=== PATIENT | male | born 1940 | race Caucasian/White ===

== ENCOUNTER 2016-07-18 11:06 | Inpatient (IN) ==
--- NOTE | 2016-07-18 11:15 | Emergency Department Note ---
Disposition Clinical Impression: Acute and chronic respiratory failure Qualifiers: Respiratory failure complication: unspecified whether with hypoxia or hypercapnia Qualified Code(s): J96.20 - Acute and chronic respiratory failure, unspecified whether with hypoxia or hypercapnia Atrial fibrillation Qualifiers: Atrial fibrillation type: unspecified Qualified Code(s): I48.91 - Unspecified atrial fibrillation Disposition: Admitted As Inpatient Condition: Critical Referrals: Jose Lorenz DO [Primary Care Provider] - Forms: ED Satisfaction Letter Time of Disposition: 15:03 SOB HPI - General Chief Complaint: ED Shortness of Breath/Dyspnea Stated Complaint: RONALD Time Seen by Provider: 07/18/16 11:14 Nursing Notes Reviewed: Yes Vital Signs Reviewed: Yes - History of Present Illness Mr. Reyes, a 76yo male, presents from oncology office with chief complaint of dyspnea. Onset one week ago continuous; not progressive and not improved. Patient uses no supplemental oxygen at baseline. He has been using his 's home on oxygen and nebulizer therapies without improvement. Hx previous remote DVT. 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 Last chemotherapy was approximately 8 weeks ago. Oncologist: ROS: Patient denies fever, chills, nausea, vomiting, unusual cough, unusual weakness. - Related Data Home Medications Medication Instructions Recorded Confirmed Albuterol Sulfate [Albuterol 2 puff IH Q4HR PRN 08/07/15 07/18/16 Inhaler] Budesonide/Formoterol 160/4.5 2 puff IH BIDR 08/07/15 07/18/16 [Symbicort 160/4.5] Nitroglycerin [Nitrostat] 0.4 mg SL Q5M PRN 08/07/15 07/18/16 Rivaroxaban [Xarelto] 15 mg PO Q48H 08/07/15 07/18/16 Fluticasone Propionate Nasal 2 spray NS PRN PRN 10/25/15 07/18/16 [Flonase] Naproxen Sodium [Aleve] 220 mg PO PRN PRN 10/25/15 07/18/16 Magic Mouthwash 10 ml PO TID PRN 07/18/16 07/18/16 Oxycodone HCl/Acetaminophen 1 tab PO Q6H PRN 07/18/16 07/18/16 [Percocet 5-325 mg Tablet] Previous Rx's Medication Instructions Recorded Lidocaine/Prilocaine CREAM [Emla] 5 gm TP AD #1 tube 09/10/15 Omeprazole [PriLOSEC] 20 mg PO DAILY #90 capsule 09/10/15 Ondansetron [Zofran] 8 mg PO Q8HR PRN #90 tablet 09/10/15 Prochlorperazine Maleate 10 mg PO Q6HR PRN #90 tablet 09/10/15 [Compazine] amLODIPine [Norvasc] 10 mg PO DAILY #60 tablet 01/09/16 Loperamide [Imodium] 2 mg PO AD PRN #60 capsule 05/01/16 Magnesium Oxide [Magnesium] 400 mg PO BID #60 tablet 06/02/16 Ferrous Sulfate [Iron] 325 mg PO BID #60 tablet 06/09/16 Megestrol Acetate [Megace] 10 ml PO BID #400 mls 06/12/16 Cyanocobalamin (B-12) [Vitamin B12] 1,000 mcg PO DAILY #90 tablet 07/04/16 L. Acidophilus/Pectin, [place] 1 cap PO DAILY #30 capsule 07/04/16 [Acidophilus Probiotic Capsule] LORazepam [Ativan] 0.5 mg PO Q6H PRN #90 tablet 07/04/16 Lipase/Protease/Amylase [[place] 1 each PO TIDWM #90 capsule. 07/04/16 10,500 Unit Cap] Allergies Allergy/AdvReac Type Severity Reaction Status Date / Time Penicillins Allergy Severe Swelling Verified 05/29/16 09:59 of Lip/Tongue/Throat All systems ED: reviewed and negative except as stated. Past Medical History - Past Medical History Medical history: Reports: atrial fibrillation, COPD, coronary artery disease, DVT, diabetes, hyperlipidemia, hypertension Surgical history: Reports: carotid endarterectomy, cholecystectomy, coronary bypass (CABG) Psychiatric history: Reports: anxiety, depression - Social History Smoking Status: Current every day smoker Smokeless Tobacco Status: No Alcohol use: Reports: occasionally, recent Drug use: Reports: none Physical Exam Vital signs reviewed. Patient afebrile, tachypneic, tachycardic, and not hypoxic on some oxygen. General: Patient is alert, oriented, and in mild respiratory distress. Cachectic in appearance. HEENT: No facial asymmetry. Head is normocephalic and atraumatic. Nasal turbinates moist and pink. Posterior pharynx without exudates or cobblestoning. Trachea midline. Cardiovascular: Heart regular rate and tachycardic rhythm without clicks, rubs, gallops, or murmurs. No JVD. PMI nondisplaced. Respiratory: Symmetric chest rise with poor respiratory effort with prolonged expiration phase. Bilateral breath sounds are coarse with diffuse crackles. Abdomen: Scaphoid. Bowel sounds present normoactive x-4 quadrants. Abdomen is soft, nondistended, and nontender. Large subxiphoid hernia which is reviewed reducible and nonpainful. Psych: Patient's affect is appropriate for situation. Course Course Narrative: Patient has known history of lung cancer with clinically acute worsening of his dyspnea. Concern includes PE. WELLS 2.5 PERC 2 Will draw d-dimer. Chest x-ray unremarkable for acute changes. Chest X-Ray 07/18/16 11:25 IMPRESSION: 1. No significant change in the appearance of the chest with a right lower lobe mass. No acute abnormality. D/ / Buddy Alvarez MD / Buddy Alvarez MD Interpreting Provider: Buddy Alvarez MD Lab work does show mild leukocytosis however this could be stress response given the patient's dyspnea. Also mild hyponatremia. Of concern, is elevated d-dimer greater than 1700. Concern for pulmonary embolism. CTA ordered. BUN/creatinine are normal. CTA negative for PE. Suspected bronchopulmonary occlusion. Chest X-Ray 07/18/16 11:25 IMPRESSION: 1. No significant change in the appearance of the chest with a right lower lobe mass. No acute abnormality. D/ / Buddy Alvarez MD / Buddy Alvarez MD Interpreting Provider: Buddy Alvarez MD Chest CTA 07/18/16 12:38 IMPRESSION: 1. No acute pulmonary emboli. 2. Progressive right lower lobe atelectasis with essentially stable though partially obscured right lower lobe mass with bronchial occlusion. 3. Mild interval progression of subcarinal lymphadenopathy. 4. New right middle lobe densities which may represent possible bronchiolitis or post treatment vasculitis. 5. Stable bilateral pleural effusions. D/ / 07/18/2016 13:59:50 William Sanchez MD / ayesha Interpreting Provider: William Sanchez MD [address] Restrepo who agrees to accept the patient - acute on chronic respiratory failure, atrial fibrillation. Vital Signs Temperature 97.6 F 07/18/16 11:07 Pulse Rate 104 07/18/16 11:07 Respiratory Rate 24 07/18/16 11:07 Blood Pressure 149/78 07/18/16 11:07 O2 Sat by Pulse Oximetry 100 07/18/16 11:07 Temperature 97.6 F 07/18/16 11:07 Pulse Rate 118 07/18/16 14:46 Respiratory Rate 18 07/18/16 14:46 Blood Pressure 101/77 07/18/16 14:46 O2 Sat by Pulse Oximetry 96 07/18/16 14:46 Oxygen Delivery Oxygen Delivery Nasal Cannula Shortness of Breath/Dyspnea - Medical Records Medical records reviewed: Yes I reviewed the patient's medical records. - Lab Data Lab results reviewed: Yes I reviewed the patient's lab results. Result diagrams: 07/18/16 11:26 07/18/16 11:26 Lab Results 07/18/16 07/18/16 07/18/16 Range/Units 11:26 11:26 11:26 WBC 13.3 H (4.3-11.1) K/mcL RBC 3.98 L (4.19-5.50) M/mcL Hgb 11.7 L (12.9-16.9) g/dL Hct 35.1 L (37.5-50.1) % MCV 88.2 (83.0-100.0) fL MCH 29.4 (28.0-33.3) pg MCHC 33.3 (31.6-35.5) g/dL RDW 14.5 (11.5-14.5) % Plt Count 351 (140-400) K/mcL MPV 10.0 (9.4-12.4) fL Immature Gran % 0.5 (0-4) % Seg Neutrophils % 71.8 % Lymphocytes % 12.5 % Monocytes % 9.7 % Eosinophils % 5.0 % Basophils % 0.5 % Neutrophils # 9.5 H (1.6-8.9) K/mcL Lymphocytes # 1.7 (0.6-4.6) K/mcL Monocytes # 1.3 (0.0-1.3) K/mcL Eosinophils # 0.7 H (0.0-0.6) K/mcL Basophils # 0.1 (0.0-0.2) K/mcL D-Dimer (0-500) ng/mLFEU VBG pH (7.32-7.42) pH Units VBG pCO2 (41-51) mmHg VBG pO2 (25-40) mmHg VBG HCO3 (21-27) mEq/L Sodium 133 L (136-145) mEq/L Potassium 3.7 (3.5-4.5) mEq/L Chloride 104 (98-109) mEq/L Carbon Dioxide 14 L (19-29) mEq/L BUN 24 (8-26) mg/dL Creatinine 0.99 (0.72-1.25) mg/dL Est GFR ( Amer) > 60 (> 60) Est GFR (Non-Af Amer) > 60 (> 60) BUN/Creatinine Ratio 24 (6-26) Glucose 98 (70-99) mg/dL Calculated Osmolality 280 (280-300) Calcium 9.0 (8.6-10.8) mg/dL Troponin I 0.01 (0-0.03) ng/mL B-Natriuretic Peptide (0-100) pg/mL 07/18/16 07/18/16 07/18/16 Range/Units 11:26 11:26 12:15 WBC (4.3-11.1) K/mcL RBC (4.19-5.50) M/mcL Hgb (12.9-16.9) g/dL Hct (37.5-50.1) % MCV (83.0-100.0) fL MCH (28.0-33.3) pg MCHC (31.6-35.5) g/dL RDW (11.5-14.5) % Plt Count (140-400) K/mcL MPV (9.4-12.4) fL Immature Gran % (0-4) % Seg Neutrophils % % Lymphocytes % % Monocytes % % Eosinophils % % Basophils % % Neutrophils # (1.6-8.9) K/mcL Lymphocytes # (0.6-4.6) K/mcL Monocytes # (0.0-1.3) K/mcL Eosinophils # (0.0-0.6) K/mcL Basophils # (0.0-0.2) K/mcL D-Dimer 1781 H (0-500) ng/mLFEU VBG pH 7.27 L (7.32-7.42) pH Units VBG pCO2 38 L (41-51) mmHg VBG pO2 50 H (25-40) mmHg VBG HCO3 17.4 L (21-27) mEq/L Sodium (136-145) mEq/L Potassium (3.5-4.5) mEq/L Chloride (98-109) mEq/L Carbon Dioxide (19-29) mEq/L BUN (8-26) mg/dL Creatinine (0.72-1.25) mg/dL Est GFR ( Amer) (> 60) Est GFR (Non-Af Amer) (> 60) BUN/Creatinine Ratio (6-26) Glucose (70-99) mg/dL Calculated Osmolality (280-300) Calcium (8.6-10.8) mg/dL Troponin I (0-0.03) ng/mL B-Natriuretic Peptide 178 H (0-100) pg/mL - Radiology Data Radiology results reviewed: Yes I reviewed the patient's radiology results. - EKG Data EKG attestation: Yes I reviewed and interpreted this EKG. EKG results narrative: EKG dated 07/18/16 at 11:08 interpreted as A. fib with RVR with rate of 108. Right bundle branch block. Compared to previous dated 07/31/2015 which is normal sinus rhythm shows new onset A. fib.
[2016-07-18] MEDS ORDERED: Ipratropium/Albuterol Neb 3 ML IH ONE (11:27)
[2016-07-18 11:41] LABS: Basophils # 0.1 K/mcL (0.0-0.2); Basophils % 0.5 %; Eosinophils # 0.7 K/mcL (0.0-0.6); Hematocrit 35.1 % (37.5-50.1); Hemoglobin 11.7 g/dL (12.9-16.9); Immature Granulocytes % 0.5 % (0-4); Lymphocytes # 1.7 K/mcL (0.6-4.6); Lymphocytes % 12.5 %; Mean Corpuscular HGB Conc 33.3 g/dL (31.6-35.5); Mean Corpuscular Hemoglobin 29.4 pg (28.0-33.3); Mean Corpuscular Volume 88.2 fL (83.0-100.0); Monocytes # 1.3 K/mcL (0.0-1.3); Monocytes % 9.7 %; Neutrophils # 9.5 K/mcL (1.6-8.9); Platelet Count 351 K/mcL (140-400); Red Blood Count 3.98 M/mcL (4.19-5.50); Red Cell Distribution Width 14.5 % (11.5-14.5); Segmented Neutrophils % 71.8 %
[2016-07-18 11:53] LABS: BUN/Creatinine Ratio 24 (6-26); Blood Urea Nitrogen 24 mg/dL (8-26); Carbon Dioxide 14 mEq/L (19-29); Chloride 104 mEq/L (98-109); Glucose 98 mg/dL (70-99); Osmolality,Calculated 280 (280-300); Potassium 3.7 mEq/L (3.5-4.5); Sodium 133 mEq/L (136-145); eGFR For African Americans > 60 (> 60); eGFR For Non-African Americans > 60 (> 60)
[2016-07-18 12:23] LABS: VBG HCO3 17.4 mEq/L (21-27); VBG PH 7.27 pH Units (7.32-7.42)
--- NOTE | 2016-07-18 12:46 | Emergency Department Note ---
START Narrative - START START: I examined this patient and my medical decision-making was reviewed with the BALER OPERATOR/PA/Advanced Practice Nurse/Resident Physician. I agree with the documented findings, disposition and treatment plan as described except to the extent set forth below. ED attending: Patient's emergency medicine resident Dr. Salazar. Please see copy of this note for H&P evaluation and management and ED disposition. We both had independent [id number] time in contact with this patient. Briefly: A 76-year-old male by EMS from [place] for increased dyspnea one week worse today. Being treated for lung cancer. Dr. COLUNGA is the patient's oncologist. History of DVT in the distant past. WELL'S score is 4.2 which is moderate risk. Patient's D-dimer is over 1700;markedly elevated concerning for possible pulmonary embolism. Patient is TACHYPNEIC, tachycardic but normotensive. Patient to get a chest CT and then likely admitted even if the chest CT is negative. EKG shows sinus tachycardia troponin negative provided 45 minutes of critical care service this patient. Disposition pending.
[2016-07-18] MEDS: *HR* Metoprolol 5 MG/5 ML VIAL IVP SCH (15:18)
[2016-07-18] MEDS ORDERED: Ondansetron 4 MG/2 ML VIAL IVP PRN (16:55)
[2016-07-18] MEDS ORDERED: Naloxone 0.4 MG/ML INJ IVP PRN (16:55)
[2016-07-18] MEDS ORDERED: Acetaminophen 325 MG TABLET PO PRN (16:55)
[2016-07-18] MEDS ORDERED: Nitroglycerin 0.4 MG TAB.SUBL SL PRN (17:03)
[2016-07-18] MEDS ORDERED: Magic Mouthwash 10 ML UD Cup PO PRN (17:03)
[2016-07-18] MEDS ORDERED: *HR* LORazepam 0.5 MG TABLET PO PRN (17:03)
[2016-07-18] MEDS ORDERED: *HR* HYDROcodone/Acet 5/325 mg TABLET PO PRN (17:26)
--- NOTE | 2016-07-18 17:41 | Internal Med History&Physical ---
Date of Encounter: 07/18/16 Time of Encounter: 16:00 Assessment and Plan (1) Acute and chronic respiratory failure Current visit: Yes Status: Acute 1 patient has history of COPD as well as squamous cell carcinoma of the lung. He is not on any home oxygen he has grown increasingly short of breath over the past week. We will continue with oxygen titrating maintain SPO2 greater than 92 % 2 continue with DuoNeb's as needed 3 we will consult pulmonology-order has been placed dayshift will follow-up with call-unsure how aggressive patient would still be concerning treatment [address] reveals some r middle lobe densities he does not have any fever or leukocytosis we will monitor for now, hold off on ATB Qualifiers: Respiratory failure complication: hypoxia Qualified Code(s): J96.21 - Acute and chronic respiratory failure with hypoxia (2) Atrial fibrillation Current visit: Yes Status: Acute 1 patient has history of atrial fibrillation who presented today in A. fib RVR- suspect related to hypoxia-he was given IV Lopressor which did bring down his rate. 2 we will continue with his xarelto Qualifiers: Atrial fibrillation type: unspecified Qualified Code(s): I48.91 - Unspecified atrial fibrillation (3) COPD (chronic obstructive pulmonary disease) Current visit: No Status: Chronic 1 continue with oxygen as well as bronchodilators Qualifiers: COPD type: unspecified COPD Qualified Code(s): J44.9 - Chronic obstructive pulmonary disease, unspecified (4) Primary squamous cell carcinoma of right lung Current visit: No Status: Chronic 1 patient's receiving chemotherapy last treatment was 8 weeks ago. We will consult oncology 2 we did discuss CODE STATUS the patient wants to be DNR CCA no intubation 3 consult pallative (5) DVT prophylaxis Current visit: Yes Status: Acute on xarelto Internal Medicine - H&P: HPI Chief complaint: Shortness of breath Admitted From: Emergency Dept Plans for Post Hospital Care: Home History of present illness: Mr. Reyes is a 76 year old male past medical history of coronary disease with CABG 2 hypertension history of DVT COPD peripheral vascular disease atrial fibrillation squamous cell carcinoma of the lung. According to the patient he has been receiving chemotherapy for right-sided lung cancer. His last chemotherapy treatment was approximately 8 weeks ago. His oncologist is . He does not use any oxygen at home. For the past week he is growing increasingly short of breath. He denies any fevers or chills he does have a cough which is nonproductive. He continues to smoke however he states he has not been able to smoke due to shortness of breath. He has lost approximately 10 pounds in last few weeks He presented to his oncologist today for routine follow-up and was advised to go to the emergency department. According to ER records he was treated As well as tachycardic on presentation EKG. To be atrial fibrillation he was given IV Lopressor which did saw him down. He was placed on 4 L nasal cannula oxygen saturation improved to 99%. Patient does have past history DVT in history of cancer or CTA was performed which did show no acute pulmonary emboli progressive right lower lobe atelectasis with essentially stable though partially obscured right lower lobe mass with bronchial occlusion Right middle lobe densities which may represent possible bronchiolitis or possible treatment vasculitis stable bilateral pleural effusions. Patient was given breathing treatments respiratory status improved. He has been admitted for further workup and evaluation. Presently patient does not appear to be any respiratory distress he denies any chest pain at this time. During assessment patient does develop conversational dyspnea does admit to orthopnea. He states he feels like he coughs and cannot get anything up. His lung sounds scattered rhonchi and wheezes throughout arcos he has a moist nonproductive cough. Heart sounds S1-S2 irregular rate no rubs gallops or murmur clicks noted. Patient and I did have a discussion concerning CODE STATUS as well as end-of-life. Patient states he would like to be a DNR comfort care arrest DO NOT INTUBATE. We discussed palliative care patient was agreeable. Reviewed his case with who agrees with plan Past Med Surg Social Fam HX - Past Medical History Medical history: atrial fibrillation, COPD, coronary artery disease, DVT, diabetes, hyperlipidemia, hypertension Psychiatric history: anxiety, depression - Past Surgical History Surgical History: carotid endarterectomy, cholecystectomy, coronary bypass (CABG ) - Social History Smoking Status: Current every day smoker Smokeless Tobacco Status: No Alcohol use: occasionally, recent Drug use: none - Family History Father Living Status: Age at : 90 Cause of : Prostate cancer Mother Living Status: Age at : 90 Cause of : Heart disease Internal Medicine - H&P: Meds Albuterol Sulfate [Albuterol Inhaler] 2 puff IH Q4HR PRN 08/07/15 [History] Budesonide/Formoterol 160/4.5 [Symbicort 160/4.5] 2 puff IH BIDR 08/07/15 [ History] Nitroglycerin [Nitrostat] 0.4 mg SL Q5M PRN 08/07/15 [History] Rivaroxaban [Xarelto] 15 mg PO Q48H 08/07/15 [History] Lidocaine/Prilocaine CREAM [Emla] 5 gm TP AD #1 tube 09/10/15 [Rx] Omeprazole [PriLOSEC] 20 mg PO DAILY #90 capsule 09/10/15 [Rx] Ondansetron [Zofran] 8 mg PO Q8HR PRN #90 tablet 09/10/15 [Rx] Prochlorperazine Maleate [Compazine] 10 mg PO Q6HR PRN #90 tablet 09/10/15 [Rx] Fluticasone Propionate Nasal [Flonase] 2 spray NS PRN PRN 10/25/15 [History] Naproxen Sodium [Aleve] 220 mg PO PRN PRN 10/25/15 [History] amLODIPine [Norvasc] 10 mg PO DAILY #60 tablet 01/09/16 [Rx] Loperamide [Imodium] 2 mg PO AD PRN #60 capsule 05/01/16 [Rx] Magnesium Oxide [Magnesium] 400 mg PO BID #60 tablet 06/02/16 [Rx] Ferrous Sulfate [Iron] 325 mg PO BID #60 tablet 06/09/16 [Rx] Megestrol Acetate [Megace] 10 ml PO BID #400 mls 06/12/16 [Rx] Cyanocobalamin (B-12) [Vitamin B12] 1,000 mcg PO DAILY #90 tablet 07/04/16 [Rx] L. Acidophilus/Pectin, [place] [Acidophilus Probiotic Capsule] 1 cap PO DAILY # 30 capsule 07/04/16 [Rx] LORazepam [Ativan] 0.5 mg PO Q6H PRN #90 tablet 07/04/16 [Rx] Lipase/Protease/Amylase [[place] 10,500 Unit Cap] 1 each PO TIDWM #90 gagandeep. 07/04/16 [Rx] Magic Mouthwash 10 ml PO TID PRN 07/18/16 [History] Oxycodone HCl/Acetaminophen [Percocet 5-325 mg Tablet] 1 tab PO Q6H PRN [History] Allergies Penicillins Allergy (Severe, Verified 05/29/16 09:59) Swelling of Lip/Tongue/Throat All Systems PM: A 10-system review of systems was performed and is negative for pertinent findings except as documented above in the HPI. - Constitutional Constitutional: anorexia, fatigue, weakness, weight loss - EENT Eyes: no change in vision, no discharge, no pain, no photophobia Nose, mouth and throat: no dysphagia, no nasal discharge, no neck pain, no sore throat - Cardiovascular Cardiovascular ROS IM: dyspnea, orthopnea - Respiratory Respiratory: cough, dyspnea - Gastrointestinal Gastrointestinal: diarrhea, no abdominal pain, no hematemesis, no hematochezia, no melena, no nausea, no vomiting - Musculoskeletal Musculoskeletal ROS IM: no numbness, no tingling - Neurological Neurological ROS: no confusion, no convulsions, no focal weakness, no numbness, no tingling, no tremor(s) - Constitutional Vitals: Temp Pulse Resp BP Pulse Ox 97.6 F 92 16 145/73 98 07/18/16 16:06 07/18/16 15:19 07/18/16 16:43 07/18/16 16:43 07/18/16 16:43 General appearance: Present: cachectic, A&O X 3 - Head Head exam: Present: atraumatic, normocephalic - Eye Eye exam: Present: PERRL, conjuntiva pink, sclera anicteric Pupils: Present: PERRL - Neck Neck exam general surgery: Present: supple, trachea midline. Absent: lymphadenopathy - Respiratory Respiratory exam: Present: rhonchi, wheezes - Cardiovascular Cardiovascular exam: Present: RRR, +S1, +S2. Absent: diastolic murmur, gallop, rubs, systolic murmur - GI/Abdominal GI/Abdominal exam: Present: normal bowel sounds, soft, no peritoneal signs. Absent: distended, tenderness - Extremities Exam Extremities exam: Present: warm, radial pulses palpable and symetrical. Absent : calf tenderness, cyanotic, pedal edema - Neurological Exam Neurological exam: Present: CN II-XII intact, oriented X3, no focal deficits. Absent: pronater drift, facial droop, speech deficit - Skin Skin exam: Present: dry, intact Internal Med - H&P Results - Labs CBC & Chem 7: 07/18/16 11:26 07/18/16 11:26 - Diagnostic Studies Other Images Additional comments: Chest X-Ray 07/18/16 11:25 IMPRESSION: 1. No significant change in the appearance of the chest with a right lower lobe mass. No acute abnormality. D/ / Buddy Alvarez MD / Buddy Alvarez MD Interpreting Provider: Buddy Alvarez MD Chest CTA 07/18/16 12:38 IMPRESSION: 1. No acute pulmonary emboli. 2. Progressive right lower lobe atelectasis with essentially stable though partially obscured right lower lobe mass with bronchial occlusion. 3. Mild interval progression of subcarinal lymphadenopathy. 4. New right middle lobe densities which may represent possible bronchiolitis or post treatment vasculitis. 5. Stable bilateral pleural effusions. D/ / 07/18/2016 13:59:50 William Sanchez MD / ayesha Interpreting Provider: William Sanchez MD
--- NOTE | 2016-07-18 17:56 | Electrocardiograph Report ---
[address] [address] Test Date: 2016-07-18 Pat Name: Harish Reyes Department: 102 Room: 2NE17 Gender: M Managing Attorney: [facility] : 1940 Requested By: Niranjan Salazar Order Number: [id number] Reading MD: Nacho Henriquez Measurements Intervals [place] Rate: 108 P: TN: 0 QRS: 89 QRSD: 149 T: 7 QT: 392 QTc: 456 Interpretive Statements ATRIAL FIBRILLATION WITH RAPID VENTRICULAR RESPONSE RIGHT BUNDLE BRANCH BLOCK Electronically Signed On 07-18-2016 17:54:38 EDT by Nacho Henriquez
[2016-07-18] MEDS: *HR* Rivaroxaban 15 MG TABLET PO SCH (20:03)
[2016-07-18] MEDS: Magnesium Oxide 400 MG TABLET PO SCH (20:04)
[2016-07-18] MEDS: Megestrol Acetate 400 MG/10 ML UDC PO SCH (20:05)
[2016-07-18] MEDS: Budesonide/Formoterol 160/4.5 MDI IH SCH (21:41)
[2016-07-19 03:51] LABS: Basophils # 0.1 K/mcL (0.0-0.2); Basophils % 0.4 %; Eosinophils # 0.6 K/mcL (0.0-0.6); Eosinophils % 3.9 %; Hemoglobin 9.7 g/dL (12.9-16.9); Immature Granulocytes % 0.5 % (0-4); Lymphocytes # 1.1 K/mcL (0.6-4.6); Lymphocytes % 7.9 %; Mean Corpuscular HGB Conc 33.4 g/dL (31.6-35.5); Mean Corpuscular Hemoglobin 29.1 pg (28.0-33.3); Mean Corpuscular Volume 87.1 fL (83.0-100.0); Mean Platelet Volume 9.8 fL (9.4-12.4); Monocytes # 1.2 K/mcL (0.0-1.3); Monocytes % 8.1 %; Neutrophils # 11.3 K/mcL (1.6-8.9); Platelet Count 312 K/mcL (140-400); Red Blood Count 3.33 M/mcL (4.19-5.50); Red Cell Distribution Width 14.6 % (11.5-14.5); Segmented Neutrophils % 79.2 %
[2016-07-19 04:03] LABS: BUN/Creatinine Ratio 29 (6-26); Blood Urea Nitrogen 22 mg/dL (8-26); Calcium 7.3 mg/dL (8.6-10.8); Carbon Dioxide 16 mEq/L (19-29); Chloride 109 mEq/L (98-109); Glucose 99 mg/dL (70-99); Osmolality,Calculated 281 (280-300); Potassium 3.5 mEq/L (3.5-4.5); Sodium 134 mEq/L (136-145); eGFR For African Americans > 60 (> 60); eGFR For Non-African Americans > 60 (> 60)
[2016-07-19] MEDS: Budesonide/Formoterol 160/4.5 MDI IH SCH ×2 (11:34→20:38)
--- NOTE | 2016-07-19 11:44 | Palliative - Consult Note ---
Date of Encounter: 07/19/16 Time of Encounter: 11:40 - Assessment and Plan (1) Dyspnea Current Visit: Yes Status: Acute Assessment and plan: Continues with oxygen/symbicort. Awaiting pulmonology recommendation. Monitor Qualifiers: Dyspnea type: unspecified Qualified Code(s): R06.00 - Dyspnea, unspecified (2) Frequent loose stools Current Visit: Yes Status: Acute Assessment and plan: Will order Loperamide PRN as he takes at home. MOnitor Qualifiers: Diarrhea type: unspecified type Qualified Code(s): R19.7 - Diarrhea, unspecified (3) Counseling regarding advanced care planning and goals of care Current Visit: Yes Status: Acute Assessment and plan: Patient resides with , Michelle and has no supportive services at home. 2 children live locally, (daughter Isaura is EMT) and son Rebel resides in [place]. Patient verbalizes he has already discussed and changed code status to DNR/DNI. Awaiting oncology and pulmonology recommendations and treatment plan. We did discuss different options depending on decisions and recommendations made including: short term rehab, home palliative care, and home hospice if it is determined further treatment will not benefit him, or if he decides he no longer desires cancer treatment. He does not have advanced directives in place - which we also discussed and he will consider. Home oxygen was in process of being set up. Will D/W social work and follow up to ensure this is in place prior to discharge. Will re-visit tomorrow am. (4) Primary squamous cell carcinoma of right lung Current Visit: No Status: Chronic Palliative-CN HPI - Data of Consult Consult date: 07/19/16 Requesting Physician: Curtis Pryor DO Primary Care Provider: Jose Lorenz, - Consult Narrative History of present illness: Mr. Reyes is a 76 year old male with a history of squamous cell lung cancer who was admitted with increasing shortness of breath. Patient was in process of having home oxygen arranged for himself, but appears by chart review, the documentation was not sufficient and this prolonged the process. Patient states his has "stage IV COPD" and just was discharged from hospital herself. He briefly used her oxygen. He was diagnosed in June-August of 2015 and has been treated by Dr. Wood at [facility]. Most recent treatment was in April - patient developed c-diff infection with immunotherapy and has struggled with loose stools since that time. 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 Prior to cancer diagnosis , he had extensive surgery at [facility] for severe cholecystitis which left him in hospital for a month, and as a result has large anterior abdominal well incisional hernia. Cancer was found upon workup for possible hernia repair. Upon my visit, he is resting quietly, appears in no distress. Son Rebel is at bedside. He states his breathing is "about the same", but oxygen helps. States he cannot ambulate at home with becoming severly short of breath and this has worsened. He denies any pain. States appetite "not great". Has continued with loose stools since immunotherapy. Oncology and Pulmonology has been consulted and awaiting recommendations. CC: Curtis Pryor, DO Past Med Surg Social Fam HX - Past Medical History Medical history: atrial fibrillation, COPD, coronary artery disease, DVT, diabetes, hyperlipidemia, hypertension Psychiatric history: anxiety, depression - Past Surgical History Surgical History: carotid endarterectomy, cholecystectomy, coronary bypass (CABG ) - Social History Smoking Status: Current every day smoker Smokeless Tobacco Status: No Alcohol use: occasionally, recent Drug use: none - Family History Father Living Status: Age at : 90 Cause of : Prostate cancer Mother Living Status: Age at : 90 Cause of : Heart disease Medications and Allergies Albuterol Sulfate [Albuterol Inhaler] 2 puff IH Q4HR PRN 08/07/15 [History] Budesonide/Formoterol 160/4.5 [Symbicort 160/4.5] 2 puff IH BIDR 08/07/15 [ History] Nitroglycerin [Nitrostat] 0.4 mg SL Q5M PRN 08/07/15 [History] Rivaroxaban [Xarelto] 15 mg PO Q48H 08/07/15 [History] Lidocaine/Prilocaine CREAM [Emla] 5 gm TP AD #1 tube 09/10/15 [Rx] Omeprazole [PriLOSEC] 20 mg PO DAILY #90 capsule 09/10/15 [Rx] Ondansetron [Zofran] 8 mg PO Q8HR PRN #90 tablet 09/10/15 [Rx] Prochlorperazine Maleate [Compazine] 10 mg PO Q6HR PRN #90 tablet 09/10/15 [Rx] Fluticasone Propionate Nasal [Flonase] 2 spray NS PRN PRN 10/25/15 [History] Naproxen Sodium [Aleve] 220 mg PO PRN PRN 10/25/15 [History] amLODIPine [Norvasc] 10 mg PO DAILY #60 tablet 01/09/16 [Rx] Loperamide [Imodium] 2 mg PO AD PRN #60 capsule 05/01/16 [Rx] Magnesium Oxide [Magnesium] 400 mg PO BID #60 tablet 06/02/16 [Rx] Ferrous Sulfate [Iron] 325 mg PO BID #60 tablet 06/09/16 [Rx] Megestrol Acetate [Megace] 10 ml PO BID #400 mls 06/12/16 [Rx] Cyanocobalamin (B-12) [Vitamin B12] 1,000 mcg PO DAILY #90 tablet 07/04/16 [Rx] L. Acidophilus/Pectin, [place] [Acidophilus Probiotic Capsule] 1 cap PO DAILY # 30 capsule 07/04/16 [Rx] LORazepam [Ativan] 0.5 mg PO Q6H PRN #90 tablet 07/04/16 [Rx] Lipase/Protease/Amylase [Pancreaze Dr 10,500 Unit Cap] 1 each PO TIDWM #90 capsule. 07/04/16 [Rx] Magic Mouthwash 10 ml PO TID PRN 07/18/16 [History] Oxycodone HCl/Acetaminophen [Percocet 5-325 mg Tablet] 1 tab PO Q6H PRN [History] Allergies Penicillins Allergy (Severe, Verified 05/29/16 09:59) Swelling of Lip/Tongue/Throat All systems: reviewed and no additional remarkable complaints except as stated - Constitutional Constitutional ROS PAL: decreased appetite, anorexia, weight loss - Respiratory Respiratory: cough, dyspnea on exertion - Gastrointestinal Gastrointestinal: loose stools - Musculoskeletal Musculoskeletal ROS IM: muscle weakness Palliative Care-Exam - Constitutional Vitals: Temp Pulse Resp BP Pulse Ox 97.5 F L 86 16 118/99 100 07/19/16 07:20 07/19/16 07:20 07/19/16 07:20 07/19/16 07:20 07/19/16 07:20 General appearance: Present: no acute distress - Head Head Exam: Present: normal inspection, normocephalic - Eye Eye exam: Present: normal appearance, PERRL - Expanded Respiratory Exam Location: decreased breath sounds: Right, Left, Lower - Cardiovascular Cardiovascular exam: Present: +S1, +S2 - GI/Abdominal Exam GI/Abdominal exam: Present: normal bowel sounds, soft additional comments: Hernia noted - Extremities Exam Extremities exam: Present: normal capillary refill, normal inspection - Neurological Exam Neurological exam: Present: alert, oriented X3, strengths equal and symetr throughout - Psychiatric Psychiatric exam: Present: normal affect, normal mood - Skin Skin exam: Present: dry, warm Internal Medicine - CN: Reslt - Labs CBC & Chem 7: 07/19/16 03:42 07/19/16 03:42 Labs: Short CBC 07/19/16 Range/Units 03:42 WBC 14.2 H (4.3-11.1) K/mcL Hgb 9.7 L D (12.9-16.9) g/dL Hct 29.0 L (37.5-50.1) % Plt Count 312 (140-400) K/mcL Neutrophils # 11.3 H (1.6-8.9) K/mcL BMP 07/19/16 03:42 Sodium 134 L Potassium 3.5 Chloride 109 Carbon Dioxide 16 L BUN 22 Creatinine 0.76 Glucose 99 Calcium 7.3 L D Cardiac Enzymes 07/18/16 07/18/16 07/19/16 Range/Units 18:28 23:23 03:42 Troponin I 0.01 0.01 0.01 (0-0.03) ng/mL - ABG Interpretation ABG results: PT/INR, D-dimer D-Dimer 1781 ng/mLFEU (0-500) H 07/18/16 11:26 Consult Discharge Plan - Plan Referrals: Jose Lorenz DO [Primary Care Provider] - Palliative Quality Palliative Quality: Screen for Code Status: Yes, Screen for Goals of Care: Yes, Screen for Pain: Yes, If Pain Regimen Started, Initiate Bowel Regimen: NA, Screen for Nausea/Vomitting: Yes
--- NOTE | 2016-07-19 11:47 | Internal Med Progress Note ---
<Alejandro Willis - Last Filed: 07/19/16 12:06> Date of Encounter: 07/19/16 Time of Encounter: 11:37 - Assessment and plan (1) Acute and chronic respiratory failure Current Visit: Yes Status: Acute Assessment and plan: 78-year-old male with history of squamous cell carcinoma presents with chief complaint of shortness of breath of 2 weeks. Shortness of breath is progressively worse. Patient's nonproductive cough. Patient has undergone 6 cycles of chemotherapy and now is on palliative chemotherapy. Palliative chemotherapy was discontinued as he was having frequent diarrhea and positive for C. difficile in the past. Patient was started on 4 L of oxygen on admission which has been titrated down to 2 L. Patient is on oxygen at home Patient's white blood cell count is increased from 13-14. His VBG indicated a PO2 of 50 patient also had a BNP of 178. CT was negative for PE but does show worsening bilateral effusions when compared to previous CT and also suffers worsening atelectasis of right lower lobe secondary to lung cancer. Possible left lower lobe infiltrates vs atelectasis noted. Lung exam patient has diffuse wheezing with bilateral basilar rales. Continue oxygen supplementation, Symbicort, start DuoNeb's. Suspecting clinic for pneumonia, bacterial due to worsening shortness of breath , cough with elevated wbc and insetting of worsening b/l plerual effusions. Obtain blood, sputum cultures. Urine angitens Levaquin 750 mg IV 5 days. CBC and BMP tomorrow One dose lasix 20mg IV. Pulmonology consult canceled as patient unsure if he wants to undergo any procedure at this point, and pulmonology states he does not need bronchoscopy at this time. Qualifiers: Respiratory failure complication: hypoxia Qualified Code(s): J96.21 - Acute and chronic respiratory failure with hypoxia (2) Community acquired bacterial pneumonia Current Visit: Yes Status: Suspected Assessment and plan: Start patient on Levaquin. Blood cultures and sputum cultures pending. Urine antigens pending. Continue oxygen supplementation. (3) Atrial fibrillation Current Visit: Yes Status: Acute Assessment and plan: Patient presented with A. fib RVR was likely secondary to hypoxia. He was given IV Lopressor which brought his rate down to less than 100. Currently rate is controlled. Continue metoprolol Continue Xarelto. Qualifiers: Atrial fibrillation type: unspecified Qualified Code(s): I48.91 - Unspecified atrial fibrillation (4) DVT prophylaxis Current Visit: Yes Status: Acute Assessment and plan: Continue Xarelto. - Subjective Interval history: Patient is on 2L O2 satting at 100%. He states he still feels SOB. He continues to smoke but just stopped because it make his sob worse. Denies chest pain, palpitations, abdominal pain, nausea, urinary frequency, dysuria. States his diarrhea. C. difficile pending. - Constitutional Vitals: Temp Pulse Resp BP Pulse Ox 97.5 F L 86 16 118/99 100 07/19/16 07:20 07/19/16 07:20 07/19/16 07:20 07/19/16 07:20 07/19/16 07:20 General appearance: Present: cachectic, A&O X 3 - Neck Neck exam general surgery: Present: supple, trachea midline. Absent: lymphadenopathy - Respiratory Respiratory exam: Present: rales (Bilateral basilar), wheezes. Absent: accessory muscle use, chest wall tenderness, prolonged expiratory phase - Cardiovascular Cardiovascular exam: Present: irregular rhythm (Irregularly irregular) - GI/Abdominal GI/Abdominal exam: Present: normal bowel sounds, soft, no peritoneal signs. Absent: distended, tenderness - Extremities Exam Extremities exam: Present: warm, radial pulses palpable and symetrical. Absent : calf tenderness, cyanotic, pedal edema - Psychiatric Psychiatric exam: Present: normal affect, normal mood Internal Medicine: Result - Labs CBC & Chem 7: 07/19/16 03:42 07/19/16 03:42 Labs: Short CBC 07/19/16 Range/Units 03:42 WBC 14.2 H (4.3-11.1) K/mcL Hgb 9.7 L D (12.9-16.9) g/dL Hct 29.0 L (37.5-50.1) % Plt Count 312 (140-400) K/mcL Neutrophils # 11.3 H (1.6-8.9) K/mcL BMP 07/19/16 03:42 Sodium 134 L Potassium 3.5 Chloride 109 Carbon Dioxide 16 L BUN 22 Creatinine 0.76 Glucose 99 Calcium 7.3 L D Cardiac Enzymes 07/18/16 07/18/16 07/19/16 Range/Units 18:28 23:23 03:42 Troponin I 0.01 0.01 0.01 (0-0.03) ng/mL - ABG Interpretation ABG results: PT/INR, D-dimer D-Dimer 1781 ng/mLFEU (0-500) H 07/18/16 11:26 Consult Discharge Plan - Plan Referrals: Jose Lorenz DO [Primary Care Provider] - <KonstantinCurtis Kimble - Last Filed: 07/19/16 18:50> Date of Encounter: 07/19/16 - Assessment and plan (1) C. difficile diarrhea Current Visit: Yes Status: Acute Assessment and plan: Flagyl started. (2) Acute and chronic respiratory failure Current Visit: Yes Status: Acute Qualifiers: Respiratory failure complication: hypoxia Qualified Code(s): J96.21 - Acute and chronic respiratory failure with hypoxia (3) Community acquired bacterial pneumonia Current Visit: Yes Status: Suspected (4) Atrial fibrillation Current Visit: Yes Status: Acute Qualifiers: Atrial fibrillation type: chronic Qualified Code(s): I48.2 - Chronic atrial fibrillation (5) COPD (chronic obstructive pulmonary disease) Current Visit: Yes Status: Chronic Qualifiers: COPD type: unspecified COPD Qualified Code(s): J44.9 - Chronic obstructive pulmonary disease, unspecified (6) Primary squamous cell carcinoma of right lung Current Visit: Yes Status: Chronic - Constitutional Vitals: Temp Pulse Resp BP Pulse Ox 97.5 F L 105 18 117/62 98 07/19/16 15:00 07/19/16 15:00 07/19/16 15:42 07/19/16 15:00 07/19/16 15:42 Internal Medicine: Result - Labs CBC & Chem 7: 07/19/16 03:42 07/19/16 03:42 Labs: Short CBC 07/19/16 Range/Units 03:42 WBC 14.2 H (4.3-11.1) K/mcL Hgb 9.7 L D (12.9-16.9) g/dL Hct 29.0 L (37.5-50.1) % Plt Count 312 (140-400) K/mcL Neutrophils # 11.3 H (1.6-8.9) K/mcL BMP 07/19/16 03:42 Sodium 134 L Potassium 3.5 Chloride 109 Carbon Dioxide 16 L BUN 22 Creatinine 0.76 Glucose 99 Calcium 7.3 L D Cardiac Enzymes 07/18/16 07/18/16 07/19/16 Range/Units 18:28 23:23 03:42 Troponin I 0.01 0.01 0.01 (0-0.03) ng/mL - ABG Interpretation ABG results: PT/INR, D-dimer D-Dimer 1781 ng/mLFEU (0-500) H 07/18/16 11:26 - Attending Attestation I examined this patient and my medical decision-making was reviewed with the Resident Physician on 07/19/16. I agree with the documented findings, disposition and treatment plan as described except to the extent set forth below. Mr. Reyes is currently admitted for acute resp failure due to pneumonia and cancer. He is also C diff positive. He is moderate to high risk due to potential for worsening respiratory status. Mr. Reyes feels OK. He is unable to eat and wants salt. Cough is OK. C diff positive and Flagyl started. No fever. Exam Alert. Comfortable Heart reg Lungs diminished Abd soft I/P 1. C diff colitis 2. Resp failure Further diagnoses and plan as above.
[2016-07-19] MEDS ORDERED: Levofloxacin 750 MG/150 ML 750 MG/150 ML BAG IVPB SCH (12:00)
[2016-07-19] MEDS ORDERED: Furosemide 20 MG/2 ML VIAL IVP ONE (12:11)
[2016-07-19] MEDS: Megestrol Acetate 400 MG/10 ML UDC PO SCH ×2 (13:09→20:26)
[2016-07-19] MEDS: amLODIPine 5 MG TABLET PO SCH (13:09)
[2016-07-19] MEDS: Cyanocobalamin (B-12) 1,000 MCG TABLET PO SCH (13:09)
[2016-07-19] MEDS: Magnesium Oxide 400 MG TABLET PO SCH ×2 (13:09→20:26)
[2016-07-19] MEDS: AMYLASE PO SCH ×3 (13:10→17:39)
[2016-07-19] MEDS: LIPASE PO SCH ×3 (13:10→17:39)
[2016-07-19] MEDS: PROTEASE PO SCH ×3 (13:10→17:39)
[2016-07-19] MEDS: Lactobacillus 1 EACH CAP.SPRINK PO SCH (13:15)
[2016-07-19] MEDS: Ondansetron ODT 4 MG TAB.RAPDIS PO PRN ×2 (14:27→23:58)
[2016-07-19] MEDS: Ipratropium/Albuterol Neb 3 ML IH SCH ×3 (15:41→20:38)
[2016-07-19] MEDS: *HR* Metoprolol 5 MG/5 ML VIAL IVP SCH (18:50)
[2016-07-19] MEDS: MetroNIDAZOLE 500 MG/100 ML 500 MG/100 ML BAG IVPB SCH ×2 (18:50→23:59)
[2016-07-20] MEDS: Ipratropium/Albuterol Neb 3 ML IH SCH ×7 (00:09→23:02)
[2016-07-20 04:17] LABS: Hematocrit 29.3 % (37.5-50.1); Hemoglobin 9.9 g/dL (12.9-16.9); Mean Corpuscular HGB Conc 33.8 g/dL (31.6-35.5); Mean Corpuscular Hemoglobin 29.4 pg (28.0-33.3); Mean Corpuscular Volume 86.9 fL (83.0-100.0); Mean Platelet Volume 9.8 fL (9.4-12.4); Platelet Count 321 K/mcL (140-400); Red Blood Count 3.37 M/mcL (4.19-5.50); Red Cell Distribution Width 14.3 % (11.5-14.5)
[2016-07-20 04:27] LABS: BUN/Creatinine Ratio 22 (6-26); Blood Urea Nitrogen 22 mg/dL (8-26); Carbon Dioxide 21 mEq/L (19-29); Chloride 104 mEq/L (98-109); Glucose 115 mg/dL (70-99); Osmolality,Calculated 282 (280-300); Potassium 3.3 mEq/L (3.5-4.5); Sodium 134 mEq/L (136-145); eGFR For African Americans > 60 (> 60); eGFR For Non-African Americans > 60 (> 60)
[2016-07-20 04:43] LABS: Calcium 8.4 mg/dL (8.6-10.8)
[2016-07-20] MEDS: Budesonide/Formoterol 160/4.5 MDI IH SCH ×2 (08:10→19:44)
[2016-07-20] MEDS: MetroNIDAZOLE 500 MG/100 ML 500 MG/100 ML BAG IVPB SCH ×2 (09:49→16:33)
[2016-07-20] MEDS: Azithromycin 250 MG TABLET PO SCH (09:49)
[2016-07-20] MEDS: Megestrol Acetate 400 MG/10 ML UDC PO SCH ×2 (09:50→21:53)
[2016-07-20] MEDS: Magnesium Oxide 400 MG TABLET PO SCH ×2 (09:50→21:54)
[2016-07-20] MEDS: LIPASE PO SCH ×3 (09:50→16:27)
[2016-07-20] MEDS: PROTEASE PO SCH ×3 (09:50→16:27)
[2016-07-20] MEDS: Lactobacillus 1 EACH CAP.SPRINK PO SCH (09:50)
[2016-07-20] MEDS: amLODIPine 5 MG TABLET PO SCH (09:50)
[2016-07-20] MEDS: AMYLASE PO SCH ×3 (09:50→16:27)
[2016-07-20] MEDS: Cyanocobalamin (B-12) 1,000 MCG TABLET PO SCH (09:51)
--- NOTE | 2016-07-20 09:51 | Internal Med Progress Note ---
Addendum entered and electronically signed by Alejandro Willis DO 10:42: Patient Cdif + -started on flagyl. -isolation Original Note: <Alejandro Willis - Last Filed: 07/20/16 09:49> Date of Encounter: 07/20/16 Time of Encounter: 09:49 - Assessment and plan (1) Acute and chronic respiratory failure Current Visit: Yes Status: Acute Assessment and plan: 78-year-old male with history of squamous cell carcinoma presents with chief complaint of shortness of breath of 2 weeks. Shortness of breath is progressively worse. Patient's nonproductive cough. Patient has undergone 6 cycles of chemotherapy and now is on palliative chemotherapy. Palliative chemotherapy was discontinued as he was having frequent diarrhea and positive for C. difficile in the past. His VBG indicated a PO2 of 50 patient also had a BNP of 178. CT was negative for PE but does show worsening bilateral effusions when compared to previous CT and also suffers worsening atelectasis of right lower lobe secondary to lung cancer. Possible left lower lobe infiltrates vs atelectasis noted. Continues to complain of chest congestion, and difficulty coughing up sputum. O2 increased to 4L. leukocytosis resolved Suspecting clinic for pneumonia, bacterial due to worsening shortness of breath , cough with elevated wbc and insetting of worsening b/l plerual effusions. Continue oxygen supplementation, Symbicort, start DuoNeb's. Start mucinex for congestion. Blood cultures and urine antigens pending. Preliminary sputum culture negative. Patient is positive for C. difficile -Discontinue the Levaquin and start azithromycin. -Patient has severe allergy to penicillin. Qualifiers: Respiratory failure complication: hypoxia Qualified Code(s): J96.21 - Acute and chronic respiratory failure with hypoxia (2) Community acquired bacterial pneumonia Current Visit: Yes Status: Suspected Assessment and plan: d/c Levaquin and started Zithromax. Sputum culture preliminary negative. Awaiting blood cultures and urine urinary antigen Patient currently on 4 L oxygen will titrate down with SPO2 of 90%. (3) Atrial fibrillation Current Visit: Yes Status: Acute Assessment and plan: Patient presented with A. fib RVR was likely secondary to hypoxia. He was given IV Lopressor which brought his rate down to less than 100. Currently rate is controlled. Continue metoprolol Continue Xarelto. Qualifiers: Atrial fibrillation type: chronic Qualified Code(s): I48.2 - Chronic atrial fibrillation (4) DVT prophylaxis Current Visit: Yes Status: Acute Assessment and plan: Continue Xarelto. - Subjective Interval history: Patient continues to be short of breath, complains that his chest is very congested and his symptoms did improve greatly if he could break the congestion. No complaints overnight. - Constitutional Vitals: Temp Pulse Resp BP Pulse Ox 97.6 F 97 16 130/72 98 07/20/16 07:12 07/20/16 07:12 07/20/16 07:12 07/20/16 07:12 07/20/16 07:12 General appearance: Present: cachectic, A&O X 3 - Respiratory Respiratory exam: Present: accessory muscle use, decreased breath sounds (right lower lobe ), rales (left lower lobe ), wheezes (diffuse ). Absent: chest wall tenderness, tachypnea - Cardiovascular Cardiovascular exam: Present: irregular rhythm (irregular ), +S1, +S2 - GI/Abdominal GI/Abdominal exam: Present: normal bowel sounds, soft, no peritoneal signs. Absent: distended, tenderness - Extremities Exam Extremities exam: Present: warm, radial pulses palpable and symetrical. Absent : calf tenderness, cyanotic, pedal edema Internal Medicine: Result - Labs CBC & Chem 7: 07/20/16 04:00 07/20/16 04:00 Labs: Short CBC 07/20/16 Range/Units 04:00 WBC 8.9 (4.3-11.1) K/mcL Hgb 9.9 L (12.9-16.9) g/dL Hct 29.3 L (37.5-50.1) % Plt Count 321 (140-400) K/mcL [facility] 07/20/16 04:00 Sodium 134 L Potassium 3.3 L Chloride 104 Carbon Dioxide 21 BUN 22 Creatinine 1.02 Glucose 115 H Calcium 8.4 L D - ABG Interpretation ABG results: PT/INR, D-dimer D-Dimer 1781 ng/mLFEU (0-500) H 07/18/16 11:26 Consult Discharge Plan - Plan Referrals: Jose Lorenz DO [Primary Care Provider] - <Curtis Pryor - Last Filed: 07/20/16 14:29> Date of Encounter: 07/20/16 - Assessment and plan (1) C. difficile diarrhea Current Visit: Yes Status: Acute Assessment and plan: On IV Flagyl. This was present on admission. (2) Acute and chronic respiratory failure Current Visit: Yes Status: Acute Qualifiers: Respiratory failure complication: hypoxia Qualified Code(s): J96.21 - Acute and chronic respiratory failure with hypoxia (3) Community acquired bacterial pneumonia Current Visit: Yes Status: Suspected (4) Atrial fibrillation Current Visit: Yes Status: Acute Qualifiers: Atrial fibrillation type: chronic Qualified Code(s): I48.2 - Chronic atrial fibrillation (5) COPD (chronic obstructive pulmonary disease) Current Visit: Yes Status: Chronic Qualifiers: COPD type: unspecified COPD Qualified Code(s): J44.9 - Chronic obstructive pulmonary disease, unspecified (6) Primary squamous cell carcinoma of right lung Current Visit: Yes Status: Chronic (7) Hypokalemia Current Visit: Yes Status: Acute Assessment and plan: Replace - Constitutional Vitals: Temp Pulse Resp BP Pulse Ox 97.9 F 97 18 117/64 96 07/20/16 12:15 07/20/16 12:15 07/20/16 12:15 07/20/16 12:15 07/20/16 12:15 Internal Medicine: Result - Labs CBC & Chem 7: 07/20/16 04:00 07/20/16 04:00 Labs: Short CBC 07/20/16 Range/Units 04:00 WBC 8.9 (4.3-11.1) K/mcL Hgb 9.9 L (12.9-16.9) g/dL Hct 29.3 L (37.5-50.1) % Plt Count 321 (140-400) K/mcL BMP 07/20/16 04:00 Sodium 134 L Potassium 3.3 L Chloride 104 Carbon Dioxide 21 BUN 22 Creatinine 1.02 Glucose 115 H Calcium 8.4 L D - ABG Interpretation ABG results: PT/INR, D-dimer D-Dimer 1781 ng/mLFEU (0-500) H 07/18/16 11:26 - Attending Attestation I examined this patient and my medical decision-making was reviewed with the Resident Physician on 07/20/16. I agree with the documented findings, disposition and treatment plan as described except to the extent set forth below. Mr. Reyes is currently admitted for acute hypoxic resp failure with presumptive pneumonia. He has a hx of lung cancer. He is moderate to high risk due to potential for worsening respiratory status. Mr. Reyes feels "OK" today. His abdomen feels OK but he is still quite dyspneic. No fever or chills. No CP. Stool better - not as loose. Exam Alert. Comfortable Heart reg Decreased breath sounds with wheeze and rhonchi heard R greater than L Abd soft and nontender I/P 1. Hypoxic resp failure 2. PNA 3. C diff - present on admit 4. Lung cancer Further diagnoses and plan as above.
--- NOTE | 2016-07-20 10:09 | Oncology Inp Progress Note ---
Date of Encounter: 07/20/16 Time of Encounter: 09:00 (1) Community acquired bacterial pneumonia Current Visit: Yes Status: Suspected Assessment and plan: Patient with history of squamous cell carcinoma of the lung, recent treatment held due to performance status and repeated episodes off for diarrhea and stool test positive for C. difficile, patient currently denies any diarrhea. Hospitalized due to shortness of breath and on Z-Kiko for pneumonia. Right middle lobe changes consistent with the possible bronchiolitis. No significant effusion that needs to be drained. COPD treated with steroids/ meds. Labs mild anemia. Continue supportive treatment. Rehab/palliative care as patient decides Recently seen his oncologist in clinic and treatment was deferred due to performance status nad symptoms. Oncology: Subj Interval history: Looks comfortable, on O2 NC. SOB, congested not bringing out phlegm. No diarrhea - Constitutional Vitals: Vital Signs Temp Pulse Resp BP Pulse Ox 07/20/16 07:12 97.6 F 97 16 130/72 98 07/20/16 04:34 17 98 07/20/16 00:09 17 97 07/20/16 00:00 97.8 F 100 18 118/74 98 07/19/16 20:38 16 95 07/19/16 19:00 97.8 F 88 20 113/76 99 07/19/16 15:42 18 98 07/19/16 15:00 97.5 F L 105 17 117/62 95 07/19/16 12:49 100 07/19/16 11:34 18 99 Intake and Output 07/19/16 07/20/16 07/20/16 23:59 07:59 15:59 Intake Total 100 / 100 100 / 100 360 / 360 Balance 100 / 100 100 / 100 360 / 360 Intake: IV Fluids 100 / 100 100 / 100 Flagyl Premix 500 MG/100 100 / 100 100 / 100 ML 500 mg In 100 ml @ 100 mls/hr IVPB Q8HR [facility] Rx# :[id number] Oral 360 / 360 Other: Meal Breakfast Percent of Meal Consumed 95% Stool Size Large Stool Consistency loose Stool Color Brown Weight 60.9 kg Patient Weight 07/20/16 23:59 Weight 60.9 kg General appearance: average body habitus - Head Head exam: Present: atraumatic, normal inspection - Eye Eye exam: Present: sclera anicteric - ENT Additional comments: O2 NC - Respiratory Additional comments: [place] ae occ rhonchi - Cardiovascular Cardiovascular exam: Present: +S1, +S2, systolic murmur - GI/Abdominal GI/Abdominal exam: Present: normal bowel sounds, soft - Extremities Exam Extremities exam: Present: normal inspection - Neurological Exam Neurological exam: Present: alert, oriented X3 - Psychiatric Psychiatric exam: Present: normal mood Oncology: Obj Data - Labs CBC & Chem 7: 07/20/16 04:00 07/20/16 04:00 Labs: Laboratory Results - last 24 hr 07/19/16 07/20/16 07/20/16 03:50 04:00 04:00 WBC 8.9 RBC 3.37 L Hgb 9.9 L Hct 29.3 L MCV 86.9 MCH 29.4 MCHC 33.8 RDW 14.3 Plt Count 321 MPV 9.8 Sodium 134 L Potassium 3.3 L Chloride 104 Carbon Dioxide 21 BUN 22 Creatinine 1.02 Est GFR ( Amer) > 60 Est GFR (Non-Af Amer) > 60 BUN/Creatinine Ratio 22 Glucose 115 H Calculated Osmolality 282 Calcium 8.4 L D Stl C. diff Tox B Gene Positive - ABG Interpretation ABG results: PT/INR, D-dimer D-Dimer 1781 ng/mLFEU (0-500) H 07/18/16 11:26 Consult Discharge Plan - Plan Referrals: Jose Lorenz DO [Primary Care Provider] -
--- NOTE | 2016-07-20 12:04 | Palliative Progress Note ---
Date of Encounter: 07/20/16 Time of Encounter: 11:35 - Assessment and plan (1) Dyspnea Current Visit: Yes Status: Acute Assessment and plan: Continues with supportive oxygen/symbicort/duonebs/guaifenesen. Monitor. Qualifiers: Dyspnea type: unspecified Qualified Code(s): R06.00 - Dyspnea, unspecified (2) Frequent loose stools Current Visit: Yes Status: Acute Assessment and plan: C-Diff +. Has been started on Flagyl. Monitor Qualifiers: Diarrhea type: unspecified type Qualified Code(s): R19.7 - Diarrhea, unspecified (3) Counseling regarding advanced care planning and goals of care Current Visit: Yes Status: Acute Assessment and plan: Long discussion with daughter at bedside re: goals of care. Patient is rather stoic and does not say much re: what he does and does not want done. Daughter expressed some frustration with this. She inquired about hospice and we discussed at length, also discussed home health and rehab, but pt desires to go home. Daughter has mandatory education for her work tomorrow and not likely back until . However, she stated that they would discuss d/c plan and further discuss hospice care. States she is also pursuing hospice care for pt , who has end stage COPD. Continue to follow. DNR/DNI - state form signed by pt and copies provided to daughter. (4) Primary squamous cell carcinoma of right lung Current Visit: Yes Status: Chronic - Time Spent With Patient Total time spent is greater than 50% in coordination of care (as documented) at patient's floor/unit and/or counseling patient: - Subjective Interval history: Patient awake and alert. Daughter Awilda at bedside. Patient states "feeling ok". + C-diff yesterday. STates had 3 loose stools yesterday but none today as of yet. States breathing "about the same". Ate almost all of breakfast this am. - Constitutional Vitals: Abnormal lab results RBC 3.37 M/mcL (4.19-5.50) L 07/20/16 04:00 Hgb 9.9 g/dL (12.9-16.9) L 07/20/16 04:00 Hct 29.3 % (37.5-50.1) L 07/20/16 04:00 Neutrophils # 11.3 K/mcL (1.6-8.9) H 07/19/16 03:42 D-Dimer 1781 ng/mLFEU (0-500) H 07/18/16 11:26 VBG pH 7.27 pH Units (7.32-7.42) L 07/18/16 12:15 VBG pCO2 38 mmHg (41-51) L 07/18/16 12:15 VBG pO2 50 mmHg (25-40) H 07/18/16 12:15 VBG HCO3 17.4 mEq/L (21-27) L 07/18/16 12:15 Sodium 134 mEq/L (136-145) L 07/20/16 04:00 Potassium 3.3 mEq/L (3.5-4.5) L 07/20/16 04:00 Glucose 115 mg/dL (70-99) H 07/20/16 04:00 Calcium 8.4 mg/dL (8.6-10.8) L D 07/20/16 04:00 B-Natriuretic Peptide 178 pg/mL (0-100) H 07/18/16 11:26 General appearance: Present: no acute distress - Respiratory Respiratory exam: Present: decreased breath sounds, CTAB - Cardiovascular Cardiovascular exam: Present: irregular rhythm - GI/Abdominal GI/Abdominal exam: Present: normal bowel sounds, soft - Extremities Exam Extremities exam: Present: normal capillary refill, normal inspection - Neurological Exam Neurological exam: Present: alert, oriented X3, strengths equal and symetr throughout - Skin Skin exam: Present: dry, pallor, warm Palliative Quality Palliative Quality: Screen for Code Status: Yes, Screen for Goals of Care: Yes, Screen for Pain: Yes, If Pain Regimen Started, Initiate Bowel Regimen: NA, Screen for Nausea/Vomitting: Yes - Labs CBC & Chem 7: 07/20/16 04:00 07/20/16 04:00 Labs: Laboratory Results - last 24 hr 07/19/16 07/20/16 07/20/16 03:50 04:00 04:00 WBC 8.9 RBC 3.37 L Hgb 9.9 L Hct 29.3 L MCV 86.9 MCH 29.4 MCHC 33.8 RDW 14.3 Plt Count 321 MPV 9.8 Sodium 134 L Potassium 3.3 L Chloride 104 Carbon Dioxide 21 BUN 22 Creatinine 1.02 Est GFR ( Amer) > 60 Est GFR (Non-Af Amer) > 60 BUN/Creatinine Ratio 22 Glucose 115 H Calculated Osmolality 282 Calcium 8.4 L D Stl C. diff Tox B Gene Positive - ABG Interpretation ABG results: PT/INR, D-dimer D-Dimer 1781 ng/mLFEU (0-500) H 07/18/16 11:26 Consult Discharge Plan - Plan Referrals: Jose Lorenz DO [Primary Care Provider] -
[2016-07-20] MEDS: *HR* Metoprolol 5 MG/5 ML VIAL IVP SCH (16:34)
[2016-07-20] MEDS: *HR* Rivaroxaban 15 MG TABLET PO SCH (16:34)
[2016-07-21] MEDS: MetroNIDAZOLE 500 MG/100 ML 500 MG/100 ML BAG IVPB SCH ×2 (00:36→08:37)
[2016-07-21] MEDS: Ipratropium/Albuterol Neb 3 ML IH SCH ×5 (03:09→20:41)
[2016-07-21 04:53] LABS: Basophils % 0.6 %; Eosinophils # 0.3 K/mcL (0.0-0.6); Eosinophils % 4.7 %; Hemoglobin 9.4 g/dL (12.9-16.9); Immature Granulocytes % 0.6 % (0-4); Lymphocytes # 1.1 K/mcL (0.6-4.6); Lymphocytes % 15.6 %; Mean Corpuscular HGB Conc 33.6 g/dL (31.6-35.5); Mean Corpuscular Volume 86.4 fL (83.0-100.0); Mean Platelet Volume 9.9 fL (9.4-12.4); Monocytes # 0.9 K/mcL (0.0-1.3); Monocytes % 13.4 %; Neutrophils # 4.5 K/mcL (1.6-8.9); Platelet Count 298 K/mcL (140-400); Red Blood Count 3.24 M/mcL (4.19-5.50); Red Cell Distribution Width 14.6 % (11.5-14.5); Segmented Neutrophils % 65.1 %
[2016-07-21 04:56] LABS: BUN/Creatinine Ratio 18 (6-26); Blood Urea Nitrogen 16 mg/dL (8-26); Calcium 8.5 mg/dL (8.6-10.8); Carbon Dioxide 20 mEq/L (19-29); Chloride 106 mEq/L (98-109); Glucose 95 mg/dL (70-99); Osmolality,Calculated 281 (280-300); Potassium 3.5 mEq/L (3.5-4.5); Sodium 135 mEq/L (136-145); eGFR For African Americans > 60 (> 60); eGFR For Non-African Americans > 60 (> 60)
[2016-07-21] MEDS: Budesonide/Formoterol 160/4.5 MDI IH SCH ×2 (07:42→20:41)
[2016-07-21] MEDS: Megestrol Acetate 400 MG/10 ML UDC PO SCH ×2 (08:36→21:15)
[2016-07-21] MEDS: amLODIPine 5 MG TABLET PO SCH (08:36)
[2016-07-21] MEDS: Lactobacillus 1 EACH CAP.SPRINK PO SCH (08:36)
[2016-07-21] MEDS: Azithromycin 250 MG TABLET PO SCH (08:36)
[2016-07-21] MEDS: Cyanocobalamin (B-12) 1,000 MCG TABLET PO SCH (08:36)
[2016-07-21] MEDS: Magnesium Oxide 400 MG TABLET PO SCH ×2 (08:36→21:15)
[2016-07-21] MEDS: LIPASE PO SCH ×2 (08:42→12:17)
[2016-07-21] MEDS: PROTEASE PO SCH ×2 (08:42→12:17)
[2016-07-21] MEDS: AMYLASE PO SCH ×2 (08:42→12:17)
[2016-07-21] MEDS ORDERED: Magnesium Sulfate 2 GM in D5% in Water 100 ML IVPB ONE (08:49)
--- NOTE | 2016-07-21 10:30 | Oncology Inp Progress Note ---
<Luis Daniel Lowery - Last Filed: 07/21/16 14:18> Date of Encounter: 07/21/16 Time of Encounter: 10:28 (1) Community acquired bacterial pneumonia Current Visit: Yes Status: Suspected Assessment and plan: Pt continued on Zithromax and Flagyl added given stool positive for C. diff Palliative on board and patient and family will discuss hospice; he desires to go home He has h/o AFib on Xarelto and has no complaints of bleeding at this time White count continues to trend downwards and hemoglobin has remained stable Will have follow up with Dr. Wood to discuss if palliative chemotherapy is appropriate Oncology: Subj Interval history: Pt seen and examined. He states that his diarrhea has improved and only had 1 loose movement earlier today and about 2-3 episodes yesterday. He does complain of sustained difficulty breathing but has been coughing up phlegm over the past day since he started on newer medication. He is unsure of the color but states there is no blood. He denies any fever, pain, nausea, vomiting, constipation. - Constitutional Vitals: Vital Signs Temp Pulse Resp BP Pulse Ox 07/21/16 07:46 16 94 07/21/16 06:45 97.6 F 80 17 114/60 93 07/21/16 03:15 97.8 F 89 16 118/62 94 07/20/16 23:02 16 94 07/20/16 19:44 14 95 07/20/16 19:00 97.7 F 94 16 124/78 94 07/20/16 16:00 97.8 F 86 16 109/64 94 07/20/16 15:42 18 94 07/20/16 12:15 97.9 F 97 18 117/64 96 Intake and Output 07/20/16 07/21/16 07/21/16 23:59 07:59 15:59 Intake Total 340 / 340 100 / 100 Output Total 200 / 200 0 / 0 Balance 140 / 140 100 / 100 Intake: IV Fluids 100 / 100 100 / 100 Flagyl Premix 500 MG/100 100 / 100 100 / 100 ML 500 mg In 100 ml @ 100 mls/hr IVPB Q8HR [facility] Rx# :[id number] Oral 240 / 240 0 / 0 Output: Urine 200 / 200 0 / 0 Other: Meal Dinner Percent of Meal Consumed 25% Weight 60.8 kg Patient Weight 07/21/16 23:59 Weight 60.8 kg General appearance: cooperative, no acute distress - Head Head exam: Present: atraumatic, normocephalic - Eye Eye exam: Present: EOMI, sclera anicteric - Respiratory Respiratory exam: Present: decreased breath sounds. Absent: accessory muscle use, respiratory distress, wheezes - Cardiovascular Cardiovascular exam: Present: irregular rhythm, +S1, +S2, tachycardia - GI/Abdominal GI/Abdominal exam: Present: normal bowel sounds, soft. Absent: firm, guarding, mass, rebound, tenderness - Extremities Exam Extremities exam: Absent: joint swelling, pedal edema, tenderness - Neurological Exam Neurological exam: Present: alert, no focal deficits. Absent: motor sensory deficit, facial droop, speech deficit - Psychiatric Psychiatric exam: Present: normal affect, normal mood Oncology: Obj Data - Labs CBC & Chem 7: 07/21/16 03:49 07/21/16 03:49 Labs: Laboratory Results - last 24 hr 07/21/16 07/21/16 03:49 03:49 WBC 6.9 RBC 3.24 L Hgb 9.4 L Hct 28.0 L MCV 86.4 MCH 29.0 MCHC 33.6 RDW 14.6 H Plt Count 298 MPV 9.9 Immature Gran % 0.6 Seg Neutrophils % 65.1 Lymphocytes % 15.6 Monocytes % 13.4 Eosinophils % 4.7 Basophils % 0.6 Neutrophils # 4.5 Lymphocytes # 1.1 Monocytes # 0.9 Eosinophils # 0.3 Basophils # 0.0 Sodium 135 L Potassium 3.5 Chloride 106 Carbon Dioxide 20 BUN 16 Creatinine 0.88 Est GFR ( Amer) > 60 Est GFR (Non-Af Amer) > 60 BUN/Creatinine Ratio 18 Glucose 95 Calculated Osmolality 281 Calcium 8.5 L Magnesium 1.0 L - ABG Interpretation ABG results: PT/INR, D-dimer D-Dimer 1781 ng/mLFEU (0-500) H 07/18/16 11:26 Consult Discharge Plan - Plan Referrals: Jose Lorenz DO [Primary Care Provider] - <Master Ram - Last Filed: 07/21/16 17:40> Date of Encounter: 07/21/16 (1) Community acquired bacterial pneumonia Current Visit: Yes Status: Suspected Assessment and plan: I have seen examined patient myself and reviewed the history physical findings, impression and plan as noted above by Luis Daniel Garay which reflects my assessment and plan that was discussed during rounds. - Constitutional Vitals: Vital Signs Temp Pulse Resp BP Pulse Ox 07/21/16 15:54 14 98 07/21/16 15:31 97.8 F 95 18 122/68 93 07/21/16 11:14 16 98 07/21/16 10:47 97.6 F 93 17 119/74 94 07/21/16 07:46 16 94 07/21/16 06:45 97.6 F 80 17 114/60 93 07/21/16 03:15 97.8 F 89 16 118/62 94 07/20/16 23:02 16 94 07/20/16 19:44 14 95 07/20/16 19:00 97.7 F 94 16 124/78 94 Intake and Output 07/21/16 07/21/16 07/21/16 07:59 15:59 23:59 Intake Total 100 / 100 240 / 240 Output Total 0 / 0 Balance 100 / 100 240 / 240 Intake: IV Fluids 100 / 100 Flagyl Premix 500 MG/100 100 / 100 ML 500 mg In 100 ml @ 100 mls/hr IVPB Q8HR [facility] Rx# :[id number] Oral 0 / 0 240 / 240 Output: Urine 0 / 0 Other: Meal Lunch Percent of Meal Consumed 25% Weight 60.8 kg Patient Weight 07/21/16 23:59 Weight 60.8 kg Oncology: Obj Data - Labs CBC & Chem 7: 07/21/16 03:49 07/21/16 03:49 Labs: Laboratory Results - last 24 hr 07/21/16 07/21/16 03:49 03:49 WBC 6.9 RBC 3.24 L Hgb 9.4 L Hct 28.0 L MCV 86.4 MCH 29.0 MCHC 33.6 RDW 14.6 H Plt Count 298 MPV 9.9 Immature Gran % 0.6 Seg Neutrophils % 65.1 Lymphocytes % 15.6 Monocytes % 13.4 Eosinophils % 4.7 Basophils % 0.6 Neutrophils # 4.5 Lymphocytes # 1.1 Monocytes # 0.9 Eosinophils # 0.3 Basophils # 0.0 Sodium 135 L Potassium 3.5 Chloride 106 Carbon Dioxide 20 BUN 16 Creatinine 0.88 Est GFR ( Amer) > 60 Est GFR (Non-Af Amer) > 60 BUN/Creatinine Ratio 18 Glucose 95 Calculated Osmolality 281 Calcium 8.5 L Magnesium 1.0 L - ABG Interpretation ABG results: PT/INR, D-dimer D-Dimer 1781 ng/mLFEU (0-500) H 07/18/16 11:26
--- NOTE | 2016-07-21 12:47 | Palliative Progress Note ---
Date of Encounter: 07/21/16 Time of Encounter: 11:00 - Assessment and plan (1) Dyspnea Current Visit: No Status: Acute Assessment and plan: Patient sats 96%, nonproductive cough. Patient reports chest congestion is loosening with Mucinex. Supplemental oxygen, and duonebs. Patient with decreased lung sounds to bilateral lung lower lung arcos. Encouraged to CDB and IS placed at bedside. Position with HOB up for optimal oxygenation. Qualifiers: Dyspnea type: unspecified Qualified Code(s): R06.00 - Dyspnea, unspecified (2) C. difficile diarrhea Current Visit: Yes Status: Acute Assessment and plan: Patient having semi formed stool this AM. Reports that his BMs have slowed. Patient receiving Flagyl IV. Monitor I&O. (3) Counseling regarding advanced care planning and goals of care Current Visit: Yes Status: Acute Assessment and plan: Follow-up discussion related to hospice options. Patient is alert and willing to discuss. No family at bedside as his daughter is attending work training today. I educated patient on Hospice criteria and goals for taking no more treatment for cancer once Hospice care is selected. Patient reports completing chemo 8 weeks ago and he reports that he would still desire treatment if options were available. Patient is followed by Dr. Wood. Patient desires to discuss his treatment options with him before final decision for Hospice. Patient is poor performance status and now with C-diff on Flagyl. He ambulates with a cane and has a poor appetite. Patient is on Megace. I explained that his overall performance status is poor and may hinder his ability to have chemo. He is open to enrolling in Hospice services if he is unable to take any additional treatment. Daughter will be here tomorrow to have discussion as well. Discussed with Dr. Lowery as well. (4) Community acquired bacterial pneumonia Current Visit: Yes Status: Suspected - Time Spent With Patient Total time spent is greater than 50% in coordination of care (as documented) at patient's floor/unit and/or counseling patient: 25 - 35 minutes - Subjective Interval history: Patient sitting up in bed. Alert, calm. Denies pain or discomfort. Reports having a few BMs yesterday and this AM. - Constitutional Vitals: Abnormal lab results RBC 3.24 M/mcL (4.19-5.50) L 07/21/16 03:49 Hgb 9.4 g/dL (12.9-16.9) L 07/21/16 03:49 Hct 28.0 % (37.5-50.1) L 07/21/16 03:49 RDW 14.6 % (11.5-14.5) H 07/21/16 03:49 D-Dimer 1781 ng/mLFEU (0-500) H 07/18/16 11:26 VBG pH 7.27 pH Units (7.32-7.42) L 07/18/16 12:15 VBG pCO2 38 mmHg (41-51) L 07/18/16 12:15 VBG pO2 50 mmHg (25-40) H 07/18/16 12:15 VBG HCO3 17.4 mEq/L (21-27) L 07/18/16 12:15 Sodium 135 mEq/L (136-145) L 07/21/16 03:49 Calcium 8.5 mg/dL (8.6-10.8) L 07/21/16 03:49 Magnesium 1.0 mg/dL (1.6-2.6) L 07/21/16 03:49 B-Natriuretic Peptide 178 pg/mL (0-100) H 07/18/16 11:26 - Head Head exam: Present: atraumatic, normal inspection, normocephalic - Eye Eye exam: Present: PERRL (corrective lenses) Pupils: Present: PERRL - ENT ENT exam: Present: mucous membranes moist - Neck Neck exam: Present: normal inspection - Respiratory Respiratory exam: Present: decreased breath sounds - Expanded Respiratory Exam Location: decreased breath sounds: Left, Right, Lower - Cardiovascular Cardiovascular exam: Present: RRR, +S1, +S2, tachycardia - GI/Abdominal GI/Abdominal exam: Present: normal bowel sounds, soft - Rectal Rectal exam: Present: deferred - Extremities Exam Extremities exam: Present: full ROM, normal capillary refill - Expanded Upper Extremity Exam Elbow exam: Present: full ROM Forearm wrist exam: Present: full ROM - Back Exam Back exam: Present: full ROM, vertebral tenderness - Neurological Exam Neurological exam: Present: alert, CN II-XII intact, oriented X3 - Psychiatric Psychiatric exam: Present: normal affect - Skin Skin exam: Present: pallor, warm Palliative Quality Palliative Quality: Screen for Code Status: Yes, Screen for Goals of Care: Yes, Screen for Pain: Yes, If Pain Regimen Started, Initiate Bowel Regimen: NA, Screen for Nausea/Vomitting: Yes - Labs CBC & Chem 7: 07/21/16 03:49 07/21/16 03:49 Labs: Laboratory Results - last 24 hr 07/21/16 07/21/16 03:49 03:49 WBC 6.9 RBC 3.24 L Hgb 9.4 L Hct 28.0 L MCV 86.4 MCH 29.0 MCHC 33.6 RDW 14.6 H Plt Count 298 MPV 9.9 Immature Gran % 0.6 Seg Neutrophils % 65.1 Lymphocytes % 15.6 Monocytes % 13.4 Eosinophils % 4.7 Basophils % 0.6 Neutrophils # 4.5 Lymphocytes # 1.1 Monocytes # 0.9 Eosinophils # 0.3 Basophils # 0.0 Sodium 135 L Potassium 3.5 Chloride 106 Carbon Dioxide 20 BUN 16 Creatinine 0.88 Est GFR ( Amer) > 60 Est GFR (Non-Af Amer) > 60 BUN/Creatinine Ratio 18 Glucose 95 Calculated Osmolality 281 Calcium 8.5 L Magnesium 1.0 L - ABG Interpretation ABG results: PT/INR, D-dimer D-Dimer 1781 ng/mLFEU (0-500) H 07/18/16 11:26 Consult Discharge Plan - Plan Referrals: Jose Lorenz DO [Primary Care Provider] -
--- NOTE | 2016-07-21 14:12 | Internal Med Progress Note ---
<Coty Potts - Last Filed: 07/21/16 14:50> Date of Encounter: 07/21/16 Time of Encounter: 13:45 - Assessment and plan (1) Acute and chronic respiratory failure Current Visit: Yes Status: Acute Assessment and plan: 78-year-old male with history of squamous cell carcinoma presents with chief complaint of shortness of breath of 2 weeks. Shortness of breath is progressively worse. Patient has nonproductive cough. Patient has undergone 6 cycles of chemotherapy and now is on palliative chemotherapy. Palliative chemotherapy was discontinued as he was having frequent diarrhea and positive for C. difficile in the past. His VBG indicated a PO2 of 50 patient also had a BNP of 178. CT was negative for PE but does show worsening bilateral effusions when compared to previous CT and also suffers worsening atelectasis of right lower lobe secondary to lung cancer. Possible left lower lobe infiltrates vs atelectasis noted. - Likely secondary to pneumonia. - Clinically improves as patient is able to maintain O2 sat > 92% on room air. - Continue supplemental oxygen, Symbicort and DuoNeb. - Start Mucomyst for chest congestion. - Continue to monitor. Qualifiers: Respiratory failure complication: hypoxia Qualified Code(s): J96.21 - Acute and chronic respiratory failure with hypoxia (2) Community acquired bacterial pneumonia Current Visit: Yes Status: Suspected Assessment and plan: - With worsening shortness of breath, cough and fever on initial presentation with new right middle lobe densities that may represent possible bronchiolitis - Sputum culture preliminarily grew GNR with final identification and sensitivity pending. - Currently on azithromycin (since 07/20) only as patient has severe allergy to penicillin. Clinically improves as patient reports breathing better and WBC decreases. - Will start Mucomyst for chest congestion. - Continue to monitor. (3) C. difficile diarrhea Current Visit: Yes Status: Acute Assessment and plan: - With reported diarrhea started prior to admission. - Positive stool C. difficile toxin gene. - Patient is known to be treated with Flagyl in the past. - Currently on Flagyl since 07/19 and patient seems to have good response with resolution of diarrhea and WBC normalization. - Will switch Flagyl from IV to PO TID as patient can tolerate oral intake. Patient will need total 10-14 days of treatment. - Continue probiotic. (4) Primary squamous cell carcinoma of right lung Current Visit: Yes Status: Chronic Assessment and plan: - Was on chemotherapy, which was deferred at this time due to patient's performance status and C. diff diarrhea. - Oncology and palliative care on board. It appears that patient likes to discuss his treatment options with Dr. Wood before making final decision for hospice. Plan to have meeting with patient's daughter tomorrow for further discussion. (5) Atrial fibrillation Current Visit: Yes Status: Acute Assessment and plan: - A-fib RVR on initial presentation, likely secondary to hypoxia. Patient received IV Lopressor which brought his rate down to less than 100. - Currently rate-controlled. Continue metoprolol - Continue Xarelto for anticoagulation. Qualifiers: Atrial fibrillation type: chronic Qualified Code(s): I48.2 - Chronic atrial fibrillation (6) Hypomagnesemia Current Visit: No Status: Chronic Assessment and plan: - Mg 1.0 today. - Will give MgSO4 supplement. - Continue to monitor. (7) DVT prophylaxis Current Visit: Yes Status: Acute Assessment and plan: - Continue Xarelto. - Subjective Interval history: No significant event noted overnight. Patient was seen and examined this afternoon. Patient reports breathing slightly better compared to yesterday but still has some cough and chest congestion. Patient also reports having one bowel movement earlier today and the stool is formed. Patient denies fever, chills, chest pain, nausea, vomiting. - Constitutional Vitals: Temp Pulse Resp BP Pulse Ox 97.6 F 93 16 119/74 98 07/21/16 10:47 07/21/16 10:47 07/21/16 11:14 07/21/16 10:47 07/21/16 11:14 General appearance: Present: cachectic, cooperative, A&O X 3, answers questions appropriately - Head Head exam: Present: atraumatic, normocephalic - Eye Eye exam: Present: EOMI, PERRL, conjuntiva pink, sclera anicteric - Neck Neck exam general surgery: Present: supple, trachea midline. Absent: lymphadenopathy - Respiratory Respiratory exam: Present: decreased breath sounds. Absent: accessory muscle use, rales, rhonchi, wheezes - Cardiovascular Cardiovascular exam: Present: RRR, +S1, +S2. Absent: diastolic murmur, gallop, rubs, systolic murmur - GI/Abdominal GI/Abdominal exam: Present: hernia (ventral hernia noted), normal bowel sounds, soft, no peritoneal signs. Absent: distended, tenderness - Extremities Exam Extremities exam: Present: warm, radial pulses palpable and symetrical. Absent : calf tenderness, cyanotic, pedal edema - Neurological Exam Neurological exam: Present: CN II-XII intact, oriented X3, no focal deficits. Absent: pronater drift, facial droop, speech deficit - Skin Skin exam: Present: dry, intact, warm Internal Medicine: Result - Labs CBC & Chem 7: 07/21/16 03:49 07/21/16 03:49 Labs: Short CBC 07/21/16 Range/Units 03:49 WBC 6.9 (4.3-11.1) K/mcL Hgb 9.4 L (12.9-16.9) g/dL Hct 28.0 L (37.5-50.1) % Plt Count 298 (140-400) K/mcL Neutrophils # 4.5 (1.6-8.9) K/mcL BMP 07/21/16 03:49 Sodium 135 L Potassium 3.5 Chloride 106 Carbon Dioxide 20 BUN 16 Creatinine 0.88 Glucose 95 Calcium 8.5 L - ABG Interpretation ABG results: PT/INR, D-dimer D-Dimer 1781 ng/mLFEU (0-500) H 07/18/16 11:26 Consult Discharge Plan - Plan Referrals: Jose Lorenz DO [Primary Care Provider] - <Curtis Pryor - Last Filed: 07/21/16 15:56> Date of Encounter: 07/21/16 - Assessment and plan (1) C. difficile diarrhea Current Visit: Yes Status: Acute (2) Acute and chronic respiratory failure Current Visit: Yes Status: Acute Qualifiers: Respiratory failure complication: hypoxia Qualified Code(s): J96.21 - Acute and chronic respiratory failure with hypoxia (3) Community acquired bacterial pneumonia Current Visit: Yes Status: Suspected (4) Atrial fibrillation Current Visit: Yes Status: Acute Qualifiers: Atrial fibrillation type: chronic Qualified Code(s): I48.2 - Chronic atrial fibrillation (5) COPD (chronic obstructive pulmonary disease) Current Visit: Yes Status: Chronic Qualifiers: COPD type: unspecified COPD Qualified Code(s): J44.9 - Chronic obstructive pulmonary disease, unspecified (6) Primary squamous cell carcinoma of right lung Current Visit: Yes Status: Chronic (7) Hypokalemia Current Visit: Yes Status: Resolved (8) Hypomagnesemia Current Visit: Yes Status: Acute (9) Hypomagnesemia Current Visit: Yes Status: Acute Assessment and plan: Replace - Constitutional Vitals: Temp Pulse Resp BP Pulse Ox 97.8 F 95 18 122/68 93 07/21/16 15:31 07/21/16 15:31 07/21/16 15:31 07/21/16 15:31 07/21/16 15:31 Internal Medicine: Result - Labs CBC & Chem 7: 07/21/16 03:49 07/21/16 03:49 Labs: Short CBC 07/21/16 Range/Units 03:49 WBC 6.9 (4.3-11.1) K/mcL Hgb 9.4 L (12.9-16.9) g/dL Hct 28.0 L (37.5-50.1) % Plt Count 298 (140-400) K/mcL Neutrophils # 4.5 (1.6-8.9) K/mcL BMP 07/21/16 03:49 Sodium 135 L Potassium 3.5 Chloride 106 Carbon Dioxide 20 BUN 16 Creatinine 0.88 Glucose 95 Calcium 8.5 L - ABG Interpretation ABG results: PT/INR, D-dimer D-Dimer 1781 ng/mLFEU (0-500) H 07/18/16 11:26 - Attending Attestation I examined this patient and my medical decision-making was reviewed with the Resident Physician on 07/21/16. I agree with the documented findings, disposition and treatment plan as described except to the extent set forth below. Mr. Reyes is currently admitted for resp failure with pneumonia, C diff and lung cancer. He is moderate to high risk due to potential for worsening resp status. Mr. Reyes says he is still dyspneic and can't get up secretions. No CP. No fever or chills. Stool becoming more formed. No abd pain. Exam Alert. Comfortable Heart reg No wheeze but some rhonchi heard. Abd soft. I/P 1. Pneumonia 2. C diff 3. Lung cancer Further diagnoses and plan as above.
[2016-07-21] MEDS ORDERED: *HR* Acetylcysteine 20% 600 MG/3 ML ORAL SYRINGE PO SCH (15:00)
[2016-07-21] MEDS: Acetylcysteine 10% 2 ML INHSOL IH SCH (16:11)
[2016-07-21] MEDS: metroNIDAZOLE 500 MG TABLET PO SCH ×2 (16:16→21:15)
[2016-07-22] MEDS: Acetylcysteine 10% 2 ML INHSOL IH SCH ×5 (00:30→20:12)
[2016-07-22] MEDS: Ipratropium/Albuterol Neb 3 ML IH SCH ×7 (00:30→23:52)
[2016-07-22 04:06] LABS: Basophils # 0.1 K/mcL (0.0-0.2); Basophils % 0.8 %; Eosinophils # 0.2 K/mcL (0.0-0.6); Eosinophils % 2.6 %; Hematocrit 28.5 % (37.5-50.1); Hemoglobin 9.5 g/dL (12.9-16.9); Immature Granulocytes % 0.5 % (0-4); Lymphocytes # 1.1 K/mcL (0.6-4.6); Mean Corpuscular HGB Conc 33.3 g/dL (31.6-35.5); Mean Corpuscular Hemoglobin 28.8 pg (28.0-33.3); Mean Corpuscular Volume 86.4 fL (83.0-100.0); Mean Platelet Volume 9.6 fL (9.4-12.4); Monocytes # 0.9 K/mcL (0.0-1.3); Monocytes % 14.2 %; Neutrophils # 4.2 K/mcL (1.6-8.9); Platelet Count 293 K/mcL (140-400); Red Cell Distribution Width 14.6 % (11.5-14.5); Segmented Neutrophils % 64.9 %
[2016-07-22 04:48] LABS: BUN/Creatinine Ratio 17 (6-26); Blood Urea Nitrogen 13 mg/dL (8-26); Calcium 8.5 mg/dL (8.6-10.8); Carbon Dioxide 21 mEq/L (19-29); Chloride 105 mEq/L (98-109); Glucose 100 mg/dL (70-99); Magnesium 1.6 mg/dL (1.6-2.6); Osmolality,Calculated 278 (280-300); Potassium 3.5 mEq/L (3.5-4.5); Sodium 134 mEq/L (136-145); eGFR For African Americans > 60 (> 60); eGFR For Non-African Americans > 60 (> 60)
[2016-07-22] MEDS: Budesonide/Formoterol 160/4.5 MDI IH SCH ×2 (08:14→20:12)
[2016-07-22] MEDS: Lactobacillus 1 EACH CAP.SPRINK PO SCH (08:16)
[2016-07-22] MEDS: metroNIDAZOLE 500 MG TABLET PO SCH ×3 (08:17→19:44)
[2016-07-22] MEDS: amLODIPine 5 MG TABLET PO SCH (08:17)
[2016-07-22] MEDS: Magnesium Oxide 400 MG TABLET PO SCH ×2 (08:17→19:43)
[2016-07-22] MEDS: Azithromycin 250 MG TABLET PO SCH (08:17)
[2016-07-22] MEDS: Megestrol Acetate 400 MG/10 ML UDC PO SCH ×2 (08:17→19:43)
[2016-07-22] MEDS: Cyanocobalamin (B-12) 1,000 MCG TABLET PO SCH (08:17)
--- NOTE | 2016-07-22 10:24 | Internal Med Progress Note ---
<Coty Potts - Last Filed: 07/22/16 15:40> Date of Encounter: 07/22/16 Time of Encounter: 10:15 - Assessment and plan (1) Acute and chronic respiratory failure Current Visit: Yes Status: Acute Assessment and plan: - Likely secondary to pneumonia in the setting of known right lung cancer. - Clinically improves as patient is able to maintain O2 sat > 92% on room air. - Switch to IV Zosyn for Proteus pneumonia - Continue Symbicort, DuoNeb and supplemental oxygen if needed. - Continue to monitor. Qualifiers: Respiratory failure complication: hypoxia Qualified Code(s): J96.21 - Acute and chronic respiratory failure with hypoxia (2) Community acquired bacterial pneumonia Current Visit: Yes Status: Suspected Assessment and plan: - With worsening shortness of breath, cough and fever on initial presentation with new right middle lobe densities that may represent possible bronchiolitis. - Can be post-obstructive pneumonia given patient's right lung cancer. - Negative urine antigens for Legionella and Strep. pneumoniae - Sputum culture grew Proteus mirabilis sensitive to amikacin, amp/sulbactam, cefepime, cefoxitin, ceftazidime, ceftriaxone, gentamicin, meropenem, Zosyn, tobramycin. - Known allergy to penicillin with swelling of lip/tongue/throat. Case was discussed with pharmacist and Dr. Perdomo, will switch to Zosyn. - Clinically improves as patient reports breathing better and WBC decreases. - Continue to monitor. (3) C. difficile diarrhea Current Visit: Yes Status: Acute Assessment and plan: - With reported diarrhea started prior to admission. - Positive stool C. difficile toxin gene. - Patient is known to be treated with Flagyl in the past. - Currently on Flagyl since 07/19 and patient seems to have good response with resolution of diarrhea and WBC normalization. - Continue Flagyl PO BID. Patient will need total 10-14 days of treatment. - Continue probiotic. (4) Primary squamous cell carcinoma of right lung Current Visit: Yes Status: Chronic Assessment and plan: - Was on chemotherapy, which was deferred at this time due to patient's performance status and C. diff diarrhea. - Oncology and palliative care on board. It appears that patient likes to discuss his treatment options with Dr. Wood before making final decision regarding his goal of care. Dr. Torres had discussed with Dr. Wood who will plan to see patient before clinic tomorrow. (5) Atrial fibrillation Current Visit: Yes Status: Acute Assessment and plan: - A-fib RVR on initial presentation, likely secondary to hypoxia. Patient received IV Lopressor which brought his rate down to less than 100. - Currently rate-controlled. Continue metoprolol - Continue Xarelto for anticoagulation. Qualifiers: Atrial fibrillation type: chronic Qualified Code(s): I48.2 - Chronic atrial fibrillation (6) Hypomagnesemia Current Visit: No Status: Chronic Assessment and plan: - Mg 1.0 on 07/21/16. - Improves as Mg 1.6 today. - Continue to monitor. (7) DVT prophylaxis Current Visit: Yes Status: Acute Assessment and plan: - Continue Xarelto. - Subjective Interval history: No significant event noted overnight. Patient was seen and examined this morning. Patient reports breathing continues to get better compared to yesterday but still has some productive cough and chest congestion. Patient's last bowel movement was last morning and stool was formed. Patient denies fever , chills, chest pain, nausea, vomiting. Patient likes to discuss with Dr. Wood about other treatment options before making final decision regarding his goal of care. - Constitutional Vitals: Temp Pulse Resp BP Pulse Ox 98.1 F 93 16 128/76 95 07/22/16 08:44 07/22/16 08:44 07/22/16 08:44 07/22/16 08:44 07/22/16 08:44 General appearance: Present: cachectic, cooperative, A&O X 3, answers questions appropriately - Head Head exam: Present: atraumatic, normocephalic - Eye Eye exam: Present: EOMI, PERRL, conjuntiva pink, sclera anicteric - Neck Neck exam general surgery: Present: supple, trachea midline. Absent: lymphadenopathy - Respiratory Respiratory exam: Present: decreased breath sounds. Absent: accessory muscle use, rales, rhonchi, wheezes - Cardiovascular Cardiovascular exam: Present: RRR, +S1, +S2. Absent: diastolic murmur, gallop, rubs, systolic murmur - GI/Abdominal GI/Abdominal exam: Present: normal bowel sounds, soft, no peritoneal signs. Absent: distended, tenderness - Extremities Exam Extremities exam: Present: warm, radial pulses palpable and symetrical. Absent : calf tenderness, cyanotic, pedal edema - Neurological Exam Neurological exam: Present: CN II-XII intact, oriented X3, no focal deficits. Absent: pronater drift, facial droop, speech deficit - Skin Skin exam: Present: dry, intact, warm Internal Medicine: Result - Labs CBC & Chem 7: 07/22/16 03:38 07/22/16 03:38 Labs: Short CBC 07/22/16 Range/Units 03:38 WBC 6.5 (4.3-11.1) K/mcL Hgb 9.5 L (12.9-16.9) g/dL Hct 28.5 L (37.5-50.1) % Plt Count 293 (140-400) K/mcL Neutrophils # 4.2 (1.6-8.9) K/mcL BMP 07/22/16 03:38 Sodium 134 L Potassium 3.5 Chloride 105 Carbon Dioxide 21 BUN 13 Creatinine 0.78 Glucose 100 H Calcium 8.5 L - ABG Interpretation ABG results: PT/INR, D-dimer D-Dimer 1781 ng/mLFEU (0-500) H 07/18/16 11:26 Consult Discharge Plan - Plan Referrals: Jose Lorenz DO [Primary Care Provider] - <Cachorro ePrdomo P - Last Filed: 07/22/16 18:13> Date of Encounter: 07/22/16 - Constitutional Vitals: Temp Pulse Resp BP Pulse Ox 97.8 F 102 18 119/65 97 07/22/16 16:00 07/22/16 16:00 07/22/16 16:36 07/22/16 16:00 07/22/16 16:36 Internal Medicine: Result - Labs CBC & Chem 7: 07/22/16 03:38 07/22/16 03:38 Labs: Short CBC 07/22/16 Range/Units 03:38 WBC 6.5 (4.3-11.1) K/mcL Hgb 9.5 L (12.9-16.9) g/dL Hct 28.5 L (37.5-50.1) % Plt Count 293 (140-400) K/mcL Neutrophils # 4.2 (1.6-8.9) K/mcL BMP 07/22/16 03:38 Sodium 134 L Potassium 3.5 Chloride 105 Carbon Dioxide 21 BUN 13 Creatinine 0.78 Glucose 100 H Calcium 8.5 L - ABG Interpretation ABG results: PT/INR, D-dimer D-Dimer 1781 ng/mLFEU (0-500) H 07/18/16 11:26 - Attending Attestation I examined this patient and my medical decision-making was reviewed with the [employer] MANAGER/PA/Advanced Practice Nurse/Resident Physician. I agree with the documented findings, disposition and treatment plan as described except to the extent set forth below.
--- NOTE | 2016-07-22 12:00 | Palliative Progress Note ---
Date of Encounter: 07/22/16 Time of Encounter: 09:45 - Assessment and plan (1) Dyspnea Current Visit: No Status: Acute Assessment and plan: Overall about the same may be slightly better. Plan per hospitalist team. Qualifiers: Dyspnea type: unspecified Qualified Code(s): R06.00 - Dyspnea, unspecified (2) C. difficile diarrhea Current Visit: Yes Status: Acute Assessment and plan: The patient is on antibiotics. Plan per hospitalist team. (3) Community acquired bacterial pneumonia Current Visit: Yes Status: Suspected Assessment and plan: Perhaps slightly better per patient. Have discussed with the hospitalist team they will place him on liquid guaifenesin cough syrup see if this assists him. Plan for continued antibiotics per hospitalist team. (4) Counseling regarding advanced care planning and goals of care Current Visit: Yes Status: Acute Assessment and plan: CODE STATUS DNR CCA, DNI. he wishes to discuss with Dr. Ramirez his oncologist about continued cancer treatment. I had a long conversation with Dr. Samano, he who feels that the patient's chemotherapy is palliative in nature not curative due to the patient's other medical comorbidities. If the patient is able to take chemotherapy in the future might be useful to him, however per Dr. Samano he feels that the patient needs a break currently and will recommend probably only some limited radiation therapy. Dr. mojica has agreed to meet with the patient before was to clinic tomorrow morning. Follow up after that. - Time Spent With Patient Total time spent is greater than 50% in coordination of care (as documented) at patient's floor/unit and/or counseling patient: - Subjective Interval history: The patient states he feels a little bit better today. He continues to have a poorly productive cough. He is somewhat frustrated with this. He feels that with cough syrup with expectorant and worked better for him at home. He feels that his therapy overall has helped him, and can wishes to continue it if this is at all possible. He denies any nausea or vomiting. . - Constitutional Vitals: Abnormal lab results RBC 3.30 M/mcL (4.19-5.50) L 07/22/16 03:38 Hgb 9.5 g/dL (12.9-16.9) L 07/22/16 03:38 Hct 28.5 % (37.5-50.1) L 07/22/16 03:38 RDW 14.6 % (11.5-14.5) H 07/22/16 03:38 D-Dimer 1781 ng/mLFEU (0-500) H 07/18/16 11:26 VBG pH 7.27 pH Units (7.32-7.42) L 07/18/16 12:15 VBG pCO2 38 mmHg (41-51) L 07/18/16 12:15 VBG pO2 50 mmHg (25-40) H 07/18/16 12:15 VBG HCO3 17.4 mEq/L (21-27) L 07/18/16 12:15 Sodium 134 mEq/L (136-145) L 07/22/16 03:38 Glucose 100 mg/dL (70-99) H 07/22/16 03:38 Calculated Osmolality 278 (280-300) L 07/22/16 03:38 Calcium 8.5 mg/dL (8.6-10.8) L 07/22/16 03:38 B-Natriuretic Peptide 178 pg/mL (0-100) H 07/18/16 11:26 General appearance: Present: no acute distress - Head Head exam: Present: atraumatic, normal inspection - Eye Eye exam: Present: normal appearance - ENT ENT exam: Present: mucous membranes moist - Respiratory Respiratory exam: Present: decreased breath sounds - Cardiovascular Cardiovascular exam: Present: irregular rhythm - GI/Abdominal GI/Abdominal exam: Present: normal bowel sounds, soft. Absent: tenderness - Extremities Exam Extremities exam: Present: normal inspection. Absent: pedal edema, tenderness - Neurological Exam Neurological exam: Present: alert, oriented X3 - Psychiatric Psychiatric exam: Present: normal affect, normal mood. Absent: agitated, anxious - Skin Skin exam: Present: dry, warm Palliative Quality Palliative Quality: Screen for Code Status: Yes, Screen for Goals of Care: Yes, Screen for Pain: Yes, If Pain Regimen Started, Initiate Bowel Regimen: NA (C. difficile), Screen for Nausea/Vomitting: Yes - Labs CBC & Chem 7: 07/22/16 03:38 07/22/16 03:38 Labs: Laboratory Results - last 24 hr 07/22/16 07/22/16 03:38 03:38 WBC 6.5 RBC 3.30 L Hgb 9.5 L Hct 28.5 L MCV 86.4 MCH 28.8 MCHC 33.3 RDW 14.6 H Plt Count 293 MPV 9.6 Immature Gran % 0.5 Seg Neutrophils % 64.9 Lymphocytes % 17.0 Monocytes % 14.2 Eosinophils % 2.6 Basophils % 0.8 Neutrophils # 4.2 Lymphocytes # 1.1 Monocytes # 0.9 Eosinophils # 0.2 Basophils # 0.1 Sodium 134 L Potassium 3.5 Chloride 105 Carbon Dioxide 21 BUN 13 Creatinine 0.78 Est GFR ( Amer) > 60 Est GFR (Non-Af Amer) > 60 BUN/Creatinine Ratio 17 Glucose 100 H Calculated Osmolality 278 L Calcium 8.5 L Magnesium 1.6 - ABG Interpretation ABG results: PT/INR, D-dimer D-Dimer 1781 ng/mLFEU (0-500) H 07/18/16 11:26 Consult Discharge Plan - Plan Referrals: Jose Lorenz DO [Primary Care Provider] -
[2016-07-22] MEDS: *HR* Rivaroxaban 15 MG TABLET PO SCH (16:17)
[2016-07-23] MEDS: Ipratropium/Albuterol Neb 3 ML IH SCH ×3 (03:39→11:59)
[2016-07-23] MEDS: Acetylcysteine 10% 2 ML INHSOL IH SCH ×2 (03:40→11:59)
[2016-07-23 04:10] LABS: Basophils % 0.6 %; Eosinophils # 0.1 K/mcL (0.0-0.6); Hemoglobin 9.5 g/dL (12.9-16.9); Immature Granulocytes % 1.2 % (0-4); Immature Platelets 1.5 % (1.1-6.1); Lymphocytes # 1.4 K/mcL (0.6-4.6); Lymphocytes % 21.5 %; Mean Corpuscular HGB Conc 32.8 g/dL (31.6-35.5); Mean Corpuscular Hemoglobin 28.6 pg (28.0-33.3); Mean Corpuscular Volume 87.3 fL (83.0-100.0); Mean Platelet Volume 8.8 fL (9.4-12.4); Monocytes # 0.8 K/mcL (0.0-1.3); Monocytes % 12.1 %; Neutrophils # 4.1 K/mcL (1.6-8.9); Platelet Count 318 K/mcL (140-400); Red Blood Count 3.32 M/mcL (4.19-5.50); Segmented Neutrophils % 62.6 %
[2016-07-23 04:22] LABS: BUN/Creatinine Ratio 16 (6-26); Blood Urea Nitrogen 13 mg/dL (8-26); Calcium 8.6 mg/dL (8.6-10.8); Carbon Dioxide 20 mEq/L (19-29); Chloride 106 mEq/L (98-109); Glucose 105 mg/dL (70-99); Osmolality,Calculated 280 (280-300); Sodium 135 mEq/L (136-145); eGFR For African Americans > 60 (> 60); eGFR For Non-African Americans > 60 (> 60)
[2016-07-23] MEDS: amLODIPine 5 MG TABLET PO SCH (08:12)
[2016-07-23] MEDS: Magnesium Oxide 400 MG TABLET PO SCH (08:12)
[2016-07-23] MEDS: Megestrol Acetate 400 MG/10 ML UDC PO SCH (08:12)
[2016-07-23] MEDS: metroNIDAZOLE 500 MG TABLET PO SCH (08:12)
[2016-07-23] MEDS: Cyanocobalamin (B-12) 1,000 MCG TABLET PO SCH (08:12)
[2016-07-23] MEDS: Lactobacillus 1 EACH CAP.SPRINK PO SCH (08:12)
[2016-07-23] MEDS ORDERED: Magnesium Sulfate 2 GM in D5% in Water 100 ML IVPB ONE (08:28)
--- NOTE | 2016-07-23 08:28 | Oncology Inp Progress Note ---
Date of Encounter: 07/23/16 Time of Encounter: 07:48 Oncology: Subj Interval history: History of present illness: Patient seen and examined at bedside. Chart reviewed for interval details and I appreciate ongoing care by hospitalist and palliative care teams. He reports that he is feeling considerably better since I last saw him in the office. He is breathing better since institution of supportive measures including antibiotics and antitussives for his community-acquired pneumonia. At time of evaluation, he was breathing comfortably and maintain good room air oxygenation. C. difficile associated diarrhea is also improved and he had one relatively well formed bowel movement yesterday. None today. Patient and family have been in discussion with palliative care team regarding treatment direction and goals of care and here as a DNR CC status and placed which I think is very reasonable. Dr. Azevedo was kind enough to discuss patient's case with me yesterday regarding the status of his underlying lung cancer and ongoing discussion regarding supportive/symptom management. Patient informs me this morning. He has been considering hospice care mostly because of the desired to have supportive services at home as his who is his primary caregiver is no longer able to care to his care needs due to her declining health. He is willing to consider home care services that of a hospice setting if he is eligible. Also, he voices a clear desire to continue antineoplastic therapy felt to be beneficial. No other new issues. Review of systems: 12 point review of systems as noted above.All other systems are negative: Physical exam: Vital Signs Temp 97.5 F L 07/23/16 07:00 Pulse 102 07/23/16 07:00 Resp 18 07/23/16 07:00 BP 132/79 07/23/16 07:00 Pulse Ox 93 07/23/16 07:00 GENERAL: Alert and oriented, comfortable appearing. Mental Status: Affect appropriate for circumstances Skin: No rashes or petechiae. No evidence of skin malignancy Extremities: No edema. No calf swelling or tenderness. No joint deformity. Neurologic: Global weakness but no focal sensorimotor abnormalities. Results: Laboratory Last Values WBC 6.6 K/mcL (4.3-11.1) 07/23/16 04:00 RBC 3.32 M/mcL (4.19-5.50) L 07/23/16 04:00 Hgb 9.5 g/dL (12.9-16.9) L 07/23/16 04:00 Hct 29.0 % (37.5-50.1) L 07/23/16 04:00 MCV 87.3 fL (83.0-100.0) 07/23/16 04:00 MCH 28.6 pg (28.0-33.3) 07/23/16 04:00 MCHC 32.8 g/dL (31.6-35.5) 07/23/16 04:00 RDW 15.0 % (11.5-14.5) H 07/23/16 04:00 Plt Count 318 K/mcL (140-400) 07/23/16 04:00 MPV 8.8 fL (9.4-12.4) L 07/23/16 04:00 Immature Gran % 1.2 % (0-4) 07/23/16 04:00 Seg Neutrophils % 62.6 % 07/23/16 04:00 Lymphocytes % 21.5 % 07/23/16 04:00 Monocytes % 12.1 % 07/23/16 04:00 Eosinophils % 2.0 % 07/23/16 04:00 Basophils % 0.6 % 07/23/16 04:00 Neutrophils # 4.1 K/mcL (1.6-8.9) 07/23/16 04:00 Lymphocytes # 1.4 K/mcL (0.6-4.6) 07/23/16 04:00 Monocytes # 0.8 K/mcL (0.0-1.3) 07/23/16 04:00 Eosinophils # 0.1 K/mcL (0.0-0.6) 07/23/16 04:00 Basophils # 0.0 K/mcL (0.0-0.2) 07/23/16 04:00 Immature Plt Fraction 1.5 % (1.1-6.1) 07/23/16 04:00 D-Dimer 1781 ng/mLFEU (0-500) H 07/18/16 11:26 VBG pH 7.27 pH Units (7.32-7.42) L 07/18/16 12:15 VBG pCO2 38 mmHg (41-51) L 07/18/16 12:15 VBG pO2 50 mmHg (25-40) H 07/18/16 12:15 VBG HCO3 17.4 mEq/L (21-27) L 07/18/16 12:15 Sodium 135 mEq/L (136-145) L 07/23/16 04:00 Potassium 4.0 mEq/L (3.5-4.5) 07/23/16 04:00 Chloride 106 mEq/L (98-109) 07/23/16 04:00 Carbon Dioxide 20 mEq/L (19-29) 07/23/16 04:00 BUN 13 mg/dL (8-26) 07/23/16 04:00 Creatinine 0.82 mg/dL (0.72-1.25) 07/23/16 04:00 Est GFR ( Amer) > 60 (> 60) 07/23/16 04:00 Est GFR (Non-Af Amer) > 60 (> 60) 07/23/16 04:00 BUN/Creatinine Ratio 16 (6-26) 07/23/16 04:00 Glucose 105 mg/dL (70-99) H 07/23/16 04:00 Calculated Osmolality 280 (280-300) 07/23/16 04:00 Calcium 8.6 mg/dL (8.6-10.8) 07/23/16 04:00 Magnesium 1.0 mg/dL (1.6-2.6) L 07/23/16 04:00 Troponin I 0.01 ng/mL (0-0.03) 07/19/16 03:42 B-Natriuretic Peptide 178 pg/mL (0-100) H 07/18/16 11:26 Stl C. diff Tox B Gene Positive (Negative) 07/19/16 03:50 Radiographic studies: Chest X-Ray 07/18/16 11:25 IMPRESSION: 1. No significant change in the appearance of the chest with a right lower lobe mass. No acute abnormality. D/ / Buddy Alvarez MD / Buddy Alvarez MD Interpreting Provider: Buddy Alvarez MD Chest CTA 07/18/16 12:38 IMPRESSION: 1. No acute pulmonary emboli. 2. Progressive right lower lobe atelectasis with essentially stable though partially obscured right lower lobe mass with bronchial occlusion. 3. Mild interval progression of subcarinal lymphadenopathy. 4. New right middle lobe densities which may represent possible bronchiolitis or post treatment vasculitis. 5. Stable bilateral pleural effusions. D/ / 07/18/2016 13:59:50 William Sanchez MD / ayesha Interpreting Provider: William Sanchez MD Impression/recommendations: Lung cancer: Likely stage IIIa right-sided lung cancer. Patient is medically inoperable and not a candidate for aggressive multimodality therapy due to underlying comorbidities. In spite of that, he is tolerated multiple courses of combination systemic therapy including chemotherapy previously and more recently immunotherapy since he was diagnosed about a year ago. Treatment has been on hold since 05/29/16 due to C. difficile associated diarrhea. Most recent scans do not show any evidence of disease progression and it appears that all of his lung cancer is confined to the lower lobe of the right lung. After I saw him in the office last week, I discussed his case with Dr. Horowitz who has graciously agreed to review the scans regarding palliative radiotherapy to decrease right lower lobe disease for disease control until he is able to resume systemic therapy. Once he gets to feeling better, I anticipate that he'll be resuming immunotherapy which is tolerated well since his initial diagnosis about a year ago. COPD exacerbation/community-acquired pneumonia: He appears to be doing much better with ongoing supportive measures per hospitalist team. Input appreciated. Hypoxemic respiratory failure: He was qualified for home oxygen at his last office visit based and oxygen saturation down to 88% with activity. and we were in the process of setting up home oxygen for him. He will need supplemental home oxygen upon discharge. C. difficile associated diarrhea. Improving with current measures. Appreciate current measures per hospital team. Poor social support Patients at home with his was primary caregiver but she also has declining health. He will likely need home care services upon discharge. He is reluctant to proceed with hospice at this time based on our conversation this morning but understands that home palliative care service is an option available to him that may service bridge to hospice. Other consideration will be home care services We'll follow the patient along side you during this hospitalization but please do not hesitate to call regarding interval hematologic questions as they arise. Thank you for your excellent ongoing care for allowing us to see him while in- house. This report was created using voice recognition software and may contain errors. It was signed but not edited to expedite communication. - Constitutional Vitals: Vital Signs Temp Pulse Resp BP Pulse Ox 07/23/16 07:00 97.5 F L 102 18 132/79 93 07/23/16 05:59 98.7 F 91 16 112/64 93 07/23/16 03:41 16 93 07/23/16 00:00 97.9 F 94 20 122/65 07/22/16 23:52 18 93 07/22/16 20:15 18 95 07/22/16 20:00 97.5 F L 93 20 114/67 98 07/22/16 16:36 18 97 07/22/16 16:00 97.8 F 102 18 119/65 93 07/22/16 12:29 97.7 F 101 16 124/80 92 07/22/16 11:06 18 97 07/22/16 08:44 98.1 F 93 16 128/76 95 07/22/16 08:13 16 95 Intake and Output 07/22/16 07/23/16 07/23/16 16:59 00:59 08:59 Intake Total 720 / 720 0 / 0 0 / 0 Output Total 200 / 200 0 / 0 225 / 225 Balance 520 / 520 0 / 0 -225 / -225 Intake: Oral 720 / 720 0 / 0 0 / 0 Output: Urine 200 / 200 0 / 0 225 / 225 Other: Meal Lunch Percent of Meal Consumed 25% Weight 62.3 kg Patient Weight 07/24/16 00:59 Weight 62.3 kg Oncology: Obj Data - Labs CBC & Chem 7: 07/23/16 04:00 07/23/16 04:00 Labs: Laboratory Results - last 24 hr 07/23/16 07/23/16 04:00 04:00 WBC 6.6 RBC 3.32 L Hgb 9.5 L Hct 29.0 L MCV 87.3 MCH 28.6 MCHC 32.8 RDW 15.0 H Plt Count 318 MPV 8.8 L Immature Gran % 1.2 Seg Neutrophils % 62.6 Lymphocytes % 21.5 Monocytes % 12.1 Eosinophils % 2.0 Basophils % 0.6 Neutrophils # 4.1 Lymphocytes # 1.4 Monocytes # 0.8 Eosinophils # 0.1 Basophils # 0.0 Immature Plt Fraction 1.5 Sodium 135 L Potassium 4.0 Chloride 106 Carbon Dioxide 20 BUN 13 Creatinine 0.82 Est GFR ( Amer) > 60 Est GFR (Non-Af Amer) > 60 BUN/Creatinine Ratio 16 Glucose 105 H Calculated Osmolality 280 Calcium 8.6 Magnesium 1.0 L - ABG Interpretation ABG results: PT/INR, D-dimer D-Dimer 1781 ng/mLFEU (0-500) H 07/18/16 11:26 Consult Discharge Plan - Plan Referrals: Jose Lorenz DO [Primary Care Provider] -
[2016-07-23] MEDS: Budesonide/Formoterol 160/4.5 MDI IH SCH (11:59)
[2016-07-23 12:18] VITALS: BP 111/63
--- NOTE | 2016-07-23 13:43 | Discharge Summary ---
<Coty Potts - Last Filed: 07/23/16 13:45> Date of Encounter: 07/23/16 Time of Encounter: 10:30 - Discharge Diagnosis (1) Community acquired bacterial pneumonia Priority: Primary Status: Suspected (2) C. 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 (5) Atrial fibrillation Priority: Secondary Status: Acute Qualifiers: Atrial fibrillation type: chronic Qualified Code(s): I48.2 - Chronic atrial fibrillation (6) Hypomagnesemia Priority: Secondary Status: Chronic - Discharge Medications Prescriptions: Cefpodoxime Proxetil 200 mg PO Q12H #10 tablet metroNIDAZOLE [Flagyl] 500 mg PO TID #27 tablet Rivaroxaban [Xarelto] 15 mg PO QPM #30 tablet Home Medications: Albuterol Sulfate [Albuterol Inhaler] 2 puff IH Q4HR PRN 08/07/15 [History] Budesonide/Formoterol 160/4.5 [Symbicort 160/4.5] 2 puff IH BIDR 08/07/15 [ History] Nitroglycerin [Nitrostat] 0.4 mg SL Q5M PRN 08/07/15 [History] Lidocaine/Prilocaine CREAM [Emla] 5 gm TP AD #1 tube 09/10/15 [Rx] Omeprazole [PriLOSEC] 20 mg PO DAILY #90 capsule 09/10/15 [Rx] Ondansetron [Zofran] 8 mg PO Q8HR PRN #90 tablet 09/10/15 [Rx] Prochlorperazine Maleate [Compazine] 10 mg PO Q6HR PRN #90 tablet 09/10/15 [Rx] Fluticasone Propionate Nasal [Flonase] 2 spray NS PRN PRN 10/25/15 [History] Naproxen Sodium [Aleve] 220 mg PO PRN PRN 10/25/15 [History] amLODIPine [Norvasc] 10 mg PO DAILY #60 tablet 01/09/16 [Rx] Loperamide [Imodium] 2 mg PO AD PRN #60 capsule 05/01/16 [Rx] Magnesium Oxide [Magnesium] 400 mg PO BID #60 tablet 06/02/16 [Rx] Ferrous Sulfate [Iron] 325 mg PO BID #60 tablet 06/09/16 [Rx] Megestrol Acetate [Megace] 10 ml PO BID #400 mls 06/12/16 [Rx] Cyanocobalamin (B-12) [Vitamin B12] 1,000 mcg PO DAILY #90 tablet 07/04/16 [Rx] L. Acidophilus/Pectin, [place] [Acidophilus Probiotic Capsule] 1 cap PO DAILY # 30 capsule 07/04/16 [Rx] LORazepam [Ativan] 0.5 mg PO Q6H PRN #90 tablet 07/04/16 [Rx] Lipase/Protease/Amylase [Pancreaze 10,500 Unit Cap] 1 each PO TIDWM #90 capsule. 07/04/16 [Rx] Magic Mouthwash 10 ml PO TID PRN 07/18/16 [History] Oxycodone HCl/Acetaminophen [Percocet 5-325 mg Tablet] 1 tab PO Q6H PRN [History] Cefpodoxime Proxetil 200 mg PO Q12H #10 tablet 07/23/16 [Rx] Rivaroxaban [Xarelto] 15 mg PO QPM #30 tablet 07/23/16 [Rx] metroNIDAZOLE [Flagyl] 500 mg PO TID #27 tablet 07/23/16 [Rx] Allergies/Adverse Reactions: Allergies Penicillins Allergy (Severe, Verified 05/29/16 09:59) Swelling of Lip/Tongue/Throat Date of admission: 07/18/16 16:55 Primary care physician: Jose Lorenz, Consults: 07/18/16 17:09 Consult to Oncology [CONS] Routine Consulting Provider: [facility] Reason for Consult: Lung CA established patient of Dr Wood Time Notified: 17:12 Call Completed: No 07/18/16 17:13 Consult to Palliative Care [CONS] Routine Comment: Consulting Provider: [facility] Reason for Consult: lung cancer- end of life discusion/ treatment Time Notified: 17:17 Call Completed: Yes 07/23/16 10:27 Consult to Physical Therapy [CONS] Routine Comment: Evaluate, develop and implement POC Reason for Consult: Discharge planning OT [Consult to Occupational Therapy] [CONS] Routine Comment: Evaluate, develop and implement POC Reason for Consult: Discharge planning Discharging clinician: Coty Potts Anticipated date of discharge: 07/23/16 - Patient Status Disposition: Home Health Service Condition: Fair Functional capacity at discharge: uses cane/walker Overall status at discharge: patient is progressing back to baseline - Discharge Instructions Instructions: Metronidazole (By mouth), Cefpodoxime Proxetil (By mouth), Rivaroxaban (By mouth), Clostridium Difficile Infection (DC), Community- acquired Pneumonia (DC), Community-acquired Pneumonia (GEN) Follow Up With: Vipul Dong Jr, MANAGER VOICE [Advanced Practice Nurse] - 08/07/16 11:00 am Jose Lorenz DO [Primary Care Provider] - Lyle Wood MD [Partnered Physician] - 08/14/16 2:50 pm Additional Instructions: Please continue metronidazole 500 mg by mouth three times a day for 9 more days to finish treatment for your C. difficile diarrhea. Please take 5 more days of Cefpodoxime Proxetil 200 mg by mouth every 12 hours to finish treatement for your pneumonia. Please increase your Xarelto 15 mg by mouth to daily. Please follow up with your primary care provider within a week regarding your hospitalization. Please follow up with Dr. Wood at [facility] for further lung cancer treatment discussion. - Diet and Activity Activity: as per physical therapy Diet: diabetic diet, other (Dietary supplement: Ensure plus with breakfast.) Hospital course: Mr. Reyes is a 76 year old male - Time Spent with Patient Total time spent providing and/or coordinating discharge services: - Constitutional Vitals: Temp Pulse Resp BP Pulse Ox 98.2 F 120 18 111/63 93 07/23/16 11:00 07/23/16 11:00 07/23/16 12:01 07/23/16 11:00 07/23/16 12:01 General appearance: Present: cachectic, cooperative, A&O X 3, answers questions appropriately <Cachorro Perdomo P - Last Filed: 07/23/16 16:28> Date of Encounter: 07/23/16 Date of admission: 07/18/16 16:55 Primary care physician: Jose Lorenz, Consults: 07/18/16 17:09 Consult to Oncology [CONS] Routine Consulting Provider: [facility] Reason for Consult: Lung CA established patient of Dr Wood Time Notified: 17:12 Call Completed: No 07/18/16 17:13 Consult to Palliative Care [CONS] Routine Comment: Consulting Provider: [facility] Reason for Consult: lung cancer- end of life discusion/ treatment Time Notified: 17:17 Call Completed: Yes 07/23/16 10:27 Consult to Physical Therapy [CONS] Routine Comment: Evaluate, develop and implement POC Reason for Consult: Discharge planning OT [Consult to Occupational Therapy] [CONS] Routine Comment: Evaluate, develop and implement POC Reason for Consult: Discharge planning Hospital course: Mr. Reyes is a 76 year old male - Time Spent with Patient Total time spent providing and/or coordinating discharge services: - Constitutional Vitals: Temp Pulse Resp BP Pulse Ox 98.2 F 120 18 111/63 93 07/23/16 11:00 07/23/16 11:00 07/23/16 12:01 07/23/16 11:00 07/23/16 12:01 - Attending Attestation I examined this patient and my medical decision-making was reviewed with the MANAGEMENT REP/PA/Advanced Practice Nurse/Resident Physician. I agree with the documented findings, disposition and treatment plan as described except to the extent set forth below.
--- NOTE | 2016-07-23 14:13 | Physician Discharge Referral ---
<Coty Potts - Last Filed: 07/23/16 14:10> Home Health/Hosp Referral Info Transfer to: Home Health ([facility] with outpatient palliative care.) Provider in Charge Post Discharge: PCP - Diagnosis (1) Community acquired bacterial pneumonia Priority: Primary Status: Suspected (2) C. 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 For more information, call the [employer] Quit Line at 4-101-ZJML-NOW. - Diet/Nutrition Diet/Nutrition Orders: No Concentrated Sweets (Diabetic diet with additional Ensure plus on breakfast for dietary supplement.) - Activity Activity Orders: Ambulate (With cane) - Services Needed Following services are medically necessary services: Nursing, Home Health Aide, Physical Therapy, Occupational Therapy Home Care Orders: [facility] with outpatient palliative care. - Transfer Medications Prescriptions: Cefpodoxime Proxetil 200 mg PO Q12H #10 tablet metroNIDAZOLE [Flagyl] 500 mg PO TID #27 tablet Rivaroxaban [Xarelto] 15 mg PO QPM #30 tablet Home Medications: Albuterol Sulfate [Albuterol Inhaler] 2 puff IH Q4HR PRN 08/07/15 [History] Budesonide/Formoterol 160/4.5 [Symbicort 160/4.5] 2 puff IH BIDR 08/07/15 [ History] Nitroglycerin [Nitrostat] 0.4 mg SL Q5M PRN 08/07/15 [History] Lidocaine/Prilocaine CREAM [Emla] 5 gm TP AD #1 tube 09/10/15 [Rx] Omeprazole [PriLOSEC] 20 mg PO DAILY #90 capsule 09/10/15 [Rx] Ondansetron [Zofran] 8 mg PO Q8HR PRN #90 tablet 09/10/15 [Rx] Prochlorperazine Maleate [Compazine] 10 mg PO Q6HR PRN #90 tablet 09/10/15 [Rx] Fluticasone Propionate Nasal [Flonase] 2 spray NS PRN PRN 10/25/15 [History] Naproxen Sodium [Aleve] 220 mg PO PRN PRN 10/25/15 [History] amLODIPine [Norvasc] 10 mg PO DAILY #60 tablet 01/09/16 [Rx] Loperamide [Imodium] 2 mg PO AD PRN #60 capsule 05/01/16 [Rx] Magnesium Oxide [Magnesium] 400 mg PO BID #60 tablet 06/02/16 [Rx] Ferrous Sulfate [Iron] 325 mg PO BID #60 tablet 06/09/16 [Rx] Megestrol Acetate [Megace] 10 ml PO BID #400 mls 06/12/16 [Rx] Cyanocobalamin (B-12) [Vitamin B12] 1,000 mcg PO DAILY #90 tablet 07/04/16 [Rx] L. Acidophilus/Pectin, [place] [Acidophilus Probiotic Capsule] 1 cap PO DAILY # 30 capsule 07/04/16 [Rx] LORazepam [Ativan] 0.5 mg PO Q6H PRN #90 tablet 07/04/16 [Rx] Lipase/Protease/Amylase [Pancreaze Dr 10,500 Unit Cap] 1 each PO TIDWM #90 capsule. 07/04/16 [Rx] Magic Mouthwash 10 ml PO TID PRN 07/18/16 [History] Oxycodone HCl/Acetaminophen [Percocet 5-325 mg Tablet] 1 tab PO Q6H PRN [History] Cefpodoxime Proxetil 200 mg PO Q12H #10 tablet 07/23/16 [Rx] Rivaroxaban [Xarelto] 15 mg PO QPM #30 tablet 07/23/16 [Rx] metroNIDAZOLE [Flagyl] 500 mg PO TID #27 tablet 07/23/16 [Rx] Allergies/Adverse Reactions: Allergies Penicillins Allergy (Severe, Verified 05/29/16 09:59) Swelling of Lip/Tongue/Throat Certification: Further, I certify that my clinical findings support that this patient is homebound (i.e. absences from home require considerable and taxing effort and are for medical reasons or jehovah's witness services or infrequently or short duration when for other reasons) because: Homebound Reason: Patient requires assistance of a person or device to safely leave home Attestation: My signature below is to certify that this patient is under my care and that I, or nurse practitioner, or a physician's wet process miller head assistant working with me, has a face-to -face encounter with this patient. <Cachorro Perdomo P - Last Filed: 07/23/16 16:28> - Respiratory Orders Smoking Cessation: Smoking cessation has been advised. For more information, call the [place] [employer] Quit Line at 2-300-PBTB-NOW. Certification: Further, I certify that my clinical findings support that this patient is homebound (i.e. absences from home require considerable and taxing effort and are for medical reasons or jehovah's witness services or infrequently or short duration when for other reasons) because: Attestation: My signature below is to certify that this patient is under my care and that I, or nurse practitioner, or a physician's wet process miller head assistant working with me, has a face-to -face encounter with this patient.
[2016-07-23] MEDS ORDERED: *HR* Rivaroxaban 10 MG TABLET PO SCH (18:00)
== END 2016-07-23 17:00 | disposition home health service (06) | DRG 190 ==
LOC: 2NENU 11:06 → EMEROO 11:06 → SUATTDRO 16:55 → 2NENU 17:45
PROVIDERS: ADMIT Nurse Practitioner Acute Care; ATTEND Internal Medicine

== ENCOUNTER 2016-10-07 18:19 | Inpatient (IN) ==
[2016-10-07] MEDS ORDERED: 0.9 % Sodium Chloride 1,000 ML IVC ONE (18:48)
[2016-10-07] MEDS ORDERED: methylPREDNISolone 125 MG/2 ML VIAL IVP ONE (18:51)
[2016-10-07] MEDS ORDERED: Ipratropium/Albuterol Neb 3 ML IH ONE (18:51)
--- NOTE | 2016-10-07 18:51 | Emergency Department Note ---
START Narrative - START START: interviewed and examined patient and will signout to the night team. This s a 76 year old male with stage 4 lung cancer and has been expericning more short of breath with dyspnea and hypoxia of 88% with increased work of breathing when he speaks. PAtient states that this has been going on for the past few days and worsneing and is currently on chemo. Alina has baseline atrial fibrillation and states that it is usually rate controlled and today is is tachycardic and tenuous. Alina states that he has not had a fever or productive cough but he does sound as though he has bilateral moderate wheezes and rales. We will start duonebs x1 as he has had one x2 in the EMS with solumedrol and CTA chest r/o PE vs pnemoina as well as chest pain workup with IVF therapy
[2016-10-07 18:56] LABS: Basophils # 0.1 K/mcL (0.0-0.2); Basophils % 0.9 %; Eosinophils # 1.1 K/mcL (0.0-0.6); Eosinophils % 7.3 %; Hematocrit 38.4 % (37.5-50.1); Hemoglobin 12.8 g/dL (12.9-16.9); Immature Granulocytes % 0.7 % (0-4); Lymphocytes # 2.6 K/mcL (0.6-4.6); Lymphocytes % 17.5 %; Mean Corpuscular HGB Conc 33.3 g/dL (31.6-35.5); Mean Corpuscular Hemoglobin 30.1 pg (28.0-33.3); Mean Corpuscular Volume 90.4 fL (83.0-100.0); Mean Platelet Volume 9.3 fL (9.4-12.4); Monocytes # 1.6 K/mcL (0.0-1.3); Monocytes % 11.2 %; Neutrophils # 9.1 K/mcL (1.6-8.9); Platelet Count 447 K/mcL (140-400); Red Blood Count 4.25 M/mcL (4.19-5.50); Red Cell Distribution Width 13.9 % (11.5-14.5); Segmented Neutrophils % 62.4 %
[2016-10-07 19:04] LABS: INR 1.8; Prothrombin Time 19.3 Seconds (9.4-12.1)
[2016-10-07 19:07] LABS: Activated Partial Thrombo Time 28.3 Seconds (26.0-36.0)
[2016-10-07 19:12] LABS: Alanine Aminotransferase 10 Units/L (0-55); Albumin 2.5 g/dL (3.5-5.0); Albumin/Globulin Ratio 0.6 (1.1-2.2); Alkaline Phosphatase 631 Units/L (38-126); Aspartate Amino Transferase 15 Units/L (5-34); BUN/Creatinine Ratio 22 (6-26); Bilirubin,Direct 0.3 mg/dL (0.0-0.5); Bilirubin,Indirect 0.2 mg/dL (0.0-1.2); Bilirubin,Total 0.5 mg/dL (0.2-1.2); Blood Urea Nitrogen 27 mg/dL (8-26); Calcium 8.6 mg/dL (8.6-10.8); Carbon Dioxide 13 mEq/L (19-29); Chloride 109 mEq/L (98-109); Globulin 4.3 g/dL (2.4-3.5); Glucose 103 mg/dL (70-99); Lipase 26 Units/L (8-78); Osmolality,Calculated 279 (280-300); Potassium 3.9 mEq/L (3.5-4.5); Sodium 132 mEq/L (136-145); Total Protein 6.8 g/dL (6.0-8.3); eGFR For African Americans > 60 (> 60); eGFR For Non-African Americans 58 (> 60)
--- NOTE | 2016-10-07 20:21 | Emergency Department Note ---
Addendum entered and electronically signed by Alban Tabor DO 10/07/16 20:54: A. fib with RVR, rate 120, QRS 131, QTC 4:15, normal axis, right bundle branch block that is unchanged from previous Original Note: Disposition Clinical Impression: Atrial fibrillation, Dyspnea, Primary squamous cell carcinoma of right lung, Ventral hernia without obstruction or gangrene Disposition: Admitted As Inpatient Condition: Fair Time of Disposition: 20:47 SOB HPI - General Chief Complaint: ED Shortness of Breath/Dyspnea Stated Complaint: SHORTNESS OF BREATH Time Seen by Provider: 10/07/16 18:23 Source: patient, family Mode of arrival: EMS Limitations: no limitations Nursing Notes Reviewed: Yes Vital Signs Reviewed: Yes - History of Present Illness Patient presents to the ED with the chief complaint of shortness of breath. Patient has a history of A. fib and is on Xarelto. He also has stage IV lung cancer and is receiving current chemotherapy. States that for the last week he has been having gradually increasing and worsening shortness of breath. Does have some intermittent chest discomfort as well. States she has felt very weak and tired. Does not have oxygen at home and states he has to use his 's that times. He was supposed to see his oncologist tomorrow to have a repeat CAT scan of his chest and abdomen due to previous metastatic disease. He states that he just felt like his shortness of breath was not getting any better , so he called the oncology office who told him to come to the ED. States his been compliant with all of his medications. He has not had any fevers, chills, headaches or changes in vision. No vomiting. Some intermittent nausea, but this is his baseline. No history of of PE - Related Data Home Medications Medication Instructions Recorded Confirmed Albuterol Sulfate [Albuterol 2 puff IH Q6H PRN 08/07/15 10/07/16 Inhaler] Budesonide/Formoterol 160/4.5 2 puff IH BIDR 08/07/15 10/07/16 [Symbicort 160/4.5] Magic Mouthwash 10 ml PO TID PRN 07/18/16 10/07/16 Oxycodone HCl/Acetaminophen 1 tab PO Q6H PRN 07/18/16 10/07/16 [Percocet 5-325 mg Tablet] Megestrol Acetate [Megace] 200 mg PO BID 08/05/16 10/07/16 Amitriptyline [Elavil] 25 mg PO HS 10/07/16 10/07/16 Dexamethasone [Decadron] 4 mg PO AD 10/07/16 10/07/16 Lipase/Protease/Amylase [Creon Dr 1 each PO TIDWM 10/07/16 10/07/16 12,000 Units Capsule] Loperamide [Imodium] 2 mg PO PER PKG DI PRN 10/07/16 10/07/16 Rivaroxaban [Xarelto] 15 mg PO Q48H 10/07/16 10/07/16 Previous Rx's Medication Instructions Recorded Lidocaine/Prilocaine CREAM [Emla] 5 gm TP AD #1 tube 09/10/15 Omeprazole [PriLOSEC] 20 mg PO DAILY #90 capsule 09/10/15 Ondansetron [Zofran] 8 mg PO Q8HR PRN #90 tablet 09/10/15 Prochlorperazine Maleate 10 mg PO Q6HR PRN #90 tablet 09/10/15 [Compazine] amLODIPine [Norvasc] 10 mg PO DAILY #60 tablet 01/09/16 Magnesium Oxide [Magnesium] 400 mg PO BID #60 tablet 06/02/16 Ferrous Sulfate [Iron] 325 mg PO BID #60 tablet 06/09/16 Cyanocobalamin (B-12) [Vitamin B12] 1,000 mcg PO DAILY #90 tablet 07/04/16 L. Acidophilus/Pectin, [place] 1 cap PO DAILY #30 capsule 07/04/16 [Acidophilus Probiotic Capsule] LORazepam [Ativan] 0.5 mg PO Q6H PRN #90 tablet 07/04/16 Cholestyramine/Aspartame 4 gm PO BID #60 powd.pack 09/30/16 [Cholestyramine Light Packet] Allergies Allergy/AdvReac Type Severity Reaction Status Date / Time Penicillins Allergy Severe Swelling Verified 09/16/16 15:29 of Lip/Tongue/Throat All systems ED: reviewed and negative except as stated. Constitutional: Reports: weakness Cardiovascular: Reports: chest pain, dyspnea on exertion Respiratory: Reports: dyspnea. Denies: hemoptysis, sputum production Gastrointestinal: Reports: nausea Integumentary: Denies: rash Neurological: Denies: headache Past Medical History - Past Medical History Attestation: Yes The following information was validated with the patient. Source: patient Medical history: Reports: atrial fibrillation, cancer, COPD, coronary artery disease, DVT, diabetes, hyperlipidemia, hypertension Surgical history: Reports: carotid endarterectomy, cholecystectomy, coronary bypass (CABG) Psychiatric history: Reports: anxiety, depression - Social History Smoking Status: Current every day smoker Smokeless Tobacco Status: No Alcohol use: Reports: none Drug use: Reports: none Physical Exam - General Limitations: no limitations General appearance: alert, in no apparent distress - Head Head exam: atraumatic, normocephalic, normal inspection - Eye Eye exam: Present: normal appearance, PERRL, EOMI - Neck Neck exam: Present: normal inspection, full ROM, trachea midline - Chest Chest inspection: Present: other (Right-sided chest port, no signs of infection) - Respiratory Respiratory exam: Present: normal lung sounds bilaterally - Cardiovascular Cardiovascular exam: Present: tachycardia, irregular rhythm, systolic murmur - Abdominal Exam Abdominal exam: Present: soft, Non-Tender. Absent: tenderness - Extremities Exam Extremities exam: Present: normal inspection, full ROM. Absent: tenderness, pedal edema - Neurological Exam Neurological exam: Present: alert, oriented X3 - Psychiatric Psychiatric exam: Present: normal affect, normal mood - Skin Skin exam: Present: warm, dry, intact, normal color Course Course Narrative: 76 -year-old male presenting with shortness of breath. History of A. fib and metastatic lung cancer. Concern over PE. Labs and imaging. Patient states his oncologist, was wanting to order a CT of his abdomen and pelvis, so we will add this on to CTA chest - Reevaluation(s) Reevaluation #1: Imaging his back, no PE, but does have worsening metastatic disease. Patient still mildly tachycardic in the low 100s, so we will start on Cardizem and admit Time: 20:48 Vital Signs Temperature 97.4 F L 10/07/16 18:21 Pulse Rate 120 10/07/16 18:21 Respiratory Rate 22 10/07/16 18:21 Blood Pressure 131/79 10/07/16 18:21 O2 Sat by Pulse Oximetry 94 10/07/16 18:21 Temperature 97.8 F 10/07/16 22:30 Pulse Rate 100 08/08/17 22:30 Respiratory Rate 16 10/07/16 22:30 Blood Pressure 120/44 10/07/16 22:30 O2 Sat by Pulse Oximetry 99 10/07/16 22:30 Oxygen Delivery Oxygen Delivery Nasal Cannula Shortness of Breath/Dyspnea - Medical Records Medical records reviewed: Yes I reviewed the patient's medical records. - Lab Data Lab results reviewed: Yes I reviewed the patient's lab results. Result diagrams: 10/07/16 18:47 10/07/16 18:47 Lab Results 10/07/16 10/07/16 10/07/16 Range/Units 18:47 18:47 18:47 WBC 14.6 H (4.3-11.1) K/mcL RBC 4.25 (4.19-5.50) M/mcL Hgb 12.8 L (12.9-16.9) g/dL Hct 38.4 (37.5-50.1) % MCV 90.4 (83.0-100.0) fL MCH 30.1 (28.0-33.3) pg MCHC 33.3 (31.6-35.5) g/dL RDW 13.9 (11.5-14.5) % Plt Count 447 H (140-400) K/mcL MPV 9.3 L (9.4-12.4) fL Immature Gran % 0.7 (0-4) % Seg Neutrophils % 62.4 % Lymphocytes % 17.5 % Monocytes % 11.2 % Eosinophils % 7.3 % Basophils % 0.9 % Neutrophils # 9.1 H (1.6-8.9) K/mcL Lymphocytes # 2.6 (0.6-4.6) K/mcL Monocytes # 1.6 H (0.0-1.3) K/mcL Eosinophils # 1.1 H (0.0-0.6) K/mcL Basophils # 0.1 (0.0-0.2) K/mcL PT 19.3 H (9.4-12.1) Seconds INR 1.8 APTT 28.3 (26.0-36.0) Seconds Sodium (136-145) mEq/L Potassium (3.5-4.5) mEq/L Chloride (98-109) mEq/L Carbon Dioxide (19-29) mEq/L BUN (8-26) mg/dL Creatinine (0.72-1.25) mg/dL Est GFR ( Amer) (> 60) Est GFR (Non-Af Amer) (> 60) BUN/Creatinine Ratio (6-26) Glucose (70-99) mg/dL Calculated Osmolality (280-300) Lactic Acid (0.5-2.2) mmol/L Calcium (8.6-10.8) mg/dL Total Bilirubin (0.2-1.2) mg/dL Direct Bilirubin (0.0-0.5) mg/dL Indirect Bilirubin (0.0-1.2) mg/dL AST (5-34) Units/L ALT (0-55) Units/L Alkaline Phosphatase (38-126) Units/L Troponin I (0-0.03) ng/mL B-Natriuretic Peptide 208 H (0-100) pg/mL Serum Total Protein (6.0-8.3) g/dL Albumin (3.5-5.0) g/dL Globulin (2.4-3.5) g/dL Albumin/Globulin Ratio (1.1-2.2) Lipase (8-78) Units/L 10/07/16 10/07/16 10/07/16 Range/Units 18:47 18:47 18:47 WBC (4.3-11.1) K/mcL RBC (4.19-5.50) M/mcL Hgb (12.9-16.9) g/dL Hct (37.5-50.1) % MCV (83.0-100.0) fL MCH (28.0-33.3) pg MCHC (31.6-35.5) g/dL RDW (11.5-14.5) % Plt Count (140-400) K/mcL MPV (9.4-12.4) fL Immature Gran % (0-4) % Seg Neutrophils % % Lymphocytes % % Monocytes % % Eosinophils % % Basophils % % Neutrophils # (1.6-8.9) K/mcL Lymphocytes # (0.6-4.6) K/mcL Monocytes # (0.0-1.3) K/mcL Eosinophils # (0.0-0.6) K/mcL Basophils # (0.0-0.2) K/mcL PT (9.4-12.1) Seconds INR APTT (26.0-36.0) Seconds Sodium 132 L (136-145) mEq/L Potassium 3.9 (3.5-4.5) mEq/L Chloride 109 (98-109) mEq/L Carbon Dioxide 13 L (19-29) mEq/L BUN 27 H (8-26) mg/dL Creatinine 1.22 (0.72-1.25) mg/dL Est GFR ( Amer) > 60 (> 60) Est GFR (Non-Af Amer) 58 L (> 60) BUN/Creatinine Ratio 22 (6-26) Glucose 103 H (70-99) mg/dL Calculated Osmolality 279 L (280-300) Lactic Acid 1.2 (0.5-2.2) mmol/L Calcium 8.6 (8.6-10.8) mg/dL Total Bilirubin 0.5 (0.2-1.2) mg/dL Direct Bilirubin 0.3 (0.0-0.5) mg/dL Indirect Bilirubin 0.2 (0.0-1.2) mg/dL AST 15 (5-34) Units/L ALT 10 (0-55) Units/L Alkaline Phosphatase 631 H (38-126) Units/L Troponin I 0.01 (0-0.03) ng/mL B-Natriuretic Peptide (0-100) pg/mL Serum Total Protein 6.8 (6.0-8.3) g/dL Albumin 2.5 L (3.5-5.0) g/dL Globulin 4.3 H (2.4-3.5) g/dL Albumin/Globulin Ratio 0.6 L (1.1-2.2) Lipase 26 (8-78) Units/L - Radiology Data Radiology results reviewed: Yes I reviewed the patient's radiology results. Chest CTA 10/07/16 18:29 IMPRESSION: 1. No findings of pulmonary embolism. However, there is increased size of a suspected metastatic right hilar lymph node that now directly extends into the right interlobar artery. The right middle lobe and lower lobe pulmonary artery branches distal to this remain patent. 2. Slightly increased size of masslike opacity in the partially collapsed right lower lobe, likely mostly the primary malignancy. Associated atelectasis is likely present. 3. Unchanged metastatic subcarinal lymph node with a new likely metastatic right hilar node. Additional nonenlarged mediastinal nodes appear unchanged but are also likely metastatic. 4. A few new solid and groundglass nodules in the left upper and left lower lobes, potentially infectious, inflammatory, or metastatic. 5. Stability of solid nodules measuring up to 0.7 cm x 0.3 cm in the left upper lobe, potentially infectious, inflammatory, or neoplastic. Recommend attention on follow-up imaging. 6. Minimal bronchial wall thickening and central airway secretions, suggesting bronchitis. 7. No findings of metastatic disease in the abdomen or pelvis. 8. Incidental findings as above. D/ / Christian Escudero MD / Christian Escudero MD Interpreting Provider: Christian Escudero MD Chest X-Ray 10/07/16 18:29 IMPRESSION: 1. New left basilar atelectasis. 2. Unchanged partial collapse of the right lower lobe due to an underlying right perihilar mass better seen on CT. D/ / Christian Escudero MD / Christian Escudero MD Interpreting Provider: Christian Escudero MD Abdomen/Pelvis CT 10/07/16 19:11 IMPRESSION: 1. No findings of pulmonary embolism. However, there is increased size of a suspected metastatic right hilar lymph node that now directly extends into the right interlobar artery. The right middle lobe and lower lobe pulmonary artery branches distal to this remain patent. 2. Slightly increased size of masslike opacity in the partially collapsed right lower lobe, likely mostly the primary malignancy. Associated atelectasis is likely present. 3. Unchanged metastatic subcarinal lymph node with a new likely metastatic right hilar node. Additional nonenlarged mediastinal nodes appear unchanged but are also likely metastatic. 4. A few new solid and groundglass nodules in the left upper and left lower lobes, potentially infectious, inflammatory, or metastatic. 5. Stability of solid nodules measuring up to 0.7 cm x 0.3 cm in the left upper lobe, potentially infectious, inflammatory, or neoplastic. Recommend attention on follow-up imaging. 6. Minimal bronchial wall thickening and central airway secretions, suggesting bronchitis. 7. No findings of metastatic disease in the abdomen or pelvis. 8. Incidental findings as above. D/ / Christian Escudero MD / Christian Escudero MD Interpreting Provider: Christian Escudero MD Critical Care Time Critical Care Time: Yes Total Critical Care Time: 30 Attestation: Critical care performed: Time is exclusive of separately billable procedures. Time includes: direct patient care, patient reassessment, coordination of patient care, interpretation of data (laboratory data, radiology data, and respiratory data), review of patient's medical records, medical consultation and documentation of patient care. Procedures included in critical care time: Procedures excluded from critical care time: S.B.A.R. - S.B.A.[place] Situation: Demographics, MOA Background: Presenting Complaint, Relevant PMH, Meds, & Allergies Assessment: Vital Signs, Course and respsone to treatment, Exam Concerns, Patient/Family Expectation, Pertinant Lab Results, Outstanding Labs Recommendation: Barrier(s) to disposition, Recommendation based on pending studies, treatments, or consults S.B.A.RAudelia Report Given to: Dr. Siddhartha PosadasBAudeliaAMatty Repor Time: 20:46 Attestation Statement - Attestation Attestation: I personally interviewed and examined this patient and my medical decision- making was reviewed with the Resident Physician, Dr. Tabor. I agree with the documented findings, disposition and treatment plan as described except to the extent set forth below. Patient is a pleasant 76-year-old white male with an unfortunate history of COPD and stage IV lung cancer who presents to the emergency department with a one-week history of gradually worsening shortness of breath. Patient arrived with increased work of breathing and hypoxia, appears pale and frail in appearance. Patient was also tachycardic but stable blood pressure. Patient was signed out to us by Dr. Rodriguez, who initially evaluated the patient and had ordered initial labs and imaging testing. Patient was on nasal cannula oxygen which she is not on at home which helped improve his O2 sats. Patient reports that his oncologist and changed his chemotherapy medications apparently 2 weeks ago and that since that time he has been feeling gradually worse. Also complaining of generalized weakness and fatigue. Patient denies any palpitations or heart racing like symptoms and no pain. I agree with patient's physical exam findings as documented. EKG shows A. fib with RVR without acute ST or T-wave changes appreciated. Patient has a history of atrial fibrillation and is on Coumadin currently. Patient's lab evaluation was fairly unremarkable overall. His CT scan does show worsening lung cancer which could be compromising his breathing. No PE. We also obtained CT abdomen and pelvis which was ordered for the patient for tomorrow by his oncologist to look for any metastasis. Patient's CT abdomen and pelvis was negative for any spread of cancer. Patient was started on Cardizem for rate control and has had stable blood pressure throughout his ED course. Patient continues to feel dyspneic but O2 sats are stable on nasal cannula oxygen. Patient will be admitted for further evaluation and treatment of his dyspnea. Case was discussed with hospitalist who accepts the patient for admission.
[2016-10-07] MEDS ORDERED: 0.9 % Sodium Chloride 250 ML ONE (22:07)
[2016-10-07] MEDS ORDERED: Ondansetron ODT 4 MG TAB.RAPDIS PO PRN (23:14)
[2016-10-07] MEDS ORDERED: *HR* OxyCODONE/APAP 5/325 TABLET PO PRN (23:14)
[2016-10-07] MEDS ORDERED: *HR* LORazepam 0.5 MG TABLET PO PRN (23:14)
[2016-10-07] MEDS ORDERED: *HR* Rivaroxaban 15 MG TABLET PO SCH (23:15)
[2016-10-07] MEDS ORDERED: Naloxone 0.4 MG/ML INJ IVP PRN (23:16)
[2016-10-07] MEDS ORDERED: Ipratropium/Albuterol Neb 3 ML IH PRN (23:19)
--- NOTE | 2016-10-07 23:26 | Internal Med History&Physical ---
Date of Encounter: 10/07/16 Time of Encounter: 23:23 Assessment and Plan (1) Acute bronchitis Current visit: Yes Status: Acute possible acute bronchitis with acute respiratory failure. nicol Mcfarlane solumedrol. Consult onc given patient on PD1 agent - to follow. CTA with suggestion of PD. No overt inflammatory infiltrates Qualifiers: Qualified Code(s): J20.9 - Acute bronchitis, unspecified (2) Atrial fibrillation Current visit: Yes Status: Acute EKG reviewed by self with rate 120, Afib rvr on xarelto qother day by Dr Lorenz. Start dilt gtt. Will attempt to convert to PO tomorrow. CHeck Mg, K Qualifiers: Atrial fibrillation type: paroxysmal Qualified Code(s): I48.0 - Paroxysmal atrial fibrillation (3) Primary squamous cell carcinoma of right lung Current visit: Yes Status: Chronic consult oncology (4) Failure to thrive syndrome, adult Current visit: Yes Status: Acute worsening functional status. declining. Consider PT/OT eval when AFib and respiration improves to assist with placement eval Internal Medicine - H&P: HPI Chief complaint: SOB History of present illness: Mr. Reyes is a 76 year old male with metastatic NSCLC who presents with 1 week hx of worsening SOB. Found to be in AFib rvr in the ED. CTPE/A/P imaging in the ED w/o features of infection but some concern for progression. He reports 1 week hx of worsening SOB, worse with ambulation, better at rest. He has been bed bound at home for the last week as a result. Anorexia associated. SOB associated with persistent cough productive of clear thick sputum. He is undergoing active immunotherapy for his cancer with local oncologist. Past Med Surg Social Fam HX - Past Medical History Medical history: atrial fibrillation, cancer, COPD, coronary artery disease, DVT , diabetes, hyperlipidemia, hypertension Psychiatric history: anxiety, depression - Past Surgical History Surgical History: carotid endarterectomy, cholecystectomy, coronary bypass (CABG ) - Social History Smoking Status: Current every day smoker Packs per day: 1 Smokeless Tobacco Status: No Alcohol use: none Drug use: none - Family History Father Living Status: Age at : 88 Cause of : Old Age Hx Family Genitourinary Disorders: Yes (Prostate) Mother Living Status: Age at : 90 Cause of : Old age Hx Family Cancer: Yes ("Maybe cancer of some kind") Hx Family Endocrine Disorder: Yes (DM) Internal Medicine - H&P: Meds Albuterol Sulfate [Albuterol Inhaler] 2 puff IH Q6H PRN 08/07/15 [History] Budesonide/Formoterol 160/4.5 [Symbicort 160/4.5] 2 puff IH BIDR 08/07/15 [ History] Lidocaine/Prilocaine CREAM [Emla] 5 gm TP AD #1 tube 09/10/15 [Rx] Omeprazole [PriLOSEC] 20 mg PO DAILY #90 capsule 09/10/15 [Rx] Ondansetron [Zofran] 8 mg PO Q8HR PRN #90 tablet 09/10/15 [Rx] Prochlorperazine Maleate [Compazine] 10 mg PO Q6HR PRN #90 tablet 09/10/15 [Rx] amLODIPine [Norvasc] 10 mg PO DAILY #60 tablet 01/09/16 [Rx] Magnesium Oxide [Magnesium] 400 mg PO BID #60 tablet 06/02/16 [Rx] Ferrous Sulfate [Iron] 325 mg PO BID #60 tablet 06/09/16 [Rx] Cyanocobalamin (B-12) [Vitamin B12] 1,000 mcg PO DAILY #90 tablet 07/04/16 [Rx] L. Acidophilus/Pectin, [place] [Acidophilus Probiotic Capsule] 1 cap PO DAILY # 30 capsule 07/04/16 [Rx] LORazepam [Ativan] 0.5 mg PO Q6H PRN #90 tablet 07/04/16 [Rx] Magic Mouthwash 10 ml PO TID PRN 07/18/16 [History] Oxycodone HCl/Acetaminophen [Percocet 5-325 mg Tablet] 1 tab PO Q6H PRN [History] Megestrol Acetate [Megace] 200 mg PO BID 08/05/16 [History] Cholestyramine/Aspartame [Cholestyramine Light Packet] 4 gm PO BID #60 powd.pack 09/30/16 [Rx] Amitriptyline [Elavil] 25 mg PO HS 10/07/16 [History] Dexamethasone [Decadron] 4 mg PO AD 10/07/16 [History] Lipase/Protease/Amylase [Creon Dr 12,000 Units Capsule] 1 each PO TIDWM [History] Loperamide [Imodium] 2 mg PO PER PKG DI PRN 10/07/16 [History] Rivaroxaban [Xarelto] 15 mg PO Q48H 10/07/16 [History] Allergies Penicillins Allergy (Severe, Verified 09/16/16 15:29) Swelling of Lip/Tongue/Throat All Systems PM: A 10-system review of systems was performed and is negative for pertinent findings except as documented above in the HPI. Review of systems: ROS 14 point review of systems reviewed as best as possible given presentation. Pertinent positive or negative as per HPI or otherwise reviewed as negative - Constitutional Vitals: Temp Pulse Resp BP Pulse Ox 97.8 F 100 16 120/44 99 10/07/16 22:30 10/07/16 22:30 10/07/16 22:30 10/07/16 22:30 10/07/16 22:30 Exam: General - AAO x 3 Psych - Appropriate affect/speech. No agitation Eyes - CRUZ. Eye lids intact. No scleral icterus ENT - Oral mucosa pink, dentition intact. External ear clear/dry/intact. No thyromegaly Lymphatics - No cervical/inguinal lympadenopathy Neuro - No gross peripheral or central neuro deficits with intact CN 2-12 exam Heart - Sinus. RRR. S1 and S2 present. No added HS/murmurs appreciated. No elevated JVD appreciated. No calf swellings/erythema Lung - Decrease air entry b/l. Air entry b/l, No crackes,wheezes appreciated GI - Soft, non-tender. No hepatosplenomegaly/ascities. BS+ - No CVA/suprapubic tenderness or palpable bladder distension Skin - Intact. No rash/petechiae/ecchymosis. Warm extremities MSK - Joints with normal ROM. No joint swellings Internal Med - H&P Results - Labs CBC & Chem 7: 10/07/16 18:47 10/07/16 18:47
[2016-10-07] MEDS: Azithromycin 500 MG in D5% in Water 250 ML IVPB SCH (23:58)
[2016-10-07] MEDS: MethylPREDNISolone 40 MG/ML VIAL IVP SCH (23:58)
[2016-10-07] MEDS: 0.9 % Sodium Chloride 1,000 ML IVC SCH (23:59)
[2016-10-08] MEDS: Ipratropium/Albuterol Neb 3 ML IH SCH ×4 (03:53→21:44)
[2016-10-08 04:50] LABS: Bilirubin,Urine Negative (Negative); Blood,Urine Negative (Negative); Clarity,Urine Clear (Clear); Color,Urine Yellow (Yellow); Glucose,Urine (UA) Normal (Normal); Ketones,Urine Negative (Negative); Leukocyte Esterase,Urine Negative (Negative); Nitrite,Urine Negative (Negative); Protein,Urine Trace mg/dL (Neg-Trace); Specific Gravity,Urine > 1.030 (1.010-1.025); Urobilinogen,Urine Normal (Normal)
[2016-10-08 04:52] LABS: Bacteria,Urine None Seen per hpf (None-Few); Hyaline Casts,Urine None Seen per lpf (None-Few); Squamous Epithelial Cell,Urine Moderate per lpf (None-Few); WBC,Urine 0-3 per hpf (0-3)
[2016-10-08] MEDS: MethylPREDNISolone 40 MG/ML VIAL IVP SCH ×4 (06:16→23:44)
[2016-10-08 07:52] LABS: Alanine Aminotransferase 8 Units/L (0-55); Albumin 2.2 g/dL (3.5-5.0); Albumin/Globulin Ratio 0.6 (1.1-2.2); Alkaline Phosphatase 498 Units/L (38-126); Aspartate Amino Transferase 11 Units/L (5-34); BUN/Creatinine Ratio 24 (6-26); Bilirubin,Total 0.3 mg/dL (0.2-1.2); Blood Urea Nitrogen 25 mg/dL (8-26); Calcium 7.8 mg/dL (8.6-10.8); Carbon Dioxide 14 mEq/L (19-29); Chloride 112 mEq/L (98-109); Globulin 3.7 g/dL (2.4-3.5); Glucose 202 mg/dL (70-99); Magnesium 0.8 mg/dL (1.6-2.6); Osmolality,Calculated 286 (280-300); Potassium 3.8 mEq/L (3.5-4.5); Sodium 133 mEq/L (136-145); Total Protein 5.9 g/dL (6.0-8.3); eGFR For African Americans > 60 (> 60); eGFR For Non-African Americans > 60 (> 60)
[2016-10-08] MEDS ORDERED: CHOLESTYRAMINE LIGHT PO SCH (09:00)
[2016-10-08] MEDS: Cyanocobalamin (B-12) 1,000 MCG TABLET PO SCH (09:47)
[2016-10-08] MEDS: Megestrol Acetate 400 MG/10 ML UDC PO SCH ×2 (09:47→20:05)
[2016-10-08] MEDS: Magnesium Oxide 400 MG TABLET PO SCH ×2 (09:47→20:05)
--- NOTE | 2016-10-08 09:51 | Internal Med Progress Note ---
<Agustin Serrano - Last Filed: 10/08/16 13:12> Date of Encounter: 10/08/16 Time of Encounter: 09:10 - Assessment and plan (1) Acute bronchitis Current Visit: Yes Status: Acute Assessment and plan: -Patient has NSCLC. -CTA showed possible bronchitis -continue Azithromycin -continue Duonebs -Continue solumedrol Qualifiers: Bronchitis organism: unspecified organism Qualified Code(s): J20.9 - Acute bronchitis, unspecified (2) Primary squamous cell carcinoma of right lung Current Visit: Yes Status: Chronic Assessment and plan: Patient has had progression of his Stage IV NSCLC based on CT despite txt. oncology has been consulted. follow recommendations. Considering progression of disease and declining status consider PT/OT consult. (3) Atrial fibrillation Current Visit: Yes Status: Acute Assessment and plan: Hx of paroxsymal afib rate controlled Patient presented in Afib with RVR Cardiazem drip d/c'd continue xarelto Qualifiers: Atrial fibrillation type: paroxysmal Qualified Code(s): I48.0 - Paroxysmal atrial fibrillation (4) Hypomagnesemia Current Visit: Yes Status: Acute Assessment and plan: Chronic. continue mag ox - Subjective Interval history: Patient reports slight improvement of shortness of breath. Patient denies Chest Pain. Patient reports a cough with production of white sputum. Patient reports he has been in treatment for his NSCLC for over a year now. He reports managing ok at home. Patient had his O2 off during visit and was able to talk with out getting short of breath. - Constitutional Vitals: Temp Pulse Resp BP Pulse Ox 97.6 F 72 16 130/64 98 10/08/16 07:22 10/08/16 07:22 10/08/16 07:22 10/08/16 07:22 10/08/16 07:22 General appearance: Present: pleasant, no acute distress, answers questions appropriately - Eye Eye exam: Present: PERRL - ENT ENT exam: Present: mucous membranes moist - Respiratory Respiratory exam: Present: decreased breath sounds - Cardiovascular Cardiovascular exam: Present: irregular rhythm, +S1, +S2. Absent: gallop, rubs , systolic murmur - GI/Abdominal GI/Abdominal exam: Present: normal bowel sounds, soft. Absent: tenderness - Extremities Exam Extremities exam: Absent: pedal edema - Neurological Exam Neurological exam: Present: alert. Absent: speech deficit - Psychiatric Psychiatric exam: Present: normal affect, normal mood - Skin Skin exam: Present: dry, warm Internal Medicine: Result - Labs CBC & Chem 7: 10/08/16 09:45 10/08/16 07:25 Labs: BMP 10/08/16 07:25 Sodium 133 L Potassium 3.8 Chloride 112 H Carbon Dioxide 14 L BUN 25 Creatinine 1.04 Glucose 202 H Calcium 7.8 L Liver Function 10/08/16 Range/Units 07:25 Total Bilirubin 0.3 (0.2-1.2) mg/dL AST 11 (5-34) Units/L ALT 8 (0-55) Units/L Alkaline Phosphatase 498 H (38-126) Units/L Albumin 2.2 L (3.5-5.0) g/dL Urine 10/08/16 Range/Units 04:40 Urine Color Yellow (Yellow) Urine Clarity Clear (Clear) Urine pH 6.0 (5.0-8.0) pH Units Ur Specific [place] > 1.030 H (1.010-1.025) Urine Protein Trace (Neg-Trace) mg/dL Urine Glucose (UA) Normal (Normal) mg/dL - ABG Interpretation ABG results: PT/INR, D-dimer PT 19.3 Seconds (9.4-12.1) H 10/07/16 18:47 Consult Discharge Plan - Plan Referrals: Jose Lorenz DO [Non-Partnered Physician] - 10/27/16 9:00 am (Please follow up as schedule...your Primary doctor office will call an a sooner appt. if theres cancellation) <Curtis Pryor - Last Filed: 10/08/16 18:10> Date of Encounter: 10/08/16 - Assessment and plan (1) Acute and chronic respiratory failure Current Visit: No Status: Acute Qualifiers: Respiratory failure complication: hypoxia Qualified Code(s): J96.21 - Acute and chronic respiratory failure with hypoxia (2) Acute bronchitis Current Visit: Yes Status: Acute Qualifiers: Bronchitis organism: unspecified organism Qualified Code(s): J20.9 - Acute bronchitis, unspecified (3) Primary squamous cell carcinoma of right lung Current Visit: Yes Status: Chronic (4) COPD (chronic obstructive pulmonary disease) Current Visit: No Status: Chronic Qualifiers: COPD type: unspecified COPD Qualified Code(s): J44.9 - Chronic obstructive pulmonary disease, unspecified (5) Atrial fibrillation Current Visit: Yes Status: Acute Qualifiers: Atrial fibrillation type: paroxysmal Qualified Code(s): I48.0 - Paroxysmal atrial fibrillation - Constitutional Vitals: Temp Pulse Resp BP Pulse Ox 97.6 F 85 18 122/68 99 10/08/16 16:10 10/08/16 16:10 10/08/16 16:10 10/08/16 16:10 10/08/16 16:10 Internal Medicine: Result - Labs CBC & Chem 7: 10/08/16 09:45 10/08/16 07:25 Labs: Short CBC 10/08/16 Range/Units 09:45 WBC 10.7 (4.3-11.1) K/mcL Hgb 10.7 L D (12.9-16.9) g/dL Hct 31.7 L (37.5-50.1) % Plt Count 392 (140-400) K/mcL BMP 10/08/16 07:25 Sodium 133 L Potassium 3.8 Chloride 112 H Carbon Dioxide 14 L BUN 25 Creatinine 1.04 Glucose 202 H Calcium 7.8 L Liver Function 10/08/16 Range/Units 07:25 Total Bilirubin 0.3 (0.2-1.2) mg/dL AST 11 (5-34) Units/L ALT 8 (0-55) Units/L Alkaline Phosphatase 498 H (38-126) Units/L Albumin 2.2 L (3.5-5.0) g/dL Urine 10/08/16 Range/Units 04:40 Urine Color Yellow (Yellow) Urine Clarity Clear (Clear) Urine pH 6.0 (5.0-8.0) pH Units Ur Specific [place] > 1.030 H (1.010-1.025) Urine Protein Trace (Neg-Trace) mg/dL Urine Glucose (UA) Normal (Normal) mg/dL - ABG Interpretation ABG results: PT/INR, D-dimer PT 19.3 Seconds (9.4-12.1) H 10/07/16 18:47 - Attending Attestation I examined this patient and my medical decision-making was reviewed with the Resident Physician on 10/08/16. I agree with the documented findings, disposition and treatment plan as described except to the extent set forth below. Mr. Reyes is currently admitted for acute bronchitis in the setting of lung cancer. He remains moderate to high risk due to potential for worsening respiratory status. Mr Reyes feels OK. He is still coughing. No fever or chills. No other new symptoms. Exam Alert Comfortable Mucus membranes moist Heart irreg Lungs with some scant wheeze No edema Abd soft I/P 1. Hypoxia 2. Acute bronchitis 3. Lungs cancer Further diagnoses and plan as above.
[2016-10-08] MEDS: Insulin LISPRO 300 UNITS/3 ML VIAL SQ SCH ×3 (09:54→16:47)
[2016-10-08 10:24] LABS: Hematocrit 31.7 % (37.5-50.1); Hemoglobin 10.7 g/dL (12.9-16.9); Immature Platelets 1.8 % (1.1-6.1); Mean Corpuscular HGB Conc 33.8 g/dL (31.6-35.5); Mean Corpuscular Hemoglobin 30.3 pg (28.0-33.3); Mean Corpuscular Volume 89.8 fL (83.0-100.0); Mean Platelet Volume 9.5 fL (9.4-12.4); Red Blood Count 3.53 M/mcL (4.19-5.50)
[2016-10-08] MEDS: Budesonide/Formoterol 160/4.5 MDI IH SCH ×2 (10:50→21:44)
[2016-10-08] MEDS: 0.9 % Sodium Chloride 1,000 ML IVC SCH (16:40)
--- NOTE | 2016-10-08 16:53 | Oncology Inp Consult Note ---
Date of Encounter: 10/08/16 Time of Encounter: 17:00 Assessment and Plan (1) Primary squamous cell carcinoma of right lung Status: Chronic Assessment and plan: Patient with a stage IIIa squamous cell carcinoma right lung without any distant metastatic disease and prior imaging studies with slight progression, overall responding well to nivolumab immunotherapy, plan to continue same treatment outpatient. Imaging done 10/16 and 07/16 reviewed d/w patient Hospitalization for bronchitis/COPD On O2, Solumedrol, Z sandi. History of recurrent C. difficile associated/nivolumab diarrhea, with soft stools electrolyte abnormalities atrial fibrillation with rapid ventricular rhythm on Xarelto on rate control with medications. On oxycodone prn pain. - Data of Consult Requesting Physician: Curtis Pryor DO Primary Care Provider: PCP NONE - Consult Narrative Reason for consult: lung ca History of present illness: Mr. Reyes is a 76 year old male with medical history significant for COPD, hypertension, history of C. difficile diarrhea, coronary artery disease, hypertension, hypercholesterolemia, peripheral vascular disease COPD, chronic bronchitis, atrial fibrillation and is recently receiving nivolumab immunotherapy with some interruption in August 2016 when he was noted to have mild progression, hospitalized with shortness of breath and suspected bronchitis. He had CT imaging that shows slight enlargement of the right hilar lymph node as well as right lung mass with partial collapse of the right lower lobe. Patient reports shortness of breath with exertion, not wearing oxygen however, some chest discomfort, cough with clear phlegm, abdominal discomfort from hernia , denies any back pain or headaches. He has had diarrhea on and off currently reports soft stool. review of systems otherwise negative. Past Med Surg Social Fam HX - Past Medical History Medical history: atrial fibrillation, cancer, COPD, coronary artery disease, DVT , diabetes, hyperlipidemia, hypertension Psychiatric history: anxiety, depression - Past Surgical History Surgical History: carotid endarterectomy, cholecystectomy, coronary bypass (CABG ) - Social History Smoking Status: Current every day smoker Packs per day: 1 Smokeless Tobacco Status: No Alcohol use: none Drug use: none - Family History Father Living Status: Age at : 88 Cause of : Old Age Hx Family Genitourinary Disorders: Yes (Prostate) Mother Living Status: Age at : 90 Cause of : Old age Hx Family Cancer: Yes ("Maybe cancer of some kind") Hx Family Endocrine Disorder: Yes (DM) Medications and Allergies Albuterol Sulfate [Albuterol Inhaler] 2 puff IH Q6H PRN 08/07/15 [History] Budesonide/Formoterol 160/4.5 [Symbicort 160/4.5] 2 puff IH BIDR 08/07/15 [ History] Lidocaine/Prilocaine CREAM [Emla] 5 gm TP AD #1 tube 09/10/15 [Rx] Omeprazole [PriLOSEC] 20 mg PO DAILY #90 capsule 09/10/15 [Rx] Ondansetron [Zofran] 8 mg PO Q8HR PRN #90 tablet 09/10/15 [Rx] Prochlorperazine Maleate [Compazine] 10 mg PO Q6HR PRN #90 tablet 09/10/15 [Rx] amLODIPine [Norvasc] 10 mg PO DAILY #60 tablet 01/09/16 [Rx] Magnesium Oxide [Magnesium] 400 mg PO BID #60 tablet 06/02/16 [Rx] Ferrous Sulfate [Iron] 325 mg PO BID #60 tablet 06/09/16 [Rx] Cyanocobalamin (B-12) [Vitamin B12] 1,000 mcg PO DAILY #90 tablet 07/04/16 [Rx] L. Acidophilus/Pectin, [place] [Acidophilus Probiotic Capsule] 1 cap PO DAILY # 30 capsule 07/04/16 [Rx] LORazepam [Ativan] 0.5 mg PO Q6H PRN #90 tablet 07/04/16 [Rx] Magic Mouthwash 10 ml PO TID PRN 07/18/16 [History] Oxycodone HCl/Acetaminophen [Percocet 5-325 mg Tablet] 1 tab PO Q6H PRN [History] Megestrol Acetate [Megace] 200 mg PO BID 08/05/16 [History] Cholestyramine/Aspartame [Cholestyramine Light Packet] 4 gm PO BID #60 powd.pack 09/30/16 [Rx] Amitriptyline [Elavil] 25 mg PO HS 10/07/16 [History] Dexamethasone [Decadron] 4 mg PO AD 10/07/16 [History] Lipase/Protease/Amylase [Creon Dr 12,000 Units Capsule] 1 each PO TIDWM [History] Loperamide [Imodium] 2 mg PO PER PKG DI PRN 10/07/16 [History] Rivaroxaban [Xarelto] 15 mg PO Q48H 10/07/16 [History] Allergies Penicillins Allergy (Severe, Verified 09/16/16 15:29) Swelling of Lip/Tongue/Throat Review of systems: as in hpi Oncology - Exam - Constitutional Vitals: Temp Pulse Resp BP Pulse Ox 97.6 F 85 18 122/68 99 10/08/16 16:10 10/08/16 16:10 10/08/16 16:10 10/08/16 16:10 10/08/16 16:10 General appearance: average body habitus - Head Head exam: Present: atraumatic, normal inspection - Eye Eye exam: Present: sclera anicteric - ENT ENT exam: Present: mucous membranes dry - Neck Neck exam: Present: full ROM - Respiratory Respiratory exam: Present: CTAB - Cardiovascular Cardiovascular exam: Present: +S1, +S2 - GI/Abdominal GI/Abdominal exam: Present: normal bowel sounds, soft - Extremities Exam Extremities exam: Present: normal inspection - Neurological Exam Neurological exam: Present: alert, oriented X3, no focal deficits - Psychiatric Psychiatric exam: Present: normal affect Oncology - Results - Labs Labs: Short CBC 10/08/16 Range/Units 09:45 WBC 10.7 (4.3-11.1) K/mcL Hgb 10.7 L D (12.9-16.9) g/dL Hct 31.7 L (37.5-50.1) % Plt Count 392 (140-400) K/mcL BMP 10/08/16 07:25 Sodium 133 L Potassium 3.8 Chloride 112 H Carbon Dioxide 14 L BUN 25 Creatinine 1.04 Glucose 202 H Calcium 7.8 L Liver Function 10/08/16 Range/Units 07:25 Total Bilirubin 0.3 (0.2-1.2) mg/dL AST 11 (5-34) Units/L ALT 8 (0-55) Units/L Alkaline Phosphatase 498 H (38-126) Units/L Albumin 2.2 L (3.5-5.0) g/dL Urine 10/08/16 Range/Units 04:40 Urine Color Yellow (Yellow) Urine Clarity Clear (Clear) Urine pH 6.0 (5.0-8.0) pH Units Ur Specific [place] > 1.030 H (1.010-1.025) Urine Protein Trace (Neg-Trace) mg/dL Urine Glucose (UA) Normal (Normal) mg/dL - Imaging and Cardiology CT scan - abdomen Status: image reviewed by me Consult Discharge Plan - Plan Referrals: Jose Lorenz DO [Non-Partnered Physician] - 10/27/16 9:00 am (Please follow up as schedule...your Primary doctor office will call an a sooner appt. if theres cancellation)
[2016-10-08] MEDS ORDERED: *HR* Rivaroxaban 15 MG TABLET PO SCH (17:00)
--- NOTE | 2016-10-08 20:23 | Electrocardiograph Report ---
[place] [id number] Test Date: 2016-10-07 Pat Name: Harish Reyes Department: 104 Room: 2A Gender: M Millwright Helper: : 1940 Requested By: Mabel Rodriguez Order Number: [id number] Reading MD: Klaus Magana MD Measurements Intervals [place] Rate: 120 P: MT: 0 QRS: 101 QRSD: 131 T: -18 QT: 344 QTc: 415 Interpretive Statements ATRIAL FIBRILLATION WITH RAPID VENTRICULAR RESPONSE MARKED RIGHT AXIS DEVIATION RIGHT BUNDLE BRANCH BLOCK Electronically Signed On 10-08-2016 20:21:45 EDT by Klaus Magana MD
[2016-10-08] MEDS ORDERED: Insulin LISPRO 300 UNITS/3 ML VIAL SQ SCH (21:00)
[2016-10-08] MEDS: Azithromycin 500 MG in D5% in Water 250 ML IVPB SCH (23:44)
[2016-10-09 05:15] LABS: Hematocrit 28.5 % (37.5-50.1); Hemoglobin 9.5 g/dL (12.9-16.9); Mean Corpuscular HGB Conc 33.3 g/dL (31.6-35.5); Mean Corpuscular Hemoglobin 29.5 pg (28.0-33.3); Mean Corpuscular Volume 88.5 fL (83.0-100.0); Mean Platelet Volume 9.7 fL (9.4-12.4); Platelet Count 346 K/mcL (140-400); Red Blood Count 3.22 M/mcL (4.19-5.50); Red Cell Distribution Width 14.3 % (11.5-14.5)
[2016-10-09] MEDS: Ipratropium/Albuterol Neb 3 ML IH SCH ×2 (05:16→10:02)
[2016-10-09 05:32] LABS: BUN/Creatinine Ratio 20 (6-26); Blood Urea Nitrogen 23 mg/dL (8-26); Calcium 7.5 mg/dL (8.6-10.8); Carbon Dioxide 14 mEq/L (19-29); Chloride 115 mEq/L (98-109); Glucose 193 mg/dL (70-99); Osmolality,Calculated 293 (280-300); Potassium 3.3 mEq/L (3.5-4.5); Sodium 137 mEq/L (136-145); eGFR For African Americans > 60 (> 60); eGFR For Non-African Americans > 60 (> 60)
[2016-10-09] MEDS: MethylPREDNISolone 40 MG/ML VIAL IVP SCH ×2 (05:43→12:17)
[2016-10-09] MEDS: 0.9 % Sodium Chloride 1,000 ML IVC SCH (05:48)
[2016-10-09] MEDS: Magnesium Oxide 400 MG TABLET PO SCH (08:05)
[2016-10-09] MEDS: Cyanocobalamin (B-12) 1,000 MCG TABLET PO SCH (08:06)
[2016-10-09] MEDS: Megestrol Acetate 400 MG/10 ML UDC PO SCH (08:06)
[2016-10-09] MEDS: Insulin LISPRO 300 UNITS/3 ML VIAL SQ SCH ×2 (08:18→12:03)
--- NOTE | 2016-10-09 08:55 | Discharge Summary ---
<Agustin Serrano - Last Filed: 10/09/16 11:23> Date of Encounter: 10/09/16 Time of Encounter: 08:15 - Discharge Diagnosis (1) Acute bronchitis Priority: Primary Status: Acute Qualifiers: Bronchitis organism: unspecified organism Qualified Code(s): J20.9 - Acute bronchitis, unspecified (2) Primary squamous cell carcinoma of right lung Priority: Primary Status: Chronic (3) Atrial fibrillation Priority: Secondary Status: Acute Qualifiers: Atrial fibrillation type: paroxysmal Qualified Code(s): I48.0 - Paroxysmal atrial fibrillation (4) Hypomagnesemia Priority: Secondary Status: Acute - Discharge Medications Prescriptions: Ipratropium/Albuterol Neb [Duoneb] 3 ml IH Q4HR #100 vial.neb Azithromycin [Zithromax] 250 mg PO Q24H #3 tablet Diltiazem HCl [Diltiazem 24Hr Cd] 120 mg PO DAILY #30 cap.er.24h PredniSONE [Deltasone] 20 mg PO BID #6 tablet Home Medications: Albuterol Sulfate [Albuterol Inhaler] 2 puff IH Q6H PRN 08/07/15 [History] Budesonide/Formoterol 160/4.5 [Symbicort 160/4.5] 2 puff IH BIDR 08/07/15 [ History] Lidocaine/Prilocaine CREAM [Emla] 5 gm TP AD #1 tube 09/10/15 [Rx] Omeprazole [PriLOSEC] 20 mg PO DAILY #90 capsule 09/10/15 [Rx] Ondansetron [Zofran] 8 mg PO Q8HR PRN #90 tablet 09/10/15 [Rx] Prochlorperazine Maleate [Compazine] 10 mg PO Q6HR PRN #90 tablet 09/10/15 [Rx] amLODIPine [Norvasc] 10 mg PO DAILY #60 tablet 01/09/16 [Rx] Magnesium Oxide [Magnesium] 400 mg PO BID #60 tablet 06/02/16 [Rx] Ferrous Sulfate [Iron] 325 mg PO BID #60 tablet 06/09/16 [Rx] Cyanocobalamin (B-12) [Vitamin B12] 1,000 mcg PO DAILY #90 tablet 07/04/16 [Rx] L. Acidophilus/Pectin, [place] [Acidophilus Probiotic Capsule] 1 cap PO DAILY # 30 capsule 07/04/16 [Rx] LORazepam [Ativan] 0.5 mg PO Q6H PRN #90 tablet 07/04/16 [Rx] Magic Mouthwash 10 ml PO TID PRN 07/18/16 [History] Oxycodone HCl/Acetaminophen [Percocet 5-325 mg Tablet] 1 tab PO Q6H PRN [History] Megestrol Acetate [Megace] 200 mg PO BID 08/05/16 [History] Cholestyramine/Aspartame [Cholestyramine Light Packet] 4 gm PO BID #60 powd.pack 09/30/16 [Rx] Amitriptyline [Elavil] 25 mg PO HS 10/07/16 [History] Dexamethasone [Decadron] 4 mg PO AD 10/07/16 [History] Lipase/Protease/Amylase [Creon Dr 12,000 Units Capsule] 1 each PO TIDWM [History] Loperamide [Imodium] 2 mg PO PER PKG DI PRN 10/07/16 [History] Rivaroxaban [Xarelto] 15 mg PO Q48H 10/07/16 [History] Azithromycin [Zithromax] 250 mg PO Q24H #3 tablet 10/09/16 [Rx] Diltiazem HCl [Diltiazem 24Hr Cd] 120 mg PO DAILY #30 cap.er.24h 10/09/16 [Rx] Ipratropium/Albuterol Neb [Duoneb] 3 ml IH Q4HR #100 vial.neb 10/09/16 [Rx] PredniSONE [Deltasone] 20 mg PO BID #6 tablet 10/09/16 [Rx] Allergies/Adverse Reactions: Allergies Penicillins Allergy (Severe, Verified 09/16/16 15:29) Swelling of Lip/Tongue/Throat Procedures/tests Complete & Pending: CT Chest abd, pelvis: "FINDINGS: CHEST: PULMONARY ARTERIES: Mildly dilated but in proportion with the ascending thoracic aorta. Adequately opacified for evaluation. No filling defects consistent with emboli. Extension of a right hilar mass into the right interlobar artery prior to its bifurcation with distal patency. MEDIASTINUM: Unchanged right internal jugular central venous port catheter. Changes of coronary artery bypass grafting. Normal heart size. No bowing of the interventricular septum. Mild right ventricular hypertrophy. Mild concentric left ventricular hypertrophy. No pericardial effusion. Mitral and aortic valve annular calcifications. Aortic valve leaflet calcifications, a finding that can be seen with aortic valve stenosis. Moderate to severe coronary atherosclerotic calcifications. Severe systemic atherosclerosis with multifocal plaque ulceration especially in the aortic arch and descending thoracic aorta. Unchanged 4.2 cm x 2.6 cm subcarinal lymph node (previously 4.3 cm x 2.5 cm). New 1.7 cm x 1.1 cm right hilar node. Unchanged nonenlarged bilateral mediastinal nodes. LUNGS/PLEURA: Secretions in the trachea. No aeration of the right lower lobe bronchus or its segmental branches. Minimal predominately central bronchial wall thickening. Mild to moderate paraseptal emphysema with right apical bullous changes. Minimal to mild centrilobular emphysema. Increased size of a subtle right perihilar mass measuring approximately 3.0 cm x 2.6 cm with persistent partial collapse of the right lower lobe with an indistinct masslike consolidative opacity measuring approximately 7.4 cm x 5.8 cm (previously 7.2 cm x 4.9 cm). Unchanged noncalcified solid nodules in the apical left upper lobe now measuring 0.7 cm x 0.3 cm more anteriorly and inferiorly and 0.6 cm x 0.3 cm more posteriorly and superiorly. New 0.4 cm x 0.2 cm groundglass nodule in the anterolateral subpleural anterior segment of the left upper lobe. A few new noncalcified solid nodules measuring up to 0.3 cm in the left upper lobe and superior segment of the left lower lobe. Linear opacities especially near the bases, likely scarring. Persistent bilateral pleural scarring with no definite pleural effusions. No pneumothoraces. SOFT TISSUES/BONES: No supraclavicular nor axillary lymphadenopathy. Mild bilateral gynecomastia. Healed median sternotomy. Diffuse osseous demineralization. No acute fractures nor suspicious osseous lesions. Healed left rib fractures or osteotomies. ABDOMEN/PELVIS: ORGANS: Surgically absent gallbladder. No intrahepatic nor extrahepatic biliary dilation. Moderate pancreatic atrophy. Unchanged hypodense lesions in the kidneys measure up to 0.6 cm, too small to characterize but likely cysts normal liver, spleen, and adrenal glands. GI/BOWEL: Normal course and caliber of the stomach, small bowel, colon, and rectum without obstruction. Small diverticula arising from the 4th segment of the duodenum without findings of acute diverticulitis. Liquid distending multiple small bowel loops. Normal appendix. Liquid stool throughout the colon into the rectum. Mild colonic diverticulosis without findings of acute diverticulitis. PELVIS: Persistent moderate circumferential urinary bladder wall thickening with some perivesical stranding. Normal prostate size. PERITONEUM/RETROPERITONEUM: Moderate to severe atherosclerosis. Unchanged 1.9 cm x 1.5 cm portohepatic lymph node (previously 2.0 cm x 1.2 cm), likely reactive. Unchanged mildly enlarged mesenteric lymph nodes, likely reactive. No retroperitoneal nor pelvic lymphadenopathy. No free intraperitoneal fluid nor gas. BONES/SOFT TISSUES: Laxity of the anterior abdominal wall musculature. Tiny fat containing bilateral inguinal hernias. No inguinal lymphadenopathy. Diffuse osseous demineralization. No acute fractures nor suspicious osseous lesions. CT/CT angio chest IMPRESSION: 1. No findings of pulmonary embolism. However, there is increased size of a suspected metastatic right hilar lymph node that now directly extends into the right interlobar artery. The right middle lobe and lower lobe pulmonary artery branches distal to this remain patent. 2. Slightly increased size of masslike opacity in the partially collapsed right lower lobe, likely mostly the primary malignancy. Associated atelectasis is likely present. 3. Unchanged metastatic subcarinal lymph node with a new likely metastatic right hilar node. Additional nonenlarged mediastinal nodes appear unchanged but are also likely metastatic. 4. A few new solid and groundglass nodules in the left upper and left lower lobes, potentially infectious, inflammatory, or metastatic. 5. Stability of solid nodules measuring up to 0.7 cm x 0.3 cm in the left upper lobe, potentially infectious, inflammatory, or neoplastic. Recommend attention on follow-up imaging. 6. Minimal bronchial wall thickening and central airway secretions, suggesting bronchitis. 7. No findings of metastatic disease in the abdomen or pelvis. 8. Incidental findings as above. " CXR: "FINDINGS: Unchanged right perihilar opacity with volume loss in the right lower lobe. Increased linear opacities in the left lung base. Blunting of each lateral costophrenic angle likely related to pleural scarring. No definite findings of pleural effusion or pneumothorax. Normal mediastinal, left hilar, and cardiac contours. Unchanged asymmetric moderate prominence of the right hilar contour. Changes of coronary bypass grafting. Unchanged right internal jugular central venous port catheter. Unchanged implanted loop recorder. No obvious acute fracture. Joints maintain anatomic alignment. XR/XR chest 1V portable IMPRESSION: 1. New left basilar atelectasis. 2. Unchanged partial collapse of the right lower lobe due to an underlying right perihilar mass better seen on CT." Date of admission: 10/07/16 23:16 Primary care physician: PCP NONE Consults: 10/07/16 23:20 Consult to Oncology [CONS] Routine Consulting Provider: [facility] [place] Reason for Consult: SOB on immunotherapy Call Completed: No Discharging clinician: Agustin Serrano Anticipated date of discharge: 10/09/16 - Patient Status Disposition: Home, Self-Care Condition: Fair Functional capacity at discharge: uses cane/walker Overall status at discharge: patient is progressing back to baseline - Discharge Instructions Instructions: Atrial Fibrillation (DC) Follow Up With: Jose Lorenz DO [Non-Partnered Physician] - 10/27/16 9:00 am (Please follow up as schedule...your Primary doctor office will call an a sooner appt. if theres cancellation) Additional Instructions: Please follow up with your Primary Care Provider within one week of discharge. Please resume all your home medications as prescribed. Please take the Azithromycin and Prednisone as prescribed. Please return to the hospital if you experience any new or worsening symptoms. - Diet and Activity Activity: resume usual activities as tolerated Diet: advance to your usual diet Interval History: Patient reports feeling better today. Patient appears to be breathing well even when not on oxygen. He states he feels well enough to go home. Oncology saw patient yesterday and plans to make no changes to patient's regimen. Hospital course: Mr. Reyes is a 76 year old male with PMHx of Stage IIIa NSCLC, COPD, A fib, CAD , DM, HLD, HTN who presented to the hospital with increased SOB over the last several days. Patient was found to be in a fib with RVR. CT Chest, Abd, Pelvis showed slight worsening of his cancer and a possible bronchitis. Patient was treated with Azithromycin, Duonebs, and iv solumedrol. Oncology was consulted and advised that no changes to current regimen be made. Since patient's symptoms had improved and no further action was advised by oncology patient was discharged home on a short course of abx and steroids. - Time Spent with Patient Total time spent providing and/or coordinating discharge services: - Constitutional Vitals: Temp Pulse Resp BP Pulse Ox 98.0 F 71 16 115/54 99 10/09/16 07:27 10/09/16 07:27 10/09/16 07:27 10/09/16 07:27 10/09/16 07:27 General appearance: Present: pleasant, no acute distress, answers questions appropriately - Eye Eye exam: Present: sclera anicteric - ENT ENT exam: Present: mucous membranes moist - Respiratory Respiratory exam: Present: decreased breath sounds, CTAB - Cardiovascular Cardiovascular exam: Present: irregular rhythm, +S1, +S2. Absent: gallop, rubs , systolic murmur, tachycardia - GI/Abdominal GI/Abdominal exam: Present: normal bowel sounds, soft. Absent: tenderness - Extremities Exam Extremities exam: Absent: pedal edema - Neurological Exam Neurological exam: Present: alert, oriented X3. Absent: speech deficit - Psychiatric Psychiatric exam: Present: normal affect, normal mood - Skin Skin exam: Present: dry, warm <Curtis Pryor - Last Filed: 10/09/16 18:37> Date of Encounter: 10/09/16 - Discharge Diagnosis (1) Acute and chronic respiratory failure Status: Acute Qualifiers: Respiratory failure complication: hypoxia Qualified Code(s): J96.21 - Acute and chronic respiratory failure with hypoxia (2) COPD (chronic obstructive pulmonary disease) Priority: Primary Status: Chronic Qualifiers: COPD type: COPD with acute exacerbation Qualified Code(s): J44.1 - Chronic obstructive pulmonary disease with (acute) exacerbation (3) Acute bronchitis Status: Acute Qualifiers: Bronchitis organism: unspecified organism Qualified Code(s): J20.9 - Acute bronchitis, unspecified (4) Primary squamous cell carcinoma of right lung Status: Chronic (5) Atrial fibrillation Status: Acute Qualifiers: Atrial fibrillation type: paroxysmal Qualified Code(s): I48.0 - Paroxysmal atrial fibrillation Date of admission: 10/07/16 23:16 Primary care physician: PCP NONE Consults: 10/07/16 23:20 Consult to Oncology [CONS] Routine Consulting Provider: [facility] [place] Reason for Consult: SOB on immunotherapy Call Completed: No Hospital course: Mr. Reyes is a 76 year old male - Time Spent with Patient Total time spent providing and/or coordinating discharge services: 41min - Constitutional Vitals: Temp Pulse Resp BP Pulse Ox 97.5 F L 85 18 104/63 97 10/09/16 11:49 10/09/16 11:49 10/09/16 11:49 10/09/16 11:49 10/09/16 11:49 - Attending Attestation I examined this patient and my medical decision-making was reviewed with the Resident Physician on 10/09/16. I agree with the documented findings, disposition and treatment plan as described except to the extent set forth below. Mr. Reyes was admitted for acute bronchitis and lung cancer. He is doing OK today and ready for discharge home. He is afebrile with stable vitals. Exam alert. Comfortable Heart reg No wheeze Abd soft Plan D/C home Most likely was acute exac COPD/bronchitis
[2016-10-09] MEDS: Budesonide/Formoterol 160/4.5 MDI IH SCH (10:02)
[2016-10-09 11:58] VITALS: BP 104/63
== END 2016-10-09 15:30 | disposition home or self-care (01) | DRG 191 ==
LOC: 2ANU 18:19 → EMEROO 18:19 → 2ANU 22:01 → SUATTDRO 23:16
PROVIDERS: ADMIT Internal Medicine Hematology & Oncology; ATTEND Internal Medicine

== ENCOUNTER 2016-10-25 12:06 | Inpatient (IN) ==
[2016-10-25 13:21] LABS: Basophils % 0.4 %; Eosinophils # 0.4 K/mcL (0.0-0.6); Eosinophils % 3.5 %; Hematocrit 29.9 % (37.5-50.1); Immature Granulocytes % 0.7 % (0-4); Lymphocytes # 1.8 K/mcL (0.6-4.6); Lymphocytes % 16.5 %; Mean Corpuscular HGB Conc 33.4 g/dL (31.6-35.5); Mean Corpuscular Hemoglobin 30.4 pg (28.0-33.3); Mean Corpuscular Volume 90.9 fL (83.0-100.0); Mean Platelet Volume 9.9 fL (9.4-12.4); Monocytes # 0.8 K/mcL (0.0-1.3); Monocytes % 7.3 %; Platelet Count 235 K/mcL (140-400); Red Blood Count 3.29 M/mcL (4.19-5.50); Red Cell Distribution Width 15.3 % (11.5-14.5); Segmented Neutrophils % 71.6 %
[2016-10-25 13:25] LABS: INR 1.9; Prothrombin Time 20.2 Seconds (9.4-12.1)
[2016-10-25 13:28] LABS: Activated Partial Thrombo Time 43.5 Seconds (26.0-36.0)
[2016-10-25 13:32] LABS: BUN/Creatinine Ratio 15 (6-26); Blood Urea Nitrogen 12 mg/dL (8-26); Carbon Dioxide 23 mEq/L (19-29); Chloride 104 mEq/L (98-109); Glucose 73 mg/dL (70-99); Osmolality,Calculated 282 (280-300); Potassium 3.4 mEq/L (3.5-4.5); Sodium 137 mEq/L (136-145); eGFR For African Americans > 60 (> 60); eGFR For Non-African Americans > 60 (> 60)
[2016-10-25 13:33] LABS: Magnesium < 0.7 mg/dL (1.6-2.6)
[2016-10-25 13:34] LABS: Calcium 5.2 mg/dL (8.6-10.8)
[2016-10-25] MEDS ORDERED: Calcium Chloride 1,000 MG in 0.9 % Sodium Chloride 100 ML IVPB ONE ×2 (13:38→16:13)
--- NOTE | 2016-10-25 13:45 | Emergency Department Note ---
Disposition Clinical Impression: Hypocalcemia, Hypomagnesemia, Weakness Chronic respiratory failure Qualifiers: Respiratory failure complication: hypoxia Qualified Code(s): J96.11 - Chronic respiratory failure with hypoxia Community acquired pneumonia Qualifiers: Laterality: unspecified laterality Qualified Code(s): J18.9 - Pneumonia, unspecified organism Disposition: Admitted As Inpatient Referrals: Jose Lorenz DO [Primary Care Provider] - Forms: ED Satisfaction Letter Extremity Problem HPI - General Chief complaint: ED Shortness of Breath/Dyspnea Stated complaint: RONALD Time Seen by Provider: 10/25/16 12:10 Source: family, EMS Mode of arrival: EMS Limitations: no limitations Nursing Notes Reviewed: Yes Vital Signs Reviewed: Yes - History of Present Illness HPI Narrative: She is a 76-year-old male who is here for multiple complaints. He has an area in his right lower extremity where he has dry cracked skin and some redness that is painful. He states is painful to palpation with some topical antibiotic ointment on it and moisturizing cream with no relief. He denies any fevers chills nausea vomiting. He is also complaining of some generalized weakness and dizziness. He does not ambulate much at home when he does this with assistance of a walker. He is currently seeing oncology for treatment for lung cancer. The pain in his lower extremity as dull aching moderate in intensity. Pain Scale: 4 - Related Data Home Medications Medication Instructions Recorded Confirmed Albuterol Sulfate [Albuterol 2 puff IH Q6H PRN 08/07/15 10/22/16 Inhaler] Budesonide/Formoterol 160/4.5 2 puff IH BIDR 08/07/15 10/22/16 [Symbicort 160/4.5] Magic Mouthwash 10 ml PO TID PRN 07/18/16 10/22/16 Oxycodone HCl/Acetaminophen 1 tab PO Q6H PRN 07/18/16 10/22/16 [Percocet 5-325 mg Tablet] Megestrol Acetate [Megace] 200 mg PO BID 08/05/16 10/22/16 Amitriptyline [Elavil] 25 mg PO HS 10/07/16 10/22/16 Loperamide [Imodium] 2 mg PO PER PKG DI PRN 10/07/16 10/22/16 Rivaroxaban [Xarelto] 15 mg PO Q48H 10/07/16 10/22/16 Fluticasone Propionate Nasal 1 spray NS DAILY 10/22/16 10/22/16 [Flonase] Naproxen Sodium [Aleve] 220 mg PO BID PRN 10/22/16 10/22/16 Nitroglycerin [Nitrostat] 0.4 mg SL AD PRN 10/22/16 10/22/16 Previous Rx's Medication Instructions Recorded Lidocaine/Prilocaine CREAM [Emla] 5 gm TP AD #1 tube 09/10/15 Omeprazole [PriLOSEC] 20 mg PO DAILY #90 capsule 09/10/15 Ondansetron [Zofran] 8 mg PO Q8HR PRN #90 tablet 09/10/15 Prochlorperazine Maleate 10 mg PO Q6HR PRN #90 tablet 09/10/15 [Compazine] amLODIPine [Norvasc] 10 mg PO DAILY #60 tablet 01/09/16 Magnesium Oxide [Magnesium] 400 mg PO BID #60 tablet 06/02/16 Ferrous Sulfate [Iron] 325 mg PO BID #60 tablet 06/09/16 Cyanocobalamin (B-12) [Vitamin B12] 1,000 mcg PO DAILY #90 tablet 07/04/16 L. Acidophilus/Pectin, [place] 1 cap PO DAILY #30 capsule 07/04/16 [Acidophilus Probiotic Capsule] LORazepam [Ativan] 0.5 mg PO Q6H PRN #90 tablet 07/04/16 Cholestyramine/Aspartame 4 gm PO BID #60 powd.pack 09/30/16 [Cholestyramine Light Packet] Ipratropium/Albuterol Neb [Duoneb] 3 ml IH Q4HR #100 vial.neb 10/09/16 Allergies Allergy/AdvReac Type Severity Reaction Status Date / Time Penicillins Allergy Severe Swelling Verified 10/25/16 12:07 of Lip/Tongue/Throat All systems ED: reviewed and negative except as stated. Constitutional: Reports: weakness. Denies: fever, chills Respiratory: Reports: dyspnea (chronic) Gastrointestinal: Denies: abdominal pain, nausea, vomiting Past Medical History - Past Medical History Source: patient, old records reviewed, obtained from family, nursing notes reviewed Medical history: Reports: atrial fibrillation, cancer, COPD, coronary artery disease, DVT, diabetes, hyperlipidemia, hypertension Surgical history: Reports: carotid endarterectomy, cholecystectomy, coronary bypass (CABG) Psychiatric history: Reports: anxiety, depression - Social History Smoking Status: Current some day smoker Smokeless Tobacco Status: No Alcohol use: Reports: none Drug use: Reports: none Physical Exam - General Limitations: no limitations General appearance: alert, in no apparent distress - Head Head exam: atraumatic, normocephalic, normal inspection - Eye Eye exam: Present: normal appearance, PERRL, EOMI - Expanded Eye Exam Pupils: Left: reactive - ENT ENT exam: normal exam, normal oropharynx, mucous membranes moist - Expanded ENT Exam External ear exam: Present: normal external inspection Mouth exam: Present: normal external inspection Teeth exam: Present: normal inspection Throat exam: Present: normal inspection - Neck Neck exam: Present: normal inspection, full ROM, trachea midline - Chest Chest inspection: Present: normal inspection, symmetric chest wall rise - Respiratory Respiratory exam: Present: other (Diminished bilaterally otherwise no abnormalities) - Cardiovascular Cardiovascular exam: Present: regular rate, irregular rhythm, normal heart sounds - Abdominal Exam Abdominal exam: Present: soft, Non-Tender. Absent: tenderness, distention, guarding, rebound, rigidity - Extremities Exam Extremities exam: Present: normal inspection, full ROM. Absent: tenderness, pedal edema - Expanded Upper Extremity Exam Shoulder exam: Present: normal inspection, full ROM Arm exam: Present: normal inspection, full ROM Elbow exam: Present: normal inspection, full ROM Forearm/Wrist exam: Present: normal inspection, full ROM Hand exam: Present: normal inspection, full ROM Vascular exam: Normal: capillary refill, radial pulse - Expanded Lower Extremity Exam Hip/Pelvis exam: Present: normal inspection, full ROM Upper leg exam: Present: normal inspection, full ROM Knee exam: Present: normal inspection, full ROM Lower leg exam: Present: normal inspection, full ROM Ankle exam: Present: normal inspection, full ROM Foot/toe exam: Present: normal inspection, full ROM Neurovascular/Tendon exam: Absent: motor deficit, sensory deficit, tendon deficit - Back Exam Back exam: Present: normal inspection, full ROM. Absent: tenderness - Neurological Exam Neurological exam: Present: alert, oriented X3 - Expanded Neurological Exam Patient oriented to: Present: person, place, time Coma Scale Eye Opening: Spontaneous Coma Scale Motor Response: Obeys Commands Coma Scale Verbal Response: Oriented Coma Scale Total: 15 - Psychiatric Psychiatric exam: Present: normal affect, normal mood - Skin Skin exam: Present: warm, dry, intact, normal color, rash (She has a small narrow streaking of erythema 6 cm right lower extremity painful to palpation with dry cracked skin) Course Vital Signs Temperature 97.9 F 10/25/16 12:09 Pulse Rate 116 10/25/16 12:09 Respiratory Rate 18 10/25/16 12:09 Blood Pressure 112/61 10/25/16 12:09 O2 Sat by Pulse Oximetry 100 10/25/16 12:09 Temperature 97.9 F 10/25/16 12:09 Pulse Rate 88 10/25/16 13:02 Respiratory Rate 23 10/25/16 13:02 Blood Pressure 121/66 10/25/16 13:02 O2 Sat by Pulse Oximetry 100 10/25/16 13:02 Oxygen Delivery Oxygen Delivery Nasal Cannula Extremity Problem, Nontraumati - Medical Records Medical records reviewed: Yes I reviewed the patient's medical records. - Lab Data Lab results reviewed: Yes I reviewed the patient's lab results. Result diagrams: 10/25/16 13:00 10/25/16 13:00 Lab Results 10/25/16 10/25/16 10/25/16 Range/Units 13:00 13:00 13:00 WBC 11.2 H (4.3-11.1) K/mcL RBC 3.29 L (4.19-5.50) M/mcL Hgb 10.0 L (12.9-16.9) g/dL Hct 29.9 L (37.5-50.1) % MCV 90.9 (83.0-100.0) fL MCH 30.4 (28.0-33.3) pg MCHC 33.4 (31.6-35.5) g/dL RDW 15.3 H (11.5-14.5) % Plt Count 235 (140-400) K/mcL MPV 9.9 (9.4-12.4) fL Immature Gran % 0.7 (0-4) % Seg Neutrophils % 71.6 % Lymphocytes % 16.5 % Monocytes % 7.3 % Eosinophils % 3.5 % Basophils % 0.4 % Neutrophils # 8.0 (1.6-8.9) K/mcL Lymphocytes # 1.8 (0.6-4.6) K/mcL Monocytes # 0.8 (0.0-1.3) K/mcL Eosinophils # 0.4 (0.0-0.6) K/mcL Basophils # 0.0 (0.0-0.2) K/mcL PT 20.2 H (9.4-12.1) Seconds INR 1.9 APTT 43.5 H (26.0-36.0) Seconds Sodium 137 (136-145) mEq/L Potassium 3.4 L (3.5-4.5) mEq/L Chloride 104 (98-109) mEq/L Carbon Dioxide 23 (19-29) mEq/L BUN 12 (8-26) mg/dL Creatinine 0.79 (0.72-1.25) mg/dL Est GFR ( Amer) > 60 (> 60) Est GFR (Non-Af Amer) > 60 (> 60) BUN/Creatinine Ratio 15 (6-26) Glucose 73 (70-99) mg/dL Calculated Osmolality 282 (280-300) Calcium 5.2 L* (8.6-10.8) mg/dL Magnesium < 0.7 L (1.6-2.6) mg/dL Troponin I (0-0.03) ng/mL B-Natriuretic Peptide (0-100) pg/mL 10/25/16 10/25/16 Range/Units 13:00 13:00 WBC (4.3-11.1) K/mcL RBC (4.19-5.50) M/mcL Hgb (12.9-16.9) g/dL Hct (37.5-50.1) % MCV (83.0-100.0) fL MCH (28.0-33.3) pg MCHC (31.6-35.5) g/dL RDW (11.5-14.5) % Plt Count (140-400) K/mcL MPV (9.4-12.4) fL Immature Gran % (0-4) % Seg Neutrophils % % Lymphocytes % % Monocytes % % Eosinophils % % Basophils % % Neutrophils # (1.6-8.9) K/mcL Lymphocytes # (0.6-4.6) K/mcL Monocytes # (0.0-1.3) K/mcL Eosinophils # (0.0-0.6) K/mcL Basophils # (0.0-0.2) K/mcL PT (9.4-12.1) Seconds INR APTT (26.0-36.0) Seconds Sodium (136-145) mEq/L Potassium (3.5-4.5) mEq/L Chloride (98-109) mEq/L Carbon Dioxide (19-29) mEq/L BUN (8-26) mg/dL Creatinine (0.72-1.25) mg/dL Est GFR ( Amer) (> 60) Est GFR (Non-Af Amer) (> 60) BUN/Creatinine Ratio (6-26) Glucose (70-99) mg/dL Calculated Osmolality (280-300) Calcium (8.6-10.8) mg/dL Magnesium (1.6-2.6) mg/dL Troponin I 0.01 (0-0.03) ng/mL B-Natriuretic Peptide 578 H (0-100) pg/mL - Radiology Data Radiology results reviewed: Yes I reviewed the patient's radiology results. - EKG Data Rhythm: V. fib Eldred/QRS: normal, RBBB Interpretation: nonspecific ST-T wave changes Critical Care Time Critical Care Time: Yes Total Critical Care Time: 35 Attestation: Critical care performed: Time is exclusive of separately billable procedures. Time includes: direct patient care, patient reassessment, coordination of patient care, interpretation of data (laboratory data, radiology data, and respiratory data), review of patient's medical records, medical consultation and documentation of patient care. Procedures included in critical care time: Procedures excluded from critical care time:
[2016-10-25 14:05] LABS: Thyroid Stimulating Hormone 2.662 mcIU/mL (0.350-4.840)
[2016-10-25] MEDS ORDERED: Levofloxacin 750 MG/150 ML 750 MG/150 ML BAG IVPB ONE (14:26)
[2016-10-25] MEDS ORDERED: Naloxone 0.4 MG/ML INJ IVP PRN (15:34)
[2016-10-25] MEDS ORDERED: Acetaminophen 325 MG TABLET PO PRN (15:34)
[2016-10-25] MEDS ORDERED: Ondansetron 4 MG/2 ML VIAL IVP PRN (15:34)
[2016-10-25] MEDS ORDERED: Magic Mouthwash 10 ML UD Cup PO PRN (15:36)
[2016-10-25] MEDS ORDERED: *HR* OxyCODONE/APAP 5/325 TABLET PO PRN (15:36)
[2016-10-25] MEDS ORDERED: Nitroglycerin 0.4 MG TAB.SUBL SL PRN (15:36)
[2016-10-25] MEDS ORDERED: Albuterol 2.5 MG/3 ML NEBULIZER IH PRN (15:40)
[2016-10-25] MEDS ORDERED: *HR* Rivaroxaban 15 MG TABLET PO SCH (15:45)
[2016-10-25] MEDS ORDERED: *HR* Metoprolol 5 MG/5 ML VIAL IVP PRN (16:15)
--- NOTE | 2016-10-25 16:34 | Internal Med History&Physical ---
<Maci Solis M - Last Filed: 10/25/16 16:23> Date of Encounter: 10/25/16 Time of Encounter: 16:23 Assessment and Plan (1) Hypomagnesemia Current visit: Yes Status: Chronic Patient with magnesium < 0.7, despite daily oral supplements. Patient appears to be chronically hypomagnesemia. 4g Magnesium IVPB ordered. Continue home dose of oral supplementation. 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 Check magnesium with morning labs. (2) Acute and chronic respiratory failure Current visit: Yes Status: Acute Patient reporting increased shortness of breath. He wears 3L of oxygen at home , but is requiring 4L NC to feel comfortable. CXR showed stable chronic bilateral pleural effusions and lower lobe consolidation, no acute abnormality. Duoneb treatments Q4hr albuterol nebulizer Q2hr PRN continue home doses of COPD medications Titrate oxygen to maintain saturation > 92%. Qualifiers: Respiratory failure complication: hypoxia Qualified Code(s): J96.21 - Acute and chronic respiratory failure with hypoxia (3) Atrial fibrillation Current visit: Yes Status: Chronic Patient with atrial fibrillation, on Xarelto for anticoagulation, not taking anything for rate control. He was in Afib with HR 110 on ekg. 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 Metoprolol IVP PRN for HR > 110 continue xarelto. Qualifiers: Atrial fibrillation type: chronic Qualified Code(s): I48.2 - Chronic atrial fibrillation (4) Hypocalcemia Current visit: Yes Status: Acute Calcium of 5.2. 2g of Calcium chloride IVPB ordered. Recheck calcium with morning labs. 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 (5) Weakness Current visit: Yes Status: Acute Patient reporting increased weakness. He has stage 4 lung cancer which is likely contributing to his weakness. Consult to palliative care. (6) COPD (chronic obstructive pulmonary disease) Current visit: Yes Status: Chronic Patient reporting increased shortness of breath. Denies increased cough. He was given a steroid prescription on 10/[address] Wood. Continue Prednison 40mg PO daily duoneb treatments Q4hrs albuterol nebulizer Q2hr PRN Levaquin IVPB daily continue home doses of COPD medications titrate oxygen to maintain saturation > 92%. Qualifiers: COPD type: COPD with acute exacerbation Qualified Code(s): J44.1 - Chronic obstructive pulmonary disease with (acute) exacerbation (7) Right leg pain Current visit: Yes Status: Acute Patient reports tenderness to right leg. On exam, erythema in a streak on right lateral calf. Blood cultures drawn. Patient started on Levaquin IVPB daily. US of RLE ordered. (8) Primary squamous cell carcinoma of right lung Current visit: Yes Status: Chronic Patient has stage 4 Lung cancer, follows with Dr. Wood at [facility]. He has not received chemo in several weeks due to decline. There has been discussion of palliative radiation and patient is scheduled for appointment next week. Consult to palliative care for discussion of goals of care and consideration for hospice. (9) DVT prophylaxis Current visit: Yes Status: Acute anti-embolic stockings patient on xarelto for afib, additional pharmacologic prophylaxis not warranted. Internal Medicine - H&P: HPI Chief complaint: weakness Admitted From: Emergency Dept Plans for Post Hospital Care: Home History of present illness: Mr. Reyes is a 76 year old male with afib, COPD, CAD s/p CABG, HTN, HLD, Stage 4 lung cancer presented to the ER with complaints of weakness, increased shortness of breath, RLE pain. Patient reports occasional lightheadedness, increased shortness of breath. He reports he has a red streak on his right leg that is tender to palpation and his right lower extremity is a little more swollen than usual. He denies any chest pain or palpitations. He denies any fever, chills, nausea, vomiting, abdominal pain. He reports occasional diarrhea , chronic in nature. Evaluation in the ED included CXR which showed stable chronic bilateral pleural effusions and lower lobe consolidations, no acute abnormality. WBC was normal at 11.2. Patient had hypomagnesemia with magnesium < 0.7, hypocalcemia with calcium of 6.6. Troponin was normal at 0.01. BNP was elevated at 578. EKG showed afib with HR 110. Blood cultures were drawn. 4g total of Magnesium ordered. 1g Calcium ordered, will order one more. On exam, patient alert and oriented, in no acute distress. Heart had irregular rhythm with rate in the 80s, Lungs with diffuse coarse breath sounds. Abdomen with large, nontender, reducible epigastric incisional hernia. BLE with very dry skin, RLE does have tender red area on lateral calf. Past Med Surg Social Fam HX - Past Medical History Medical history: atrial fibrillation, cancer, COPD, coronary artery disease, DVT , diabetes, hyperlipidemia, hypertension Psychiatric history: anxiety, depression - Past Surgical History Surgical History: carotid endarterectomy, cholecystectomy, coronary bypass (CABG ) - Social History Smoking Status: Current some day smoker Smokeless Tobacco Status: No Alcohol use: none Drug use: none - Family History Father Living Status: Mother Living Status: Hx Family Cancer: Yes ("Maybe cancer of some kind") Hx Family Endocrine Disorder: Yes (DM) Internal Medicine - H&P: Meds Albuterol Sulfate [Albuterol Inhaler] 2 puff IH Q6H PRN 08/07/15 [History] Budesonide/Formoterol 160/4.5 [Symbicort 160/4.5] 2 puff IH BIDR 08/07/15 [ History] Omeprazole [PriLOSEC] 20 mg PO DAILY #90 capsule 09/10/15 [Rx] Ondansetron [Zofran] 8 mg PO Q8HR PRN #90 tablet 09/10/15 [Rx] Prochlorperazine Maleate [Compazine] 10 mg PO Q6HR PRN #90 tablet 09/10/15 [Rx] amLODIPine [Norvasc] 10 mg PO DAILY #60 tablet 01/09/16 [Rx] Magnesium Oxide [Magnesium] 400 mg PO BID #60 tablet 06/02/16 [Rx] Cyanocobalamin (B-12) [Vitamin B12] 1,000 mcg PO DAILY #90 tablet 07/04/16 [Rx] LORazepam [Ativan] 0.5 mg PO Q6H PRN #90 tablet 07/04/16 [Rx] Magic Mouthwash 10 ml PO TID PRN 07/18/16 [History] Oxycodone HCl/Acetaminophen [Percocet 5-325 mg Tablet] 1 tab PO Q6H PRN [History] Megestrol Acetate [Megace] 200 mg PO BID 08/05/16 [History] Amitriptyline [Elavil] 25 mg PO HS 10/07/16 [History] Loperamide [Imodium] 2 mg PO PER PKG DI PRN 10/07/16 [History] Rivaroxaban [Xarelto] 15 mg PO Q48H 10/07/16 [History] Ipratropium/Albuterol Neb [Duoneb] 3 ml IH Q4HR #100 vial.neb 10/09/16 [Rx] Fluticasone Propionate Nasal [Flonase] 1 spray NS DAILY 10/22/16 [History] Naproxen Sodium [Aleve] 220 mg PO BID PRN 10/22/16 [History] Nitroglycerin [Nitrostat] 0.4 mg SL AD PRN 10/22/16 [History] Buspirone HCl [Buspar] 10 mg PO BID 10/25/16 [History] Lidocaine/Prilocaine CREAM [Emla] 1 appl TP AD PRN 10/25/16 [History] 3 Allergy/AdvReac Type Severity Reaction Status Date / Time Penicillins Allergy Severe Swelling Verified 10/25/16 12:07 of Lip/Tongue/Throat All Systems PM: A 10-system review of systems was performed and is negative for pertinent findings except as documented above in the HPI. - Constitutional Constitutional: weakness, no chills, no fever(s), no night sweats - EENT Eyes: no change in vision, no discharge, no pain, no photophobia Ears: no ear discharge, no ear pain, no tinnitus Nose, mouth and throat: no dysphagia, no nasal discharge, no neck pain, no sore throat - Cardiovascular Cardiovascular ROS IM: dyspnea, lightheadedness, no chest pain, no diaphoresis, no palpitations, no syncope - Respiratory Respiratory: cough, dyspnea, no wheezing, no excessive phlegm production - Gastrointestinal Gastrointestinal: no abdominal pain, no diarrhea, no hematemesis, no hematochezia, no melena, no nausea, no vomiting - Musculoskeletal Musculoskeletal ROS IM: no numbness, no tingling - Integumentary Integumentary IM: no rash, no unusual bruising - Neurological Neurological ROS: no confusion, no convulsions, no focal weakness, no numbness, no tingling, no tremor(s) - Hematologic/Lymphatic Hematologic/Lymphatic: no easy bruising - Constitutional Vitals: Temp Pulse Resp BP Pulse Ox 97.7 F 109 16 125/75 99 10/25/16 16:11 10/25/16 16:11 10/25/16 16:11 10/25/16 16:11 10/25/16 16:11 General appearance: Present: A&O X 3, pleasant, no acute distress - Head Head exam: Present: atraumatic, normocephalic - Eye Eye exam: Present: PERRL, conjuntiva pink, sclera anicteric Pupils: Present: PERRL - Neck Neck exam general surgery: Present: supple, trachea midline. Absent: lymphadenopathy - Respiratory Respiratory exam: Present: rhonchi. Absent: accessory muscle use, rales, wheezes Additional comments: diffuse coarse breath sounds - Cardiovascular Cardiovascular exam: Present: irregular rhythm, +S1, +S2. Absent: diastolic murmur, gallop, rubs, systolic murmur - GI/Abdominal GI/Abdominal exam: Present: hernia, normal bowel sounds, soft, no peritoneal signs. Absent: distended, tenderness - Extremities Exam Extremities exam: Present: pedal edema (BLE +1 ), tenderness (right leg), warm, radial pulses palpable and symmetrical. Absent: calf tenderness, cyanotic - Neurological Exam Neurological exam: Present: CN II-XII intact, oriented X3, no focal deficits. Absent: facial droop, speech deficit - Skin Skin exam: Present: dry, intact Internal Med - H&P Results - Labs CBC & Chem 7: 10/25/16 13:00 10/25/16 13:00 Labs: All Lab Results (24 Hours) 10/25/16 10/25/16 10/25/16 Range/Units 13:00 13:00 13:00 WBC 11.2 H (4.3-11.1) K/mcL RBC 3.29 L (4.19-5.50) M/mcL Hgb 10.0 L (12.9-16.9) g/dL Hct 29.9 L (37.5-50.1) % MCV 90.9 (83.0-100.0) fL MCH 30.4 (28.0-33.3) pg MCHC 33.4 (31.6-35.5) g/dL RDW 15.3 H (11.5-14.5) % Plt Count 235 (140-400) K/mcL MPV 9.9 (9.4-12.4) fL Immature Gran % 0.7 (0-4) % Seg Neutrophils % 71.6 % Lymphocytes % 16.5 % Monocytes % 7.3 % Eosinophils % 3.5 % Basophils % 0.4 % Neutrophils # 8.0 (1.6-8.9) K/mcL Lymphocytes # 1.8 (0.6-4.6) K/mcL Monocytes # 0.8 (0.0-1.3) K/mcL Eosinophils # 0.4 (0.0-0.6) K/mcL Basophils # 0.0 (0.0-0.2) K/mcL PT 20.2 H (9.4-12.1) Seconds INR 1.9 APTT 43.5 H (26.0-36.0) Seconds Sodium 137 (136-145) mEq/L Potassium 3.4 L (3.5-4.5) mEq/L Chloride 104 (98-109) mEq/L Carbon Dioxide 23 (19-29) mEq/L BUN 12 (8-26) mg/dL Creatinine 0.79 (0.72-1.25) mg/dL Est GFR ( Amer) > 60 (> 60) Est GFR (Non-Af Amer) > 60 (> 60) BUN/Creatinine Ratio 15 (6-26) Glucose 73 (70-99) mg/dL Calculated Osmolality 282 (280-300) Calcium 5.2 L* (8.6-10.8) mg/dL Magnesium < 0.7 L (1.6-2.6) mg/dL Troponin I (0-0.03) ng/mL B-Natriuretic Peptide (0-100) pg/mL TSH 2.662 (0.350-4.840) mcIU/mL 10/25/16 10/25/16 Range/Units 13:00 13:00 WBC (4.3-11.1) K/mcL RBC (4.19-5.50) M/mcL Hgb (12.9-16.9) g/dL Hct (37.5-50.1) % MCV (83.0-100.0) fL MCH (28.0-33.3) pg MCHC (31.6-35.5) g/dL RDW (11.5-14.5) % Plt Count (140-400) K/mcL MPV (9.4-12.4) fL Immature Gran % (0-4) % Seg Neutrophils % % Lymphocytes % % Monocytes % % Eosinophils % % Basophils % % Neutrophils # (1.6-8.9) K/mcL Lymphocytes # (0.6-4.6) K/mcL Monocytes # (0.0-1.3) K/mcL Eosinophils # (0.0-0.6) K/mcL Basophils # (0.0-0.2) K/mcL PT (9.4-12.1) Seconds INR APTT (26.0-36.0) Seconds Sodium (136-145) mEq/L Potassium (3.5-4.5) mEq/L Chloride (98-109) mEq/L Carbon Dioxide (19-29) mEq/L BUN (8-26) mg/dL Creatinine (0.72-1.25) mg/dL Est GFR ( Amer) (> 60) Est GFR (Non-Af Amer) (> 60) BUN/Creatinine Ratio (6-26) Glucose (70-99) mg/dL Calculated Osmolality (280-300) Calcium (8.6-10.8) mg/dL Magnesium (1.6-2.6) mg/dL Troponin I 0.01 (0-0.03) ng/mL B-Natriuretic Peptide 578 H (0-100) pg/mL TSH (0.350-4.840) mcIU/mL - Diagnostic Studies Chest x-ray Additional comments: Chest X-Ray 10/25/16 12:11 IMPRESSION: 1. Stable chronic bilateral pleural effusions and lower lobe consolidation, more prominent on the right. 2. No acute abnormality. D/ / 10/25/2016 12:35:00 William Sanchez MD / [facility] Interpreting Provider: William Sanchez MD <Tracie Guerin - Last Filed: 10/25/16 18:36> Date of Encounter: 10/25/16 Internal Medicine - H&P: HPI History of present illness: Mr. Reyes is a 76 year old male All Systems PM: A 10-system review of systems was performed and is negative for pertinent findings except as documented above in the HPI. - Constitutional Vitals: Temp Pulse Resp BP Pulse Ox 97.8 F 80 20 157/75 99 10/25/16 18:27 10/25/16 18:27 10/25/16 18:27 10/25/16 18:27 10/25/16 18:27 Internal Med - H&P Results - Labs CBC & Chem 7: 10/25/16 13:00 10/25/16 13:00 - Attending Attestation Pt seen and examined. Admitted for electrolyte abnomalities, worsening dyspnea, further decline from underlying malignancy. will continue treatment for COPD exacerbation, supplement Mg, Ca, (corrected calcium to albumin: 6.6), O2 supplementation Palliative care consultation requested pt wishes to be DNR/DNI Case discussed with TATE Solis, I agree with her documented findings, assessment, and plan.
--- NOTE | 2016-10-25 18:04 | Palliative - Consult Note ---
Date of Encounter: 10/25/16 Time of Encounter: 17:45 - Assessment and Plan (1) Hypomagnesemia Current Visit: Yes Status: Chronic Assessment and plan: Being replaced by internal medicineAudelia Sow per hospitalist team. (2) Acute and chronic respiratory failure Current Visit: Yes Status: Acute Assessment and plan: On oxygen with bronchodilators. Oxygen requirement has gone up. She also has bilateral pleural effusions. Plan per hospitalist team. Qualifiers: Respiratory failure complication: hypoxia Qualified Code(s): J96.21 - Acute and chronic respiratory failure with hypoxia (3) Counseling regarding advanced care planning and goals of care Current Visit: No Status: Acute Assessment and plan: Although not currently ordered, I have discussed with the admitting hospitalist patient's CODE STATUS is DNR a DNI. 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 We will try to assist with that while he is in the hospital. Initial goal of care is to return home, with regard to his cancer chemotherapy he has been talked to about hospice a little bit in the past he wishes to consider it further but (4) Weakness Current Visit: Yes Status: Acute Assessment and plan: Undoubtedly multifactorial in nature due to the patient's hypomagnesemia hypocalcemia and cancer and his acute on chronic respiratory failure. The plan here is to work on these other problems in see if this gets better plan overall as per the hospitalist team. Patient may also have some cellulitis versus phlebitis in the leg. Blood cultures have been drawn antibiotics have been started. Ultrasound of the right lower extremities also been ordered. (5) Primary squamous cell carcinoma of right lung Current Visit: Yes Status: Chronic Assessment and plan: Being followed by oncology currently. Patient's chemotherapy is currently on hold, however there is some consideration being given towards some palliative radiation therapy. She does schedule for an appointment next week to discuss palliative radiation. Palliative-CN HPI - Data of Consult Patient: new to practice Requesting Physician: Astrid Doyle Primary Care Provider: Jose Lorenz, - Consult Narrative Palliative Care/Comfort Measures: Palliative care History of present illness: Mr. Reyes is a 76 year old male History of A. fib COPD coronary artery disease status post CABG retention stage IV lung cancer. Patient has been receiving chemotherapy however this is had to be stopped for about the last month because of diarrhea and overall weakness. She comes the ED today complaining of increasing weakness and shortness of breath are currently worse over the last week or so. He also has right lower extremity pain. He reports being occasionally lightheaded and is already noted increasing shortness of breath and streak on his right leg and is tender to palpation in the right lower extremity. Also some swelling noted. Any chest pain or palpitations denies any fever chills nausea or vomiting he does have occasional diarrhea which is chronic in nature and this has wired that he stop his chemotherapy at least temporarily. I wish to the emergency department showed a chest x-ray showed bilateral effusions and lower lobe consolidations white count at 11.2 and hypomagnesemia. Cultures were drawn magnesium has been ordered for replacement. Right lower extremity does have tender areas in the calf is is also being worked up at this time. She is unable to get chemotherapy at this time, due to the weakness and the chronic diarrhea. Has been palliative in nature. Care was consulted regarding the possibility of hospice for him. CC: Astrid Doyle Shortness of breath Past Med Surg Social Fam HX - Past Medical History Medical history: atrial fibrillation, cancer, COPD, coronary artery disease, DVT , diabetes, hyperlipidemia, hypertension Psychiatric history: anxiety, depression - Past Surgical History Surgical History: carotid endarterectomy, cholecystectomy, coronary bypass (CABG ) - Social History Smoking Status: Current every day smoker Packs per day: 1-2 cigarettes/daily Smokeless Tobacco Status: No Alcohol use: none Drug use: none - Family History Father Living Status: Mother Living Status: Hx Family Cancer: Yes ("Maybe cancer of some kind") Hx Family Endocrine Disorder: Yes (DM) Medications and Allergies Albuterol Sulfate [Albuterol Inhaler] 2 puff IH Q6H PRN 08/07/15 [History] Budesonide/Formoterol 160/4.5 [Symbicort 160/4.5] 2 puff IH BIDR 08/07/15 [ History] Omeprazole [PriLOSEC] 20 mg PO DAILY #90 capsule 09/10/15 [Rx] Ondansetron [Zofran] 8 mg PO Q8HR PRN #90 tablet 09/10/15 [Rx] Prochlorperazine Maleate [Compazine] 10 mg PO Q6HR PRN #90 tablet 09/10/15 [Rx] amLODIPine [Norvasc] 10 mg PO DAILY #60 tablet 01/09/16 [Rx] Magnesium Oxide [Magnesium] 400 mg PO BID #60 tablet 06/02/16 [Rx] Cyanocobalamin (B-12) [Vitamin B12] 1,000 mcg PO DAILY #90 tablet 07/04/16 [Rx] LORazepam [Ativan] 0.5 mg PO Q6H PRN #90 tablet 07/04/16 [Rx] Magic Mouthwash 10 ml PO TID PRN 07/18/16 [History] Oxycodone HCl/Acetaminophen [Percocet 5-325 mg Tablet] 1 tab PO Q6H PRN [History] Megestrol Acetate [Megace] 200 mg PO BID 08/05/16 [History] Amitriptyline [Elavil] 25 mg PO HS 10/07/16 [History] Loperamide [Imodium] 2 mg PO PER PKG DI PRN 10/07/16 [History] Rivaroxaban [Xarelto] 15 mg PO Q48H 10/07/16 [History] Ipratropium/Albuterol Neb [Duoneb] 3 ml IH Q4HR #100 vial.neb 10/09/16 [Rx] Fluticasone Propionate Nasal [Flonase] 1 spray NS DAILY 10/22/16 [History] Naproxen Sodium [Aleve] 220 mg PO BID PRN 10/22/16 [History] Nitroglycerin [Nitrostat] 0.4 mg SL AD PRN 10/22/16 [History] Buspirone HCl [Buspar] 10 mg PO BID 10/25/16 [History] Lidocaine/Prilocaine CREAM [Emla] 1 appl TP AD PRN 10/25/16 [History] 3 Allergy/AdvReac Type Severity Reaction Status Date / Time Penicillins Allergy Severe Swelling Verified 10/25/16 12:07 of Lip/Tongue/Throat - Constitutional Constitutional ROS PAL: fatigue, malaise, no decreased appetite, no anorexia, no fever(s) - EENT Eyes: no discharge, no pain Ears: no ear discharge, no ear pain Ears, nose, mouth, throat: no facial pain, no hoarseness, no lip swelling, no mouth pain, no neck mass, no neck pain - Cardiovascular Cardiovascular ROS: dyspnea on exertion, no chest pain, no chest pain at rest - Respiratory Respiratory: cough, dyspnea, dyspnea on exertion, no excessive phlegm production - Gastrointestinal Gastrointestinal: diarrhea, no constipation, no nausea, no vomiting - Genitourinary Genitourinary ROS male: no urinary frequency, no urinary hesitancy, no urinary incontinence - Musculoskeletal Musculoskeletal ROS IM: no arthralgias, no back pain - Integumentary ROS Integumentary: no rash, no unusual bruising - Neurological Neurological ROS: no burning sensations, no confusion, no frequent falls, no headache(s) - Psychiatric Psychiatric general PM: no difficulty concentrating, no homicidal ideation, no suicidal ideation - Endocrine Endocrine IM: other (Positive for diabetes) Palliative Care-Exam - Constitutional Vitals: Temp Pulse Resp BP Pulse Ox 97.7 F 109 16 125/75 99 10/25/16 16:11 10/25/16 16:11 10/25/16 16:11 10/25/16 16:11 10/25/16 16:11 General appearance: Present: no acute distress - Head Head Exam: Present: atraumatic, normal inspection - Eye Eye exam: Present: EOMI, normal appearance - ENT ENT exam: Present: mucous membranes moist - Respiratory Respiratory exam: Present: decreased breath sounds, rhonchi - Cardiovascular Cardiovascular exam: Present: irregular rhythm - GI/Abdominal Exam GI/Abdominal exam: Present: normal bowel sounds, soft. Absent: tenderness - Extremities Exam Extremities exam: Present: tenderness. Absent: normal inspection - Neurological Exam Neurological exam: Present: alert, oriented X3 - Psychiatric Psychiatric exam: Present: normal affect, normal mood. Absent: agitated, anxious - Skin Skin exam: Present: dry, warm Internal Medicine - CN: Reslt - Labs CBC & Chem 7: 10/25/16 13:00 10/25/16 13:00 - ABG Interpretation ABG results: PT/INR, D-dimer PT 20.2 Seconds (9.4-12.1) H 10/25/16 13:00 Consult Discharge Plan - Plan Referrals: Jose Lorenz DO [Primary Care Provider] - Palliative Quality Palliative Quality: Screen for Code Status: Yes, Screen for Goals of Care: Yes, Screen for Pain: Yes, If Pain Regimen Started, Initiate Bowel Regimen: Yes, Screen for Nausea/Vomitting: Yes Code Status: 10/25/16 17:38 Resuscitation Status: Active [RES] Routine Comment: Resuscitation Status: [id number]
[2016-10-25] MEDS: Ipratropium/Albuterol Neb 3 ML IH SCH ×3 (19:49→23:45)
[2016-10-25] MEDS: Budesonide/Formoterol 160/4.5 MDI IH SCH (20:13)
[2016-10-25] MEDS: Magnesium Oxide 400 MG TABLET PO SCH (20:57)
[2016-10-25] MEDS: Megestrol Acetate 400 MG/10 ML UDC PO SCH (20:59)
[2016-10-26] MEDS: *HR* LORazepam 0.5 MG TABLET PO PRN ×2 (01:18→20:30)
[2016-10-26] MEDS: Ipratropium/Albuterol Neb 3 ML IH SCH ×6 (03:42→23:53)
[2016-10-26 05:50] LABS: Basophils % 0.4 %; Eosinophils # 0.4 K/mcL (0.0-0.6); Eosinophils % 4.9 %; Hematocrit 29.1 % (37.5-50.1); Hemoglobin 9.6 g/dL (12.9-16.9); Immature Granulocytes % 0.4 % (0-4); Lymphocytes # 1.5 K/mcL (0.6-4.6); Lymphocytes % 17.9 %; Mean Corpuscular Hemoglobin 30.2 pg (28.0-33.3); Mean Corpuscular Volume 91.5 fL (83.0-100.0); Mean Platelet Volume 9.6 fL (9.4-12.4); Monocytes # 0.6 K/mcL (0.0-1.3); Monocytes % 7.2 %; Neutrophils # 5.8 K/mcL (1.6-8.9); Platelet Count 218 K/mcL (140-400); Red Blood Count 3.18 M/mcL (4.19-5.50); Red Cell Distribution Width 15.1 % (11.5-14.5); Segmented Neutrophils % 69.2 %
[2016-10-26 06:02] LABS: Alanine Aminotransferase 10 Units/L (0-55); Albumin 2.1 g/dL (3.5-5.0); Albumin/Globulin Ratio 0.8 (1.1-2.2); Alkaline Phosphatase 142 Units/L (38-126); Aspartate Amino Transferase 12 Units/L (5-34); BUN/Creatinine Ratio 15 (6-26); Bilirubin,Total 0.3 mg/dL (0.2-1.2); Blood Urea Nitrogen 13 mg/dL (8-26); Carbon Dioxide 24 mEq/L (19-29); Chloride 105 mEq/L (98-109); Globulin 2.8 g/dL (2.4-3.5); Glucose 70 mg/dL (70-99); Magnesium 0.8 mg/dL (1.6-2.6); Osmolality,Calculated 283 (280-300); Phosphorous 3.5 mg/dL (2.3-4.7); Potassium 3.6 mEq/L (3.5-4.5); Sodium 137 mEq/L (136-145); Total Protein 4.9 g/dL (6.0-8.3); eGFR For African Americans > 60 (> 60); eGFR For Non-African Americans > 60 (> 60)
[2016-10-26 06:03] LABS: Calcium 6.3 mg/dL (8.6-10.8)
[2016-10-26] MEDS: Budesonide/Formoterol 160/4.5 MDI IH SCH ×2 (07:40→19:58)
--- NOTE | 2016-10-26 07:49 | Palliative Progress Note ---
Date of Encounter: 10/26/16 Time of Encounter: 07:07 - Assessment and plan (1) Hypomagnesemia Current Visit: Yes Status: Chronic Assessment and plan: Improving slowly as his calcium, plan per hospitalist team (2) Acute and chronic respiratory failure Current Visit: Yes Status: Acute Assessment and plan: The patient is feeling better. Continue current plan plan per hospitalist team. Qualifiers: Respiratory failure complication: hypoxia Qualified Code(s): J96.21 - Acute and chronic respiratory failure with hypoxia (3) Counseling regarding advanced care planning and goals of care Current Visit: No Status: Acute Assessment and plan: CODE STATUS was reconfirmed with patient yesterday DNR CCA, DNI. Overall goals of care for the patient to return home. He will would like to you getting chemotherapy for his lung cancer if he can. He does recognize that it has been stopped last month due to the fact that he has not been able to tolerate it. He is talkative of palliative radiation therapy has an appointment next week to discuss that. (4) Weakness Current Visit: Yes Status: Acute (5) Primary squamous cell carcinoma of right lung Current Visit: Yes Status: Chronic Assessment and plan: Followed by oncology. Patient has been getting chemotherapy however this has been stopped temporarily due to his inability to tolerate it. Radiation therapy for palliative purposes is being considered. Hospice has been discussed with the patient he is considering his options but has not opted for at this time. Is currently leaning towards continuing chemotherapy and/or radiation therapy until it is no longer of any use. - Time Spent With Patient Total time spent is greater than 50% in coordination of care (as documented) at patient's floor/unit and/or counseling patient: - Subjective Interval history: Feels better than he did yesterday. States she got some good rest last night. Had no questions today. Lites of this morning. - Constitutional Vitals: Abnormal lab results RBC 3.18 M/mcL (4.19-5.50) L 10/26/16 05:40 Hgb 9.6 g/dL (12.9-16.9) L 10/26/16 05:40 Hct 29.1 % (37.5-50.1) L 10/26/16 05:40 RDW 15.1 % (11.5-14.5) H 10/26/16 05:40 PT 20.2 Seconds (9.4-12.1) H 10/25/16 13:00 APTT 43.5 Seconds (26.0-36.0) H 10/25/16 13:00 Calcium 6.3 mg/dL (8.6-10.8) L D 10/26/16 05:40 Magnesium 0.8 mg/dL (1.6-2.6) L 10/26/16 05:40 Alkaline Phosphatase 142 Units/L (38-126) H 10/26/16 05:40 B-Natriuretic Peptide 578 pg/mL (0-100) H 10/25/16 13:00 Serum Total Protein 4.9 g/dL (6.0-8.3) L 10/26/16 05:40 Albumin 2.1 g/dL (3.5-5.0) L 10/26/16 05:40 Albumin/Globulin Ratio 0.8 (1.1-2.2) L 10/26/16 05:40 General appearance: Present: no acute distress - Head Head exam: Present: atraumatic, normal inspection - Eye Eye exam: Present: PERRL - ENT ENT exam: Present: mucous membranes moist - Neck Neck exam: Present: normal inspection - Respiratory Respiratory exam: Present: decreased breath sounds - Cardiovascular Cardiovascular exam: Present: RRR - GI/Abdominal GI/Abdominal exam: Present: normal bowel sounds, soft. Absent: tenderness - Extremities Exam Extremities exam: Absent: pedal edema, tenderness - Neurological Exam Neurological exam: Present: alert, oriented X3 - Psychiatric Psychiatric exam: Present: normal affect, normal mood. Absent: agitated, anxious - Skin Skin exam: Present: dry, warm Palliative Quality Palliative Quality: Screen for Code Status: Yes, Screen for Goals of Care: Yes, Screen for Pain: Yes, If Pain Regimen Started, Initiate Bowel Regimen: Yes, Screen for Nausea/Vomitting: Yes Code Status: 10/25/16 17:38 Resuscitation Status: Active [RES] Routine Comment: Resuscitation Status: [id number] - Labs CBC & Chem 7: 10/26/16 05:40 10/26/16 05:40 Labs: Laboratory Results - last 24 hr 10/26/16 10/26/16 05:40 05:40 WBC 8.4 RBC 3.18 L Hgb 9.6 L Hct 29.1 L MCV 91.5 MCH 30.2 MCHC 33.0 RDW 15.1 H Plt Count 218 MPV 9.6 Immature Gran % 0.4 Seg Neutrophils % 69.2 Lymphocytes % 17.9 Monocytes % 7.2 Eosinophils % 4.9 Basophils % 0.4 Neutrophils # 5.8 Lymphocytes # 1.5 Monocytes # 0.6 Eosinophils # 0.4 Basophils # 0.0 Sodium 137 Potassium 3.6 Chloride 105 Carbon Dioxide 24 BUN 13 Creatinine 0.87 Est GFR ( Amer) > 60 Est GFR (Non-Af Amer) > 60 BUN/Creatinine Ratio 15 Glucose 70 Calculated Osmolality 283 Calcium 6.3 L D Phosphorus 3.5 Magnesium 0.8 L Total Bilirubin 0.3 AST 12 ALT 10 Alkaline Phosphatase 142 H Serum Total Protein 4.9 L Albumin 2.1 L Globulin 2.8 Albumin/Globulin Ratio 0.8 L - ABG Interpretation ABG results: PT/INR, D-dimer PT 20.2 Seconds (9.4-12.1) H 10/25/16 13:00 Consult Discharge Plan - Plan Referrals: Jose Lorenz DO [Primary Care Provider] -
[2016-10-26] MEDS ORDERED: Calcium Chloride 1,000 MG in 0.9 % Sodium Chloride 100 ML IVPB ONE (07:56)
[2016-10-26] MEDS ORDERED: Magnesium Sulfate 2 GM in D5% in Water 100 ML IVPB ONE (07:56)
[2016-10-26] MEDS: Megestrol Acetate 400 MG/10 ML UDC PO SCH ×2 (09:14→20:30)
[2016-10-26] MEDS: Magnesium Oxide 400 MG TABLET PO SCH ×2 (09:15→20:30)
[2016-10-26] MEDS: Cyanocobalamin (B-12) 1,000 MCG TABLET PO SCH (09:15)
[2016-10-26] MEDS: amLODIPine 5 MG TABLET PO SCH (09:15)
[2016-10-26] MEDS: predniSONE 20 MG TABLET PO SCH (09:15)
[2016-10-26] MEDS: Fluticasone Propionate Nasal 50 MCG/SPRAY BOTTLE NS SCH ×2 (09:16→15:47)
--- NOTE | 2016-10-26 11:25 | Internal Med Progress Note ---
Date of Encounter: 10/26/16 Time of Encounter: 08:45 - Assessment and plan (1) COPD (chronic obstructive pulmonary disease) Current Visit: Yes Status: Chronic Assessment and plan: Patient stating his shortness of breath is improving but he is not back to his baseline. Continue to treat for COPD exacerbation. Chest x-ray unremarkable for acute processes. ITS Impressions Chest X-Ray 10/25/16 12:11 IMPRESSION: 1. Stable chronic bilateral pleural effusions and lower lobe consolidation, more prominent on the right. 2. No acute abnormality. D/ / 10/25/2016 12:35:00 William Sanchez MD / earnold Interpreting Provider: William Sanchez MD Qualifiers: COPD type: COPD with acute exacerbation Qualified Code(s): J44.1 - Chronic obstructive pulmonary disease with (acute) exacerbation (2) Right leg pain Current Visit: Yes Status: Acute Assessment and plan: On examination, patient with mild erythema to right lower extremity. No edema noted. Patient has dry and cracked skin which appears to be a causative factor. There are no signs of cellulitis or red streaking. The red lines are in the fissures of his dry skin. No signs of infection. Doppler ultrasound negative for DVT. We will continue to treat symptomatically. May consider wound consult if indicated. Lower extremity venous duplex impressions: Right lower extremity: Normal superficial and deep exam. (3) Weakness Current Visit: Yes Status: Acute Assessment and plan: OT and PT consultations are pending. Unclear disposition at this time. (4) Failure to thrive syndrome, adult Current Visit: No Status: Chronic Assessment and plan: Acute on chronic, will bring nutrition on board. (5) Primary squamous cell carcinoma of right lung Current Visit: Yes Status: Chronic Assessment and plan: Palliative care is on board. May consider oncology consult to discuss the patient's options. Further conversations in the near future. (6) Acute and chronic respiratory failure Current Visit: Yes Status: Acute Assessment and plan: Acute on chronic. At home, patient is on 3 L per nasal cannula continuously-3 L here. Qualifiers: Respiratory failure complication: hypoxia Qualified Code(s): J96.21 - Acute and chronic respiratory failure with hypoxia (7) Knowledge deficit on chemotherapy Current Visit: No Status: Acute Assessment and plan: Patient readily admits that he does not know much about his condition or the treatments that are available to him. According to palliative care note, patient is refusing hospice at this time and would like to proceed with chemotherapy if he is able to tolerate it. Patient clearly needs more support and more time and more information before he can make a decision. He appeared overwhelmed during my discussion with him. (8) Counseling regarding advanced care planning and goals of care Current Visit: No Status: Acute Assessment and plan: Palliative care is on board. Patient will like to know more about his options and is not proceeding with hospice at this time. (9) Atrial fibrillation Current Visit: Yes Status: Chronic Assessment and plan: On Xarelto for anticoagulation. Is not on anything for rate control-ray is been relatively stable since admission. Continue metoprolol IV as needed for heart rate above 110. Qualifiers: Atrial fibrillation type: chronic Qualified Code(s): I48.2 - Chronic atrial fibrillation (10) Hypokalemia Current Visit: No Status: Resolved (11) Hypomagnesemia Current Visit: No Status: Acute Assessment and plan: Acute on chronic but he was markedly hypomagnesemic upon arrival with initial magnesium less than 0.7. Replacement therapy initiated and currently is 0.8. We will continue to replace and trend. Potassium levels normal. Hypocalcemia also noted (12) Hypocalcemia Current Visit: Yes Status: Acute Assessment and plan: Acute on chronic, treating and trending. (13) Ventral hernia without obstruction or gangrene Current Visit: No Status: Chronic Assessment and plan: Nontender and fully reducible (14) DVT prophylaxis Current Visit: Yes Status: Acute Assessment and plan: on Xarelto - Subjective Interval history: Patient seen and examined. On examination, patient sitting upright in bed watching television. Patient stating his right lower extremity was a little bit sore because he had just had his Doppler ultrasound. He also states that he feels a little bit better. He ate most of his breakfast but states he feels as if he ate too much because he is feeling nauseated at this time. Patient overall, states that he is overwhelmed and "does not know much." - Constitutional Vitals: Temp Pulse Resp BP Pulse Ox 98.3 F 92 18 125/62 98 10/26/16 07:34 10/26/16 07:34 10/26/16 07:42 10/26/16 07:34 10/26/16 08:30 General appearance: Present: A&O X 3, pleasant, no acute distress, answers questions appropriately - Head Head exam: Present: atraumatic, normocephalic - Eye Eye exam: Present: PERRL, conjuntiva pink, sclera anicteric Pupils: Present: PERRL - Neck Neck exam general surgery: Present: supple, trachea midline. Absent: lymphadenopathy - Respiratory Respiratory exam: Present: decreased breath sounds. Absent: accessory muscle use, rales, respiratory distress, rhonchi, wheezes Additional comments: large hernia subxyphoid- reducible and chronic - Cardiovascular Cardiovascular exam: Present: RRR, +S1, +S2. Absent: diastolic murmur, gallop, rubs, systolic murmur - GI/Abdominal GI/Abdominal exam: Present: normal bowel sounds, soft, no peritoneal signs. Absent: distended, tenderness - Extremities Exam Extremities exam: Present: warm, radial pulses palpable and symmetrical. Absent : calf tenderness, cyanotic, pedal edema - Expanded Lower Extremities Exam Lower Leg exam: Present: erythema, tenderness. Absent: Mynor's sign, swelling Neuro vascular tendon exam: Present: no vascular compromise - Neurological Exam Neurological exam: Present: alert, CN II-XII intact, oriented X3, no focal deficits, strengths equal and symetr throughout. Absent: pronater drift, facial droop, speech deficit - Psychiatric Psychiatric exam: Present: flat affect. Absent: suicidal ideation - Skin Skin exam: Present: dry, intact, pallor, warm Internal Medicine: Result - Labs CBC & Chem 7: 10/26/16 05:40 10/26/16 05:40 Labs: Short CBC 10/26/16 Range/Units 05:40 WBC 8.4 (4.3-11.1) K/mcL Hgb 9.6 L (12.9-16.9) g/dL Hct 29.1 L (37.5-50.1) % Plt Count 218 (140-400) K/mcL Neutrophils # 5.8 (1.6-8.9) K/mcL BMP 10/26/16 05:40 Sodium 137 Potassium 3.6 Chloride 105 Carbon Dioxide 24 BUN 13 Creatinine 0.87 Glucose 70 Calcium 6.3 L D Liver Function 10/26/16 Range/Units 05:40 Total Bilirubin 0.3 (0.2-1.2) mg/dL AST 12 (5-34) Units/L ALT 10 (0-55) Units/L Alkaline Phosphatase 142 H (38-126) Units/L Albumin 2.1 L (3.5-5.0) g/dL - ABG Interpretation ABG results: PT/INR, D-dimer PT 20.2 Seconds (9.4-12.1) H 10/25/16 13:00 Consult Discharge Plan - Plan Referrals: Jose Lorenz DO [Primary Care Provider] -
[2016-10-27 03:11] LABS: Basophils % 0.1 %; Eosinophils % 0.1 %; Hematocrit 31.3 % (37.5-50.1); Hemoglobin 10.1 g/dL (12.9-16.9); Immature Granulocytes % 0.4 % (0-4); Lymphocytes # 0.6 K/mcL (0.6-4.6); Lymphocytes % 5.9 %; Mean Corpuscular HGB Conc 32.3 g/dL (31.6-35.5); Mean Corpuscular Hemoglobin 29.5 pg (28.0-33.3); Mean Corpuscular Volume 91.5 fL (83.0-100.0); Mean Platelet Volume 9.7 fL (9.4-12.4); Monocytes # 0.5 K/mcL (0.0-1.3); Monocytes % 4.8 %; Neutrophils # 9.3 K/mcL (1.6-8.9); Platelet Count 238 K/mcL (140-400); Red Blood Count 3.42 M/mcL (4.19-5.50); Red Cell Distribution Width 14.9 % (11.5-14.5); Segmented Neutrophils % 88.7 %
[2016-10-27 03:25] LABS: % Iron Saturation 16 % (20-55); BUN/Creatinine Ratio 21 (6-26); Blood Urea Nitrogen 18 mg/dL (8-26); Calcium 7.4 mg/dL (8.6-10.8); Carbon Dioxide 21 mEq/L (19-29); Chloride 105 mEq/L (98-109); Glucose 115 mg/dL (70-99); Iron 28 mcg/dL (65-175); Magnesium 1.2 mg/dL (1.6-2.6); Osmolality,Calculated 285 (280-300); Sodium 136 mEq/L (136-145); Transferrin 128 mg/dL (174-364); eGFR For African Americans > 60 (> 60); eGFR For Non-African Americans > 60 (> 60)
[2016-10-27 03:45] LABS: Ferritin 352 ng/ml (22-275)
[2016-10-27 04:00] LABS: Folate 12.3 ng/mL (7.0-31.4)
[2016-10-27] MEDS: Ipratropium/Albuterol Neb 3 ML IH SCH ×6 (04:09→23:59)
--- NOTE | 2016-10-27 08:35 | Venous Imaging Report ---
LE Venous Duplex Patient Name:Harish Reyes Order Number:[id number] Procedure Date:10/26/2016 Date:2Age:76 yrs Gender:Male Location:[facility] Room #: 3B43 Sole Skiver:Vicky Marino RDCS Referring MD:Maci Solis B[employer]K STATION OPERATOR health specialist:Jose Lorenz DO Reading MD:Shaun Simms MD Primary Indications:Pain in limb Secondary Indications: Risk Factors Yes/No Hx of DVT Yes Anticoagulants Yes Impressions: Right lower extremity: normal superficial and deep exam. Recommendations: Preliminary given to pt RN. Findings Venous Duplex Results: Right: Venous imaging of the lower extremity reveals full patency and normal vessel compressibility of the right distal iliac, right common femoral, right superficial femoral, right popliteal, right posterior tibial, right peroneal, right great saphenous and right lesser saphenous. Doppler signals in the evaluated veins were normal. Prior Study: No prior study available for comparison. Lower Extremity Venous Duplex Side Vein Compress Spontaneous Flow Augment Diameter (cm) Depth (cm) Right Distal Iliac Normal Yes Phasic Yes Right Common Femoral Normal Yes Phasic Yes Right Superficial Femoral Normal Yes Phasic Yes Right Popliteal Normal Yes Phasic Yes Right Posterior Tibial Normal Yes Phasic Yes Right Peroneal Normal Yes Phasic Yes Right Great Saphenous Normal Yes Phasic Yes Right Lesser Saphenous Normal Yes Phasic Yes Updated by Shaun Simms MD on 10/26/2016 11:08:41 AM electronically signed on 10/26/2016 11:09:01 AM with status of Final
[2016-10-27] MEDS ORDERED: Magnesium Sulfate 2 GM in D5% in Water 100 ML IVPB ONE (08:44)
[2016-10-27] MEDS ORDERED: Ferumoxytol 510 MG in 0.9 % Sodium Chloride 100 ML IVPB ONE (08:44)
[2016-10-27] MEDS ORDERED: Calcium Chloride 1,000 MG in 0.9 % Sodium Chloride 100 ML IVPB ONE (08:44)
[2016-10-27] MEDS: Megestrol Acetate 400 MG/10 ML UDC PO SCH ×2 (09:04→20:39)
[2016-10-27] MEDS: Cyanocobalamin (B-12) 1,000 MCG TABLET PO SCH (09:05)
[2016-10-27] MEDS: amLODIPine 5 MG TABLET PO SCH (09:05)
[2016-10-27] MEDS: Magnesium Oxide 400 MG TABLET PO SCH ×2 (09:05→20:38)
[2016-10-27] MEDS: Fluticasone Propionate Nasal 50 MCG/SPRAY BOTTLE NS SCH (09:05)
[2016-10-27] MEDS: predniSONE 20 MG TABLET PO SCH (09:05)
--- NOTE | 2016-10-27 10:51 | Palliative Progress Note ---
Date of Encounter: 10/27/16 Time of Encounter: 10:00 - Assessment and plan (1) Dyspnea Current Visit: No Status: Acute Assessment and plan: Greatly improved today. Continue treatment for COPD exacerbation. Qualifiers: (2) Anxiety Current Visit: Yes Status: Acute Assessment and plan: Continues with low dose Lorazepam. Utilized x2 last 24 hours. MOnitor (3) Counseling regarding advanced care planning and goals of care Current Visit: Yes Status: Acute Assessment and plan: Patient unsure of future plans for chemo/radiation. He has appt scheduled this at 1230 at [facility] - they stated he was scheduled for treatment. He expresses frustration of the benefit of treatment. Discussed that palliative radiation may be an option as well. He is unsure if he desires to continue, but wants to speak with oncology regarding benefit of further therapy. He was pt of Dr. Wood and is transitioning to another oncologist. D/W Astrid Solorio [employer] SERVICE TECHNICIAN - awaiting PT/OT eval. He may be good candidate for [facility] palliative program if need is identified. They may help monitor and manage symptoms/disease burden at home, and can assist with transition to hospice care when appropriate. - Time Spent With Patient Total time spent is greater than 50% in coordination of care (as documented) at patient's floor/unit and/or counseling patient: 25 - 35 minutes - Subjective Interval history: Patient states breathing much better today, sitting up in bed. No family present. Denies pain or discomfort. C/o feeling anxious at times. + BM's. Appetite fair. Electrolytes have been replace and levels better today. - Constitutional Vitals: Abnormal lab results RBC 3.42 M/mcL (4.19-5.50) L 10/27/16 03:00 Hgb 10.1 g/dL (12.9-16.9) L 10/27/16 03:00 Hct 31.3 % (37.5-50.1) L 10/27/16 03:00 RDW 14.9 % (11.5-14.5) H 10/27/16 03:00 Neutrophils # 9.3 K/mcL (1.6-8.9) H 10/27/16 03:00 PT 20.2 Seconds (9.4-12.1) H 10/25/16 13:00 APTT 43.5 Seconds (26.0-36.0) H 10/25/16 13:00 Glucose 115 mg/dL (70-99) H 10/27/16 03:00 Calcium 7.4 mg/dL (8.6-10.8) L D 10/27/16 03:00 Magnesium 1.2 mg/dL (1.6-2.6) L 10/27/16 03:00 Iron 28 mcg/dL (65-175) L 10/27/16 03:00 % Saturation 16 % (20-55) L 10/27/16 03:00 Transferrin 128 mg/dL (174-364) L 10/27/16 03:00 Ferritin 352 ng/ml (22-275) H 10/27/16 03:00 Alkaline Phosphatase 142 Units/L (38-126) H 10/26/16 05:40 B-Natriuretic Peptide 578 pg/mL (0-100) H 10/25/16 13:00 Serum Total Protein 4.9 g/dL (6.0-8.3) L 10/26/16 05:40 Albumin 2.1 g/dL (3.5-5.0) L 10/26/16 05:40 Albumin/Globulin Ratio 0.8 (1.1-2.2) L 10/26/16 05:40 Prealbumin 14.0 mg/dL (18.0-45.0) L 10/27/16 03:00 General appearance: Present: no acute distress - Respiratory Additional comments: Breath sounds diminished RML/RLL. No wheezed or rhonchi appreciated. - Cardiovascular Cardiovascular exam: Present: +S1, +S2, systolic murmur - GI/Abdominal GI/Abdominal exam: Present: normal bowel sounds, soft - Neurological Exam Neurological exam: Present: alert, oriented X3, strengths equal and symetr throughout Additional comments: Generalized weakness - Psychiatric Psychiatric exam: Present: anxious - Skin Skin exam: Present: dry, pallor, warm Palliative Quality Palliative Quality: Screen for Code Status: Yes, Screen for Goals of Care: Yes, Screen for Pain: Yes, If Pain Regimen Started, Initiate Bowel Regimen: Yes, Screen for Nausea/Vomitting: Yes - Labs CBC & Chem 7: 10/27/16 03:00 10/27/16 03:00 Labs: Laboratory Results - last 24 hr 10/27/16 10/27/16 10/27/16 03:00 03:00 03:00 WBC 10.5 RBC 3.42 L Hgb 10.1 L Hct 31.3 L MCV 91.5 MCH 29.5 MCHC 32.3 RDW 14.9 H Plt Count 238 MPV 9.7 Immature Gran % 0.4 Seg Neutrophils % 88.7 Lymphocytes % 5.9 Monocytes % 4.8 Eosinophils % 0.1 Basophils % 0.1 Neutrophils # 9.3 H Lymphocytes # 0.6 Monocytes # 0.5 Eosinophils # 0.0 Basophils # 0.0 Sodium 136 Potassium 4.0 Chloride 105 Carbon Dioxide 21 BUN 18 Creatinine 0.84 Est GFR ( Amer) > 60 Est GFR (Non-Af Amer) > 60 BUN/Creatinine Ratio 21 Glucose 115 H Calculated Osmolality 285 Calcium 7.4 L D Magnesium 1.2 L Iron 28 L % Saturation 16 L Transferrin 128 L Ferritin 352 H Prealbumin 14.0 L Vitamin B12 711 Folate 12.3 - ABG Interpretation ABG results: PT/INR, D-dimer PT 20.2 Seconds (9.4-12.1) H 10/25/16 13:00 Consult Discharge Plan - Plan Referrals: Jose Lorenz DO [Primary Care Provider] -
[2016-10-27] MEDS: Budesonide/Formoterol 160/4.5 MDI IH SCH ×2 (11:03→20:07)
--- NOTE | 2016-10-27 14:53 | Internal Med Progress Note ---
Date of Encounter: 10/27/16 Time of Encounter: 09:30 - Assessment and plan (1) COPD (chronic obstructive pulmonary disease) Current Visit: Yes Status: Chronic Assessment and plan: Patient stating his shortness of breath is improving but he is not back to his baseline. Continue to treat for COPD exacerbation. Chest x-ray unremarkable for acute processes. Possible discharge to home if his magnesium and calcium levels are improved tomorrow pending clinical outcomes. Blood cultures negative. ITS Impressions Chest X-Ray 10/25/16 12:11 IMPRESSION: 1. Stable chronic bilateral pleural effusions and lower lobe consolidation, more prominent on the right. 2. No acute abnormality. D/ / 10/25/2016 12:35:00 William Sanchez MD / earnochandra Interpreting Provider: William Sanchez MD Qualifiers: COPD type: COPD with acute exacerbation Qualified Code(s): J44.1 - Chronic obstructive pulmonary disease with (acute) exacerbation (2) Right leg pain Current Visit: Yes Status: Resolved Assessment and plan: On examination, patient with mild erythema to right lower extremity. No edema noted. Patient has dry and cracked skin which appears to be a causative factor. There are no signs of cellulitis or red streaking. The red lines are in the fissures of his dry skin. No signs of infection. Doppler ultrasound negative for DVT. We will continue to treat symptomatically- patient states his leg is not hurting today. May consider wound consult if indicated. Lower extremity venous duplex impressions: Right lower extremity: Normal superficial and deep exam. (3) Weakness Current Visit: Yes Status: Acute Assessment and plan: OT and PT have surmised that the patient has no needs. He is following up with an oncology appointment this and his plan of care will be discussed at that time. Palliative care was on board and will follow peripherally. (4) Failure to thrive syndrome, adult Current Visit: No Status: Chronic Assessment and plan: Acute on chronic, nutrition on board. Patient tolerating supplements well. (5) Primary squamous cell carcinoma of right lung Current Visit: Yes Status: Chronic Assessment and plan: Palliative care is on board. Patient has an oncological appointment this and treatment options and plan of care will be discussed at that time. (6) Acute and chronic respiratory failure Current Visit: Yes Status: Acute Assessment and plan: Acute on chronic. At home, patient is on 3 L per nasal cannula continuously-3 L here. Qualifiers: Respiratory failure complication: hypoxia Qualified Code(s): J96.21 - Acute and chronic respiratory failure with hypoxia (7) Knowledge deficit on chemotherapy Current Visit: No Status: Acute Assessment and plan: Patient readily admits that he does not know much about his condition or the treatments that are available to him. According to palliative care note, patient is refusing hospice at this time and would like to proceed with chemotherapy if he is able to tolerate it. Patient clearly needs more support and more time and more information before he can make a decision-appointment with oncology . (8) Counseling regarding advanced care planning and goals of care Current Visit: No Status: Acute Assessment and plan: Palliative care is on board. Patient will like to know more about his options and is not proceeding with hospice at this time. (9) Atrial fibrillation Current Visit: Yes Status: Chronic Assessment and plan: On Xarelto for anticoagulation. Is not on anything for rate control-rate has been relatively stable since admission. Continue metoprolol IV as needed for heart rate above 110. Qualifiers: Atrial fibrillation type: chronic Qualified Code(s): I48.2 - Chronic atrial fibrillation (10) Hypokalemia Current Visit: No Status: Resolved (11) Hypomagnesemia Current Visit: No Status: Acute Assessment and plan: Acute on chronic but he was markedly hypomagnesemic upon arrival with initial magnesium less than 0.7. Replacement therapy initiated and currently is up to 1.2 We will continue to replace and trend. Potassium levels normal. Hypocalcemia also noted (12) Hypocalcemia Current Visit: Yes Status: Acute Assessment and plan: Acute on chronic, treating and trending. Improving. (13) Ventral hernia without obstruction or gangrene Current Visit: No Status: Chronic Assessment and plan: Nontender and fully reducible (14) Anemia Current Visit: Yes Status: Chronic Assessment and plan: Acute on chronic and stable. Likely multifactorial. B12, folate, TSH normal. Iron stores low, will give dose of Feraheme (15) DVT prophylaxis Current Visit: Yes Status: Acute Assessment and plan: on Xarelto - Subjective Interval history: Patient seen and examined. On examination, patient sitting upright in bed watching television. Patient stating he feels a lot better today. He denies pain and states that his shortness of breath has improved. He states he has been able to ambulate to and from the bathroom with minimal lightheadedness but states he overall, he feels steady on his feet. He states he is eating relatively well. He states he is a bit concerned regarding his possible treatment options for his lung cancer. - Constitutional Vitals: Temp Pulse Resp BP Pulse Ox 97.7 F 118 17 120/80 99 10/27/16 11:16 10/27/16 11:16 10/27/16 11:16 10/27/16 11:16 10/27/16 13:43 General appearance: Present: A&O X 3, pleasant, no acute distress, answers questions appropriately - Head Head exam: Present: atraumatic, normocephalic - Eye Eye exam: Present: PERRL, conjuntiva pink, sclera anicteric Pupils: Present: PERRL - Neck Neck exam general surgery: Present: supple, trachea midline. Absent: lymphadenopathy - Respiratory Respiratory exam: Present: accessory muscle use, decreased breath sounds. Absent: rales, respiratory distress, rhonchi, wheezes - Cardiovascular Cardiovascular exam: Present: RRR, +S1, +S2. Absent: diastolic murmur, gallop, rubs, systolic murmur - GI/Abdominal GI/Abdominal exam: Present: normal bowel sounds, soft, no peritoneal signs. Absent: distended, tenderness - Extremities Exam Extremities exam: Present: warm, radial pulses palpable and symmetrical. Absent : calf tenderness, cyanotic, pedal edema - Neurological Exam Neurological exam: Present: alert, CN II-XII intact, oriented X3, no focal deficits, strengths equal and symetr throughout. Absent: pronater drift, facial droop, speech deficit - Skin Skin exam: Present: dry, intact, pallor, warm Internal Medicine: Result - Labs CBC & Chem 7: 10/27/16 03:00 10/27/16 03:00 Labs: Short CBC 10/27/16 Range/Units 03:00 WBC 10.5 (4.3-11.1) K/mcL Hgb 10.1 L (12.9-16.9) g/dL Hct 31.3 L (37.5-50.1) % Plt Count 238 (140-400) K/mcL Neutrophils # 9.3 H (1.6-8.9) K/mcL BMP 10/27/16 03:00 Sodium 136 Potassium 4.0 Chloride 105 Carbon Dioxide 21 BUN 18 Creatinine 0.84 Glucose 115 H Calcium 7.4 L D - ABG Interpretation ABG results: PT/INR, D-dimer PT 20.2 Seconds (9.4-12.1) H 10/25/16 13:00 Consult Discharge Plan - Plan Referrals: Jose Lorenz DO [Primary Care Provider] -
--- NOTE | 2016-10-27 17:18 | Electrocardiograph Report ---
[place] [id number] Test Date: 2016-10-25 Pat Name: Harish Reyes Department: 104 Room: 3B43 Gender: M House Sitter: ANNIE : 1940 Requested By: Bud Albert Order Number: [id number] Reading MD: Guadalupe Taveras Measurements Intervals [place] Rate: 110 P: NC: 0 QRS: 76 QRSD: 113 T: -3 QT: 341 QTc: 406 Interpretive Statements ATRIAL FIBRILLATION WITH RAPID VENTRICULAR RESPONSE INCOMPLETE RIGHT BUNDLE BRANCH BLOCK NONSPECIFIC T-WAVE ABNORMALITY Electronically Signed On 10-27-2016 17:16:18 EDT by Guadalupe Taveras
[2016-10-27] MEDS ORDERED: *HR* Rivaroxaban 15 MG TABLET PO SCH (17:45)
[2016-10-27] MEDS: *HR* LORazepam 0.5 MG TABLET PO PRN (20:38)
[2016-10-28] MEDS: Ipratropium/Albuterol Neb 3 ML IH SCH ×4 (03:14→11:03)
[2016-10-28 05:50] LABS: BUN/Creatinine Ratio 25 (6-26); Blood Urea Nitrogen 19 mg/dL (8-26); Calcium 7.8 mg/dL (8.6-10.8); Carbon Dioxide 25 mEq/L (19-29); Chloride 108 mEq/L (98-109); Glucose 126 mg/dL (70-99); Magnesium 1.5 mg/dL (1.6-2.6); Osmolality,Calculated 292 (280-300); Sodium 139 mEq/L (136-145); eGFR For African Americans > 60 (> 60); eGFR For Non-African Americans > 60 (> 60)
[2016-10-28] MEDS: Budesonide/Formoterol 160/4.5 MDI IH SCH (08:16)
[2016-10-28] MEDS: Megestrol Acetate 400 MG/10 ML UDC PO SCH (08:23)
[2016-10-28] MEDS: amLODIPine 5 MG TABLET PO SCH (08:24)
[2016-10-28] MEDS: predniSONE 20 MG TABLET PO SCH (08:24)
[2016-10-28] MEDS: Magnesium Oxide 400 MG TABLET PO SCH (08:24)
[2016-10-28] MEDS: Cyanocobalamin (B-12) 1,000 MCG TABLET PO SCH (08:24)
--- NOTE | 2016-10-28 10:42 | Palliative Progress Note ---
Date of Encounter: 10/28/16 Time of Encounter: 09:20 - Assessment and plan (1) Hypomagnesemia Current Visit: Yes Status: Chronic Assessment and plan: Improving slowly as his calcium, plan per hospitalist team (2) Acute and chronic respiratory failure Current Visit: Yes Status: Acute Assessment and plan: The patient is feeling better. Continue current plan plan per hospitalist team. Qualifiers: Respiratory failure complication: hypoxia Qualified Code(s): J96.21 - Acute and chronic respiratory failure with hypoxia (3) Counseling regarding advanced care planning and goals of care Current Visit: No Status: Acute Assessment and plan: CODE STATUS was reconfirmed with patient yesterday DNR CCA, DNI. Overall goals of care for the patient to return home. He will would like to keep his appointment with radiation oncology for later this week. Discussion with my nurse practitioner reveals that his seems to be advocating for hospice at this time. As the patient wishes to consider having further options hospice would not be appropriate at this time, however the moment the patient is done with chemotherapy and radiation he was certainly be hospice eligible. Patient had no questions this morning about that pending discussion with oncology later this week.. (4) Weakness Current Visit: Yes Status: Acute Assessment and plan: PT and OT eval was done looking at probable home PTOT. (5) Primary squamous cell carcinoma of right lung Current Visit: Yes Status: Chronic Assessment and plan: Followed by oncology. Patient has been getting chemotherapy however this has been stopped temporarily due to his inability to tolerate it. Radiation therapy for palliative purposes is being considered. Hospice has been discussed with the patient he is considering his options but has not opted for at this time. Is currently leaning towards continuing chemotherapy and/or radiation therapy until it is no longer of any use. As of today this is all the same. Waiting discussion with oncology later this week. - Time Spent With Patient Total time spent is greater than 50% in coordination of care (as documented) at patient's floor/unit and/or counseling patient: - Subjective Interval history: Feels better he is hoping to go home soon and keep his appointment with radiation oncology for later this week. Is no complaint of this morning - Constitutional Vitals: Abnormal lab results RBC 3.42 M/mcL (4.19-5.50) L 10/27/16 03:00 Hgb 10.1 g/dL (12.9-16.9) L 10/27/16 03:00 Hct 31.3 % (37.5-50.1) L 10/27/16 03:00 RDW 14.9 % (11.5-14.5) H 10/27/16 03:00 Neutrophils # 9.3 K/mcL (1.6-8.9) H 10/27/16 03:00 PT 20.2 Seconds (9.4-12.1) H 10/25/16 13:00 APTT 43.5 Seconds (26.0-36.0) H 10/25/16 13:00 Glucose 126 mg/dL (70-99) H 10/28/16 05:30 Calcium 7.8 mg/dL (8.6-10.8) L 10/28/16 05:30 Magnesium 1.5 mg/dL (1.6-2.6) L 10/28/16 05:30 Iron 28 mcg/dL (65-175) L 10/27/16 03:00 % Saturation 16 % (20-55) L 10/27/16 03:00 Transferrin 128 mg/dL (174-364) L 10/27/16 03:00 Ferritin 352 ng/ml (22-275) H 10/27/16 03:00 Alkaline Phosphatase 142 Units/L (38-126) H 10/26/16 05:40 B-Natriuretic Peptide 578 pg/mL (0-100) H 10/25/16 13:00 Serum Total Protein 4.9 g/dL (6.0-8.3) L 10/26/16 05:40 Albumin 2.1 g/dL (3.5-5.0) L 10/26/16 05:40 Albumin/Globulin Ratio 0.8 (1.1-2.2) L 10/26/16 05:40 Prealbumin 14.0 mg/dL (18.0-45.0) L 10/27/16 03:00 General appearance: Present: no acute distress - Head Head exam: Present: atraumatic, normal inspection - Eye Eye exam: Present: normal appearance - ENT ENT exam: Present: mucous membranes moist - Neck Neck exam: Present: normal inspection - Respiratory Respiratory exam: Present: decreased breath sounds - Cardiovascular Cardiovascular exam: Present: irregular rhythm - GI/Abdominal GI/Abdominal exam: Present: normal bowel sounds, soft. Absent: tenderness - Extremities Exam Extremities exam: Absent: pedal edema, tenderness - Neurological Exam Neurological exam: Present: alert, oriented X3 - Psychiatric Psychiatric exam: Present: normal affect, normal mood. Absent: agitated, anxious - Skin Skin exam: Present: dry, warm Palliative Quality Palliative Quality: Screen for Code Status: Yes, Screen for Goals of Care: Yes, Screen for Pain: Yes, If Pain Regimen Started, Initiate Bowel Regimen: Yes, Screen for Nausea/Vomitting: Yes - Labs CBC & Chem 7: 10/27/16 03:00 10/28/16 05:30 Labs: Laboratory Results - last 24 hr 10/28/16 05:30 Sodium 139 Potassium 4.0 Chloride 108 Carbon Dioxide 25 BUN 19 Creatinine 0.75 Est GFR ( Amer) > 60 Est GFR (Non-Af Amer) > 60 BUN/Creatinine Ratio 25 Glucose 126 H Calculated Osmolality 292 Calcium 7.8 L Magnesium 1.5 L - ABG Interpretation ABG results: PT/INR, D-dimer PT 20.2 Seconds (9.4-12.1) H 10/25/16 13:00 Consult Discharge Plan - Plan Referrals: Jose Lorenz DO [Primary Care Provider] -
[2016-10-28 11:43] VITALS: BP 120/67
[2016-10-28] MEDS: Fluticasone Propionate Nasal 50 MCG/SPRAY BOTTLE NS SCH (12:02)
--- NOTE | 2016-10-28 13:53 | Discharge Summary ---
Date of Encounter: 10/28/16 Time of Encounter: 13:51 - Discharge Diagnosis (1) Acute and chronic respiratory failure Priority: Primary Status: Acute Comments: Acute on chronic hypoxic respiratory failure secondary to acute COPD exacerbation due to acute bacterial bronchitis in combination with stage IV lung cancer Qualifiers: Respiratory failure complication: hypoxia Qualified Code(s): J96.21 - Acute and chronic respiratory failure with hypoxia (2) Atrial fibrillation Priority: Secondary Status: Chronic Qualifiers: Atrial fibrillation type: chronic Qualified Code(s): I48.2 - Chronic atrial fibrillation (3) Hypomagnesemia Priority: Secondary Status: Acute (4) Acute bronchitis Priority: Primary Status: Acute Qualifiers: Bronchitis organism: unspecified organism Qualified Code(s): J20.9 - Acute bronchitis, unspecified (5) Failure to thrive syndrome, adult Priority: Secondary Status: Chronic (6) Ventral hernia without obstruction or gangrene Priority: Secondary Status: Chronic (7) Primary squamous cell carcinoma of right lung Priority: Secondary Status: Chronic - Discharge Medications Prescriptions: Azithromycin [Azithromycin 6-Tab Pack] 250 mg PO PER PKG DI #6 tab Calc/D3/Mag/Zn/Mariam/Dat/Scott [Calcium 600 mg Plus Vit D Tab] 1 each PO BID # 60 tablet Magnesium Oxide [Magnesium] 400 mg PO BID #60 tablet Metoprolol XL (24 HR) Succ [Toprol Xl] 12.5 mg PO DAILY #30 predniSONE [PredniSONE] 10 mg PO DAILY 20 Days Home Medications: Albuterol Sulfate [Albuterol Inhaler] 2 puff IH Q6H PRN 08/07/15 [History] Budesonide/Formoterol 160/4.5 [Symbicort 160/4.5] 2 puff IH BIDR 08/07/15 [ History] Omeprazole [PriLOSEC] 20 mg PO DAILY #90 capsule 09/10/15 [Rx] Ondansetron [Zofran] 8 mg PO Q8HR PRN #90 tablet 09/10/15 [Rx] Prochlorperazine Maleate [Compazine] 10 mg PO Q6HR PRN #90 tablet 09/10/15 [Rx] amLODIPine [Norvasc] 10 mg PO DAILY #60 tablet 01/09/16 [Rx] Cyanocobalamin (B-12) [Vitamin B12] 1,000 mcg PO DAILY #90 tablet 07/04/16 [Rx] LORazepam [Ativan] 0.5 mg PO Q6H PRN #90 tablet 07/04/16 [Rx] Magic Mouthwash 10 ml PO TID PRN 07/18/16 [History] Oxycodone HCl/Acetaminophen [Percocet 5-325 mg Tablet] 1 tab PO Q6H PRN [History] Megestrol Acetate [Megace] 200 mg PO BID 08/05/16 [History] Amitriptyline [Elavil] 25 mg PO HS 10/07/16 [History] Loperamide [Imodium] 2 mg PO PER PKG DI PRN 10/07/16 [History] Rivaroxaban [Xarelto] 15 mg PO Q48H 10/07/16 [History] Ipratropium/Albuterol Neb [Duoneb] 3 ml IH Q4HR #100 vial.neb 10/09/16 [Rx] Fluticasone Propionate Nasal [Flonase] 1 spray NS DAILY 10/22/16 [History] Naproxen Sodium [Aleve] 220 mg PO BID PRN 10/22/16 [History] Nitroglycerin [Nitrostat] 0.4 mg SL AD PRN 10/22/16 [History] Buspirone HCl [Buspar] 10 mg PO BID 10/25/16 [History] Lidocaine/Prilocaine CREAM [Emla] 1 appl TP AD PRN 10/25/16 [History] Azithromycin [Azithromycin 6-Tab Pack] 250 mg PO PER PKG DI #6 tab 10/28/16 [Rx] Calc/D3/Mag/Zn/Mariam/Dat/Scott [Calcium 600 mg Plus Vit D Tab] 1 each PO BID # 60 tablet 10/28/16 [Rx] Magnesium Oxide [Magnesium] 400 mg PO BID #60 tablet 10/28/16 [Rx] Metoprolol XL (24 HR) Succ [Toprol Xl] 12.5 mg PO DAILY #30 10/28/16 [Rx] predniSONE [PredniSONE] 10 mg PO DAILY 20 Days 10/28/16 [Rx] Allergies/Adverse Reactions: 3 Allergy/AdvReac Type Severity Reaction Status Date / Time Penicillins Allergy Severe Swelling Verified 10/25/16 12:07 of Lip/Tongue/Throat Date of admission: 10/26/16 18:02 Primary care physician: Jose Lorenz, Consults: 10/27/16 08:46 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 Continue prednisone, complete doses of azithromycin. Continue multivitamins, magnesium and calcium. Oxygen therapy at home. Start metoprolol - Diet and Activity Activity: wear oxygen at all times Diet: low fat, low cholesterol Hospital course: Mr. Reyes is a 76 year old male with a PMHx of afib on Xarelto , COPD O2 dep, CAD s/p CABG, HTN, HLD, Stage 4 lung cancer presented to the ER with complaints of weakness, increased shortness of breath, RLE pain. Patient reported occasional lightheadedness, increased shortness of breath. He denied any chest pain or palpitations. He denied any fever, chills, nausea , vomiting, abdominal pain. He reported occasional diarrhea, chronic in nature. Evaluation in the ED included CXR which showed stable chronic bilateral pleural effusions and lower lobe consolidations, no acute abnormality. WBC was 11.2. Patient had hypomagnesemia with magnesium < 0.7, hypocalcemia with calcium of 5.2. Troponin was normal at 0.01. BNP was elevated at 578. EKG showed afib with HR 110. Blood cultures were drawn. Magnesium ordered. Calcium ordered The patient was started on Solu-Medrol was given 1 dose of Levaquin. At the moment, he feels much better and prefers to be discharged. His magnesium today is 1.5 and his calcium is 7.8. Will be discharged on prednisone and azithromycin - Time Spent with Patient Total time spent providing and/or coordinating discharge services: Greater than 30 minutes (40 min) - Constitutional Vitals: Temp Pulse Resp BP Pulse Ox 98.2 F 105 16 120/67 99 10/28/16 11:42 10/28/16 11:42 10/28/16 11:42 10/28/16 11:42 10/28/16 11:42 General appearance: Present: A&O X 3, pleasant, no acute distress, answers questions appropriately - Head Head exam: Present: atraumatic, normocephalic - Eye Eye exam: Present: PERRL, conjuntiva pink, sclera anicteric Pupils: Present: PERRL - Neck Neck exam general surgery: Present: supple, trachea midline. Absent: lymphadenopathy - Respiratory Respiratory exam: Present: decreased breath sounds, CTAB. Absent: accessory muscle use, rales, rhonchi, wheezes - Cardiovascular Cardiovascular exam: Present: RRR, +S1, +S2. Absent: diastolic murmur, gallop, rubs, systolic murmur - GI/Abdominal GI/Abdominal exam: Present: normal bowel sounds, soft, no peritoneal signs. Absent: distended, tenderness - Extremities Exam Extremities exam: Present: warm, radial pulses palpable and symmetrical. Absent : calf tenderness, cyanotic, pedal edema - Neurological Exam Neurological exam: Present: CN II-XII intact, oriented X3, no focal deficits. Absent: pronater drift, facial droop, speech deficit - Skin Skin exam: Present: dry, intact
[2016-10-28] MEDS ORDERED: Metoprolol XL (24 HR) Succ 25 MG TAB.ER.24H PO SCH (14:00)
--- NOTE | 2016-10-28 14:09 | Physician Discharge Referral ---
Home Health/Hosp Referral Info Transfer to: Home Health Provider in Charge Post Discharge: PCP - Diagnosis (1) Acute and chronic respiratory failure Status: Acute (2) Atrial fibrillation Status: Chronic (3) Hypomagnesemia Status: Acute (4) Acute bronchitis Status: Acute (5) Failure to thrive syndrome, adult Status: Chronic (6) Ventral hernia without obstruction or gangrene Status: Chronic (7) Primary squamous cell carcinoma of right lung Status: Chronic - Respiratory Orders Oxygen / L per min (2) Smoking Cessation: Smoking cessation has been advised. For more information, call the [place] Tobacco Quit Line at 6-425-DLIH-NOW. - Diet/Nutrition Diet/Nutrition Orders: Regular - Activity Activity: List: Follow-up with primary care physician within the next 7 days. Continue prednisone, complete doses of azithromycin. Continue multivitamins, magnesium and calcium. Oxygen therapy at home. Start metoprolol. DNR CC arrest DNI - Services Needed Following services are medically necessary services: Home Health Aide, Physical Therapy - Transfer Medications Prescriptions: Azithromycin [Azithromycin 6-Tab Pack] 250 mg PO PER PKG DI #6 tab Calc/D3/Mag/Zn/Mariam/Dat/Jones [Calcium 600 mg Plus Vit D Tab] 1 each PO BID # 60 tablet Magnesium Oxide [Magnesium] 400 mg PO BID #60 tablet Metoprolol XL (24 HR) Succ [Toprol Xl] 12.5 mg PO DAILY #30 predniSONE [PredniSONE] 10 mg PO DAILY 20 Days Home Medications: Albuterol Sulfate [Albuterol Inhaler] 2 puff IH Q6H PRN 08/07/15 [History] Budesonide/Formoterol 160/4.5 [Symbicort 160/4.5] 2 puff IH BIDR 08/07/15 [ History] Omeprazole [PriLOSEC] 20 mg PO DAILY #90 capsule 09/10/15 [Rx] Ondansetron [Zofran] 8 mg PO Q8HR PRN #90 tablet 09/10/15 [Rx] Prochlorperazine Maleate [Compazine] 10 mg PO Q6HR PRN #90 tablet 09/10/15 [Rx] amLODIPine [Norvasc] 10 mg PO DAILY #60 tablet 01/09/16 [Rx] Cyanocobalamin (B-12) [Vitamin B12] 1,000 mcg PO DAILY #90 tablet 07/04/16 [Rx] LORazepam [Ativan] 0.5 mg PO Q6H PRN #90 tablet 07/04/16 [Rx] Magic Mouthwash 10 ml PO TID PRN 07/18/16 [History] Oxycodone HCl/Acetaminophen [Percocet 5-325 mg Tablet] 1 tab PO Q6H PRN [History] Megestrol Acetate [Megace] 200 mg PO BID 08/05/16 [History] Amitriptyline [Elavil] 25 mg PO HS 10/07/16 [History] Loperamide [Imodium] 2 mg PO PER PKG DI PRN 10/07/16 [History] Rivaroxaban [Xarelto] 15 mg PO Q48H 10/07/16 [History] Ipratropium/Albuterol Neb [Duoneb] 3 ml IH Q4HR #100 vial.neb 10/09/16 [Rx] Fluticasone Propionate Nasal [Flonase] 1 spray NS DAILY 10/22/16 [History] Naproxen Sodium [Aleve] 220 mg PO BID PRN 10/22/16 [History] Nitroglycerin [Nitrostat] 0.4 mg SL AD PRN 10/22/16 [History] Buspirone HCl [Buspar] 10 mg PO BID 10/25/16 [History] Lidocaine/Prilocaine CREAM [Emla] 1 appl TP AD PRN 10/25/16 [History] Azithromycin [Azithromycin 6-Tab Pack] 250 mg PO PER PKG DI #6 tab 10/28/16 [Rx] Calc/D3/Mag/Zn/Mariam/Dat/Jones [Calcium 600 mg Plus Vit D Tab] 1 each PO BID # 60 tablet 10/28/16 [Rx] Magnesium Oxide [Magnesium] 400 mg PO BID #60 tablet 10/28/16 [Rx] Metoprolol XL (24 HR) Succ [Toprol Xl] 12.5 mg PO DAILY #30 10/28/16 [Rx] predniSONE [PredniSONE] 10 mg PO DAILY 20 Days 10/28/16 [Rx] Allergies/Adverse Reactions: 3 Allergy/AdvReac Type Severity Reaction Status Date / Time Penicillins Allergy Severe Swelling Verified 10/25/16 12:07 of Lip/Tongue/Throat Certification: Further, I certify that my clinical findings support that this patient is homebound (i.e. absences from home require considerable and taxing effort and are for medical reasons or jew services or infrequently or short duration when for other reasons) because: Homebound Reason: Patient requires assistance of a person or device to safely leave home Attestation: My signature below is to certify that this patient is under my care and that I, or nurse practitioner, or a physician's metal forger's assistant working with me, has a face-to -face encounter with this patient.
== END 2016-10-28 15:15 | disposition home health service (06) | DRG 190 ==
LOC: 3BNU 12:06 → EMEROO 12:06 → 3BNU 15:28 → SUATTDRO 10-26 18:02
PROVIDERS: ADMIT Nurse Practitioner Family; ATTEND Internal Medicine

== ENCOUNTER 2016-11-13 07:46 | Inpatient (IN) ==
--- NOTE | 2016-11-13 07:59 | Emergency Department Note ---
Disposition Clinical Impression: Atrial fibrillation with RVR, Hypomagnesemia, Hypokalemia, Elevated troponin Disposition: Admitted As Inpatient Condition: Fair Forms: ED Satisfaction Letter General Adult HPI - General Chief complaint: ED Arrhythmia/Palpitations Stated complaint: Palpitations Time Seen by Provider: 11/13/16 07:50 Source: patient, EMS Limitations: no limitations Nursing Notes Reviewed: Yes Vital Signs Reviewed: Yes - History of Present Illness HPI Narrative: 76-year-old male who is had approximately 2 days of palpitations. He has a past medical history of atrial fibrillation and has had 2 admissions to the hospital last month for atrial fibrillation with RVR. He states he has had some intermittent left upper chest pain. He currently does not have any pain. He called EMS yesterday due to a high heart rate but ended up refusing transfer. He called EMS again today and was found to have a fluctuant heart rate 130-160. He does take Cardizem CD 180 metoprolol XL 12.5 daily. He is also on Xarelto. In addition he does have lung cancer and is on Nivolumab. He is been followed by oncology for a couple of years now. He denies any excessive caffeine intake. He is on oxygen as needed at home for his COPD. Pain Scale: 0 Improves with: nothing Worsens with: nothing Associated symptoms: Reports: denies other symptoms Treatments Prior to Arrival: none - Related Data Home Medications Medication Instructions Recorded Confirmed Albuterol Sulfate [Albuterol 2 puff IH Q6H PRN 08/07/15 11/06/16 Inhaler] Budesonide/Formoterol 160/4.5 2 puff IH BIDR 08/07/15 11/06/16 [Symbicort 160/4.5] Magic Mouthwash 10 ml PO TID PRN 07/18/16 11/06/16 Megestrol Acetate [Megace] 200 mg PO BID 08/05/16 11/06/16 Rivaroxaban [Xarelto] 15 mg PO Q24H 10/07/16 11/06/16 Fluticasone Propionate Nasal 1 spray NS DAILY 10/22/16 11/06/16 [Flonase] Naproxen Sodium [Aleve] 220 mg PO BID PRN 10/22/16 11/06/16 Nitroglycerin [Nitrostat] 0.4 mg SL AD PRN 10/22/16 11/06/16 Previous Rx's Medication Instructions Recorded Omeprazole [PriLOSEC] 20 mg PO DAILY #90 capsule 09/10/15 Ondansetron [Zofran] 8 mg PO Q8HR PRN #90 tablet 09/10/15 Prochlorperazine Maleate 10 mg PO Q6HR PRN #90 tablet 09/10/15 [Compazine] amLODIPine [Norvasc] 10 mg PO DAILY #60 tablet 01/09/16 Cyanocobalamin (B-12) [Vitamin B12] 1,000 mcg PO DAILY #90 tablet 07/04/16 LORazepam [Ativan] 0.5 mg PO Q6H PRN #90 tablet 07/04/16 Ipratropium/Albuterol Neb [Duoneb] 3 ml IH Q4HR #100 vial.neb 10/09/16 Calc/D3/Mag/Zn/[place]/Dat/[place] 1 each PO BID #60 tablet 10/28/16 [Calcium 600 mg Plus Vit D Tab] Magnesium Oxide [Magnesium] 400 mg PO BID #60 tablet 10/28/16 Metoprolol XL (24 HR) Succ [Toprol 12.5 mg PO DAILY #30 10/28/16 Xl] Diltiazem CD (24hr) [Cardizem CD] 180 mg PO DAILY #30 tab 11/07/16 Allergies Allergy/AdvReac Type Severity Reaction Status Date / Time Penicillins Allergy Severe Swelling Verified 11/05/16 10:47 of Lip/Tongue/Throat All systems ED: reviewed and negative except as stated. Constitutional: Denies: fever ENT ED: Denies: throat pain Cardiovascular: Reports: chest pain, palpitations. Denies: dyspnea on exertion Respiratory: Denies: dyspnea Gastrointestinal: Denies: abdominal pain, nausea, vomiting, diarrhea Genitourinary: Denies: dysuria Musculoskeletal: Denies: back pain Integumentary: Denies: rash Neurological: Denies: headache Endocrine: Denies: fatigue Past Medical History - Past Medical History Medical history: Reports: atrial fibrillation, cancer, COPD, coronary artery disease, DVT, diabetes, hyperlipidemia, hypertension Surgical history: Reports: carotid endarterectomy, cholecystectomy, coronary bypass (CABG) Psychiatric history: Reports: anxiety, depression - Social History Smoking Status: Current every day smoker Smokeless Tobacco Status: No Alcohol use: Reports: none Drug use: Reports: none Physical Exam - General Limitations: no limitations General appearance: alert, in no apparent distress - Head Head exam: atraumatic - Eye Eye exam: Present: normal appearance, PERRL - ENT ENT exam: normal exam, normal oropharynx - Neck Neck exam: Present: normal inspection - Chest Chest inspection: Present: normal inspection - Respiratory Respiratory exam: Present: normal lung sounds bilaterally. Absent: respiratory distress - Cardiovascular Cardiovascular exam: Present: tachycardia, irregular rhythm - Abdominal Exam Abdominal exam: Present: soft, Non-Tender, other (Large midline hernia which is soft and nontender.) - Extremities Exam Extremities exam: Present: other (2+ edema which is chronic) - Neurological Exam Neurological exam: Present: alert, oriented X3 - Psychiatric Psychiatric exam: Present: normal affect, normal mood - Skin Skin exam: Present: warm, dry Course Course Narrative: 76-year-old male with repeat atrial fibrillation with RVR. I will go ahead and start him on Cardizem bolus with a drip. He is also been having some intermittent left upper chest discomfort. We will do a cardiac workup and likely admission. Troponin is elevated likely secondary to rate. No STEMI on EKG. Gave aspirin. Currently on a cardizem drip at 5 after a 20mg bolus with a HR of 120. Will increase HR to 10. Potassium was low and magnesium was low which has been replaced. Will admit to hospitalist. Accepted by Dr Whitehead Vital Signs Temperature 97.5 F L 11/13/16 07:47 Pulse Rate 147 11/13/16 07:47 Respiratory Rate 18 11/13/16 07:47 Blood Pressure 121/99 11/13/16 07:47 O2 Sat by Pulse Oximetry 98 11/13/16 07:47 Temperature 97.5 F L 11/13/16 07:47 Pulse Rate 121 11/13/16 09:06 Respiratory Rate 18 11/13/16 09:06 Blood Pressure 133/65 11/13/16 09:06 O2 Sat by Pulse Oximetry 97 11/13/16 09:06 Oxygen Delivery Oxygen Delivery Nasal Cannula Medical Decision Making - Medical Records Medical records reviewed: Yes I reviewed the patient's medical records. - Lab Data Lab results reviewed: Yes I reviewed the patient's lab results. Result diagrams: 11/13/16 08:10 11/13/16 08:10 Lab Results 11/13/16 11/13/16 11/13/16 Range/Units 08:10 08:10 08:10 WBC 16.6 H (4.3-11.1) K/mcL RBC 3.71 L (4.19-5.50) M/mcL Hgb 11.2 L (12.9-16.9) g/dL Hct 34.0 L (37.5-50.1) % MCV 91.6 (83.0-100.0) fL MCH 30.2 (28.0-33.3) pg MCHC 32.9 (31.6-35.5) g/dL RDW 15.8 H (11.5-14.5) % Plt Count 212 (140-400) K/mcL MPV 9.5 (9.4-12.4) fL Immature Gran % 1.0 (0-4) % Seg Neutrophils % 80.7 % Lymphocytes % 10.1 % Monocytes % 8.0 % Eosinophils % 0.1 % Basophils % 0.1 % Neutrophils # 13.4 H (1.6-8.9) K/mcL Lymphocytes # 1.7 (0.6-4.6) K/mcL Monocytes # 1.3 (0.0-1.3) K/mcL Eosinophils # 0.0 (0.0-0.6) K/mcL Basophils # 0.0 (0.0-0.2) K/mcL Immature Plt Fraction 3.0 (1.1-6.1) % PT 13.1 H (9.4-12.1) Seconds INR 1.2 APTT 25.0 L (26.0-36.0) Seconds Sodium 138 (136-145) mEq/L Potassium 2.7 L (3.5-4.5) mEq/L Chloride 101 (98-109) mEq/L Carbon Dioxide 29 (19-29) mEq/L BUN 18 (8-26) mg/dL Creatinine 0.83 (0.72-1.25) mg/dL Est GFR ( Amer) > 60 (> 60) Est GFR (Non-Af Amer) > 60 (> 60) BUN/Creatinine Ratio 22 (6-26) Glucose 81 (70-99) mg/dL Calculated Osmolality 287 (280-300) Calcium 7.5 L (8.6-10.8) mg/dL Magnesium 0.9 L (1.6-2.6) mg/dL Troponin I (0-0.03) ng/mL TSH 1.441 (0.350-4.840) mcIU/mL 11/13/16 Range/Units 08:10 WBC (4.3-11.1) K/mcL RBC (4.19-5.50) M/mcL Hgb (12.9-16.9) g/dL Hct (37.5-50.1) % MCV (83.0-100.0) fL MCH (28.0-33.3) pg MCHC (31.6-35.5) g/dL RDW (11.5-14.5) % Plt Count (140-400) K/mcL MPV (9.4-12.4) fL Immature Gran % (0-4) % Seg Neutrophils % % Lymphocytes % % Monocytes % % Eosinophils % % Basophils % % Neutrophils # (1.6-8.9) K/mcL Lymphocytes # (0.6-4.6) K/mcL Monocytes # (0.0-1.3) K/mcL Eosinophils # (0.0-0.6) K/mcL Basophils # (0.0-0.2) K/mcL Immature Plt Fraction (1.1-6.1) % PT (9.4-12.1) Seconds INR APTT (26.0-36.0) Seconds Sodium (136-145) mEq/L Potassium (3.5-4.5) mEq/L Chloride (98-109) mEq/L Carbon Dioxide (19-29) mEq/L BUN (8-26) mg/dL Creatinine (0.72-1.25) mg/dL Est GFR ( Amer) (> 60) Est GFR (Non-Af Amer) (> 60) BUN/Creatinine Ratio (6-26) Glucose (70-99) mg/dL Calculated Osmolality (280-300) Calcium (8.6-10.8) mg/dL Magnesium (1.6-2.6) mg/dL Troponin I 0.08 H* (0-0.03) ng/mL TSH (0.350-4.840) mcIU/mL - Radiology Data Radiology results reviewed: Yes I reviewed the patient's radiology results. - EKG Data EKG #1 EKG attestation: Yes I reviewed and interpreted this EKG. Rate: tachycardia Rhythm: A.Fib, arrhythmia [place]/QRS: right axis deviation, RBBB When compared to previous EKG there are: no significant changes Interpretation: other (A. fib with RVR. Unchanged from prior.)
[2016-11-13 08:18] LABS: Basophils % 0.1 %; Eosinophils % 0.1 %; Hemoglobin 11.2 g/dL (12.9-16.9); Lymphocytes # 1.7 K/mcL (0.6-4.6); Lymphocytes % 10.1 %; Mean Corpuscular HGB Conc 32.9 g/dL (31.6-35.5); Mean Corpuscular Hemoglobin 30.2 pg (28.0-33.3); Mean Corpuscular Volume 91.6 fL (83.0-100.0); Mean Platelet Volume 9.5 fL (9.4-12.4); Monocytes # 1.3 K/mcL (0.0-1.3); Neutrophils # 13.4 K/mcL (1.6-8.9); Platelet Count 212 K/mcL (140-400); Red Blood Count 3.71 M/mcL (4.19-5.50); Red Cell Distribution Width 15.8 % (11.5-14.5); Segmented Neutrophils % 80.7 %
[2016-11-13 08:30] LABS: INR 1.2; Prothrombin Time 13.1 Seconds (9.4-12.1)
--- NOTE | 2016-11-13 08:31 | Emergency Department Note ---
START Narrative - START START: I examined this patient and my medical decision-making was reviewed with the Resident Physician. I agree with the documented findings, disposition and treatment plan as described except to the extent set forth below. 76yo M presents to the ER for A. fib with RVR. Multiple visits to the ER for the same complaint in the past few months. States he is compliant with his meds. He is a poor historian. He denies any chest pain at this time. We will start him on a Cardizem drip again. Patient is on Xarelto, cardizem, and lopressor.
[2016-11-13 08:53] LABS: BUN/Creatinine Ratio 22 (6-26); Blood Urea Nitrogen 18 mg/dL (8-26); Calcium 7.5 mg/dL (8.6-10.8); Carbon Dioxide 29 mEq/L (19-29); Chloride 101 mEq/L (98-109); Glucose 81 mg/dL (70-99); Magnesium 0.9 mg/dL (1.6-2.6); Osmolality,Calculated 287 (280-300); Potassium 2.7 mEq/L (3.5-4.5); Sodium 138 mEq/L (136-145); eGFR For African Americans > 60 (> 60); eGFR For Non-African Americans > 60 (> 60)
[2016-11-13] MEDS ORDERED: Aspirin 325 MG TABLET PO ONE (08:58)
[2016-11-13 09:19] LABS: Thyroid Stimulating Hormone 1.441 mcIU/mL (0.350-4.840)
[2016-11-13] MEDS: Magnesium Sulfate 1 GM in D5% in Water 100 ML IVPB ONE (09:22)
--- NOTE | 2016-11-13 12:05 | Internal Med History&Physical ---
Date of Encounter: 11/13/16 Time of Encounter: 11:00 Assessment and Plan (1) Atrial fibrillation with RVR Current visit: Yes Status: Acute Heart rate is now controlled on a Cardizem drip. Uptitrate his medications and hopefully wean off drip later today. Continue Rivaroxaban. Monitor. Replace potassium and magnesium. I did increase hid Metoprolol XL from 12.5 to 25 mg po daily. (2) Elevated troponin Current visit: Yes Status: Acute I suspect this is due to his A. fib with rapid ventricular response. Pain resolved with rte control. We will continue to trend troponins. Consult cardiology if further increase. (3) Chronic respiratory failure Current visit: No Status: Acute Stable Qualifiers: Respiratory failure complication: hypoxia Qualified Code(s): J96.11 - Chronic respiratory failure with hypoxia (4) COPD (chronic obstructive pulmonary disease) Current visit: Yes Status: Acute Stable Qualifiers: COPD type: unspecified COPD Qualified Code(s): J44.9 - Chronic obstructive pulmonary disease, unspecified (5) Hypokalemia Current visit: Yes Status: Acute Replacement ordered, monitor (6) Hypomagnesemia Current visit: Yes Status: Acute Replacement ordered, monitor Internal Medicine - H&P: HPI Admitted From: Emergency Dept Plans for Post Hospital Care: Home History of present illness: Mr. Reyes is a 76 year old male Hospital course: Mr. Reyes is a 76 year old male with past medical history of A. fib, COPD, CAD, DVT, diabetes, HLD, HTN, anxiety/depression, CABG, cancer of the lung stage IV, cholecystectomy, carotid endarterectomy, CABG who presented to the hospital in A fib with RVR. Patient was given bolus of cardiazem which reduced his HR. Unfortunately 20 minutes later he was back in RVR. He was started on Cardiazem drip. The next day patient was transitioned to PO cardiazem. He remained well controlled on PO cardiazem and was discharged home on 180mg Cardiazem. See above for last admission 11/05-11/07/16 11/13/16: Patient was discharged on 11/07/2016 with oral Cardizem as outlined above. He is alson on Rivaroxaban for stroke prevention. Pt states he was doing well up until last night when he developed a heart rate of 160 which persisted through the night. He stated that he had some mild chest discomfort described as an ache for several hours associated with his rapid heart rate. He rated as 3-4 out of 10 in severity. She denied any associated shortness of breath. No dizziness or weakness. No nausea or vomiting. Fevers or chills. Patient states he has been taking his medicines as directed. When he arrived in the emergency department he was noted in fact to be in atrial fibrillation with a rate in the 160s. His blood pressure was stable. He was satting well on 2 L of oxygen at 97%. Workup in the emergency room included a chest x-ray which showed a stable right hilar mass. Patient's laboratory abnormalities included a potassium of 2.7, magnesium of 0.9. His creatinine was normal at 4.83. Troponin was mildly elevated at 0.08. EKG showed atrial fibrillation with rapid ventricular response and no acute ischemic changes. Once patient's heart rate was controlled his pain resolved and now he states he feels fine. He is however on a Cardizem drip. Pt's current rate control medications include Cardizem CD 180 mg by mouth daily , and metoprolol XL 12.5 mg by mouth daily. Patient denies any increased swelling in his legs. No weight gain. No PND or orthopnea. With regards to his stage IV lung cancer he states he was due for chemotherapy today. He has not had chemotherapy for several months. Past Med Surg Social Fam HX - Past Medical History Medical history: atrial fibrillation, cancer, COPD, coronary artery disease, DVT , diabetes, hyperlipidemia, hypertension Psychiatric history: anxiety, depression - Past Surgical History Surgical History: carotid endarterectomy, cholecystectomy, coronary bypass (CABG ) - Social History Smoking Status: Current every day smoker Smokeless Tobacco Status: No Alcohol use: none Drug use: none - Family History Father Living Status: Mother Living Status: Hx Family Cancer: Yes ("Maybe cancer of some kind") Hx Family Endocrine Disorder: Yes (DM) - Additional Family History Additional family history: Fam hx reviewed and noncontributory Internal Medicine - H&P: Meds Albuterol Sulfate [Albuterol Inhaler] 2 puff IH Q6H PRN 08/07/15 [History] Budesonide/Formoterol 160/4.5 [Symbicort 160/4.5] 2 puff IH BIDR 08/07/15 [ History] Omeprazole [PriLOSEC] 20 mg PO DAILY #90 capsule 09/10/15 [Rx] Ondansetron [Zofran] 8 mg PO Q8HR PRN #90 tablet 09/10/15 [Rx] Prochlorperazine Maleate [Compazine] 10 mg PO Q6HR PRN #90 tablet 09/10/15 [Rx] amLODIPine [Norvasc] 10 mg PO DAILY #60 tablet 01/09/16 [Rx] Cyanocobalamin (B-12) [Vitamin B12] 1,000 mcg PO DAILY #90 tablet 07/04/16 [Rx] LORazepam [Ativan] 0.5 mg PO Q6H PRN #90 tablet 07/04/16 [Rx] Magic Mouthwash 10 ml PO TID PRN 07/18/16 [History] Megestrol Acetate [Megace] 200 mg PO BID 08/05/16 [History] Rivaroxaban [Xarelto] 15 mg PO Q24H 10/07/16 [History] Ipratropium/Albuterol Neb [Duoneb] 3 ml IH Q4HR #100 vial.neb 10/09/16 [Rx] Fluticasone Propionate Nasal [Flonase] 1 spray NS DAILY 10/22/16 [History] Naproxen Sodium [Aleve] 220 mg PO BID PRN 10/22/16 [History] Nitroglycerin [Nitrostat] 0.4 mg SL AD PRN 10/22/16 [History] Calc/D3/Mag/Zn/[place]/Dat/[place] [Calcium 600 mg Plus Vit D Tab] 1 each PO BID # 60 tablet 10/28/16 [Rx] Magnesium Oxide [Magnesium] 400 mg PO BID #60 tablet 10/28/16 [Rx] Metoprolol XL (24 HR) Succ [Toprol Xl] 12.5 mg PO DAILY #30 10/28/16 [Rx] Diltiazem CD (24hr) [Cardizem CD] 180 mg PO DAILY #30 tab 11/07/16 [Rx] 3 Allergy/AdvReac Type Severity Reaction Status Date / Time Penicillins Allergy Severe Swelling Verified 11/05/16 10:47 of Lip/Tongue/Throat All Systems PM: A 10-system review of systems was performed and is negative for pertinent findings except as documented above in the HPI. - Constitutional Vitals: Temp Pulse Resp BP Pulse Ox 97.5 F L 92 18 120/73 96 11/13/16 07:47 11/13/16 11:32 11/13/16 11:32 11/13/16 11:32 11/13/16 11:32 General appearance: Present: A&O X 3, no acute distress - Head Head exam: Present: atraumatic, normocephalic - Eye Eye exam: Present: PERRL, conjuntiva pink, sclera anicteric Pupils: Present: PERRL - ENT ENT exam: Present: mucous membranes dry, mucous membranes moist - Neck Neck exam general surgery: Present: supple, trachea midline. Absent: lymphadenopathy - Respiratory Respiratory exam: Present: rales - Cardiovascular Cardiovascular exam: Present: irregular rhythm Additional comments: Port right ant chest wall - GI/Abdominal GI/Abdominal exam: Present: normal bowel sounds (mid abd softball size hernia, reducible), soft - Extremities Exam Extremities exam: Present: warm, radial pulses palpable and symmetrical. Absent : calf tenderness (tr eedema, chronic venous stasis changes bilat), cyanotic, pedal edema - Neurological Exam Neurological exam: Present: CN II-XII intact, oriented X3, no focal deficits. Absent: pronater drift, facial droop, speech deficit - Skin Skin exam: Present: dry Internal Med - H&P Results - Labs CBC & Chem 7: 11/13/16 08:10 11/13/16 08:10 Labs: Short CBC 11/13/16 Range/Units 08:10 WBC 16.6 H (4.3-11.1) K/mcL Hgb 11.2 L (12.9-16.9) g/dL Hct 34.0 L (37.5-50.1) % Plt Count 212 (140-400) K/mcL Neutrophils # 13.4 H (1.6-8.9) K/mcL BMP 11/13/16 08:10 Sodium 138 Potassium 2.7 L Chloride 101 Carbon Dioxide 29 BUN 18 Creatinine 0.83 Glucose 81 Calcium 7.5 L Cardiac Enzymes 11/13/16 Range/Units 08:10 Troponin I 0.08 H* (0-0.03) ng/mL - Impressions ITS Impressions Chest X-Ray 11/13/16 07:56 IMPRESSION: Stable exam with stable masslike opacity redemonstrated to the right hilar/infrahilar region correlating with focus noted on prior CTA chest 10/07/2016. There is also stable mild chronic pleural thickening versus small pleural effusions, left more than right. Reference can be made to the prior CT exam for additional information. No evidence for new acute cardiopulmonary process. D/ / 11/13/2016 08:46:53 Benedicto Jon MD / Otilia Celeste Interpreting Provider: Benedicto Jon MD
[2016-11-13] MEDS ORDERED: Naloxone 0.4 MG/ML INJ IVP PRN (12:15)
[2016-11-13] MEDS ORDERED: Magic Mouthwash 10 ML UD Cup PO PRN (12:21)
[2016-11-13] MEDS ORDERED: Nitroglycerin 0.4 MG TAB.SUBL SL PRN (12:21)
[2016-11-13] MEDS ORDERED: Ondansetron ODT 4 MG TAB.RAPDIS PO PRN (12:21)
[2016-11-13] MEDS ORDERED: Magnesium Sulfate 1 GM in D5% in Water 100 ML IVPB ONE (12:21)
[2016-11-13] MEDS: 0.9 % Sodium Chloride w KCl 20 MEQ/1,000 ML MLS IVC SCH ×2 (12:35→21:14)
[2016-11-13] MEDS: *HR* LORazepam 0.5 MG TABLET PO PRN (13:31)
[2016-11-13] MEDS: Ipratropium/Albuterol Neb 3 ML IH SCH ×3 (15:07→23:15)
[2016-11-13] MEDS: Metoprolol XL (24 HR) Succ 25 MG TAB.ER.24H PO SCH (15:50)
[2016-11-13] MEDS: *HR* Rivaroxaban 15 MG TABLET PO SCH (15:50)
[2016-11-13] MEDS: Budesonide/Formoterol 160/4.5 MDI IH SCH (20:35)
[2016-11-13] MEDS ORDERED: COPP PO SCH (21:00)
[2016-11-13] MEDS ORDERED: D3 PO SCH (21:00)
[2016-11-13] MEDS ORDERED: MANG PO SCH (21:00)
[2016-11-13] MEDS ORDERED: [UNRECOGNIZED DRUG - OTHER] PO SCH (21:00)
[2016-11-13] MEDS ORDERED: BORON PO SCH (21:00)
[2016-11-13] MEDS ORDERED: CALC PO SCH (21:00)
[2016-11-13] MEDS ORDERED: MAG PO SCH (21:00)
[2016-11-13] MEDS: Megestrol Acetate 400 MG/10 ML UDC PO SCH (21:15)
[2016-11-13] MEDS: Magnesium Oxide 400 MG TABLET PO SCH (21:16)
[2016-11-14] MEDS: Ipratropium/Albuterol Neb 3 ML IH SCH ×6 (03:28→23:40)
[2016-11-14] MEDS: 0.9 % Sodium Chloride w KCl 20 MEQ/1,000 ML MLS IVC SCH ×3 (06:00→22:05)
--- NOTE | 2016-11-14 07:24 | Electrocardiograph Report ---
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
[2016-11-14] MEDS: Budesonide/Formoterol 160/4.5 MDI IH SCH ×2 (08:41→20:12)
[2016-11-14] MEDS: amLODIPine 5 MG TABLET PO SCH (09:01)
[2016-11-14] MEDS: Magnesium Oxide 400 MG TABLET PO SCH ×2 (09:01→20:00)
[2016-11-14] MEDS: Cyanocobalamin (B-12) 1,000 MCG TABLET PO SCH (09:01)
[2016-11-14] MEDS: Megestrol Acetate 400 MG/10 ML UDC PO SCH ×2 (09:01→20:00)
[2016-11-14] MEDS: Diltiazem CD (24hr) 180 MG CAPSULE PO SCH (09:01)
[2016-11-14] MEDS: Metoprolol XL (24 HR) Succ 25 MG TAB.ER.24H PO SCH (09:01)
[2016-11-14] MEDS ORDERED: Magnesium Sulfate 2 GM in D5% in Water 100 ML IVPB ONE (10:36)
[2016-11-14] MEDS: *HR* Rivaroxaban 15 MG TABLET PO SCH (11:35)
[2016-11-14] MEDS: *HR* LORazepam 0.5 MG TABLET PO PRN ×2 (11:35→19:54)
--- NOTE | 2016-11-14 13:01 | Cardiology Consult Note ---
Date of Encounter: 11/14/16 Time of Encounter: 10:30 Assessment and Plan (1) Atrial fibrillation Current Visit: No Status: Chronic Presented with atrial fibrillation with RVR. Known afib. Appears to be chronic. On xarelto. Currently rate controlled on cardizem gtt. He is being converted to oral cardizem and metoprolol was increased. TTE completed 11/08/16EF 60%, mild LVH, mid-moderate aortic stenosis. TSH is normal. Continue rate control. Increase metoprolol as needed. Qualifiers: Atrial fibrillation type: persistent Qualified Code(s): I48.1 - Persistent atrial fibrillation (2) Elevated troponin Current Visit: Yes Status: Acute Mild troponin elevation at 0.08, 0.10 in the setting of atrial fibrillation with RVR and COPD exacerbation/ lung cancer. Patient denes chest pain. (3) CAD (coronary artery disease) Current Visit: Yes Status: Acute H/o CABG in 2008. Denies chest pain. Continue asa, statin, and bb. Follows with Dr. Klaus Magana. Qualifiers: Coronary Disease-Associated Artery/Lesion type: [place] artery [place] vs. transplanted heart: [place] heart Associated angina: without angina Qualified Code(s): I25.10 - Atherosclerotic heart disease of [place] coronary artery without angina pectoris Discussion w patient/family: The assessment and plan as outlined above was discussed with the patient and/or family members who expressed understanding and agreement. All questions were answered. Thank you for involving us in the care of your patient. Please call with any questions. History of Present Illness Consult date: 11/14/16 Requesting physician: Too Whitehead Consult reason: afib with RVR and elevated troponin Chief complaint: palpitations History of present illness: Mr. Reyes is a 76 year old male with a history of atrial fibrillation on xarelto , CABG in 2008, COPD, and lung cancer who presented from home when his home health nurse noted he was tachycardic. He reports being asymptomatic at that time. Denies chest pain or palpitations. He c/o SOB starting earlier this morning. C/o feeling anxious and needing anxiety medication. Past Med Surg Social Fam HX - Past Medical History Medical history: atrial fibrillation, cancer (Lung cancer), COPD, coronary artery disease, DVT, diabetes, hyperlipidemia, hypertension Psychiatric history: anxiety, depression - Past Surgical History Surgical History: carotid endarterectomy, cholecystectomy, coronary bypass (CABG ) - Social History Smoking Status: Current every day smoker Smokeless Tobacco Status: No Alcohol use: none Drug use: none - Family History Father Living Status: Mother Living Status: Hx Family Cancer: Yes ("Maybe cancer of some kind") Hx Family Endocrine Disorder: Yes (DM) Medications and Allergies Albuterol Sulfate [Albuterol Inhaler] 2 puff IH Q6H PRN 08/07/15 [History] Budesonide/Formoterol 160/4.5 [Symbicort 160/4.5] 2 puff IH BIDR 08/07/15 [ History] Omeprazole [PriLOSEC] 20 mg PO DAILY #90 capsule 09/10/15 [Rx] Ondansetron [Zofran] 8 mg PO Q8HR PRN #90 tablet 09/10/15 [Rx] Prochlorperazine Maleate [Compazine] 10 mg PO Q6HR PRN #90 tablet 09/10/15 [Rx] amLODIPine [Norvasc] 10 mg PO DAILY #60 tablet 01/09/16 [Rx] Cyanocobalamin (B-12) [Vitamin B12] 1,000 mcg PO DAILY #90 tablet 07/04/16 [Rx] LORazepam [Ativan] 0.5 mg PO Q6H PRN #90 tablet 07/04/16 [Rx] Magic Mouthwash 10 ml PO TID PRN 07/18/16 [History] Megestrol Acetate [Megace] 200 mg PO BID 08/05/16 [History] Rivaroxaban [Xarelto] 15 mg PO Q24H 10/07/16 [History] Ipratropium/Albuterol Neb [Duoneb] 3 ml IH Q4HR #100 vial.neb 10/09/16 [Rx] Fluticasone Propionate Nasal [Flonase] 1 spray NS DAILY 10/22/16 [History] Naproxen Sodium [Aleve] 220 mg PO BID PRN 10/22/16 [History] Nitroglycerin [Nitrostat] 0.4 mg SL AD PRN 10/22/16 [History] Calc/D3/Mag/Zn/[place]/Dat/[place] [Calcium 600 mg Plus Vit D Tab] 1 each PO BID # 60 tablet 10/28/16 [Rx] Magnesium Oxide [Magnesium] 400 mg PO BID #60 tablet 10/28/16 [Rx] Metoprolol XL (24 HR) Succ [Toprol Xl] 12.5 mg PO DAILY #30 10/28/16 [Rx] Diltiazem CD (24hr) [Cardizem CD] 180 mg PO DAILY #30 tab 11/07/16 [Rx] 3 Allergy/AdvReac Type Severity Reaction Status Date / Time Penicillins Allergy Severe Swelling Verified 11/05/16 10:47 of Lip/Tongue/Throat All Systems Review: A 10-system review of systems was performed and is negative for pertinent findings except as documented above in the HPI. Physical Examination Vital Signs, Last 4 Hours Temp Pulse Resp BP Pulse Ox 11/14/16 11:36 97.6 F 80 24 126/65 97 11/14/16 11:17 16 97 General: Conversant, No Apparent Distress HEENT: Atraumatic, Normocephaly, Mucus Membranes Moist Neck: No JVD, Normal carotid pulses Cardiac: Reg Rate and Rhythm, Normal S1 and S2, No Murmur Lungs: Other (Respirations slightly labored. ) Neuro: Alert and responsive, No focal deficits noted Abdomen: Soft, Non-Tender Skin: No rashes noted on visualized skin Musculoskeletal: No Chest Wall Tenderness Extremities: No Clubbing, No Cyanosis, No Edema, Normal Pulses Results 11/13/16 08:10 11/13/16 08:10 Lab Results 11/13/16 14:45 Troponin I 0.10 H* - EKG Interpretation EKG results cardiology: personally reviewed (Atrial fibrillation with RVR) Consult Discharge Plan - Plan Referrals: Jose Lorenz DO [Primary Care Provider] -
--- NOTE | 2016-11-14 17:51 | Internal Med Progress Note ---
Date of Encounter: 11/14/16 Time of Encounter: 17:49 - Assessment and plan (1) Atrial fibrillation with RVR Current Visit: Yes Status: Acute Assessment and plan: Heart rate is now well controlled. Cardiology on the board. We will follow the recommendations from cardiology. Likely home tomorrow. (2) COPD (chronic obstructive pulmonary disease) Current Visit: Yes Status: Acute Assessment and plan: Patient is known to have a COPD. At this point I do not feel that this is a COPD exacerbation. We will continue the present management. Qualifiers: COPD type: unspecified COPD Qualified Code(s): J44.9 - Chronic obstructive pulmonary disease, unspecified (3) Hypomagnesemia Current Visit: No Status: Chronic Assessment and plan: Magnesium replaced and we will recheck magnesium tomorrow (4) Hypokalemia Current Visit: No Status: Resolved Assessment and plan: Potassium has been replaced and we will monitor the labs. - Subjective Interval history: Patient seen and examined. Chart reviewed. Patient is comfortably lying in the bed. Patient does not have any palpitations, chest pain, abdominal pain, nausea, vomiting, diarrhea and dizziness. - Constitutional Vitals: Temp Pulse Resp BP Pulse Ox 98.1 F 80 22 121/63 97 11/14/16 16:30 11/14/16 16:30 11/14/16 16:30 11/14/16 16:30 11/14/16 16:30 General appearance: Present: A&O X 3, no acute distress - Head Head exam: Present: atraumatic, normocephalic - Eye Eye exam: Present: PERRL, conjuntiva pink, sclera anicteric Pupils: Present: PERRL - Neck Neck exam general surgery: Present: supple, trachea midline. Absent: lymphadenopathy - Respiratory Respiratory exam: Present: CTAB. Absent: accessory muscle use, rales, rhonchi, wheezes - Cardiovascular Cardiovascular exam: Present: RRR, +S1, +S2. Absent: diastolic murmur, gallop, rubs, systolic murmur - GI/Abdominal GI/Abdominal exam: Present: normal bowel sounds, soft, no peritoneal signs. Absent: distended, tenderness - Extremities Exam Extremities exam: Present: warm, radial pulses palpable and symmetrical. Absent : calf tenderness, cyanotic, pedal edema - Neurological Exam Neurological exam: Present: CN II-XII intact, oriented X3, no focal deficits. Absent: pronater drift, facial droop, speech deficit - Skin Skin exam: Present: dry, intact Internal Medicine: Result - Labs CBC & Chem 7: 11/13/16 08:10 11/13/16 08:10 - ABG Interpretation ABG results: PT/INR, D-dimer PT 13.1 Seconds (9.4-12.1) H 11/13/16 08:10 Consult Discharge Plan - Plan Referrals: Jose Lorenz DO [Primary Care Provider] -
[2016-11-14] MEDS: Fluticasone Propionate Nasal 50 MCG/SPRAY BOTTLE NS SCH (18:08)
[2016-11-14] MEDS: Magnesium Sulfate 1 GM in D5% in Water 100 ML IVPB ONE (22:08)
[2016-11-15] MEDS: *HR* LORazepam 0.5 MG TABLET PO PRN ×2 (03:47→12:24)
[2016-11-15] MEDS: Ipratropium/Albuterol Neb 3 ML IH SCH ×6 (03:50→23:16)
[2016-11-15] MEDS: 0.9 % Sodium Chloride w KCl 20 MEQ/1,000 ML MLS IVC SCH (05:22)
[2016-11-15] MEDS: Budesonide/Formoterol 160/4.5 MDI IH SCH ×2 (07:32→19:57)
[2016-11-15] MEDS: Megestrol Acetate 400 MG/10 ML UDC PO SCH ×2 (08:48→20:11)
[2016-11-15] MEDS: Diltiazem CD (24hr) 180 MG CAPSULE PO SCH (08:49)
[2016-11-15] MEDS: amLODIPine 5 MG TABLET PO SCH (08:49)
[2016-11-15] MEDS: Fluticasone Propionate Nasal 50 MCG/SPRAY BOTTLE NS SCH (08:49)
[2016-11-15] MEDS: Magnesium Oxide 400 MG TABLET PO SCH ×2 (08:49→21:00)
[2016-11-15] MEDS: Metoprolol XL (24 HR) Succ 25 MG TAB.ER.24H PO SCH (08:49)
[2016-11-15] MEDS: Cyanocobalamin (B-12) 1,000 MCG TABLET PO SCH (08:49)
[2016-11-15 09:51] LABS: BUN/Creatinine Ratio 26 (6-26); Blood Urea Nitrogen 20 mg/dL (8-26); Calcium 7.8 mg/dL (8.6-10.8); Carbon Dioxide 24 mEq/L (19-29); Chloride 107 mEq/L (98-109); Glucose 122 mg/dL (70-99); Osmolality,Calculated 286 (280-300); Sodium 136 mEq/L (136-145); eGFR For African Americans > 60 (> 60); eGFR For Non-African Americans > 60 (> 60)
[2016-11-15 09:52] LABS: Potassium 4.5 mEq/L (3.5-4.5)
[2016-11-15 10:00] LABS: Basophils % 0.1 %; Eosinophils # 0.1 K/mcL (0.0-0.6); Eosinophils % 0.8 %; Immature Granulocytes % 0.4 % (0-4); Lymphocytes # 1.4 K/mcL (0.6-4.6); Lymphocytes % 8.8 %; Mean Corpuscular HGB Conc 32.3 g/dL (31.6-35.5); Mean Platelet Volume 9.8 fL (9.4-12.4); Monocytes # 1.2 K/mcL (0.0-1.3); Monocytes % 7.5 %; Neutrophils # 12.9 K/mcL (1.6-8.9); Platelet Count 158 K/mcL (140-400); Red Blood Count 3.23 M/mcL (4.19-5.50); Segmented Neutrophils % 82.4 %
[2016-11-15] MEDS ORDERED: 0.9 % Sodium Chloride 500 ML ONE (12:21)
[2016-11-15] MEDS: *HR* Rivaroxaban 15 MG TABLET PO SCH (12:23)
--- NOTE | 2016-11-15 18:37 | Internal Med Progress Note ---
Date of Encounter: 11/15/16 Time of Encounter: 18:36 - Assessment and plan (1) Atrial fibrillation with RVR Current Visit: Yes Status: Acute Assessment and plan: Heart rate is now well controlled. Cardiology on the board. We will follow the recommendations from cardiology. Likely home tomorrow. 11/15/2016. Patient's heart rate is not well controlled. Cardiology on the board. We will follow the recommendations. (2) COPD (chronic obstructive pulmonary disease) Current Visit: Yes Status: Acute Assessment and plan: Patient is known to have a COPD. At this point I do not feel that this is a COPD exacerbation. We will continue the present management. 11/15/2016. Patient is having cough and increased shortness of breath. We will get blood culture done. We will start him on IV levofloxacin. Qualifiers: COPD type: unspecified COPD Qualified Code(s): J44.9 - Chronic obstructive pulmonary disease, unspecified (3) Hypomagnesemia Current Visit: No Status: Chronic Assessment and plan: Magnesium replaced and we will recheck magnesium tomorrow (4) Hypokalemia Current Visit: No Status: Resolved Assessment and plan: Potassium has been replaced and we will monitor the labs. - Subjective Interval history: Patient seen and examined. Chart reviewed. Patient is comfortably lying in the bed. Patient does not have any palpitations, chest pain, abdominal pain, nausea, vomiting, diarrhea and dizziness. 11/15/2016. Patient seen and examined. Chart reviewed. Patient denies chest pain, palpitation, abdominal pain and nausea. Patient has occasional cough. - Constitutional Vitals: Temp Pulse Resp BP Pulse Ox 98.5 F 78 16 127/63 96 11/15/16 15:26 11/15/16 15:26 11/15/16 16:18 11/15/16 16:18 11/15/16 16:18 General appearance: Present: A&O X 3, no acute distress - Head Head exam: Present: atraumatic, normocephalic - Eye Eye exam: Present: PERRL, conjuntiva pink, sclera anicteric Pupils: Present: PERRL - Neck Neck exam general surgery: Present: supple, trachea midline. Absent: lymphadenopathy - Respiratory Respiratory exam: Present: CTAB. Absent: accessory muscle use, rales, rhonchi, wheezes - Cardiovascular Cardiovascular exam: Present: RRR, +S1, +S2. Absent: diastolic murmur, gallop, rubs, systolic murmur - GI/Abdominal GI/Abdominal exam: Present: normal bowel sounds, soft, no peritoneal signs. Absent: distended, tenderness - Extremities Exam Extremities exam: Present: warm, radial pulses palpable and symmetrical. Absent : calf tenderness, cyanotic, pedal edema - Neurological Exam Neurological exam: Present: CN II-XII intact, oriented X3, no focal deficits. Absent: pronater drift, facial droop, speech deficit - Skin Skin exam: Present: dry, intact Internal Medicine: Result - Labs CBC & Chem 7: 11/15/16 09:33 11/15/16 09:33 Labs: Short CBC 11/15/16 Range/Units 09:33 WBC 15.6 H (4.3-11.1) K/mcL Hgb 10.0 L (12.9-16.9) g/dL Hct 31.0 L (37.5-50.1) % Plt Count 158 (140-400) K/mcL Neutrophils # 12.9 H (1.6-8.9) K/mcL BMP 11/15/16 09:33 Sodium 136 Potassium 4.5 D Chloride 107 Carbon Dioxide 24 BUN 20 Creatinine 0.77 Glucose 122 H Calcium 7.8 L - ABG Interpretation ABG results: PT/INR, D-dimer PT 13.1 Seconds (9.4-12.1) H 11/13/16 08:10 Consult Discharge Plan - Plan Referrals: Jose Lorenz DO [Primary Care Provider] -
[2016-11-15] MEDS ORDERED: Levofloxacin 500 MG/100 ML 500 MG/100 ML BAG IVPB SCH (19:00)
[2016-11-16] MEDS: Ipratropium/Albuterol Neb 3 ML IH SCH ×3 (03:52→11:34)
[2016-11-16 05:00] LABS: Basophils % 0.1 %; Eosinophils # 0.1 K/mcL (0.0-0.6); Hematocrit 30.8 % (37.5-50.1); Hemoglobin 9.7 g/dL (12.9-16.9); Immature Granulocytes % 0.5 % (0-4); Lymphocytes # 1.3 K/mcL (0.6-4.6); Lymphocytes % 9.8 %; Mean Corpuscular HGB Conc 31.5 g/dL (31.6-35.5); Mean Corpuscular Volume 95.4 fL (83.0-100.0); Mean Platelet Volume 10.2 fL (9.4-12.4); Monocytes % 7.9 %; Neutrophils # 10.6 K/mcL (1.6-8.9); Platelet Count 170 K/mcL (140-400); Red Blood Count 3.23 M/mcL (4.19-5.50); Red Cell Distribution Width 15.9 % (11.5-14.5); Segmented Neutrophils % 80.7 %
[2016-11-16 05:11] LABS: Alanine Aminotransferase 16 Units/L (0-55); Albumin/Globulin Ratio 0.7 (1.1-2.2); Alkaline Phosphatase 106 Units/L (38-126); Aspartate Amino Transferase 12 Units/L (5-34); BUN/Creatinine Ratio 31 (6-26); Bilirubin,Total 1.1 mg/dL (0.2-1.2); Blood Urea Nitrogen 23 mg/dL (8-26); Calcium 8.1 mg/dL (8.6-10.8); Carbon Dioxide 26 mEq/L (19-29); Chloride 105 mEq/L (98-109); Globulin 2.9 g/dL (2.4-3.5); Glucose 85 mg/dL (70-99); Osmolality,Calculated 285 (280-300); Potassium 4.6 mEq/L (3.5-4.5); Sodium 136 mEq/L (136-145); Total Protein 4.9 g/dL (6.0-8.3); eGFR For African Americans > 60 (> 60); eGFR For Non-African Americans > 60 (> 60)
[2016-11-16] MEDS: Budesonide/Formoterol 160/4.5 MDI IH SCH (07:28)
[2016-11-16] MEDS: Metoprolol XL (24 HR) Succ 25 MG TAB.ER.24H PO SCH (09:40)
[2016-11-16] MEDS: Magnesium Oxide 400 MG TABLET PO SCH (09:41)
[2016-11-16] MEDS: amLODIPine 5 MG TABLET PO SCH (09:41)
[2016-11-16] MEDS: Megestrol Acetate 400 MG/10 ML UDC PO SCH (09:41)
[2016-11-16] MEDS: Fluticasone Propionate Nasal 50 MCG/SPRAY BOTTLE NS SCH (09:42)
[2016-11-16] MEDS: Cyanocobalamin (B-12) 1,000 MCG TABLET PO SCH (09:44)
[2016-11-16] MEDS: Diltiazem CD (24hr) 180 MG CAPSULE PO SCH (09:44)
--- NOTE | 2016-11-16 09:57 | Discharge Summary ---
Date of Encounter: 11/16/16 Time of Encounter: 09:51 - Discharge Diagnosis (1) Atrial fibrillation with RVR Priority: Primary Status: Acute (2) COPD (chronic obstructive pulmonary disease) Priority: Primary Status: Acute Qualifiers: COPD type: unspecified COPD Qualified Code(s): J44.9 - Chronic obstructive pulmonary disease, unspecified (3) Hypomagnesemia Priority: Secondary Status: Chronic (4) Hypokalemia Priority: Secondary Status: Resolved (5) CAD (coronary artery disease) Priority: Secondary Status: Acute Qualifiers: Coronary Disease-Associated Artery/Lesion type: [place] artery [place] vs. transplanted heart: [place] heart Associated angina: without angina Qualified Code(s): I25.10 - Atherosclerotic heart disease of [place] coronary artery without angina pectoris - Discharge Medications Prescriptions: Levofloxacin [Levaquin] 500 mg PO Q24H #4 tablet Metoprolol XL (24 HR) Succ [Toprol Xl] 25 mg PO DAILY #30 Home Medications: Albuterol Sulfate [Albuterol Inhaler] 2 puff IH Q6H PRN 08/07/15 [History] Budesonide/Formoterol 160/4.5 [Symbicort 160/4.5] 2 puff IH BIDR 08/07/15 [ History] Omeprazole [PriLOSEC] 20 mg PO DAILY #90 capsule 09/10/15 [Rx] Ondansetron [Zofran] 8 mg PO Q8HR PRN #90 tablet 09/10/15 [Rx] Prochlorperazine Maleate [Compazine] 10 mg PO Q6HR PRN #90 tablet 09/10/15 [Rx] amLODIPine [Norvasc] 10 mg PO DAILY #60 tablet 01/09/16 [Rx] Cyanocobalamin (B-12) [Vitamin B12] 1,000 mcg PO DAILY #90 tablet 07/04/16 [Rx] LORazepam [Ativan] 0.5 mg PO Q6H PRN #90 tablet 07/04/16 [Rx] Magic Mouthwash 10 ml PO TID PRN 07/18/16 [History] Megestrol Acetate [Megace] 200 mg PO BID 08/05/16 [History] Rivaroxaban [Xarelto] 15 mg PO Q24H 10/07/16 [History] Ipratropium/Albuterol Neb [Duoneb] 3 ml IH Q4HR #100 vial.neb 10/09/16 [Rx] Fluticasone Propionate Nasal [Flonase] 1 spray NS DAILY 10/22/16 [History] Naproxen Sodium [Aleve] 220 mg PO BID PRN 10/22/16 [History] Nitroglycerin [Nitrostat] 0.4 mg SL AD PRN 10/22/16 [History] Calc/D3/Mag/Zn/[place]ariam/Dat/[place] [Calcium 600 mg Plus Vit D Tab] 1 each PO BID # 60 tablet 10/28/16 [Rx] Magnesium Oxide [Magnesium] 400 mg PO BID #60 tablet 10/28/16 [Rx] Diltiazem CD (24hr) [Cardizem CD] 180 mg PO DAILY #30 tab 11/07/16 [Rx] Levofloxacin [Levaquin] 500 mg PO Q24H #4 tablet 11/16/16 [Rx] Metoprolol XL (24 HR) Succ [Toprol Xl] 25 mg PO DAILY #30 11/16/16 [Rx] Allergies/Adverse Reactions: 3 Allergy/AdvReac Type Severity Reaction Status Date / Time Penicillins Allergy Severe Swelling Verified 11/05/16 10:47 of Lip/Tongue/Throat Date of admission: 11/14/16 17:47 Primary care physician: Jose Lorenz, Discharging clinician: Cachorro Perdomo - Patient Status Disposition: Home, Self-Care Condition: Fair Functional capacity at discharge: uses cane/walker Overall status at discharge: patient is progressing back to baseline - Discharge Instructions Follow Up With: Jose Lorenz DO [Primary Care Provider] - Master Ram MD [Partnered Physician] - - Diet and Activity Activity: increase activity as tolerated Diet: low fat, low cholesterol Interval History: Mr. Reyes is a 76 year old male with past medical history of A. fib, COPD, CAD, DVT, diabetes, HLD, HTN, anxiety/depression, CABG, cancer of the lung stage IV, cholecystectomy, carotid endarterectomy, CABG who presented to the hospital in A fib with RVR. Patient was given bolus of cardiazem which reduced his HR. Unfortunately 20 minutes later he was back in RVR. He was started on Cardiazem drip. The next day patient was transitioned to PO cardiazem. He remained well controlled on PO cardiazem and was discharged home on 180mg Cardiazem. Patient was hospitalized again and at that time the beta noemy metoprolol 12.5 mg was started. Hospital course: Patient was hospitalized. Cardiology was consult and. Cardiology recommended increase metoprolol from 12.5 mg every day to 25 mg every day. His Cardizem drip was tapered and discontinued. Noted that patient had elevated white blood count. Blood cultures were drawn and he was started on levofloxacin. Patient's white blood cell count is trending down. Patient is very anxious and keen to go home. Patient does not want to stay in the hospital anymore. I requested patient to stay for another day as his blood cultures were drawn yesterday but he refused to stay in the hospital. Plan: Patient will be going home. New prescriptions: Metoprolol 25 mg once a day. Effects/side effects discussed at length. Levofloxacin 500 mg once a day for 4 days only. Effects and side effects discussed with the patient. Patient will see his primary care provider in next 1-2 weeks. Cardiology will make a follow-up appointment with the patient in next 1-2 weeks. Patient is keen to see his oncology and I will request for an oncology appointment in next 1-2 weeks. - Time Spent with Patient Total time spent providing and/or coordinating discharge services: - Constitutional Vitals: Temp Pulse Resp BP Pulse Ox 97.6 F 78 18 124/64 98 11/16/16 07:47 11/16/16 07:47 11/16/16 07:47 11/16/16 07:47 11/16/16 07:47 General appearance: Present: A&O X 3, no acute distress - Head Head exam: Present: atraumatic, normocephalic - Eye Eye exam: Present: PERRL, conjuntiva pink, sclera anicteric Pupils: Present: PERRL - Neck Neck exam general surgery: Present: supple, trachea midline. Absent: lymphadenopathy - Respiratory Respiratory exam: Present: CTAB. Absent: accessory muscle use, rales, rhonchi, wheezes - Cardiovascular Cardiovascular exam: Present: RRR, +S1, +S2. Absent: diastolic murmur, gallop, rubs, systolic murmur - GI/Abdominal GI/Abdominal exam: Present: normal bowel sounds, soft, no peritoneal signs. Absent: distended, tenderness - Extremities Exam Extremities exam: Present: warm, radial pulses palpable and symmetrical. Absent : calf tenderness, cyanotic, pedal edema - Neurological Exam Neurological exam: Present: CN II-XII intact, oriented X3, no focal deficits. Absent: pronater drift, facial droop, speech deficit - Skin Skin exam: Present: dry, intact
[2016-11-16 11:50] VITALS: BP 123/66
--- NOTE | 2016-11-16 11:50 | Physician Discharge Referral ---
Home Health/Hosp Referral Info Transfer to: Home Health - Diagnosis (1) Atrial fibrillation with RVR Priority: Primary Status: Acute (2) COPD (chronic obstructive pulmonary disease) Priority: Primary Status: Acute (3) Hypomagnesemia Priority: Secondary Status: Chronic (4) CAD (coronary artery disease) Priority: Secondary Status: Acute - Respiratory Orders Smoking Cessation: Smoking cessation has been advised. For more information, call the [place] [employer] Quit Line at 4-992-WVUX-NOW. - Transfer Medications Prescriptions: Levofloxacin [Levaquin] 500 mg PO Q24H #4 tablet Metoprolol XL (24 HR) Succ [Toprol Xl] 25 mg PO DAILY #30 Home Medications: Albuterol Sulfate [Albuterol Inhaler] 2 puff IH Q6H PRN 08/07/15 [History] Budesonide/Formoterol 160/4.5 [Symbicort 160/4.5] 2 puff IH BIDR 08/07/15 [ History] Omeprazole [PriLOSEC] 20 mg PO DAILY #90 capsule 09/10/15 [Rx] Ondansetron [Zofran] 8 mg PO Q8HR PRN #90 tablet 09/10/15 [Rx] Prochlorperazine Maleate [Compazine] 10 mg PO Q6HR PRN #90 tablet 09/10/15 [Rx] amLODIPine [Norvasc] 10 mg PO DAILY #60 tablet 01/09/16 [Rx] Cyanocobalamin (B-12) [Vitamin B12] 1,000 mcg PO DAILY #90 tablet 07/04/16 [Rx] LORazepam [Ativan] 0.5 mg PO Q6H PRN #90 tablet 07/04/16 [Rx] Magic Mouthwash 10 ml PO TID PRN 07/18/16 [History] Megestrol Acetate [Megace] 200 mg PO BID 08/05/16 [History] Rivaroxaban [Xarelto] 15 mg PO Q24H 10/07/16 [History] Ipratropium/Albuterol Neb [Duoneb] 3 ml IH Q4HR #100 vial.neb 10/09/16 [Rx] Fluticasone Propionate Nasal [Flonase] 1 spray NS DAILY 10/22/16 [History] Naproxen Sodium [Aleve] 220 mg PO BID PRN 10/22/16 [History] Nitroglycerin [Nitrostat] 0.4 mg SL AD PRN 10/22/16 [History] Calc/D3/Mag/Zn/[place]ariam/Dat/[place] [Calcium 600 mg Plus Vit D Tab] 1 each PO BID # 60 tablet 10/28/16 [Rx] Magnesium Oxide [Magnesium] 400 mg PO BID #60 tablet 10/28/16 [Rx] Diltiazem CD (24hr) [Cardizem CD] 180 mg PO DAILY #30 tab 11/07/16 [Rx] Levofloxacin [Levaquin] 500 mg PO Q24H #4 tablet 11/16/16 [Rx] Metoprolol XL (24 HR) Succ [Toprol Xl] 25 mg PO DAILY #30 11/16/16 [Rx] Allergies/Adverse Reactions: 3 Allergy/AdvReac Type Severity Reaction Status Date / Time Penicillins Allergy Severe Swelling Verified 11/05/16 10:47 of Lip/Tongue/Throat Certification: Further, I certify that my clinical findings support that this patient is homebound (i.e. absences from home require considerable and taxing effort and are for medical reasons or latter-day services or infrequently or short duration when for other reasons) because: Homebound Reason: Patient requires assistance of a person or device to safely leave home Attestation: My signature below is to certify that this patient is under my care and that I, or nurse practitioner, or a physician's assistant professor of communication working with me, has a face-to -face encounter with this patient.
[2016-11-16] MEDS: *HR* Rivaroxaban 15 MG TABLET PO SCH (12:16)
== END 2016-11-16 12:36 | disposition home or self-care (01) | DRG 309 ==
LOC: 2ANU 07:46 → EMEROO 07:46 → 2ANU 14:21
PROVIDERS: ADMIT Internal Medicine; ATTEND Internal Medicine

== ENCOUNTER 2016-11-24 19:17 | Inpatient (IN) ==
[2016-11-24] MEDS ORDERED: *HR* HYDROcodone/Acet 5/325 mg TABLET PO PRN (21:37)
[2016-11-24] MEDS ORDERED: *HR* Morphine 2 MG/ML SYRINGE IVP PRN (21:37)
[2016-11-24] MEDS ORDERED: Acetaminophen 325 MG TABLET PO PRN (21:37)
[2016-11-24] MEDS ORDERED: Ondansetron 4 MG/2 ML VIAL IVP PRN (21:37)
[2016-11-24] MEDS ORDERED: Naloxone 0.4 MG/ML INJ IVP PRN (21:37)
[2016-11-24] MEDS ORDERED: D5% in Water 1,000 ML IVC PRN (21:53)
[2016-11-24] MEDS ORDERED: *HR* Dextrose 50 % in Water (Syg) 50 ML SYRINGE IVP PRN (21:53)
[2016-11-24] MEDS ORDERED: Dextrose Gel 15 GM PO PRN ×2 (21:53)
--- NOTE | 2016-11-24 21:54 | Internal Med History&Physical ---
Date of Encounter: 11/24/16 Time of Encounter: 21:52 Assessment and Plan (1) Chest pain Current visit: Yes Status: Acute Possibly secondary to Afib with RVR Troponin negative X2 from referral center Repeat troponin ordered ECHO from 11/05/2016 noted Patient with CABG in 2008, denies [facility] since then Cardiology has been consulted Qualifiers: Chest pain type: unspecified Qualified Code(s): R07.9 - Chest pain, unspecified (2) Atrial fibrillation with RVR Current visit: Yes Status: Acute Continue Cardizem drip. Resume home meds including metoprolol and Xarelto Cardiology evaluation. Echo noted from November 05 normal, will not repeat. (3) Anxiety Current visit: Yes Status: Chronic Resume home medications (4) CAD (coronary artery disease) Current visit: Yes Status: Chronic Resume home meds. Qualifiers: Coronary Disease-Associated Artery/Lesion type: [place] artery [place] vs. transplanted heart: [place] heart Associated angina: without angina Qualified Code(s): I25.10 - Atherosclerotic heart disease of [place] coronary artery without angina pectoris (5) COPD (chronic obstructive pulmonary disease) Current visit: Yes Status: Chronic Not seen acute exacerbation. Resume home inhalers. Duonebs when necessary. Qualifiers: COPD type: unspecified COPD Qualified Code(s): J44.9 - Chronic obstructive pulmonary disease, unspecified (6) Chronic respiratory failure Current visit: Yes Status: Chronic Continue supplemental O2, continuous pulse Ox Qualifiers: Respiratory failure complication: hypoxia Qualified Code(s): J96.11 - Chronic respiratory failure with hypoxia (7) Hypokalemia Current visit: Yes Status: Acute Replaced, repeat Chem now (8) Primary squamous cell carcinoma of right lung Current visit: Yes Status: Chronic Management per Oncology as outpatient (9) Ventral hernia without obstruction or gangrene Current visit: Yes Status: Chronic Internal Medicine - H&P: HPI Chief complaint: Chest pain Admitted From: Hospital to Hospital Transfer Plans for Post Hospital Care: Home History of present illness: Mr. Reyes is a 76 year old male with past medical history of A. fib, COPD, CAD, DVT, diabetes, HLD, HTN, anxiety/depression, CABG, cancer of the lung stage IV, cholecystectomy, carotid endarterectomy, CABG who presented to an outside hospital in A fib with RVR. He also has a history of right lung cancer, last chemotherapy 2 months ago. Patient was given aspirin 325 mg at referral hospital, started on a Cardizem drip at [facility] ER. His heart rate was normal prior to transfer. However, while being transferred he had several seconds of runs of V. tach, and he also had atrial flutter at [id number]. At the time of review, he is asymptomatic. He reported that he had chest pain which was pressure-like left-sided and non-radiating and shortness of breath. However this resolved upon arrival to [facility] ER. He is asymptomatic at this time. He denies leg swelling, denies nausea or vomiting, no abdominal, Urologic or neurologic symptoms This is the patient's third admission for Afib with RVR in this month Past Med Surg Social Fam HX - Past Medical History Medical history: atrial fibrillation, cancer, COPD, coronary artery disease, DVT , diabetes, hyperlipidemia, hypertension Psychiatric history: anxiety, depression - Past Surgical History Surgical History: carotid endarterectomy, cholecystectomy, coronary bypass (CABG ) - Social History Smoking Status: Current every day smoker Packs per day: 1/2 pack Smokeless Tobacco Status: No Alcohol use: none Drug use: none - Family History Father Living Status: Mother Living Status: Hx Family Cancer: Yes ("Maybe cancer of some kind") Hx Family Endocrine Disorder: Yes (DM) Internal Medicine - H&P: Meds Albuterol Sulfate [Albuterol Inhaler] 2 puff IH Q6H PRN 08/07/15 [History] Budesonide/Formoterol 160/4.5 [Symbicort 160/4.5] 2 puff IH BIDR 08/07/15 [ History] Omeprazole [PriLOSEC] 20 mg PO DAILY #90 capsule 09/10/15 [Rx] Ondansetron [Zofran] 8 mg PO Q8HR PRN #90 tablet 09/10/15 [Rx] Prochlorperazine Maleate [Compazine] 10 mg PO Q6HR PRN #90 tablet 09/10/15 [Rx] amLODIPine [Norvasc] 10 mg PO DAILY #60 tablet 01/09/16 [Rx] Cyanocobalamin (B-12) [Vitamin B12] 1,000 mcg PO DAILY #90 tablet 07/04/16 [Rx] LORazepam [Ativan] 0.5 mg PO Q6H PRN #90 tablet 07/04/16 [Rx] Magic Mouthwash 10 ml PO TID PRN 07/18/16 [History] Megestrol Acetate [Megace] 200 mg PO BID 08/05/16 [History] Rivaroxaban [Xarelto] 15 mg PO Q24H 10/07/16 [History] Ipratropium/Albuterol Neb [Duoneb] 3 ml IH Q4HR #100 vial.neb 10/09/16 [Rx] Fluticasone Propionate Nasal [Flonase] 1 spray NS DAILY 10/22/16 [History] Naproxen Sodium [Aleve] 220 mg PO BID PRN 10/22/16 [History] Nitroglycerin [Nitrostat] 0.4 mg SL AD PRN 10/22/16 [History] Calc/D3/Mag/Zn/Mariam/Dat/[place] [Calcium 600 mg Plus Vit D Tab] 1 each PO BID # 60 tablet 10/28/16 [Rx] Magnesium Oxide [Magnesium] 400 mg PO BID #60 tablet 10/28/16 [Rx] Diltiazem CD (24hr) [Cardizem CD] 180 mg PO DAILY #30 tab 11/07/16 [Rx] Levofloxacin [Levaquin] 500 mg PO Q24H #4 tablet 11/16/16 [Rx] Metoprolol XL (24 HR) Succ [Toprol Xl] 25 mg PO DAILY #30 11/16/16 [Rx] 3 Allergy/AdvReac Type Severity Reaction Status Date / Time Penicillins Allergy Severe Swelling Verified 11/05/16 10:47 of Lip/Tongue/Throat All Systems PM: A 10-system review of systems was performed and is negative for pertinent findings except as documented above in the HPI. - Constitutional Constitutional: no chills, no fever(s), no night sweats - EENT Eyes: no change in vision, no discharge, no pain, no photophobia Ears: no ear discharge, no ear pain, no tinnitus Nose, mouth and throat: no dysphagia, no nasal discharge, no neck pain, no sore throat - Cardiovascular Cardiovascular ROS IM: as per HPI - Respiratory Respiratory: as per HPI - Gastrointestinal Gastrointestinal: as per HPI - Genitourinary Genitourinary ROS male: as per HPI - Musculoskeletal Musculoskeletal ROS IM: as per HPI - Integumentary Integumentary IM: as per HPI - Neurological Neurological ROS: as per HPI - Hematologic/Lymphatic Hematologic/Lymphatic: no easy bruising - Constitutional Vitals: Temp Pulse BP Pulse Ox 98.2 F 93 109/60 98 11/24/16 21:09 11/24/16 21:09 11/24/16 21:09 11/24/16 21:09 General appearance: Present: A&O X 3, pleasant, no acute distress, answers questions appropriately - Head Head exam: Present: atraumatic, normocephalic - Eye Eye exam: Present: PERRL, conjuntiva pink, sclera anicteric Pupils: Present: PERRL - Neck Neck exam general surgery: Present: supple, trachea midline. Absent: lymphadenopathy - Respiratory Respiratory exam: Present: CTAB. Absent: accessory muscle use, rales, rhonchi, wheezes Additional comments: Mid chest wall scar - Cardiovascular Cardiovascular exam: Present: irregular rhythm, +S1, +S2. Absent: diastolic murmur, gallop, rubs, systolic murmur, tachycardia - GI/Abdominal GI/Abdominal exam: Present: hernia, normal bowel sounds, soft, no peritoneal signs. Absent: distended, tenderness - Extremities Exam Extremities exam: Present: warm, radial pulses palpable and symmetrical. Absent : calf tenderness, cyanotic, pedal edema - Neurological Exam Neurological exam: Present: alert, CN II-XII intact, oriented X3, no focal deficits. Absent: pronater drift, facial droop, speech deficit - Skin Skin exam: Present: dry, intact Internal Med - H&P Results - Labs CBC & Chem 7: 11/24/16 21:40 11/24/16 21:40 Labs: Labs from [facility] ER noted negative troponins 2, and hypokalemia. Chest x-ray shows medial right lung mass and right pleural effusion. His EKG upon arrival here at [place] showed A. fib with right bundle branch block. Ventricular rate 92. ECHO: 11/05/2016 Impressions: LVEF 60%. Normal LV chamber size and function. Mild concentric left ventricular hypertrophy. Atypical septal motion consistent with post-operative status. Indeterminate diastolic function. Normal right ventricular structure and function. Mild-moderate aortic stenosis by Doppler. Mean gradient 18 mmHg, Peak velocity 2.78 m/s. No evidence of pulmonary hypertension. - EKG Data -: EKG Interpreted by Myself (Afib with RVR) - EKG Data Prior EKG available for review: yes When compared to previous EKG: there is no significant change
[2016-11-24 21:55] LABS: Basophils % 0.2 %; Eosinophils % 0.4 %; Hematocrit 32.8 % (37.5-50.1); Hemoglobin 10.9 g/dL (12.9-16.9); Immature Granulocytes % 0.6 % (0-4); Lymphocytes # 0.9 K/mcL (0.6-4.6); Lymphocytes % 9.6 %; Mean Corpuscular HGB Conc 33.2 g/dL (31.6-35.5); Mean Corpuscular Hemoglobin 31.4 pg (28.0-33.3); Mean Corpuscular Volume 94.5 fL (83.0-100.0); Mean Platelet Volume 9.6 fL (9.4-12.4); Monocytes # 0.3 K/mcL (0.0-1.3); Monocytes % 3.4 %; Platelet Count 235 K/mcL (140-400); Red Blood Count 3.47 M/mcL (4.19-5.50); Red Cell Distribution Width 15.3 % (11.5-14.5); Segmented Neutrophils % 85.8 %
[2016-11-24 21:59] LABS: INR 1.8; Prothrombin Time 19.4 Seconds (9.4-12.1)
[2016-11-24 22:02] LABS: Activated Partial Thrombo Time 29.9 Seconds (26.0-36.0)
[2016-11-24 22:08] LABS: BUN/Creatinine Ratio 28 (6-26); Blood Urea Nitrogen 22 mg/dL (8-26); Calcium 7.4 mg/dL (8.6-10.8); Carbon Dioxide 25 mEq/L (19-29); Chloride 104 mEq/L (98-109); Glucose 123 mg/dL (70-99); Magnesium 0.8 mg/dL (1.6-2.6); Osmolality,Calculated 287 (280-300); Potassium 3.6 mEq/L (3.5-4.5); Sodium 136 mEq/L (136-145); eGFR For African Americans > 60 (> 60); eGFR For Non-African Americans > 60 (> 60)
[2016-11-24] MEDS: Budesonide/Formoterol 80/4.5 MDI IH SCH (22:26)
[2016-11-24] MEDS: Ipratropium/Albuterol Neb 3 ML IH SCH (23:31)
[2016-11-25] MEDS: Ipratropium/Albuterol Neb 3 ML IH SCH ×5 (03:28→19:41)
[2016-11-25] MEDS: Budesonide/Formoterol 80/4.5 MDI IH SCH ×2 (07:35→19:42)
[2016-11-25] MEDS: Insulin LISPRO 300 UNITS/3 ML VIAL SQ SCH ×4 (08:21→20:11)
[2016-11-25] MEDS: hydroCHLOROthiazide 25 MG TABLET PO SCH (08:25)
[2016-11-25] MEDS: Aspirin Enteric Coated 81 MG Tablet PO SCH (08:25)
[2016-11-25] MEDS: Metoprolol XL (24 HR) Succ 25 MG TAB.ER.24H PO SCH (08:25)
[2016-11-25] MEDS: Furosemide 40 MG TABLET PO SCH (08:25)
--- NOTE | 2016-11-25 11:27 | Cardiology Consult Note ---
<Shiv Mejia - Last Filed: 11/25/16 17:32> Date of Encounter: 11/25/16 Time of Encounter: 10:00 Assessment and Plan (1) Chest pain Current Visit: Yes Status: Acute Patient presents with atypical chest pain radiating to his left shoulder accompanied with fatigue and dypsnea, and improved with diltiazem. Last Echo on 11/05/16 demonstrated EF 60% with mild to moderate aortic stenosis , mild left ventricular hypertrophy, atypical septal wall motion consistent with post-operative. Significant past surgical history includes CABG (2008) and right-sided carotid endarterectomy. Rhythm strip demonstrates A. fib/A. flutter with rate in the 70s-80s. Troponin levels are mildly elevated this a.m. likely due to demand ischemia. Plan for cardiac stress test tomorrow to rule out ACS. Qualifiers: Chest pain type: unspecified Qualified Code(s): R07.9 - Chest pain, unspecified (2) Atrial fibrillation with RVR Current Visit: Yes Status: Acute Patient has history of Afib/A. flutter rate-controlled with diltiazem and on Xeralto at home. Heart rate is currently in the 70s-80s and asymptomatic. Continue with current management with diltiazem and Xeralto. (3) Primary squamous cell carcinoma of right lung Current Visit: Yes Status: Chronic Patient sees Dr. Donnelly for management of lung cancer. His last chemo therapy was 2 months ago and he has an appointment later this week. Follow-up with pulmonology in the outpatient setting. (4) COPD (chronic obstructive pulmonary disease) Current Visit: No Status: Chronic The patient does not use oxygen at home. As he awoke with his symptoms, we suspect possible nocturnal O2 desaturation and recommend O2 at night. Qualifiers: COPD type: COPD with acute exacerbation Qualified Code(s): J44.1 - Chronic obstructive pulmonary disease with (acute) exacerbation (6) Hypocalcemia Current Visit: No Status: Acute Magnesium depletion can cause hypocalcemia by producing PTH resistance. This type hypocalcemia cannot be corrected with calcium; replete with magnesium. (7) Anxiety Current Visit: No Status: Chronic Ativan as needed for anxiety. (8) DVT prophylaxis Current Visit: No Status: Acute Patient is on Xeralto for A. fib. Continue with Xeralto for anticoagulation. (9) Hypomagnesemia Current Visit: No Status: Acute Patient has low magnesium since admission, possibly due to PPI. Replenish with Magnesium oxide and follow-up with chem7. Discussion w patient/family: The assessment and plan as outlined above was discussed with the patient and/or family members who expressed understanding and agreement. All questions were answered. Thank you for involving us in the care of your patient. Please call with any questions. History of Present Illness Consult date: 11/25/16 Consult reason: A. Flutter with RVR Chief complaint: Chest pain with palpitation History of present illness: Mr. Reyes is a 76 year old male who presents for chest pain with palpitations. He woke up yesterday with substernal chest accompanied by fatigue and dypsnea. The pain radiated to his left shoulder and pulse ox measurement demonstrated increased heart rate into the 160s. His symptoms lasted for about half an hour before his contacted the emergency department. He is unable to specify characteristic of pain and appears frustrated with the situation. He did not notice if anything made the pain better or worse and did not treat himself until ED. His pain was 5/10 and improved when rate was controlled with diltiazem. He has had similar episodes before, but was unable to explain how often or how many times previously. Upon transfer from [place], the patient had several episodes of V. tach and atrial flutter/Afib with RVR. He is currently asymptomatic. This is the patient's third admission for Afib with RVR this month. He is currently on Xeralto 15mg daily for his A. fib. He has a cardiology outpatient follow-up for his hospitalization earlier this month on with Dr. Andino. Past Med Surg Social Fam HX - Past Medical History Medical history: atrial fibrillation, cancer, COPD, coronary artery disease, DVT , diabetes, hyperlipidemia, hypertension Psychiatric history: anxiety, depression - Past Surgical History Surgical History: carotid endarterectomy, cholecystectomy, coronary bypass (CABG ) - Social History Smoking Status: Current every day smoker Packs per day: 1/2 pack Smokeless Tobacco Status: No Alcohol use: none Drug use: none - Family History Father Living Status: Mother Living Status: Hx Family Cancer: Yes ("Maybe cancer of some kind") Hx Family Endocrine Disorder: Yes (DM) Medications and Allergies Albuterol Sulfate [Albuterol Inhaler] 2 puff IH Q6H PRN 08/07/15 [History] Budesonide/Formoterol 160/4.5 [Symbicort 160/4.5] 2 puff IH BIDR 08/07/15 [ History] Omeprazole [PriLOSEC] 20 mg PO DAILY #90 capsule 09/10/15 [Rx] Ondansetron [Zofran] 8 mg PO Q8HR PRN #90 tablet 09/10/15 [Rx] Prochlorperazine Maleate [Compazine] 10 mg PO Q6HR PRN #90 tablet 09/10/15 [Rx] amLODIPine [Norvasc] 10 mg PO DAILY #60 tablet 01/09/16 [Rx] Cyanocobalamin (B-12) [Vitamin B12] 1,000 mcg PO DAILY #90 tablet 07/04/16 [Rx] LORazepam [Ativan] 0.5 mg PO Q6H PRN #90 tablet 07/04/16 [Rx] Magic Mouthwash 10 ml PO TID PRN 07/18/16 [History] Megestrol Acetate [Megace] 200 mg PO BID 08/05/16 [History] Rivaroxaban [Xarelto] 15 mg PO Q24H 10/07/16 [History] Ipratropium/Albuterol Neb [Duoneb] 3 ml IH Q4HR #100 vial.neb 10/09/16 [Rx] Fluticasone Propionate Nasal [Flonase] 1 spray NS DAILY 10/22/16 [History] Naproxen Sodium [Aleve] 220 mg PO BID PRN 10/22/16 [History] Nitroglycerin [Nitrostat] 0.4 mg SL AD PRN 10/22/16 [History] Calc/D3/Mag/Zn/Mariam/Dat/[place] [Calcium 600 mg Plus Vit D Tab] 1 each PO BID # 60 tablet 10/28/16 [Rx] Magnesium Oxide [Magnesium] 400 mg PO BID #60 tablet 10/28/16 [Rx] Diltiazem CD (24hr) [Cardizem CD] 180 mg PO DAILY #30 tab 11/07/16 [Rx] Levofloxacin [Levaquin] 500 mg PO Q24H #4 tablet 09/17/17 [Rx] Metoprolol XL (24 HR) Succ [Toprol Xl] 25 mg PO DAILY #30 11/16/16 [Rx] 3 Allergy/AdvReac Type Severity Reaction Status Date / Time Penicillins Allergy Severe Swelling Verified 11/05/16 10:47 of Lip/Tongue/Throat All Systems Review: A 10-system review of systems was performed and is negative for pertinent findings except as documented above in the HPI. - Constitutional Constitutional: headache(s), weakness, no chills, no fever(s) - EENT Eyes: no pain Nose, mouth and throat: no sore throat - Cardiovascular Cardiovascular: chest pain at rest, chest pain with exertion, diaphoresis, dyspnea at rest, irregular heart rhythm, radiating jaw, neck or arm pain, leg edema, lightheadedness, rapid heart rate, no palpitations - Respiratory Respiratory: dyspnea, no cough - Gastrointestinal Gastrointestinal: no abdominal pain, no constipation, no diarrhea - Genitourinary Genitourinary: no dysuria - Integumentary Integumentary: no rash - Neurological Neurological: no dizziness, no focal weakness, no loss of vision, no numbness, no tingling - Hematological/Lymphatic Hematologic/Lymphatic: no easy bleeding Physical Examination Vital Signs, Last 4 Hours Temp Pulse Resp BP Pulse Ox 11/25/16 08:32 99 18 116/55 96 11/25/16 08:30 96 11/25/16 07:52 97.7 F 94 18 121/68 98 11/25/16 07:37 16 97 General: No Apparent Distress HEENT: Atraumatic, Normocephaly, Mucus Membranes Moist, Other (right carotid endarectomy scar) Neck: No JVD Cardiac: No Murmur, Other (irregular rate and rhythm (rate ranging from 70s-80s) ) Lungs: Normal Breath Sounds, No Wheeze, Rales, Rhonchi Neuro: Alert and responsive, No focal deficits noted Abdomen: Soft, Non-Tender, Other (ventral hernia present. Reducible ) Skin: No rashes noted on visualized skin Musculoskeletal: No Chest Wall Tenderness Extremities: No Clubbing, No Cyanosis, No Edema, Normal Pulses Results 11/24/16 21:40 11/24/16 21:40 Lab Results 11/24/16 11/24/16 11/24/16 21:40 21:40 21:40 WBC 9.3 Hgb 10.9 L Hct 32.8 L Plt Count 235 INR 1.8 APTT 29.9 Sodium 136 Potassium 3.6 Chloride 104 Carbon Dioxide 25 BUN 22 Creatinine 0.79 Glucose 123 H Calcium 7.4 L Magnesium 0.8 L Troponin I 11/24/16 11/25/16 11/25/16 21:40 04:20 09:37 WBC Hgb Hct Plt Count INR APTT Sodium Potassium Chloride Carbon Dioxide BUN Creatinine Glucose Calcium Magnesium Troponin I 0.03 0.05 H* 0.04 H* Consult Discharge Plan - Plan Referrals: Jose Lorenz DO [Primary Care Provider] - 12/10/16 2:30 pm <Wei Amor - Last Filed: 11/27/16 19:21> Date of Encounter: 11/25/16 Time of Encounter: 17:25 Assessment and Plan Discussion w patient/family: The assessment and plan as outlined above was discussed with the patient and/or family members who expressed understanding and agreement. All questions were answered. Thank you for involving us in the care of your patient. Please call with any questions. History of Present Illness History of present illness: Mr. Reyes is a 76 year old male All Systems Review: A 10-system review of systems was performed and is negative for pertinent findings except as documented above in the HPI. Physical Examination Vital Signs, Last 4 Hours Temp Pulse Resp BP Pulse Ox 11/27/16 18:37 99.3 F 87 18 125/70 95 11/27/16 15:45 14 96 Results 11/27/16 12:50 11/27/16 12:50 Lab Results 11/26/16 11/27/16 11/27/16 18:10 05:14 12:50 WBC 8.7 Hgb 11.2 L Hct 33.6 L Plt Count 270 Sodium Potassium Chloride Carbon Dioxide BUN Creatinine Glucose Calcium Magnesium 1.3 L Troponin I 0.04 H* 11/27/16 12:50 WBC Hgb Hct Plt Count Sodium 134 L Potassium 3.3 L Chloride 99 Carbon Dioxide 25 BUN 23 Creatinine 0.95 Glucose 144 H Calcium 8.4 L Magnesium 1.3 L Troponin I - Attending Attestation PT seen and examined, chart reviewed independently, reviewed note and discussed with housestaff, essentially agree with findings as documented, my evaluation as follows: IMP/Plan' 1. Chest pain: pt gets chest pain with rapid ventricular response to a fib, resolves when heart rate response controlled. He has known CAD, post CABG 2008 , reports had different chest pressure before surgical revascularization than experiences with rapid heart rate. Long conversation about prognosis of lung cancer and risk/benefits of invasive vs. medical tx. Pt would consider ischemic evaluation and possible LHC/PCI if has demonstrable ischemia. Will plan on stress imaging with lexiscan cardiolte stress test when ventricular response rate controlled. 2. Chronic persistent A fib with poorly controlled ventricular response on oral therapy, will monitor overnight on IV dilt, change to PO in AM 3. Elevated troponin: unclear if due to demand perfusion mismatch or myocardial ischemia, stress when heart rate controlled. 4. Lung cancer, (squamous cell) 5. between rounds of chemo, reports documented lesions are shrinking with therapy, is tolerating chemo fairly well. 5. Systemic anticoagulation with Xaralto for primary stroke risk reduction for chronic A fib.
[2016-11-25] MEDS: Magnesium Oxide 400 MG TABLET PO SCH (16:39)
[2016-11-25] MEDS: *HR* Rivaroxaban 15 MG TABLET PO SCH (16:40)
--- NOTE | 2016-11-25 18:02 | Internal Med Progress Note ---
Date of Encounter: 11/25/16 Time of Encounter: 09:25 - Assessment and plan (1) Chest pain Current Visit: Yes Status: Acute Assessment and plan: Patient denies chest pain since yesterday. Troponin elevated to 0.05, 0.04. Continue telemetry. Continue to treat chest pain when necessary. Patient will have stress test tomorrow. He was seen by cardiology today, appreciate their recommendations. Patient will continue to be followed by them through stress test. Qualifiers: Chest pain type: unspecified Qualified Code(s): R07.9 - Chest pain, unspecified (2) Chronic respiratory failure Current Visit: Yes Status: Chronic Assessment and plan: Into the supplemental oxygen, continuous pulse ox. Titrate oxygen as needed to maintain sats greater than 92%. Patient has home O2 that he wears when necessary Qualifiers: Respiratory failure complication: hypoxia Qualified Code(s): J96.11 - Chronic respiratory failure with hypoxia (3) Smoker unmotivated to quit Current Visit: Yes Status: Acute Assessment and plan: Patient states he still smokes, he is unwilling to discuss smoking cessation. Also declines need for nicotine patch. (4) Atrial fibrillation with RVR Current Visit: Yes Status: Acute Assessment and plan: Patient is on Cardizem drip for A. fib RVR. Resume home medications including metoprolol and Xarelto. Patient is being followed by cardiology, echocardiogram in October was normal and will not be repeated. He will have a stress test in the morning. (5) Ventral hernia without obstruction or gangrene Current Visit: Yes Status: Chronic (6) COPD (chronic obstructive pulmonary disease) Current Visit: No Status: Chronic Assessment and plan: No acute exacerbation at this time. Continue O2 as needed, titrate to maintain sats greater than 92%. Continue DuoNeb times and resume home inhalers. Qualifiers: COPD type: COPD with acute exacerbation Qualified Code(s): J44.1 - Chronic obstructive pulmonary disease with (acute) exacerbation (7) Primary squamous cell carcinoma of right lung Current Visit: Yes Status: Chronic Assessment and plan: Per patient. Follows with [facility]. No chemotherapy for last 2 months due to being ill. (8) DVT prophylaxis Current Visit: Yes Status: Acute Assessment and plan: Patient is on Xarelto. - Time Spent With Patient less than 15 minutes - Subjective Interval history: Patient was seen and assessed at 9:25 PM. Patient denies chest pain since yesterday. He remains on Cardizem. He is wearing O2 currently, he does have O2 at home when necessary. Patient follows with oncology for the left lung carcinoma with the [facility]. Patient states he has been unable to do his chemotherapy for the last 2 months due to always being ill. Patient states that he is still smoking and does not wish to have any smoking cessation materials at this time. He also denies need for nicotine patch. Patient was strongly upset that he has not eaten and feels that no one is doing anything for him. He will be nothing by mouth again at midnight for testing in the morning. - Constitutional Vitals: Temp Pulse Resp BP Pulse Ox 97.6 F 93 16 128/83 98 11/25/16 15:27 11/25/16 15:27 11/25/16 16:16 11/25/16 15:11/25/16 16:16 General appearance: Present: A&O X 3, no acute distress, answers questions appropriately. Absent: cooperative, pleasant - Head Head exam: Present: atraumatic, normal inspection, normocephalic - Eye Eye exam: Present: normal appearance, conjuntiva pink, sclera anicteric - Neck Neck exam general surgery: Present: supple, trachea midline. Absent: lymphadenopathy, tenderness - Respiratory Respiratory exam: Present: CTAB. Absent: accessory muscle use, rales, rhonchi, wheezes - Cardiovascular Cardiovascular exam: Present: RRR, +S1, +S2. Absent: diastolic murmur, gallop, rubs, systolic murmur - GI/Abdominal GI/Abdominal exam: Present: normal bowel sounds, soft, no peritoneal signs. Absent: distended, hepatomegaly, tenderness - Extremities Exam Extremities exam: Present: normal inspection, warm, radial pulses palpable and symmetrical. Absent: calf tenderness, cyanotic, pedal edema, tenderness - Neurological Exam Neurological exam: Present: alert, oriented X3, no focal deficits. Absent: facial droop, speech deficit - Skin Skin exam: Present: dry, intact, normal color, warm. Absent: rash Internal Medicine: Result - Labs CBC & Chem 7: 11/24/16 21:40 11/24/16 21:40 Labs: Short CBC 11/24/16 Range/Units 21:40 WBC 9.3 (4.3-11.1) K/mcL Hgb 10.9 L (12.9-16.9) g/dL Hct 32.8 L (37.5-50.1) % Plt Count 235 (140-400) K/mcL Neutrophils # 8.0 (1.6-8.9) K/mcL BMP 11/24/16 21:40 Sodium 136 Potassium 3.6 Chloride 104 Carbon Dioxide 25 BUN 22 Creatinine 0.79 Glucose 123 H Calcium 7.4 L Cardiac Enzymes 11/24/16 11/25/16 11/25/16 Range/Units 21:40 04:20 09:37 Troponin I 0.03 0.05 H* 0.04 H* (0-0.03) ng/mL - ABG Interpretation ABG results: PT/INR, D-dimer PT 19.4 Seconds (9.4-12.1) H 11/24/16 21:40 Consult Discharge Plan - Plan Referrals: Jose Lorenz DO [Primary Care Provider] -
--- NOTE | 2016-11-25 19:23 | Electrocardiograph Report ---
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
[2016-11-25] MEDS ORDERED: 0.9 % Sodium Chloride 1,000 ML ONE (20:47)
[2016-11-26] MEDS ORDERED: *HR* LORazepam 0.5 MG TABLET PO ONE (00:17)
[2016-11-26] MEDS: Ipratropium/Albuterol Neb 3 ML IH SCH ×7 (00:20→23:09)
[2016-11-26 04:13] LABS: Basophils % 0.3 %; Eosinophils # 0.3 K/mcL (0.0-0.6); Eosinophils % 2.7 %; Hematocrit 32.1 % (37.5-50.1); Hemoglobin 10.7 g/dL (12.9-16.9); Immature Granulocytes % 0.9 % (0-4); Lymphocytes # 2.5 K/mcL (0.6-4.6); Lymphocytes % 24.3 %; Mean Corpuscular HGB Conc 33.3 g/dL (31.6-35.5); Mean Corpuscular Hemoglobin 31.4 pg (28.0-33.3); Mean Corpuscular Volume 94.1 fL (83.0-100.0); Mean Platelet Volume 9.3 fL (9.4-12.4); Monocytes # 0.7 K/mcL (0.0-1.3); Monocytes % 7.2 %; Neutrophils # 6.7 K/mcL (1.6-8.9); Platelet Count 246 K/mcL (140-400); Red Blood Count 3.41 M/mcL (4.19-5.50); Red Cell Distribution Width 15.1 % (11.5-14.5); Segmented Neutrophils % 64.6 %
[2016-11-26 04:24] LABS: BUN/Creatinine Ratio 24 (6-26); Blood Urea Nitrogen 23 mg/dL (8-26); Calcium 7.6 mg/dL (8.6-10.8); Carbon Dioxide 25 mEq/L (19-29); Chloride 101 mEq/L (98-109); Glucose 79 mg/dL (70-99); Osmolality,Calculated 283 (280-300); Potassium 3.5 mEq/L (3.5-4.5); Sodium 135 mEq/L (136-145); eGFR For African Americans > 60 (> 60); eGFR For Non-African Americans > 60 (> 60)
[2016-11-26] MEDS ORDERED: Regadenoson 0.4 MG/5 ML SYRINGE IVP ONE (06:18)
[2016-11-26] MEDS: Insulin LISPRO 300 UNITS/3 ML VIAL SQ SCH ×4 (07:37→21:16)
[2016-11-26] MEDS ORDERED: Magnesium Sulfate 2 GM in D5% in Water 100 ML IVPB ONE (07:51)
[2016-11-26] MEDS: Budesonide/Formoterol 80/4.5 MDI IH SCH ×2 (07:52→19:45)
[2016-11-26] MEDS: Furosemide 40 MG TABLET PO SCH (08:28)
[2016-11-26] MEDS: Magnesium Oxide 400 MG TABLET PO SCH (08:28)
[2016-11-26] MEDS: Metoprolol XL (24 HR) Succ 25 MG TAB.ER.24H PO SCH ×2 (08:28→10:10)
[2016-11-26] MEDS: Aspirin Enteric Coated 81 MG Tablet PO SCH (08:28)
[2016-11-26] MEDS: hydroCHLOROthiazide 25 MG TABLET PO SCH (08:28)
--- NOTE | 2016-11-26 09:26 | Cardiology Progress Note ---
<Shiv Mejia - Last Filed: 11/26/16 10:54> Date of Encounter: 11/26/16 Time of Encounter: 09:00 Assessment and Plan (1) Chest pain Current Visit: Yes Status: Acute The patient's chest pain and accompanying symptoms have resolved. He has no complaints. Last Echo on 11/05/16 demonstrated EF 60% with mild to moderate aortic stenosis , mild left ventricular hypertrophy, atypical septal wall motion consistent with post-operative. Significant past surgical history includes CABG (2008) and right-sided carotid endarterectomy. Rhythm strip demonstrates A. fib/A. flutter with rate in the 100s-130s and patient continues to be on Cardizem drip. NM Stress test postponed until his heart rate is controlled. Qualifiers: Chest pain type: unspecified Qualified Code(s): R07.9 - Chest pain, unspecified (2) Atrial fibrillation with RVR Current Visit: Yes Status: Acute Patient has history of Afib/A. flutter on diltiazem and Xeralto at home. Heart rate is uncontrolled in the 100s-130s this morning, but patient is asymptomatic. Continue with rate control with Cardizem drip. Switch to oral diltiazem once rate is better controlled. (3) Primary squamous cell carcinoma of right lung Current Visit: Yes Status: Chronic Patient sees Dr. Donnelly for management of lung cancer. His last chemo therapy was 2 months ago and he has an appointment later this week. Follow-up with pulmonology in the outpatient setting. (4) COPD (chronic obstructive pulmonary disease) Current Visit: No Status: Chronic The patient has oxygen at home and uses it when necessary. He was asymptomatic on RA throughout the night. Continue to closely monitor SPO2 and vitals. Qualifiers: COPD type: COPD with acute exacerbation Qualified Code(s): J44.1 - Chronic obstructive pulmonary disease with (acute) exacerbation (5) Hypomagnesemia Current Visit: No Status: Chronic Hypomagnesemia could be due to PPI. Patient received magnesium oxide yesterday. Check for magnesium levels today for possible improvement. (6) Hypocalcemia Current Visit: No Status: Acute Calcium levels are uptrending today after Magnesium repletion. Continue to monitor with a.m. labs. (7) Anxiety Current Visit: No Status: Chronic The patient has history of anxiety but does not currently have any complaints. Continue Ativan as needed. (8) DVT prophylaxis Current Visit: No Status: Acute Patient is on Xeralto for A. fib. Continue with Xeralto for anticoagulation. Discussion w patient/family: The assessment and plan as outlined above was discussed with the patient and/or family members who expressed understanding and agreement. All questions were answered. Thank you for involving us in the care of your patient. Please call with any questions. Subjective Principal diagnosis: Atypical chest pain with palpitations Interval history: Patient had no overnight events. His chest pain is resolved and no episodes of dypsnea at night on room air. The patient continues to be A. fib with RVR with heart rate ranging from 110s to 130s. He has been NPO since midnight for possible stress test today. He denies shortness of breath, fatigue, headache, palpitations, chest pain, shortness of breath, nausea, vomiting, diarrhea, constipation, difficulty voiding. Normal bowel movement last night. He currently has no complaints. Objective Vital Signs, Last 4 Hours Temp Pulse Resp BP Pulse Ox 11/26/16 08:30 66 16 124/69 11/26/16 08:15 111 16 125/96 11/26/16 08:00 90 16 123/60 11/26/16 07:51 18 96 11/26/16 07:45 71 16 106/67 11/26/16 07:32 98.3 F 108 16 120/65 97 General: Conversant, No Apparent Distress HEENT: Atraumatic, Normocephaly, Mucus Membranes Moist Neck: No JVD, Normal carotid pulses Cardiac: Reg Rate and Rhythm, Normal S1 and S2, No Murmur Lungs: Normal Breath Sounds, No Wheeze, Rales, Rhonchi Neuro: Alert and responsive, No focal deficits noted Abdomen: Soft, Non-Tender Skin: No rashes noted on visualized skin Musculoskeletal: No Chest Wall Tenderness Extremities: No Clubbing, No Cyanosis, No Edema, Normal Pulses Results 11/26/16 04:00 11/26/16 04:00 Lab Results 11/25/16 11/25/16 11/26/16 09:37 09:40 04:00 WBC Hgb Hct Plt Count Sodium Potassium Chloride Carbon Dioxide BUN Creatinine Glucose Calcium Magnesium 0.8 L Troponin I 0.04 H* 0.02 11/26/16 11/26/16 04:00 04:00 WBC 10.3 Hgb 10.7 L Hct 32.1 L Plt Count 246 Sodium 135 L Potassium 3.5 Chloride 101 Carbon Dioxide 25 BUN 23 Creatinine 0.97 Glucose 79 Calcium 7.6 L Magnesium Troponin I Consult Discharge Plan - Plan Referrals: Jose Lorenz DO [Primary Care Provider] - 12/10/16 2:30 pm <Wei Amor - Last Filed: 11/27/16 19:28> Date of Encounter: 11/26/16 Time of Encounter: 14:00 Assessment and Plan (1) Atrial fibrillation with RVR Current Visit: Yes Status: Acute Ventricular response not well controlled, initiate po diltiazem with IV, transition to PO if able to control heart rate response. (2) Elevated troponin Current Visit: Yes Status: Acute Minimal elevation, cancel stress test for today to evaluate ischemic substrate due to rapid heart rate response.. Discussion w patient/family: The assessment and plan as outlined above was discussed with the patient and/or family members who expressed understanding and agreement. All questions were answered. Thank you for involving us in the care of your patient. Please call with any questions. Subjective Interval history: {Pt reports chest pain has resolved, still mildly short of breath but at baseline, is aware heart rate is fast, but no discomfort. Objective Vital Signs, Last 4 Hours Temp Pulse Resp BP Pulse Ox 11/27/16 18:37 99.3 F 87 18 125/70 95 11/27/16 15:45 14 96 Cardiac: Reg Rate and Rhythm, Other (heart beat irregularly irregular, 112 to 130, afib with RVR on tele) Musculoskeletal: No Chest Wall Tenderness, Other (Chest wall tender at access port right ant chest wall ) Results 11/27/16 12:50 11/27/16 12:50 Lab Results 11/26/16 11/27/16 11/27/16 18:10 05:14 12:50 WBC 8.7 Hgb 11.2 L Hct 33.6 L Plt Count 270 Sodium Potassium Chloride Carbon Dioxide BUN Creatinine Glucose Calcium Magnesium 1.3 L Troponin I 0.04 H* 11/27/16 12:50 WBC Hgb Hct Plt Count Sodium 134 L Potassium 3.3 L Chloride 99 Carbon Dioxide 25 BUN 23 Creatinine 0.95 Glucose 144 H Calcium 8.4 L Magnesium 1.3 L Troponin I
--- NOTE | 2016-11-26 13:05 | Internal Med Progress Note ---
Date of Encounter: 11/26/16 Time of Encounter: 08:30 - Assessment and plan (1) Chest pain Current Visit: Yes Status: Acute Assessment and plan: Patient denies chest pain since yesterday. Continue telemetry. Continue to treat chest pain when necessary. Pt was to have stress test today, however, due to being on a cardizem gtt and rate being > 100 at time of stress, it was postponed. Pt is not having chest pain and will need to get rate controlled and switch to po Diltiazem prior to stress. Qualifiers: Chest pain type: unspecified Qualified Code(s): R07.9 - Chest pain, unspecified (2) Chronic respiratory failure Current Visit: Yes Status: Chronic Assessment and plan: Continue the supplemental oxygen prn, continuous pulse ox. Titrate oxygen as needed to maintain sats greater than 92%. Qualifiers: Respiratory failure complication: hypoxia Qualified Code(s): J96.11 - Chronic respiratory failure with hypoxia (3) Smoker unmotivated to quit Current Visit: Yes Status: Acute Assessment and plan: Patient states he still smokes, he is unwilling to discuss smoking cessation. Also declines need for nicotine patch again today. (4) Atrial fibrillation with RVR Current Visit: Yes Status: Acute Assessment and plan: Patient is on Cardizem drip for afib, rate around 100, no RVR. Resume home medications including metoprolol and Xarelto. Patient is being followed by cardiology, echocardiogram in October was normal and will not be repeated. (5) Ventral hernia without obstruction or gangrene Current Visit: Yes Status: Chronic (6) COPD (chronic obstructive pulmonary disease) Current Visit: No Status: Chronic Assessment and plan: No acute exacerbation. Continue O2 as needed, titrate to maintain sats greater than 92%. Continue DuoNeb treatments and resume home inhalers. Qualifiers: COPD type: COPD with acute exacerbation Qualified Code(s): J44.1 - Chronic obstructive pulmonary disease with (acute) exacerbation (7) Primary squamous cell carcinoma of right lung Current Visit: Yes Status: Chronic Assessment and plan: Per patient. Oncology at [facility]. (8) DVT prophylaxis Current Visit: Yes Status: Acute Assessment and plan: Patient is on Xarelto. - Time Spent With Patient less than 15 minutes - Subjective Interval history: Patient was seen and assessed at 0830. Patient denies chest pain since arrival and states that he feels better. - Constitutional Vitals: Temp Pulse Resp BP Pulse Ox 98.4 F 115 18 107/66 96 11/26/16 11:00 11/26/16 11:00 11/26/16 11:07 11/26/16 11:00 11/26/16 11:07 General appearance: Present: cooperative, A&O X 3, pleasant, no acute distress, answers questions appropriately - Head Head exam: Present: atraumatic, normal inspection, normocephalic - Eye Eye exam: Present: EOMI, normal appearance, conjuntiva pink, sclera anicteric - Neck Neck exam general surgery: Present: normal inspection, supple, trachea midline. Absent: lymphadenopathy, tenderness - Respiratory Respiratory exam: Present: CTAB. Absent: accessory muscle use, rales, respiratory distress, rhonchi, wheezes - Cardiovascular Cardiovascular exam: Present: irregular rhythm, +S1, +S2. Absent: diastolic murmur, gallop, JVD, rubs, systolic murmur - GI/Abdominal GI/Abdominal exam: Present: normal bowel sounds, soft, no peritoneal signs. Absent: distended, hepatomegaly, tenderness - Extremities Exam Extremities exam: Present: normal inspection, warm, radial pulses palpable and symmetrical. Absent: calf tenderness, cyanotic, pedal edema, tenderness - Neurological Exam Neurological exam: Present: alert, oriented X3, no focal deficits, pronater drift. Absent: facial droop, speech deficit - Skin Skin exam: Present: dry, intact, normal color, warm. Absent: rash Internal Medicine: Result - Labs CBC & Chem 7: 11/26/16 04:00 11/26/16 04:00 Labs: Short CBC 11/26/16 Range/Units 04:00 WBC 10.3 (4.3-11.1) K/mcL Hgb 10.7 L (12.9-16.9) g/dL Hct 32.1 L (37.5-50.1) % Plt Count 246 (140-400) K/mcL Neutrophils # 6.7 (1.6-8.9) K/mcL BMP 11/26/16 04:00 Sodium 135 L Potassium 3.5 Chloride 101 Carbon Dioxide 25 BUN 23 Creatinine 0.97 Glucose 79 Calcium 7.6 L Cardiac Enzymes 11/26/16 Range/Units 04:00 Troponin I 0.02 (0-0.03) ng/mL - ABG Interpretation ABG results: PT/INR, D-dimer PT 19.4 Seconds (9.4-12.1) H 11/24/16 21:40 Consult Discharge Plan - Plan Referrals: Jose Lorenz DO [Primary Care Provider] - 12/10/16 2:30 pm
[2016-11-26] MEDS: *HR* Rivaroxaban 15 MG TABLET PO SCH (17:43)
[2016-11-27] MEDS: Ipratropium/Albuterol Neb 3 ML IH SCH ×6 (03:21→23:00)
[2016-11-27] MEDS: Budesonide/Formoterol 80/4.5 MDI IH SCH ×2 (08:05→19:48)
[2016-11-27] MEDS: Insulin LISPRO 300 UNITS/3 ML VIAL SQ SCH ×4 (08:17→20:56)
--- NOTE | 2016-11-27 08:49 | Cardiology Progress Note ---
<Shiv Mejia - Last Filed: 11/27/16 12:01> Date of Encounter: 11/27/16 Time of Encounter: 09:00 Assessment and Plan (1) Chest pain Current Visit: Yes Status: Acute The patient's chest pain and accompanying symptoms have resolved. He has no complaints. Last Echo on 11/05/16 demonstrated EF 60% with mild to moderate aortic stenosis , mild left ventricular hypertrophy, atypical septal wall motion consistent with post-operative. Significant past surgical history includes CABG (2008) and right-sided carotid endarterectomy. Plan is for NM Stress test to rule out ACS once patient is rate-controlled (HR< 100) without cardizem drip. Qualifiers: Chest pain type: unspecified Qualified Code(s): R07.9 - Chest pain, unspecified (2) Atrial fibrillation with RVR Current Visit: Yes Status: Acute Patient has history of Afib/A. flutter on diltiazem and Xeralto at home. Heart rate is better controlled this morning with rate in the 100s on cardizem drip at 7.5ml/hour. Patient is asymptomatic. Spoke with pharmacy in regards to dose change. Patient to switch to oral dose 90mg Q8 hours. Stress test tomorrow if patient's heart rate <100. NPO after midnight. (3) Primary squamous cell carcinoma of right lung Current Visit: Yes Status: Chronic Patient sees Dr. Donnelly for management of lung cancer. His last chemo therapy was 2 months ago and he has an appointment later this week. Follow-up with pulmonology in the outpatient setting. (4) COPD (chronic obstructive pulmonary disease) Current Visit: No Status: Chronic The patient has oxygen at home and uses it when necessary. He was asymptomatic on RA throughout the night. Continue to closely monitor SPO2 and vitals. Qualifiers: COPD type: COPD with acute exacerbation Qualified Code(s): J44.1 - Chronic obstructive pulmonary disease with (acute) exacerbation (5) Hypomagnesemia Current Visit: No Status: Chronic Improved. Mg 1.3>0.08 No labs today. (6) Hypocalcemia Current Visit: No Status: Acute Improved. (7) Anxiety Current Visit: No Status: Chronic The patient has history of anxiety but does not currently have any complaints. Continue Ativan as needed. (8) DVT prophylaxis Current Visit: No Status: Acute Patient is on Xeralto for A. fib. Continue with Xeralto for anticoagulation. Ambulate TID Discussion w patient/family: The assessment and plan as outlined above was discussed with the patient and/or family members who expressed understanding and agreement. All questions were answered. Thank you for involving us in the care of your patient. Please call with any questions. Subjective Principal diagnosis: Atypical chest pain with palpitations Interval history: Patient had no overnight events. His chest pain is resolved and no episodes of dypsnea at night on room air. Rate controlled this morning. He denies shortness of breath, fatigue, headache, palpitations, chest pain, shortness of breath, nausea, vomiting, diarrhea, constipation, difficulty voiding. No bowel movement last night but passing gas. Voiding without difficulty. Appetite is good and he ate this morning. He currently has no complaints. Objective Vital Signs, Last 4 Hours Temp Pulse Resp BP Pulse Ox 11/27/16 08:06 16 99 11/27/16 07:30 97.9 F 57 18 125/61 94 General: Conversant, No Apparent Distress HEENT: Atraumatic, Normocephaly, Mucus Membranes Moist Neck: No JVD, Normal carotid pulses Cardiac: Other (Irregular rhythm. Rate in the 70s) Lungs: Normal Breath Sounds, No Wheeze, Rales, Rhonchi Neuro: Alert and responsive (to time, place, and self), No focal deficits noted Abdomen: Soft, Non-Tender, Other (reducible umbilical hernia noted) Skin: No rashes noted on visualized skin Musculoskeletal: No Chest Wall Tenderness Extremities: No Clubbing, No Cyanosis, No Edema, Normal Pulses Results 11/26/16 04:00 11/26/16 04:00 Lab Results 11/26/16 11/27/16 18:10 05:14 Magnesium 1.3 L Troponin I 0.04 H* Consult Discharge Plan - Plan Referrals: Jose Lorenz DO [Primary Care Provider] - 12/10/16 2:30 pm <Wei Amor - Last Filed: 11/27/16 19:32> Date of Encounter: 11/27/16 Time of Encounter: 19:30 Assessment and Plan (1) Atrial fibrillation with RVR Current Visit: Yes Status: Acute ventricular response better controlled at rest, still has rapid heart rate response with increased activity, will increase dilt to 90 mg q 8, monitor heart rate response. (2) Elevated troponin Current Visit: Yes Status: Acute Chest pain has resolve, plan lexiscan cardiolyte in AM. Discussion w patient/family: The assessment and plan as outlined above was discussed with the patient and/or family members who expressed understanding and agreement. All questions were answered. Thank you for involving us in the care of your patient. Please call with any questions. Subjective Interval history: Chest pain, palpitations and shortness of breath has resolved. He is able to ambulate around room without symptoms. Objective Vital Signs, Last 4 Hours Temp Pulse Resp BP Pulse Ox 11/27/16 18:37 99.3 F 87 18 125/70 95 11/27/16 15:45 14 96 Cardiac: Other Results 11/27/16 12:50 11/27/16 12:50 Lab Results 11/26/16 11/27/16 11/27/16 18:10 05:14 12:50 WBC 8.7 Hgb 11.2 L Hct 33.6 L Plt Count 270 Sodium Potassium Chloride Carbon Dioxide BUN Creatinine Glucose Calcium Magnesium 1.3 L Troponin I 0.04 H* 11/27/16 12:50 WBC Hgb Hct Plt Count Sodium 134 L Potassium 3.3 L Chloride 99 Carbon Dioxide 25 BUN 23 Creatinine 0.95 Glucose 144 H Calcium 8.4 L Magnesium 1.3 L Troponin I
[2016-11-27] MEDS: hydroCHLOROthiazide 25 MG TABLET PO SCH (09:19)
[2016-11-27] MEDS: Magnesium Oxide 400 MG TABLET PO SCH ×2 (09:19→21:17)
[2016-11-27] MEDS: Furosemide 40 MG TABLET PO SCH (09:19)
[2016-11-27] MEDS: Aspirin Enteric Coated 81 MG Tablet PO SCH (09:19)
[2016-11-27] MEDS: Metoprolol XL (24 HR) Succ 25 MG TAB.ER.24H PO SCH (09:21)
[2016-11-27 13:14] LABS: Basophils # 0.1 K/mcL (0.0-0.2); Basophils % 0.6 %; Eosinophils # 0.4 K/mcL (0.0-0.6); Eosinophils % 4.6 %; Hematocrit 33.6 % (37.5-50.1); Hemoglobin 11.2 g/dL (12.9-16.9); Immature Granulocytes % 0.7 % (0-4); Lymphocytes # 2.1 K/mcL (0.6-4.6); Mean Corpuscular HGB Conc 33.3 g/dL (31.6-35.5); Mean Corpuscular Hemoglobin 31.1 pg (28.0-33.3); Mean Corpuscular Volume 93.3 fL (83.0-100.0); Mean Platelet Volume 9.3 fL (9.4-12.4); Monocytes # 0.7 K/mcL (0.0-1.3); Monocytes % 8.2 %; Neutrophils # 5.4 K/mcL (1.6-8.9); Platelet Count 270 K/mcL (140-400); Red Cell Distribution Width 14.9 % (11.5-14.5); Segmented Neutrophils % 61.9 %
[2016-11-27 14:20] LABS: BUN/Creatinine Ratio 24 (6-26); Blood Urea Nitrogen 23 mg/dL (8-26); Calcium 8.4 mg/dL (8.6-10.8); Carbon Dioxide 25 mEq/L (19-29); Chloride 99 mEq/L (98-109); Glucose 144 mg/dL (70-99); Magnesium 1.3 mg/dL (1.6-2.6); Osmolality,Calculated 284 (280-300); Potassium 3.3 mEq/L (3.5-4.5); Sodium 134 mEq/L (136-145); eGFR For African Americans > 60 (> 60); eGFR For Non-African Americans > 60 (> 60)
--- NOTE | 2016-11-27 15:29 | Internal Med Progress Note ---
Date of Encounter: 11/27/16 Time of Encounter: 09:25 - Assessment and plan (1) Chest pain Current Visit: Yes Status: Acute Assessment and plan: Patient denies chest pain since arrival. Pt was switched from Diltiazem gtt to po today. Pt is taking 90mg po tid for rate control. Once rate controlled pt will have stress test. Continue telemetry Cardiology following Treat chest pain if needed. Monitor labs and vitals. Qualifiers: Chest pain type: unspecified Qualified Code(s): R07.9 - Chest pain, unspecified (2) Chronic respiratory failure Current Visit: Yes Status: Chronic Assessment and plan: Continue supplemental oxygen prn, continuous pulse ox. Titrate oxygen as needed to maintain sats greater than 92%. Qualifiers: Respiratory failure complication: hypoxia Qualified Code(s): J96.11 - Chronic respiratory failure with hypoxia (3) Smoker unmotivated to quit Current Visit: Yes Status: Acute Assessment and plan: Patient states he still smokes, he is unwilling to discuss smoking cessation. Also declines need for nicotine patch again today. States that he does not want to quit now. (4) Atrial fibrillation with RVR Current Visit: Yes Status: Acute Assessment and plan: Patient has been transitioned to po Cardizem. for rate control. Rate in 80s and 90s. Resume home medications including metoprolol and Xarelto. Patient is being followed by cardiology, echocardiogram in October was normal and will not be repeated. (5) Ventral hernia without obstruction or gangrene Current Visit: Yes Status: Chronic (6) COPD (chronic obstructive pulmonary disease) Current Visit: No Status: Chronic Assessment and plan: No acute exacerbation. Continue O2 as needed, titrate to maintain sats greater than 92%. Continue DuoNeb treatments and resume home inhalers. Continue telemetry Qualifiers: COPD type: COPD with acute exacerbation Qualified Code(s): J44.1 - Chronic obstructive pulmonary disease with (acute) exacerbation (7) Primary squamous cell carcinoma of right lung Current Visit: Yes Status: Chronic Assessment and plan: Per patient. Oncology at [facility]. Follow outpatient after discharge. (8) DVT prophylaxis Current Visit: Yes Status: Acute Assessment and plan: Patient is on Xarelto. - Subjective Interval history: Patient was seen and assessed at 0925. Patient denies chest pain, shortness of breath, abdominal pain, headache, dizziness, blurred vision, nausea, vomiting, or diarrhea. Patient is pleasant and states that he feels much better today. Still trying to get rate controlled for stress test, patient is aware and verbalizes understanding and denies questions. - Constitutional Vitals: Temp Pulse Resp BP Pulse Ox 97.9 F 88 18 132/49 93 11/27/16 15:11/27/16 15:11/27/16 15:11/27/16 15:11/27/16 15:09 General appearance: Present: cooperative, A&O X 3, pleasant, no acute distress, answers questions appropriately - Head Head exam: Present: atraumatic, normal inspection, normocephalic - Eye Eye exam: Present: conjuntiva pink, sclera anicteric - Neck Neck exam general surgery: Present: supple, trachea midline. Absent: lymphadenopathy - Respiratory Respiratory exam: Present: decreased breath sounds, CTAB. Absent: accessory muscle use, rales, rhonchi, wheezes - Cardiovascular Cardiovascular exam: Present: RRR, +S1, +S2. Absent: diastolic murmur, gallop, rubs, systolic murmur - GI/Abdominal GI/Abdominal exam: Present: normal bowel sounds, soft, no peritoneal signs. Absent: distended, tenderness - Extremities Exam Extremities exam: Present: normal inspection, warm, radial pulses palpable and symmetrical. Absent: calf tenderness, cyanotic, pedal edema, tenderness - Neurological Exam Neurological exam: Present: CN II-XII intact, oriented X3, no focal deficits. Absent: facial droop, speech deficit - Skin Skin exam: Present: dry, intact, normal color, warm. Absent: rash Internal Medicine: Result - Labs CBC & Chem 7: 11/27/16 12:50 11/27/16 12:50 Labs: Short CBC 11/27/16 Range/Units 12:50 WBC 8.7 (4.3-11.1) K/mcL Hgb 11.2 L (12.9-16.9) g/dL Hct 33.6 L (37.5-50.1) % Plt Count 270 (140-400) K/mcL Neutrophils # 5.4 (1.6-8.9) K/mcL BMP 11/27/16 12:50 Sodium 134 L Potassium 3.3 L Chloride 99 Carbon Dioxide 25 BUN 23 Creatinine 0.95 Glucose 144 H Calcium 8.4 L Cardiac Enzymes 11/27/16 Range/Units 05:14 Troponin I 0.04 H* (0-0.03) ng/mL - ABG Interpretation ABG results: PT/INR, D-dimer PT 19.4 Seconds (9.4-12.1) H 11/24/16 21:40 Consult Discharge Plan - Plan Referrals: Jose Lorenz DO [Primary Care Provider] - 12/10/16 2:30 pm
[2016-11-27] MEDS: *HR* Rivaroxaban 15 MG TABLET PO SCH (17:34)
[2016-11-27] MEDS: dilTIAZem HCl 60 MG TABLET PO SCH (17:34)
[2016-11-28] MEDS: dilTIAZem HCl 60 MG TABLET PO SCH ×3 (00:11→17:00)
[2016-11-28] MEDS: Ipratropium/Albuterol Neb 3 ML IH SCH ×4 (03:03→15:25)
[2016-11-28 04:35] LABS: Basophils # 0.1 K/mcL (0.0-0.2); Basophils % 0.7 %; Eosinophils # 0.3 K/mcL (0.0-0.6); Eosinophils % 4.1 %; Immature Granulocytes % 0.7 % (0-4); Lymphocytes # 2.1 K/mcL (0.6-4.6); Lymphocytes % 25.7 %; Mean Corpuscular HGB Conc 32.4 g/dL (31.6-35.5); Mean Corpuscular Hemoglobin 30.4 pg (28.0-33.3); Mean Corpuscular Volume 93.9 fL (83.0-100.0); Mean Platelet Volume 9.6 fL (9.4-12.4); Monocytes # 0.8 K/mcL (0.0-1.3); Monocytes % 9.2 %; Neutrophils # 4.9 K/mcL (1.6-8.9); Platelet Count 244 K/mcL (140-400); Red Blood Count 3.62 M/mcL (4.19-5.50); Red Cell Distribution Width 14.9 % (11.5-14.5); Segmented Neutrophils % 59.6 %
[2016-11-28 04:48] LABS: BUN/Creatinine Ratio 25 (6-26); Blood Urea Nitrogen 24 mg/dL (8-26); Carbon Dioxide 25 mEq/L (19-29); Chloride 100 mEq/L (98-109); Glucose 85 mg/dL (70-99); Potassium 3.6 mEq/L (3.5-4.5); Sodium 136 mEq/L (136-145); eGFR For African Americans > 60 (> 60); eGFR For Non-African Americans > 60 (> 60)
[2016-11-28 04:49] LABS: Calcium 8.3 mg/dL (8.6-10.8); Osmolality,Calculated 285 (280-300)
[2016-11-28] MEDS ORDERED: Regadenoson 0.4 MG/5 ML SYRINGE IVP ONE (06:17)
[2016-11-28] MEDS: Budesonide/Formoterol 80/4.5 MDI IH SCH (07:43)
[2016-11-28] MEDS: hydroCHLOROthiazide 25 MG TABLET PO SCH (08:54)
[2016-11-28] MEDS: Aspirin Enteric Coated 81 MG Tablet PO SCH (08:54)
[2016-11-28] MEDS: Furosemide 40 MG TABLET PO SCH (08:54)
[2016-11-28] MEDS: Magnesium Oxide 400 MG TABLET PO SCH (08:55)
[2016-11-28] MEDS: Metoprolol XL (24 HR) Succ 25 MG TAB.ER.24H PO SCH (08:55)
[2016-11-28] MEDS: Insulin LISPRO 300 UNITS/3 ML VIAL SQ SCH ×3 (09:02→16:58)
--- NOTE | 2016-11-28 10:34 | Nuclear Medicine Stress Report ---
Regadenoson Nuclear Stress Name: Harish Reyes Date of Study: 11/28/2016 Date: 1940 Ht: 64.0 in Medical Record#: [id number] Age: 76 Wt: 148.0 lb Gender: Male Order #: [id number] Location: [facility] Room: [facility] Supervising Provider: Gerardo Edwards CNP Reading Physician: Didier Downey DO, FACC, FASAL Ordering Physician: Tamy Salguero CNP Stress Technologist: Josey Valenzuela, T[employer] Window Repairer: Anton Donovan Indications: Chest Pain Impression: Pharmacologic stress ECG is non-diagnostic for ischemia due to submaximal HR. Gated EF = 61%. Perfusion imaging was negative for ischemia or infarct. Area of increased radiotracer uptake noted on the right anterior chest wall (seen on both rest and stress imaging). Recommend physical examination and if necessary, dedicated imaging. History: History of Smoking History of Coronary Artery Bypass Surgery Stress Test Summary: Stress Test Type: Pharmacologic Regadenoson 0.4mg/5ml given IV Baseline Information: Initial Heart Rate: 89 Blood Pressure: 118/60 Stress Information: Test Terminated Due to (primary): As per protocol Maximum Blood Pressure: 110/68 Maximum Heart Rate: 120 Percent Maximum Heart Rate Achieved: 83 Double Product: 14652 METS Reached: 1 Symptoms: No chest symptoms Nuclear Summary: SPECT myocardial perfusion imaging using Tc99m Sestamibi given intravenously was performed at rest and following cardiac stress testing. The resting images were obtained following initial dose of 11.8 mCi. Following stress an additional dose of 34.6 mCi was given at peak exercise or 30 seconds post regadenoson infusion. Medication Given: Time Medication Dose Units Route Findings: Stress Note * ECGs throughout demonstrated atrial fibrillation, RBBB. * Rare PVCs noted during stress. * Pharmacologic stress ECG is non-diagnostic for ischemia due to submaximal HR. * Patient had no chest pain during stress. Hemodynamic responses * Normal hemodynamic responses to pharmacologic stress. Study Quality * Study quality is good. Gated EF % * Gated EF = 61%. Left Ventricle * The left ventricle is not dilated. NORMALS * Normal wall motion. * Normal Segmental Perfusion in rest. * Normal segmental perfusion in stress. TID * No evidence of transient ischemic dilatation. TID ratio = 1.16. Lung Uptake * There is no evidence of increase lung uptake. Updated by Didier Downey DO, MARIUM, LUCIAN, JENNY on 11/28/2016 10:28:35 AM electronically signed on 11/28/2016 10:29:52 AM with status of Final
--- NOTE | 2016-11-28 12:56 | Cardiology Progress Note ---
<Shiv Mejia - Last Filed: 11/28/16 13:53> Date of Encounter: 11/28/16 Time of Encounter: 10:00 Assessment and Plan (1) Chest pain Status: Acute The patient's chest pain and accompanying symptoms have resolved. He has no complaints. Last Echo on 11/05/16 demonstrated EF 60% with mild to moderate aortic stenosis , mild left ventricular hypertrophy, atypical septal wall motion consistent with post-operative. Significant past surgical history includes CABG (2008) and right-sided carotid endarterectomy. Pharmacologic stress test demonstrates EF = 61% without ischemia/infarct. No further cardiac work-up necessary at this time. Cardiology team signing off. Thank you. Qualifiers: Chest pain type: unspecified Qualified Code(s): R07.9 - Chest pain, unspecified (2) Atrial fibrillation with RVR Status: Acute Resolved. Patient has history of Afib/A. flutter on diltiazem and Xeralto at home. Heart rate is controlled this morning with rate in the 80s with oral cardizem. Continue with current dose of diltiazem and monitor heart rate. (3) Primary squamous cell carcinoma of right lung Status: Chronic Patient sees Dr. Donnelly for management of lung cancer. His last chemo therapy was 2 months ago and he has an appointment later this week. Follow-up with pulmonology in the outpatient setting. (4) COPD (chronic obstructive pulmonary disease) Status: Chronic The patient has oxygen at home and uses it when necessary. He was asymptomatic on 2L NC throughout the night. Continue to closely monitor SPO2 and vitals. Qualifiers: COPD type: COPD with acute exacerbation Qualified Code(s): J44.1 - Chronic obstructive pulmonary disease with (acute) exacerbation (5) Hypomagnesemia Status: Chronic Improved. Mg 1.3>0.08 No labs today. (6) Hypocalcemia Status: Acute Improved. (7) Anxiety Status: Chronic The patient has history of anxiety but does not currently have any complaints. Continue Ativan as needed. (8) DVT prophylaxis Status: Acute Patient is on Xeralto for A. fib. Continue with Xeralto for anticoagulation. Ambulate TID Discussion w patient/family: The assessment and plan as outlined above was discussed with the patient and/or family members who expressed understanding and agreement. All questions were answered. Thank you for involving us in the care of your patient. Please call with any questions. Subjective Principal diagnosis: Atypical chest pain with palpitations Interval history: Patient had no overnight events. His chest pain is resolved and no episodes of dypsnea at night. Rate controlled this morning. He denies shortness of breath, fatigue, headache, palpitations, chest pain, shortness of breath, nausea, vomiting, diarrhea, constipation, difficulty voiding. Bowel movement last night without difficulty. Voiding without difficulty. Appetite is good and he was NPO last night. He just completed his stress test. He currently has no complaints. Objective Vital Signs, Last 4 Hours Temp Pulse Resp BP Pulse Ox 11/28/16 11:32 99 F 75 20 114/56 95 11/28/16 11:18 16 96 11/28/16 09:00 97.9 F 73 18 139/57 94 General: Conversant, No Apparent Distress HEENT: Atraumatic, Normocephaly, Mucus Membranes Moist Neck: No JVD, Normal carotid pulses Cardiac: Reg Rate and Rhythm, Normal S1 and S2 Lungs: Normal Breath Sounds, No Wheeze, Rales, Rhonchi Neuro: Alert and responsive, No focal deficits noted Abdomen: Soft, Non-Tender, Other (reducible umbilical hernia noted) Skin: No rashes noted on visualized skin Musculoskeletal: No Chest Wall Tenderness Extremities: No Clubbing, No Cyanosis, No Edema, Normal Pulses Results 11/28/16 04:24 11/28/16 04:24 Lab Results 11/27/16 11/27/16 11/28/16 12:50 12:50 04:24 WBC 8.7 8.3 Hgb 11.2 L 11.0 L Hct 33.6 L 34.0 L Plt Count 270 244 Sodium 134 L Potassium 3.3 L Chloride 99 Carbon Dioxide 25 BUN 23 Creatinine 0.95 Glucose 144 H Calcium 8.4 L Magnesium 1.3 L 11/28/16 04:24 WBC Hgb Hct Plt Count Sodium 136 Potassium 3.6 Chloride 100 Carbon Dioxide 25 BUN 24 Creatinine 0.96 Glucose 85 Calcium 8.3 L Magnesium Consult Discharge Plan - Plan Instructions: Diltiazem (By mouth), Atrial Flutter (DC), Atrial Fibrillation ( DC), Chest Pain (DC), Chronic Obstructive Pulmonary Disease (DC) Additional Instructions: Follow up with primary care provider in the next 7-10 days for follow-up visit. Start taking Cardizem in the morning. Return to the emergency department for any other problems or concerns, or if symptoms return or worsen. Resume your normal home medications. Resume activities as tolerated Referrals: Jose Lorenz DO [Primary Care Provider] - 12/10/16 2:30 pm Prescriptions: Diltiazem CD (24hr) [Cardizem CD] 240 mg PO DAILY #30 cap.er.24h <Wei Amor - Last Filed: 12/01/16 00:38> Date of Encounter: 11/28/16 Time of Encounter: 18:00 Assessment and Plan (1) Atrial fibrillation with RVR Status: Acute Venticular response well controlled on oral diltazem, continue current medicationsl (2) Elevated troponin Status: Acute Stress imaging negative for reversible ischemia, low risk for discharge to home on current meds. Discussion w patient/family: The assessment and plan as outlined above was discussed with the patient and/or family members who expressed understanding and agreement. All questions were answered. Thank you for involving us in the care of your patient. Please call with any questions. Subjective Interval history: Chest pain has resolved, pt more ambulatory without associated chest pain, pressure or palpitations. Results 11/28/16 04:24 11/28/16 04:24
[2016-11-28 15:07] VITALS: BP 124/58
--- NOTE | 2016-11-28 16:33 | Discharge Summary ---
Date of Encounter: 11/28/16 Time of Encounter: 10:35 - Discharge Diagnosis (1) Chest pain Priority: Primary Status: Acute Comments: Chest pain has resolved. Stress test negative. No further cardiac testing necessary. Pt will continue on home medications and add Diltiazem and continue Xarelto. Qualifiers: Chest pain type: unspecified Qualified Code(s): R07.9 - Chest pain, unspecified (2) Chronic respiratory failure Priority: Secondary Status: Chronic Comments: Continue supplemental oxygen prn at home. Qualifiers: Respiratory failure complication: hypoxia Qualified Code(s): J96.11 - Chronic respiratory failure with hypoxia (3) Smoker unmotivated to quit Priority: Secondary Status: Chronic Comments: Pt remains unmotivated to stop smoking. (4) Atrial fibrillation with RVR Priority: Secondary Status: Acute Comments: Rate controlled. Patient will continue Cardizem at home. He will continue Xarelto. Follow up in the clinic as scheduled. (5) Ventral hernia without obstruction or gangrene Priority: Secondary Status: Chronic (6) COPD (chronic obstructive pulmonary disease) Priority: Secondary Status: Chronic Comments: No acute exacerbation. Continue O2 as needed at home. Continue home medications. Lungs are clear throughout all lung arcos. Qualifiers: COPD type: COPD with acute exacerbation Qualified Code(s): J44.1 - Chronic obstructive pulmonary disease with (acute) exacerbation (7) Primary squamous cell carcinoma of right lung Priority: Secondary Status: Chronic Comments: Patient follows up with oncology center. Follow-up as scheduled. (8) DVT prophylaxis Priority: Secondary Status: Acute Comments: Patient is on Xarelto. - Discharge Medications Prescriptions: Diltiazem CD (24hr) [Cardizem CD] 240 mg PO DAILY #30 cap.er.24h Home Medications: Albuterol Sulfate [Albuterol Inhaler] 2 puff IH Q6H PRN 08/07/15 [History] Budesonide/Formoterol 160/4.5 [Symbicort 160/4.5] 2 puff IH BIDR 08/07/15 [ History] Omeprazole [PriLOSEC] 20 mg PO DAILY #90 capsule 09/10/15 [Rx] Ondansetron [Zofran] 8 mg PO Q8HR PRN #90 tablet 09/10/15 [Rx] Prochlorperazine Maleate [Compazine] 10 mg PO Q6HR PRN #90 tablet 09/10/15 [Rx] amLODIPine [Norvasc] 10 mg PO DAILY #60 tablet 01/09/16 [Rx] Cyanocobalamin (B-12) [Vitamin B12] 1,000 mcg PO DAILY #90 tablet 07/04/16 [Rx] LORazepam [Ativan] 0.5 mg PO Q6H PRN #90 tablet 07/04/16 [Rx] Magic Mouthwash 10 ml PO TID PRN 07/18/16 [History] Megestrol Acetate [Megace] 200 mg PO BID 08/05/16 [History] Rivaroxaban [Xarelto] 15 mg PO Q24H 10/07/16 [History] Ipratropium/Albuterol Neb [Duoneb] 3 ml IH Q4HR #100 vial.neb 10/09/16 [Rx] Fluticasone Propionate Nasal [Flonase] 1 spray NS DAILY 10/22/16 [History] Naproxen Sodium [Aleve] 220 mg PO BID PRN 10/22/16 [History] Nitroglycerin [Nitrostat] 0.4 mg SL AD PRN 10/22/16 [History] Calc/D3/Mag/Zn/Mariam/Dat/[place] [Calcium 600 mg Plus Vit D Tab] 1 each PO BID # 60 tablet 10/28/16 [Rx] Magnesium Oxide [Magnesium] 400 mg PO BID #60 tablet 10/28/16 [Rx] Diltiazem CD (24hr) [Cardizem CD] 180 mg PO DAILY #30 tab 11/07/16 [Rx] Levofloxacin [Levaquin] 500 mg PO Q24H #4 tablet 11/16/16 [Rx] Metoprolol XL (24 HR) Succ [Toprol Xl] 25 mg PO DAILY #30 11/16/16 [Rx] Diltiazem CD (24hr) [Cardizem CD] 240 mg PO DAILY #30 cap.er.24h 11/28/16 [Rx] Allergies/Adverse Reactions: 3 Allergy/AdvReac Type Severity Reaction Status Date / Time Penicillins Allergy Severe Swelling Verified 11/05/16 10:47 of Lip/Tongue/Throat Procedures/tests Complete & Pending: Procedures Performed prior 72 hours Category Date Time Status NM joe perf SPECT multi [NM] Routine Exams 11/28/16 10:00 Taken SP pharm nuclear stress Routine Y 11/28/16 10:00 Completed Date of admission: 11/24/16 21:37 Primary care physician: Jose Lorenz, Consults: 11/24/16 21:41 Consult to Cardiology [CONS] Routine Comment: Consulting Provider: Cardiology Deysi Reason for Consult: Afib/flutter with RVR Call Completed: No Discharging clinician: Heidi Owens Anticipated date of discharge: 11/28/16 - Patient Status Disposition: Home Health Service Condition: Good Functional capacity at discharge: uses cane/walker Overall status at discharge: patient is progressing back to baseline - Discharge Instructions Follow Up With: Jose Lorenz DO [Primary Care Provider] - 12/10/16 2:30 pm Additional Instructions: Follow up with primary care provider in the next 7-10 days for follow-up visit. Start taking Cardizem in the morning. Return to the emergency department for any other problems or concerns, or if symptoms return or worsen. Resume your normal home medications. Resume activities as tolerated - Diet and Activity Activity: increase activity as tolerated Diet: advance to your usual diet Hospital course: Mr. Reyes is a 76 year old male - Time Spent with Patient Total time spent providing and/or coordinating discharge services: - Constitutional Vitals: Temp Pulse Resp BP Pulse Ox 97.6 F 81 18 124/58 93 11/28/16 15:04 11/28/16 15:04 11/28/16 15:25 11/28/16 15:04 11/28/16 15:25 General appearance: Present: cooperative, A&O X 3, pleasant, no acute distress, answers questions appropriately - Head Head exam: Present: atraumatic, normal inspection, normocephalic - Eye Eye exam: Present: normal appearance, conjuntiva pink, sclera anicteric - Neck Neck exam general surgery: Present: supple, trachea midline. Absent: lymphadenopathy, tenderness - Respiratory Respiratory exam: Present: CTAB. Absent: accessory muscle use, chest wall tenderness, rales, rhonchi, wheezes - Cardiovascular Cardiovascular exam: Present: RRR, +S1, +S2. Absent: diastolic murmur, gallop, rubs, systolic murmur - GI/Abdominal GI/Abdominal exam: Present: normal bowel sounds, soft, no peritoneal signs. Absent: distended, hepatomegaly, tenderness - Extremities Exam Extremities exam: Present: normal inspection, warm, radial pulses palpable and symmetrical. Absent: calf tenderness, cyanotic, pedal edema - Neurological Exam Neurological exam: Present: alert, oriented X3, no focal deficits. Absent: facial droop, speech deficit - Skin Skin exam: Present: dry, intact, normal color, warm. Absent: rash
[2016-11-28] MEDS: *HR* Rivaroxaban 15 MG TABLET PO SCH (17:01)
--- NOTE | 2016-11-28 17:11 | Physician Discharge Referral ---
Home Health/Hosp Referral Info Transfer to: Home Health Provider in Charge Post Discharge: PCP - Diagnosis (1) Chest pain Priority: Primary Status: Acute (2) Chronic respiratory failure Priority: Secondary Status: Chronic (3) Smoker unmotivated to quit Priority: Secondary Status: Chronic (4) Atrial fibrillation with RVR Priority: Secondary Status: Acute (5) Ventral hernia without obstruction or gangrene Priority: Secondary Status: Chronic (6) COPD (chronic obstructive pulmonary disease) Priority: Secondary Status: Chronic (7) Primary squamous cell carcinoma of right lung Priority: Secondary Status: Chronic (8) DVT prophylaxis Priority: Secondary Status: Acute - Respiratory Orders Oxygen / L per min Smoking Cessation: Smoking cessation has been advised. For more information, call the [employer] Tobacco Quit Line at 9-549-XHPT-NOW. - Diet/Nutrition Diet/Nutrition Orders: Cardiac - Activity Activity Orders: Up ad melanie - Services Needed Following services are medically necessary services: Nursing, Home Health Aide, Physical Therapy, Occupational Therapy - Transfer Medications Prescriptions: Diltiazem CD (24hr) [Cardizem CD] 240 mg PO DAILY #30 cap.er.24h Home Medications: Albuterol Sulfate [Albuterol Inhaler] 2 puff IH Q6H PRN 08/07/15 [History] Budesonide/Formoterol 160/4.5 [Symbicort 160/4.5] 2 puff IH BIDR 08/07/15 [ History] Omeprazole [PriLOSEC] 20 mg PO DAILY #90 capsule 09/10/15 [Rx] Ondansetron [Zofran] 8 mg PO Q8HR PRN #90 tablet 09/10/15 [Rx] Prochlorperazine Maleate [Compazine] 10 mg PO Q6HR PRN #90 tablet 09/10/15 [Rx] amLODIPine [Norvasc] 10 mg PO DAILY #60 tablet 01/09/16 [Rx] Cyanocobalamin (B-12) [Vitamin B12] 1,000 mcg PO DAILY #90 tablet 07/04/16 [Rx] LORazepam [Ativan] 0.5 mg PO Q6H PRN #90 tablet 07/04/16 [Rx] Magic Mouthwash 10 ml PO TID PRN 07/18/16 [History] Megestrol Acetate [Megace] 200 mg PO BID 08/05/16 [History] Rivaroxaban [Xarelto] 15 mg PO Q24H 10/07/16 [History] Ipratropium/Albuterol Neb [Duoneb] 3 ml IH Q4HR #100 vial.neb 10/09/16 [Rx] Fluticasone Propionate Nasal [Flonase] 1 spray NS DAILY 10/22/16 [History] Naproxen Sodium [Aleve] 220 mg PO BID PRN 10/22/16 [History] Nitroglycerin [Nitrostat] 0.4 mg SL AD PRN 10/22/16 [History] Calc/D3/Mag/Zn/[place]/Dat/[place] [Calcium 600 mg Plus Vit D Tab] 1 each PO BID # 60 tablet 10/28/16 [Rx] Magnesium Oxide [Magnesium] 400 mg PO BID #60 tablet 10/28/16 [Rx] Diltiazem CD (24hr) [Cardizem CD] 180 mg PO DAILY #30 tab 11/07/16 [Rx] Levofloxacin [Levaquin] 500 mg PO Q24H #4 tablet 11/16/16 [Rx] Metoprolol XL (24 HR) Succ [Toprol Xl] 25 mg PO DAILY #30 11/16/16 [Rx] Diltiazem CD (24hr) [Cardizem CD] 240 mg PO DAILY #30 cap.er.24h 11/28/16 [Rx] Allergies/Adverse Reactions: 3 Allergy/AdvReac Type Severity Reaction Status Date / Time Penicillins Allergy Severe Swelling Verified 11/05/16 10:47 of Lip/Tongue/Throat Certification: Further, I certify that my clinical findings support that this patient is homebound (i.e. absences from home require considerable and taxing effort and are for medical reasons or islam services or infrequently or short duration when for other reasons) because: Homebound Reason: Patient requires assistance of a person or device to safely leave home, Leaving home requires considerable and taxing effort due to condition Attestation: My signature below is to certify that this patient is under my care and that I, or nurse practitioner, or a physician's data entry assistant working with me, has a face-to -face encounter with this patient.
== END 2016-11-28 17:45 | disposition home health service (06) | DRG 309 ==
LOC: 3BNU
PROVIDERS: ADMIT Family Medicine; ATTEND Registered Nurse

== ENCOUNTER 2017-03-15 16:17 | Inpatient (IN) ==
--- NOTE | 2017-03-15 17:00 | Emergency Department Note ---
Disposition Clinical Impression: Delirium due to general medical condition, Atrial fibrillation with RVR, Primary squamous cell carcinoma of right lung COPD (chronic obstructive pulmonary disease) Qualifiers: COPD type: chronic bronchitis Chronic bronchitis type: simple Qualified Code(s) : J41.0 - Simple chronic bronchitis Disposition: Admitted As Inpatient Condition: Fair Referrals: Jose Lorenz DO [Primary Care Provider] - Forms: ED Satisfaction Letter Time of Disposition: 20:12 Altered Mental Status HPI - General Chief Complaint: ED Altered Mental Status Stated Complaint: AMS Time Seen by Provider: 03/15/17 16:21 Source: patient, family, EMS Mode of arrival: EMS Limitations: no limitations Nursing Notes Reviewed: Yes Vital Signs Reviewed: Yes - History of Present Illness HPI Narrative: Mr. 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 fib who presents to the ED with 1 week history of altered mental status that acutely worsened over the past 24 hours. According to his he seems to be more forgetful, has apparently been seeing things that are not there, and has been confused about activities of daily living such as using the restroom. The patient says that he does not know it is going on with him although he believes his that she says he is confused. The patient has been treated for lung cancer over the past year and is seen by Dr. Brito. According to his , the patient has been coughing possibly more so than he was previously although he generally does have a cough at baseline. Other than that she has no acute symptoms that she can name. She denies any fevers or sweating. She denies any falls. - Related Data Home Medications Medication Instructions Recorded Confirmed Albuterol Sulfate [Albuterol 2 puff IH Q6H PRN 08/07/15 01/09/17 Inhaler] Budesonide/Formoterol 160/4.5 2 puff IH BIDR 08/07/15 01/09/17 [Symbicort 160/4.5] Magic Mouthwash 10 ml PO TID PRN 07/18/16 01/09/17 Megestrol Acetate [Megace] 200 mg PO BID 08/05/16 01/09/17 Rivaroxaban [Xarelto] 15 mg PO Q48H 08/08/17 11/10/17 Fluticasone Propionate Nasal 1 spray NS DAILY PRN 10/22/16 01/09/17 [Flonase] Naproxen Sodium [Aleve] 220 mg PO BID PRN 10/22/16 01/09/17 Nitroglycerin [Nitrostat] 0.4 mg SL AD PRN 10/22/16 01/09/17 Previous Rx's Medication Instructions Recorded Omeprazole [PriLOSEC] 20 mg PO DAILY #90 capsule 09/10/15 Ondansetron [Zofran] 8 mg PO Q8HR PRN #90 tablet 09/10/15 Prochlorperazine Maleate 10 mg PO Q6HR PRN #90 tablet 09/10/15 [Compazine] Cyanocobalamin (B-12) [Vitamin B12] 1,000 mcg PO DAILY #90 tablet 07/04/16 LORazepam [Ativan] 0.5 mg PO Q6H PRN #90 tablet 07/04/16 Ipratropium/Albuterol Neb [Duoneb] 3 ml IH Q4HR #100 vial.neb 10/09/16 Metoprolol XL (24 HR) Succ [Toprol 25 mg PO DAILY #30 11/16/16 Xl] Diltiazem CD (24hr) [Cardizem CD] 240 mg PO DAILY #30 cap.er.24h 11/28/16 Calc/D3/Mag/Zn/Mariam/Dat/[place] 1 each PO BID #60 tablet 12/08/16 [Calcium 600 mg Plus Vit D Tab] Magnesium Oxide [Magnesium] 400 mg PO BID #60 tablet 12/08/16 metroNIDAZOLE [Flagyl] 500 mg PO TID #30 tablet 01/09/17 metroNIDAZOLE [Flagyl] 500 mg PO TID #21 tablet 02/18/17 Docusate Sodium [Colace] 1 cap PO BID #60 capsule 02/19/17 levoFLOXacin [Levaquin] 500 mg PO DAILY #7 tablet 03/03/17 predniSONE [Prednisone] 5 mg PO DAILY #10 tablet 03/03/17 Allergies Allergy/AdvReac Type Severity Reaction Status Date / Time Penicillins Allergy Severe Swelling Verified 03/15/17 16:24 of Lip/Tongue/Throat Limitations: ROS unobtainable due to patients medical condition Constitutional: Denies: fever, chills, night sweats Cardiovascular: Reports: dyspnea on exertion. Denies: chest pain Respiratory: Reports: cough, sputum production. Denies: hemoptysis Gastrointestinal: Denies: abdominal pain Genitourinary: Denies: frequency Neurological: Denies: headache Psychiatric: Reports: anxiety, depression Endocrine: Denies: fatigue Past Medical History - Past Medical History Medical history: Reports: atrial fibrillation, cancer, COPD, coronary artery disease, DVT, diabetes, hyperlipidemia, hypertension Surgical history: Reports: carotid endarterectomy, cholecystectomy, coronary bypass (CABG) Psychiatric history: Reports: anxiety, depression - Social History Smoking Status: Current every day smoker Smokeless Tobacco Status: No Alcohol use: Reports: none Drug use: Reports: none Physical Exam Gen.: Vitals noted. No acute distress. AAOx3 but patient appears listless and frail HEENT: PERRL/EOMI, oropharynx clear, Normocephalic, atraumatic Neck: Supple. No obvious adenopathy. Cardiac: tachycardic, difficult to assess regularity of rhythm , no murmur, +S1/ S2 Pulmonary: Diffusely rhonchorous with scattered wheezes throughout Abdomen: soft, nontender, BS noted, no guarding. Epigastric hernia is noted and is reproducible Extremities: no BLE edema, nontender calf, no cyanosis or clubbing Neuro: A&Ox3, moves all extremities, no focal deficits Psych: depressed mood, flat affect - General Limitations: no limitations General appearance: alert Course Vital Signs Temperature 97.2 F L 03/15/17 16:27 Pulse Rate 96 03/15/17 16:27 Respiratory Rate 20 03/15/17 16:27 Blood Pressure 103/65 03/15/17 16:27 O2 Sat by Pulse Oximetry 96 03/15/17 16:27 Temperature 97.2 F L 03/15/17 16:27 Pulse Rate 119 03/15/17 18:00 Respiratory Rate 24 03/15/17 18:00 Blood Pressure 103/54 03/15/17 18:00 O2 Sat by Pulse Oximetry 97 03/15/17 18:00 Oxygen Delivery Oxygen Delivery Nasal Cannula Altered Mental Status - MDM Narrative Medical decision making narrative: I reviewed the patient's labs and imaging. The patient has long-standing history of lung cancer which is being treated by Dr. Brito. He is having new onset confusion which is acutely worsened in the past 24 hours. On labs there is evidence of a urinary tract infection, and the patient does have an elevated white count. Additionally, the patient does have a tachycardia however this could be attributable to the patient's previously documented atrial fibrillation. The patient is anemic with a hemoglobin of 10.1 which appears consistent with previous baseline. Considering the patient's confusion with nonspecific generalized symptoms, I did order a CT of the head, chest, abdomen and pelvis. I was concerned about the possibility of a PE given his active cancer, however there was no indication of PE on CTA chest. Head CT demonstrated no acute intracranial abnormality. The patient's does report visual hallucinations, however there is no drugs found on UDS and the CT of his head does not demonstrate any abnormalities. Likely this patient will require MRI in the long-term, which has previously been ordered by Dr. Brito, however this is non-emergent. The most likely explanation for this patient's hallucinations would be delirium due to generalized health. So, this patient is at high risk for a compensation due to his state of overall health. 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 I believe that he would benefit from admission to the hospital for observation. I spoke with the patient's who agrees with this plan. Because UA did demonstrate indications of urinary tract infection and did treat the patient with IV ceftriaxone. I spoke with the hospitalist who is a patient for admission. - Medical Records Medical records reviewed: Yes I reviewed the patient's medical records. - Lab Data Lab results reviewed: Yes I reviewed the patient's lab results. Result diagrams: 03/15/17 17:57 03/15/17 17:57 Lab Results 03/15/17 03/15/17 03/15/17 Range/Units 17:28 17:28 17:57 WBC 13.7 H (4.3-11.1) K/mcL RBC 3.53 L (4.19-5.50) M/mcL Hgb 10.1 L (12.9-16.9) g/dL Hct 32.1 L (37.5-50.1) % MCV 90.9 (83.0-100.0) fL MCH 28.6 (28.0-33.3) pg MCHC 31.5 L (31.6-35.5) g/dL RDW 15.8 H (11.5-14.5) % Plt Count 459 H (140-400) K/mcL MPV 10.1 (9.4-12.4) fL Immature Gran % 0.7 (0-4) % Seg Neutrophils % 65.0 % Lymphocytes % 13.3 % Monocytes % 14.0 % Eosinophils % 6.3 % Basophils % 0.7 % Neutrophils # 8.9 (1.6-8.9) K/mcL Lymphocytes # 1.8 (0.6-4.6) K/mcL Monocytes # 1.9 H (0.0-1.3) K/mcL Eosinophils # 0.9 H (0.0-0.6) K/mcL Basophils # 0.1 (0.0-0.2) K/mcL PT (9.4-12.1) Seconds INR APTT (26.0-36.0) Seconds Sodium (136-145) mEq/L Potassium (3.5-5.1) mEq/L Chloride (98-107) mEq/L Carbon Dioxide (23-29) mEq/L BUN (8-23) mg/dL Creatinine (0.70-1.30) mg/dL Est GFR ( Amer) (> 60) Est GFR (Non-Af Amer) (> 60) BUN/Creatinine Ratio (6-26) Glucose (70-105) mg/dL Calculated Osmolality (280-300) Lactic Acid (0.5-2.2) mmol/L Calcium (8.6-10.3) mg/dL Total Bilirubin (0.3-1.0) mg/dL Direct Bilirubin (0.0-0.2) mg/dL Indirect Bilirubin (0.0-1.2) mg/dL AST (13-39) Units/L ALT (7-52) Units/L Alkaline Phosphatase (34-104) Units/L Ammonia (16-53) mcmol/L Troponin I (< 0.04) ng/mL Serum Total Protein (6.4-8.9) g/dL Albumin (3.5-5.7) g/dL Globulin (2.4-3.5) g/dL Albumin/Globulin Ratio (1.1-2.2) TSH (0.340-5.600) mcIU/mL Urine Color Red A (Yellow) Urine Clarity Cloudy A (Clear) Urine pH 6.0 (5.0-8.0) pH Units Ur Specific [place] 1.020 (1.010-1.025) Urine Protein 30 H (Neg-Trace) mg/dL Urine Glucose (UA) Normal (Normal) mg/dL Urine Ketones Trace H (Negative) mg/dL Urine Blood Negative (Negative) Urine Nitrite Positive A (Negative) Urine Bilirubin Moderate H (Negative) Urine Urobilinogen Normal (Normal) mg/dL Ur Leukocyte Esterase Small H (Negative) Urine Microscopic RBC 0-3 (0-3) per hpf Urine Microscopic WBC 0-3 (0-3) per hpf Ur Squamous Epith Cells Many H (None-Few) per lpf Amorphous Sediment Moderate H (Few) Urine Bacteria Few (None-Few) per hpf Hyaline Casts None Seen (None-Few) per lpf Ur Culture Indicated? NO. (NO) Urine Opiates Screen Negative (Efymbp=652) ng/mL Ur Barbiturates Screen Negative (Hjlmnc=921) ng/mL Ur Phencyclidine Scrn Negative (Cutoff=25) ng/mL Ur Amphetamines Screen Negative (Ffbmsc=9256) ng/mL U Benzodiazepines Scrn Negative (Mntnmn=350) ng/mL Urine Cocaine Screen Negative (Cutoff= 300) ng/mL U Marijuana (THC) Screen Negative (Cutoff = 50) ng/mL Ethyl Alcohol (0-10) mg/dL 03/15/17 03/15/17 03/15/17 Range/Units 17:57 17:57 17:57 WBC (4.3-11.1) K/mcL RBC (4.19-5.50) M/mcL Hgb (12.9-16.9) g/dL Hct (37.5-50.1) % MCV (83.0-100.0) fL MCH (28.0-33.3) pg MCHC (31.6-35.5) g/dL RDW (11.5-14.5) % Plt Count (140-400) K/mcL MPV (9.4-12.4) fL Immature Gran % (0-4) % Seg Neutrophils % % Lymphocytes % % Monocytes % % Eosinophils % % Basophils % % Neutrophils # (1.6-8.9) K/mcL Lymphocytes # (0.6-4.6) K/mcL Monocytes # (0.0-1.3) K/mcL Eosinophils # (0.0-0.6) K/mcL Basophils # (0.0-0.2) K/mcL PT 21.6 H (9.4-12.1) Seconds INR 2.0 APTT 28.6 (26.0-36.0) Seconds Sodium 132 L (136-145) mEq/L Potassium 4.2 (3.5-5.1) mEq/L Chloride 101 (98-107) mEq/L Carbon Dioxide 26 (23-29) mEq/L BUN 19 (8-23) mg/dL Creatinine 0.87 (0.70-1.30) mg/dL Est GFR ( Amer) > 60 (> 60) Est GFR (Non-Af Amer) > 60 (> 60) BUN/Creatinine Ratio 22 (6-26) Glucose 98 (70-105) mg/dL Calculated Osmolality 276 L (280-300) Lactic Acid (0.5-2.2) mmol/L Calcium 10.5 H (8.6-10.3) mg/dL Total Bilirubin 1.4 H (0.3-1.0) mg/dL Direct Bilirubin 0.6 H (0.0-0.2) mg/dL Indirect Bilirubin 0.8 (0.0-1.2) mg/dL AST 18 (13-39) Units/L ALT 6 L (7-52) Units/L Alkaline Phosphatase 459 H (34-104) Units/L Ammonia 35 (16-53) mcmol/L Troponin I (< 0.04) ng/mL Serum Total Protein 5.2 L (6.4-8.9) g/dL Albumin 2.3 L (3.5-5.7) g/dL Globulin 2.9 (2.4-3.5) g/dL Albumin/Globulin Ratio 0.8 L (1.1-2.2) TSH (0.340-5.600) mcIU/mL Urine Color (Yellow) Urine Clarity (Clear) Urine pH (5.0-8.0) pH Units Ur Specific [place] (1.010-1.025) Urine Protein (Neg-Trace) mg/dL Urine Glucose (UA) (Normal) mg/dL Urine Ketones (Negative) mg/dL Urine Blood (Negative) Urine Nitrite (Negative) Urine Bilirubin (Negative) Urine Urobilinogen (Normal) mg/dL Ur Leukocyte Esterase (Negative) Urine Microscopic RBC (0-3) per hpf Urine Microscopic WBC (0-3) per hpf Ur Squamous Epith Cells (None-Few) per lpf Amorphous Sediment (Few) Urine Bacteria (None-Few) per hpf Hyaline Casts (None-Few) per lpf Ur Culture Indicated? (NO) Urine Opiates Screen (Oomdwd=169) ng/mL Ur Barbiturates Screen (Glzywz=729) ng/mL Ur Phencyclidine Scrn (Cutoff=25) ng/mL Ur Amphetamines Screen (Asdgtf=2777) ng/mL U Benzodiazepines Scrn (Bxcufl=550) ng/mL Urine Cocaine Screen (Cutoff= 300) ng/mL U Marijuana (THC) Screen (Cutoff = 50) ng/mL Ethyl Alcohol < 10 (0-10) mg/dL 03/15/17 03/15/17 03/15/17 Range/Units 17:57 17:57 17:57 WBC (4.3-11.1) K/mcL RBC (4.19-5.50) M/mcL Hgb (12.9-16.9) g/dL Hct (37.5-50.1) % MCV (83.0-100.0) fL MCH (28.0-33.3) pg MCHC (31.6-35.5) g/dL RDW (11.5-14.5) % Plt Count (140-400) K/mcL MPV (9.4-12.4) fL Immature Gran % (0-4) % Seg Neutrophils % % Lymphocytes % % Monocytes % % Eosinophils % % Basophils % % Neutrophils # (1.6-8.9) K/mcL Lymphocytes # (0.6-4.6) K/mcL Monocytes # (0.0-1.3) K/mcL Eosinophils # (0.0-0.6) K/mcL Basophils # (0.0-0.2) K/mcL PT (9.4-12.1) Seconds INR APTT (26.0-36.0) Seconds Sodium (136-145) mEq/L Potassium (3.5-5.1) mEq/L Chloride (98-107) mEq/L Carbon Dioxide (23-29) mEq/L BUN (8-23) mg/dL Creatinine (0.70-1.30) mg/dL Est GFR ( Amer) (> 60) Est GFR (Non-Af Amer) (> 60) BUN/Creatinine Ratio (6-26) Glucose (70-105) mg/dL Calculated Osmolality (280-300) Lactic Acid 1.2 (0.5-2.2) mmol/L Calcium (8.6-10.3) mg/dL Total Bilirubin (0.3-1.0) mg/dL Direct Bilirubin (0.0-0.2) mg/dL Indirect Bilirubin (0.0-1.2) mg/dL AST (13-39) Units/L ALT (7-52) Units/L Alkaline Phosphatase (34-104) Units/L Ammonia (16-53) mcmol/L Troponin I 0.03 (< 0.04) ng/mL Serum Total Protein (6.4-8.9) g/dL Albumin (3.5-5.7) g/dL Globulin (2.4-3.5) g/dL Albumin/Globulin Ratio (1.1-2.2) TSH 2.279 (0.340-5.600) mcIU/mL Urine Color (Yellow) Urine Clarity (Clear) Urine pH (5.0-8.0) pH Units Ur Specific [place] (1.010-1.025) Urine Protein (Neg-Trace) mg/dL Urine Glucose (UA) (Normal) mg/dL Urine Ketones (Negative) mg/dL Urine Blood (Negative) Urine Nitrite (Negative) Urine Bilirubin (Negative) Urine Urobilinogen (Normal) mg/dL Ur Leukocyte Esterase (Negative) Urine Microscopic RBC (0-3) per hpf Urine Microscopic WBC (0-3) per hpf Ur Squamous Epith Cells (None-Few) per lpf Amorphous Sediment (Few) Urine Bacteria (None-Few) per hpf Hyaline Casts (None-Few) per lpf Ur Culture Indicated? (NO) Urine Opiates Screen (Xrumlg=196) ng/mL Ur Barbiturates Screen (Jcereo=856) ng/mL Ur Phencyclidine Scrn (Cutoff=25) ng/mL Ur Amphetamines Screen (Ezslgg=6703) ng/mL U Benzodiazepines Scrn (Ymtmgh=635) ng/mL Urine Cocaine Screen (Cutoff= 300) ng/mL U Marijuana (THC) Screen (Cutoff = 50) ng/mL Ethyl Alcohol (0-10) mg/dL - Radiology Data Radiology results reviewed: Yes I reviewed the patient's radiology results. - EKG Data EKG attestation: Yes I reviewed and interpreted this EKG. EKG results narrative: EKG demonstrates atrial fibrillation with rate of 107 QRS duration 1:30 QTc 384 with a right bundle branch block and nonspecific st-t wave changes in precordial leads V1-V2, however no significant change from prior TPA Checklist - LKW: 3-4.5 hrs Add. Warnings/Precautions Patient/family understanding: The patient/family members have been counseled and understood the risk, benefit , and alternatives of treatment.
[2017-03-15 17:38] LABS: Bilirubin,Urine Moderate (Negative); Blood,Urine Negative (Negative); Clarity,Urine Cloudy (Clear); Color,Urine Red (Yellow); Glucose,Urine (UA) Normal (Normal); Ketones,Urine Trace mg/dL (Negative); Leukocyte Esterase,Urine Small (Negative); Nitrite,Urine Positive (Negative); Protein,Urine 30 mg/dL (Neg-Trace); Urobilinogen,Urine Normal (Normal)
[2017-03-15 17:40] LABS: RBC,Urine 0-3 per hpf (0-3); Squamous Epithelial Cell,Urine Many per lpf (None-Few); WBC,Urine 0-3 per hpf (0-3)
[2017-03-15 17:43] LABS: Amphetamine Screen,Urine Negative ng/mL (Cutoff=1000); Barbiturate Screen,Urine Negative ng/mL (Cutoff=200); Benzodiazepines Screen,Urine Negative ng/mL (Cutoff=200); Cannabinoid Screen,Urine Negative ng/mL (Cutoff = 50); Cocaine Screen,Urine Negative ng/mL (Cutoff= 300); Opiate Screen,Urine Negative ng/mL (Cutoff=300); Phencyclidine Screen,Urine Negative ng/mL (Cutoff=25)
[2017-03-15 17:54] LABS: Amorphous Sediment,Urine Moderate (Few); Bacteria,Urine Few per hpf (None-Few); Hyaline Casts,Urine None Seen per lpf (None-Few)
[2017-03-15 18:30] LABS: Basophils # 0.1 K/mcL (0.0-0.2); Basophils % 0.7 %; Eosinophils # 0.9 K/mcL (0.0-0.6); Eosinophils % 6.3 %; Hematocrit 32.1 % (37.5-50.1); Hemoglobin 10.1 g/dL (12.9-16.9); Immature Granulocytes % 0.7 % (0-4); Lymphocytes # 1.8 K/mcL (0.6-4.6); Lymphocytes % 13.3 %; Mean Corpuscular HGB Conc 31.5 g/dL (31.6-35.5); Mean Corpuscular Hemoglobin 28.6 pg (28.0-33.3); Mean Corpuscular Volume 90.9 fL (83.0-100.0); Mean Platelet Volume 10.1 fL (9.4-12.4); Monocytes # 1.9 K/mcL (0.0-1.3); Neutrophils # 8.9 K/mcL (1.6-8.9); Platelet Count 459 K/mcL (140-400); Red Blood Count 3.53 M/mcL (4.19-5.50); Red Cell Distribution Width 15.8 % (11.5-14.5)
[2017-03-15 18:37] LABS: Prothrombin Time 21.6 Seconds (9.4-12.1)
[2017-03-15 18:39] LABS: Activated Partial Thrombo Time 28.6 Seconds (26.0-36.0)
[2017-03-15 18:40] LABS: Alanine Aminotransferase 6 Units/L (7-52); Albumin 2.3 g/dL (3.5-5.7); Albumin/Globulin Ratio 0.8 (1.1-2.2); Alkaline Phosphatase 459 Units/L (34-104); Aspartate Amino Transferase 18 Units/L (13-39); BUN/Creatinine Ratio 22 (6-26); Bilirubin,Direct 0.6 mg/dL (0.0-0.2); Bilirubin,Indirect 0.8 mg/dL (0.0-1.2); Bilirubin,Total 1.4 mg/dL (0.3-1.0); Blood Urea Nitrogen 19 mg/dL (8-23); Calcium 10.5 mg/dL (8.6-10.3); Carbon Dioxide 26 mEq/L (23-29); Chloride 101 mEq/L (98-107); Globulin 2.9 g/dL (2.4-3.5); Glucose 98 mg/dL (70-105); Osmolality,Calculated 276 (280-300); Potassium 4.2 mEq/L (3.5-5.1); Sodium 132 mEq/L (136-145); Total Protein 5.2 g/dL (6.4-8.9); eGFR For African Americans > 60 (> 60); eGFR For Non-African Americans > 60 (> 60)
[2017-03-15 18:49] LABS: Ethanol < 10 mg/dL (0-10)
[2017-03-15] MEDS ORDERED: cefTRIAXone 1,000 MG in Water for inj. (sterile) 10 ML IVPB ONE (19:00)
--- NOTE | 2017-03-15 19:02 | Emergency Department Note ---
START Narrative - START START: I examined this patient and my medical decision-making was reviewed with the Resident Physician. I agree with the documented findings, disposition and treatment plan as described except to the extent set forth below. 76 year old male presnt to the ED with AMS and has a history of lung cancer and most recently has been forgetting to take off his pants when he has to urinate and uriantes in his pants which is new for him. Upoon review of labs it appaers he has a UTI which was a cath specimen. WE are waiting on CT scans to keith out bleed, PE, and pyelo. Dalia has been treated with rocephin and ketty be admitted to medicine
[2017-03-15] MEDS ORDERED: Naloxone 0.4 MG/ML INJ IVP PRN (20:33)
[2017-03-15] MEDS ORDERED: Ipratropium/Albuterol Neb 3 ML IH PRN (20:36)
--- NOTE | 2017-03-15 20:41 | Internal Med History&Physical ---
Date of Encounter: 03/15/17 Time of Encounter: 20:39 Assessment and Plan (1) Encephalopathy Current visit: Yes Status: Acute uncertain etiology UA contaminated with scant pyuria. Doubt he has UTI. Repeat UA and Cx. Follow clinically. Further management pending repeat results Hyponatremia - IVF, trend Na Check MRI w/wo contrast brain consult onc. On active therapy check ABG to ensure this is ok (2) Atrial fibrillation Current visit: No Status: Chronic continue rate agents hold xarelto in house. May restart on return home lovenox ppx for now Qualifiers: Atrial fibrillation type: chronic Qualified Code(s): I48.2 - Chronic atrial fibrillation (3) COPD (chronic obstructive pulmonary disease) Current visit: No Status: Chronic stable Qualifiers: COPD type: chronic bronchitis Qualified Code(s): J41.0 - Simple chronic bronchitis (4) Primary squamous cell carcinoma of right lung Current visit: Yes Status: Chronic metastatic cancer, progressive, limited PS oncology to follow Internal Medicine - H&P: HPI Chief complaint: AMS History of present illness: Mr. Reyes is a 76 year old male who presents with AMS, visual hallucinations. He has a hx of metastatic SCC of lung, AFib, COPD, CAD s/p cabg and right CEA. Uses chronic 2 L NC His lives with him at home and in the past 2 weeks, he developed progressive decline in mental status characterized by intermittent visual hallucinations, absent mindedness, generalized weakness, anorexia, decreased function. tells me he is DNRCCA/DNI EKG reviewed with rate 107, AFib, RBBB present from prior CT/CT abd pelvis w iv no oral IMPRESSION: 1. No acute findings in the chest, abdomen or pelvis. Specifically, no findings of pulmonary embolism or pyelonephritis. 2. Similar appearance of the primary malignancy in the right lower lobe with confluent right interlobar lymphadenopathy, resulting in mass effect upon the right lower lobar pulmonary artery, right inferior pulmonary vein, and adjacent bronchi. 3. Disease progression with increased size of a metastatic right hilar lymph node and increased size and number of now innumerable hepatic metastases. No significant change in metastases involving the left 6th rib, T12 vertebral body, or L4 vertebral body. 4. Persistent trace bilateral effusions with suspected bilateral pleural nodularity, likely malignant effusions in the setting of pleural metastatic disease. 5. Persistence of ill-defined solid nodules in the apical left upper lobe, most likely treated (or partially treated) metastases. 6. Minimal to mild bronchial wall thickening with central airway secretions, suggesting bronchitis. 7. Incidental findings as above. CT/CT angio chest IMPRESSION: 1. No acute findings in the chest, abdomen or pelvis. Specifically, no findings of pulmonary embolism or pyelonephritis. 2. Similar appearance of the primary malignancy in the right lower lobe with confluent right interlobar lymphadenopathy, resulting in mass effect upon the right lower lobar pulmonary artery, right inferior pulmonary vein, and adjacent bronchi. 3. Disease progression with increased size of a metastatic right hilar lymph node and increased size and number of now innumerable hepatic metastases. No significant change in metastases involving the left 6th rib, T12 vertebral body, or L4 vertebral body. 4. Persistent trace bilateral effusions with suspected bilateral pleural nodularity, likely malignant effusions in the setting of pleural metastatic disease. 5. Persistence of ill-defined solid nodules in the apical left upper lobe, most likely treated (or partially treated) metastases. 6. Minimal to mild bronchial wall thickening with central airway secretions, suggesting bronchitis. 7. Incidental findings as above. CT/CT head/brain wo con IMPRESSION: No acute intracranial abnormality. Past Med Surg Social Fam HX - Past Medical History Medical history: atrial fibrillation, cancer, COPD, coronary artery disease, DVT , diabetes, hyperlipidemia, hypertension Psychiatric history: anxiety, depression - Past Surgical History Surgical History: carotid endarterectomy, cholecystectomy, coronary bypass (CABG ) - Social History Smoking Status: Current every day smoker Smokeless Tobacco Status: No Alcohol use: none Drug use: none - Family History Father Living Status: Mother Living Status: Hx Family Cancer: Yes ("Maybe cancer of some kind") Hx Family Endocrine Disorder: Yes (DM) Internal Medicine - H&P: Meds Albuterol Sulfate [Albuterol Inhaler] 2 puff IH Q6H PRN 08/07/15 [History] Budesonide/Formoterol 160/4.5 [Symbicort 160/4.5] 2 puff IH BIDR 08/07/15 [ History] Omeprazole [PriLOSEC] 20 mg PO DAILY #90 capsule 09/10/15 [Rx] Ondansetron [Zofran] 8 mg PO Q8HR PRN #90 tablet 09/10/15 [Rx] Prochlorperazine Maleate [Compazine] 10 mg PO Q6HR PRN #90 tablet 09/10/15 [Rx] Cyanocobalamin (B-12) [Vitamin B12] 1,000 mcg PO DAILY #90 tablet 07/04/16 [Rx] LORazepam [Ativan] 0.5 mg PO Q6H PRN #90 tablet 07/04/16 [Rx] Magic Mouthwash 10 ml PO TID PRN 07/18/16 [History] Megestrol Acetate [Megace] 200 mg PO BID 08/05/16 [History] Rivaroxaban [Xarelto] 15 mg PO Q48H 10/07/16 [History] Ipratropium/Albuterol Neb [Duoneb] 3 ml IH Q4HR #100 vial.neb 10/09/16 [Rx] Fluticasone Propionate Nasal [Flonase] 1 spray NS DAILY PRN 10/22/16 [History] Naproxen Sodium [Aleve] 220 mg PO BID PRN 10/22/16 [History] Nitroglycerin [Nitrostat] 0.4 mg SL AD PRN 10/22/16 [History] Metoprolol XL (24 HR) Succ [Toprol Xl] 25 mg PO DAILY #30 11/16/16 [Rx] Diltiazem CD (24hr) [Cardizem CD] 240 mg PO DAILY #30 cap.er.24h 11/28/16 [Rx] Calc/D3/Mag/Zn/[place]ari[place]/Dat/[place] [Calcium 600 mg Plus Vit D Tab] 1 each PO BID # 60 tablet 12/08/16 [Rx] Magnesium Oxide [Magnesium] 400 mg PO BID #60 tablet 12/08/16 [Rx] metroNIDAZOLE [Flagyl] 500 mg PO TID #30 tablet 01/09/17 [Rx] metroNIDAZOLE [Flagyl] 500 mg PO TID #21 tablet 02/18/17 [Rx] Docusate Sodium [Colace] 1 cap PO BID #60 capsule 02/19/17 [Rx] levoFLOXacin [Levaquin] 500 mg PO DAILY #7 tablet 03/03/17 [Rx] predniSONE [Prednisone] 5 mg PO DAILY #10 tablet 03/03/17 [Rx] 3 Allergy/AdvReac Type Severity Reaction Status Date / Time Penicillins Allergy Severe Swelling Verified 03/15/17 16:24 of Lip/Tongue/Throat All Systems PM: A 10-system review of systems was performed and is negative for pertinent findings except as documented above in the HPI. Review of systems: ROS 14 point review of systems reviewed as best as possible given presentation. Pertinent positive or negative as per HPI or otherwise reviewed as negative - Constitutional Vitals: Temp Pulse Resp BP Pulse Ox 97.2 F L 95 20 120/58 97 03/15/17 16:27 03/15/17 20:34 03/15/17 20:34 03/15/17 20:34 03/15/17 20:34 Exam: General - AAO x 3 Psych - Appropriate affect/speech. No agitation Eyes - CRUZ. Eye lids intact. No scleral icterus Neuro - No gross peripheral or central neuro deficits - moving all 4 extremities Heart - Sinus. RRR. S1 and S2 present. No added HS/murmurs appreciated. No elevated JVD appreciated. Lung - Adequate air entry b/l, No crackles/wheezes appreciated GI - Soft, non-tender. No hepatosplenomegaly/ascites. BS+ - No CVA/suprapubic tenderness or palpable bladder distension Internal Med - H&P Results - Labs CBC & Chem 7: 03/15/17 17:57 03/15/17 17:57 Labs: Short CBC 03/15/17 Range/Units 17:57 WBC 13.7 H (4.3-11.1) K/mcL Hgb 10.1 L (12.9-16.9) g/dL Hct 32.1 L (37.5-50.1) % Plt Count 459 H (140-400) K/mcL Neutrophils # 8.9 (1.6-8.9) K/mcL BMP 03/15/17 17:57 Sodium 132 L Potassium 4.2 Chloride 101 Carbon Dioxide 26 BUN 19 Creatinine 0.87 Glucose 98 Calcium 10.5 H Cardiac Enzymes 03/15/17 Range/Units 17:57 Troponin I 0.03 (< 0.04) ng/mL Liver Function 03/15/17 Range/Units 17:57 Total Bilirubin 1.4 H (0.3-1.0) mg/dL Direct Bilirubin 0.6 H (0.0-0.2) mg/dL AST 18 (13-39) Units/L ALT 6 L (7-52) Units/L Alkaline Phosphatase 459 H (34-104) Units/L Albumin 2.3 L (3.5-5.7) g/dL Urine 03/15/17 Range/Units 17:28 Urine Color Red A (Yellow) Urine Clarity Cloudy A (Clear) Urine pH 6.0 (5.0-8.0) pH Units Ur Specific [place] 1.020 (1.010-1.025) Urine Protein 30 H (Neg-Trace) mg/dL Urine Glucose (UA) Normal (Normal) mg/dL - Impressions ITS Impressions Chest X-Ray 03/15/17 16:47 IMPRESSION: Stable findings including right basilar mass. D/ / Ansley Rivera Cha, MD / Ansley Rivera Cha, MD Interpreting Provider: Ansley Rivera Cha, MD Head CT 03/15/17 16:54 IMPRESSION: No acute intracranial abnormality. D/ / Bud Prince MD / Bud Prince MD Interpreting Provider: Bud Prince MD Chest CTA 03/15/17 16:56 IMPRESSION: 1. No acute findings in the chest, abdomen or pelvis. Specifically, no findings of pulmonary embolism or pyelonephritis. 2. Similar appearance of the primary malignancy in the right lower lobe with confluent right interlobar lymphadenopathy, resulting in mass effect upon the right lower lobar pulmonary artery, right inferior pulmonary vein, and adjacent bronchi. 3. Disease progression with increased size of a metastatic right hilar lymph node and increased size and number of now innumerable hepatic metastases. No significant change in metastases involving the left 6th rib, T12 vertebral body, or L4 vertebral body. 4. Persistent trace bilateral effusions with suspected bilateral pleural nodularity, likely malignant effusions in the setting of pleural metastatic disease. 5. Persistence of ill-defined solid nodules in the apical left upper lobe, most likely treated (or partially treated) metastases. 6. Minimal to mild bronchial wall thickening with central airway secretions, suggesting bronchitis. 7. Incidental findings as above. D/ / Christian Escudero MD / Christian Escudero MD Interpreting Provider: Christian Escudero MD Abdomen/Pelvis CT 03/15/17 18:51
[2017-03-15] MEDS: 0.9 % Sodium Chloride 1,000 ML IVC SCH (22:39)
[2017-03-15] MEDS: Ipratropium/Albuterol Neb 3 ML IH SCH (22:56)
[2017-03-15] MEDS: Budesonide/Formoterol 160/4.5 MDI IH SCH (22:56)
[2017-03-15 23:20] LABS: ABG Base Excess 1 mEq/L (-2 to 3); ABG HCO3 25 mEq/L (21-27); ABG Oxygen Saturation 98 % (95-98); ABG PCO2 36 mmHg (35-45); ABG PH 7.46 pH Units (7.32-7.45); ABG PO2 105 mmHg (85-104); ABG TCO2 26 mEq/L (20-26)
[2017-03-16] MEDS: *HR* LORazepam 0.5 MG TABLET PO PRN (01:21)
[2017-03-16] MEDS: Ipratropium/Albuterol Neb 3 ML IH SCH ×5 (04:21→23:15)
[2017-03-16 05:14] LABS: Basophils # 0.1 K/mcL (0.0-0.2); Basophils % 0.7 %; Eosinophils # 0.9 K/mcL (0.0-0.6); Eosinophils % 6.8 %; Hematocrit 29.3 % (37.5-50.1); Hemoglobin 9.2 g/dL (12.9-16.9); Immature Granulocytes % 0.8 % (0-4); Lymphocytes # 2.1 K/mcL (0.6-4.6); Lymphocytes % 15.8 %; Mean Corpuscular HGB Conc 31.4 g/dL (31.6-35.5); Mean Corpuscular Hemoglobin 28.8 pg (28.0-33.3); Mean Corpuscular Volume 91.6 fL (83.0-100.0); Mean Platelet Volume 9.9 fL (9.4-12.4); Monocytes # 1.9 K/mcL (0.0-1.3); Monocytes % 14.6 %; Neutrophils # 8.1 K/mcL (1.6-8.9); Platelet Count 428 K/mcL (140-400); Red Cell Distribution Width 15.8 % (11.5-14.5); Segmented Neutrophils % 61.3 %
[2017-03-16 05:36] LABS: Alanine Aminotransferase 5 Units/L (7-52); Albumin 2.2 g/dL (3.5-5.7); Albumin/Globulin Ratio 0.7 (1.1-2.2); Alkaline Phosphatase 437 Units/L (34-104); Aspartate Amino Transferase 16 Units/L (13-39); BUN/Creatinine Ratio 25 (6-26); Bilirubin,Total 0.8 mg/dL (0.3-1.0); Blood Urea Nitrogen 19 mg/dL (8-23); Calcium 10.3 mg/dL (8.6-10.3); Carbon Dioxide 24 mEq/L (23-29); Chloride 103 mEq/L (98-107); Globulin 3.3 g/dL (2.4-3.5); Glucose 77 mg/dL (70-105); Magnesium 1.6 mg/dL (1.6-2.6); Osmolality,Calculated 279 (280-300); Potassium 4.1 mEq/L (3.5-5.1); Sodium 134 mEq/L (136-145); Total Protein 5.5 g/dL (6.4-8.9); eGFR For African Americans > 60 (> 60); eGFR For Non-African Americans > 60 (> 60)
[2017-03-16] MEDS ORDERED: *HR* Enoxaparin 30 MG/0.3 ML SYRINGE SQ SCH (06:00)
[2017-03-16] MEDS: Metoprolol XL (24 HR) Succ 25 MG TAB.ER.24H PO SCH ×2 (09:16→09:22)
[2017-03-16] MEDS: Diltiazem CD (24hr) 240 MG CAPSULE PO SCH ×2 (09:16→09:22)
[2017-03-16] MEDS: 0.9 % Sodium Chloride 1,000 ML IVC SCH ×2 (09:16→22:28)
--- NOTE | 2017-03-16 09:19 | Internal Med Progress Note ---
Date of Encounter: 03/16/17 Time of Encounter: 09:16 - Assessment and plan (1) Encephalopathy Current Visit: Yes Status: Acute Assessment and plan: Unclear etiology. Likely related to underlying metastatic lung cancer, poor oral intake. No evidence of infection. CT chest and abdomen shows primary right lower lobe lung cancer associated with worsening liver metastases, osseus metastases to ribs and vertebral bodies. Discussed with patient's daughter, Isaura, who mentions that her father has been declining over the last 2-3 weeks with ongoing confusion and anorexia. Patient and his seem to be in denial. Continue fall precautions, supportive care, IV hydration. Will follow-up oncology input. Patient has been seen by palliative care team, patient's currently agreeable to home health services. Possibility of transitioning to home hospice in the future. CODE STATUS has been changed to DNR comfort care arrest/ DNI at this time. (2) Hyponatremia Current Visit: Yes Status: Acute Assessment and plan: Mild, hypovolemic due to poor oral intake. Currently improving. Continue IV hydration. (3) Atrial fibrillation Current Visit: Yes Status: Chronic Assessment and plan: Tachycardic. Patient did not receive his oral medications this morning including calcium channel noemy and beta noemy. Will discuss with nursing staff. Continue telemetry monitoring. On chronic anticoagulation with Xarelto , held at admission. We will resume at this time. Qualifiers: Atrial fibrillation type: chronic Qualified Code(s): I48.2 - Chronic atrial fibrillation (4) CAD (coronary artery disease) Current Visit: Yes Status: Chronic Qualifiers: Coronary Disease-Associated Artery/Lesion type: [place] artery [place] vs. transplanted heart: [place] heart Associated angina: without angina Qualified Code(s): I25.10 - Atherosclerotic heart disease of [place] coronary artery without angina pectoris (5) COPD (chronic obstructive pulmonary disease) Current Visit: Yes Status: Chronic Assessment and plan: Does not appear to be in acute exacerbation. Continue supplemental oxygen and when necessary bronchodilators. Qualifiers: COPD type: chronic bronchitis Qualified Code(s): J41.0 - Simple chronic bronchitis (6) Primary squamous cell carcinoma of right lung Current Visit: Yes Status: Chronic Assessment and plan: Follows with oncology as outpatient, currently receiving chemotherapy with Nivolumab; f/up Oncology consult; - Subjective Interval history: Patient unable to provide any history, no family at bedside; lying in bed, answers to his name but cannot answer any further questions. Grimaces when palpating abdomen and states- leave me alone, but denies pain when asked. - Constitutional Vitals: Temp Pulse Resp BP Pulse Ox 97.3 F L 115 17 112/62 100 03/16/17 07:04 03/16/17 07:04 03/16/17 07:04 03/16/17 07:04 03/16/17 07:04 General appearance: Present: A&O X 0. Absent: answers questions appropriately - Respiratory Respiratory exam: Present: CTAB (coarse breath sounds B/L anterolaterally, uncooperative for posterior exam). Absent: accessory muscle use, rales, rhonchi , wheezes - Cardiovascular Cardiovascular exam: Present: irregular rhythm, +S1, +S2. Absent: diastolic murmur, gallop, rubs, systolic murmur - GI/Abdominal GI/Abdominal exam: Present: normal bowel sounds, soft (grimaces to deep palpation in RUQ and LUQ), no peritoneal signs. Absent: distended, tenderness - Extremities Exam Extremities exam: Present: full ROM, warm, radial pulses palpable and symmetrical. Absent: calf tenderness, cyanotic, pedal edema - Neurological Exam Neurological exam: Present: altered. Absent: pronater drift, facial droop, speech deficit Internal Medicine: Result - Labs CBC & Chem 7: 03/16/17 04:45 03/16/17 04:45 Labs: Short CBC 03/16/17 Range/Units 04:45 WBC 13.1 H (4.3-11.1) K/mcL Hgb 9.2 L (12.9-16.9) g/dL Hct 29.3 L (37.5-50.1) % Plt Count 428 H (140-400) K/mcL Neutrophils # 8.1 (1.6-8.9) K/mcL BMP 03/16/17 04:45 Sodium 134 L Potassium 4.1 Chloride 103 Carbon Dioxide 24 BUN 19 Creatinine 0.75 Glucose 77 Calcium 10.3 Liver Function 03/16/17 Range/Units 04:45 Total Bilirubin 0.8 (0.3-1.0) mg/dL AST 16 (13-39) Units/L ALT 5 L (7-52) Units/L Alkaline Phosphatase 437 H (34-104) Units/L Albumin 2.2 L (3.5-5.7) g/dL - ABG Interpretation ABG results: ABG ABG pH 7.46 pH Units (7.32-7.45) H 03/15/17 23:17 ABG pCO2 36 mmHg (35-45) 03/15/17 23:17 ABG pO2 105 mmHg (85-104) H 03/15/17 23:17 ABG O2 Saturation 98 % (95-98) 03/15/17 23:17 PT/INR, D-dimer PT 21.6 Seconds (9.4-12.1) H 03/15/17 17:57 Consult Discharge Plan - Plan Referrals: Jose Lorenz DO [Primary Care Provider] -
--- NOTE | 2017-03-16 09:48 | Oncology Inp Consult Note ---
<Lien Avilez - Last Filed: 03/16/17 16:44> Date of Encounter: 03/16/17 Time of Encounter: 15:00 Assessment and Plan (1) Primary squamous cell carcinoma of right lung Status: Chronic Assessment and plan: 1. Squamous cell carcinoma right lung, stage IV. Treatment intent palliative. Current treatment: Nivolumab [id number]. Tolerating well with little to no side effects from treatment, however CT evidence of disease progression prior to and during admission. Admitted with AMS with no explanation of current infection. Brain MRI negative for metastasis. Will also follow up with checking cortisol for nivolumab treatment induced autoimmune related side effects. TSH normal 03/15/[address] Georges had detailed discussion with patients and patients daughter regarding prognosis and most recent CT scans which indicate disease progression. Patients expresses patients wish to continue treatment, however, given the fact that patient is progressing on current treatment and given his recent decline in mental/functional status, he would not be a good candidate to continue treatment in his current state. Plan to continue to monitor patient, if he regresses or does not improve, hospice at home would be appropriate course (given appropriate resources, patients wishes to bring him home), shall his functional/mental status improves, other treatment options may be entertained at this juncture. Appreciate palliative care consultation and discussion. - Data of Consult Patient: known to practice within the last 3 years Consult date: 03/16/17 Requesting Physician: Cynthia Martinez MD Primary Care Provider: Jose Lorenz, - Consult Narrative Reason for consult: Squamous cell lung cancer stage IV, AMS History of present illness: Mr. Reyes is a 76 year old male with past medical history significant for A-Fib , COPD, CAD s/p cabg, QUINCY and HTN. Admitted with AMS. His lives with him at home over the span of the past 2 weeks he has developed a progressive decline in mental status characterized by intermittent visual hallucinations, absent mindedness, generalized weakness, and anorexia. Mr. Reyes is a patient of Dr. Brito and currently receiving treatment for squamous cell carcinoma right lung stage IV. Receiving palliative Nivolumab q2 weeks since 01/2016. He has had some treatment breaks since this time with most recent treatment break 08/2016 through 11/2016 for physical decline and hospitalizations. CT scans have show recent progression of hilar lymph nodes and multiple liver metastasis. Dr. Brito discussed progression of disease prior to his admission and he had at that time wished to continue treatment as he is tolerating quite well with plans to complete restaging scans at a later date. Since that time he has developed a decline in his mental and functional status leading to this admission. Past Med Surg Social Fam HX - Past Medical History Medical history: atrial fibrillation, cancer, COPD, coronary artery disease, DVT , diabetes, hyperlipidemia, hypertension Psychiatric history: anxiety, depression - Past Surgical History Surgical History: carotid endarterectomy, cholecystectomy, coronary bypass (CABG ) - Social History Smoking Status: Current every day smoker Smokeless Tobacco Status: No Alcohol use: none Drug use: none - Family History Father Living Status: Mother Living Status: Hx Family Cancer: Yes ("Maybe cancer of some kind") Hx Family Endocrine Disorder: Yes (DM) Medications and Allergies Albuterol Sulfate [Albuterol Inhaler] 2 puff IH Q6H PRN 08/07/15 [History] Budesonide/Formoterol 160/4.5 [Symbicort 160/4.5] 2 puff IH BIDR 08/07/15 [ History] Omeprazole [PriLOSEC] 20 mg PO DAILY #90 capsule 09/10/15 [Rx] Ondansetron [Zofran] 8 mg PO Q8HR PRN #90 tablet 09/10/15 [Rx] Prochlorperazine Maleate [Compazine] 10 mg PO Q6HR PRN #90 tablet 09/10/15 [Rx] Cyanocobalamin (B-12) [Vitamin B12] 1,000 mcg PO DAILY #90 tablet 07/04/16 [Rx] LORazepam [Ativan] 0.5 mg PO Q6H PRN #90 tablet 07/04/16 [Rx] Magic Mouthwash 10 ml PO TID PRN 07/18/16 [History] Megestrol Acetate [Megace] 200 mg PO BID 08/05/16 [History] Rivaroxaban [Xarelto] 15 mg PO Q48H 10/07/16 [History] Ipratropium/Albuterol Neb [Duoneb] 3 ml IH Q4HR #100 vial.neb 10/09/16 [Rx] Fluticasone Propionate Nasal [Flonase] 1 spray NS DAILY PRN 10/22/16 [History] Naproxen Sodium [Aleve] 220 mg PO BID PRN 10/22/16 [History] Nitroglycerin [Nitrostat] 0.4 mg SL AD PRN 10/22/16 [History] Metoprolol XL (24 HR) Succ [Toprol Xl] 25 mg PO DAILY #30 11/16/16 [Rx] Diltiazem CD (24hr) [Cardizem CD] 240 mg PO DAILY #30 cap.er.24h 11/28/16 [Rx] Calc/D3/Mag/Zn/[place]ari[place]/Dat/[place] [Calcium 600 mg Plus Vit D Tab] 1 each PO BID # 60 tablet 12/08/16 [Rx] Magnesium Oxide [Magnesium] 400 mg PO BID #60 tablet 12/08/16 [Rx] metroNIDAZOLE [Flagyl] 500 mg PO TID #30 tablet 01/09/17 [Rx] metroNIDAZOLE [Flagyl] 500 mg PO TID #21 tablet 02/18/17 [Rx] Docusate Sodium [Colace] 1 cap PO BID #60 capsule 02/19/17 [Rx] levoFLOXacin [Levaquin] 500 mg PO DAILY #7 tablet 03/03/17 [Rx] predniSONE [Prednisone] 5 mg PO DAILY #10 tablet 03/03/17 [Rx] 3 Allergy/AdvReac Type Severity Reaction Status Date / Time Penicillins Allergy Severe Swelling Verified 03/15/17 16:24 of Lip/Tongue/Throat ROS unobtainable: due to mental status Oncology - Exam - Constitutional Vitals: Temp Pulse Resp BP Pulse Ox 97.3 F L 115 17 112/62 100 03/16/17 07:04 03/16/17 07:04 03/16/17 07:04 03/16/17 07:04 03/16/17 09:24 General appearance: no acute distress, no febrile - Head Head exam: Present: atraumatic - Eye Eye exam: Present: PERRL - ENT ENT exam: Present: mucous membranes dry - Respiratory Respiratory exam: Present: decreased breath sounds, CTAB - Cardiovascular Cardiovascular exam: Present: RRR, +S1, +S2 - GI/Abdominal GI/Abdominal exam: Present: normal bowel sounds, soft. Absent: guarding, tenderness - Extremities Exam Extremities exam: Absent: pedal edema, tenderness - Expanded Lower Extremity Exam Lower Leg exam: Absent: swelling - Neurological Exam Neurological exam: Present: altered, no focal deficits, strengths equal and symetr throughout. Absent: oriented X3, facial droop Additional comments: Drowsy but arousable to voice, only answers "no" to questions, reoriented to person, place and time - Skin Skin exam: Present: normal color, warm Oncology - Results Labs: Short CBC 03/16/17 Range/Units 04:45 WBC 13.1 H (4.3-11.1) K/mcL Hgb 9.2 L (12.9-16.9) g/dL Hct 29.3 L (37.5-50.1) % Plt Count 428 H (140-400) K/mcL Neutrophils # 8.1 (1.6-8.9) K/mcL BMP 03/16/17 04:45 Sodium 134 L Potassium 4.1 Chloride 103 Carbon Dioxide 24 BUN 19 Creatinine 0.75 Glucose 77 Calcium 10.3 Liver Function 03/16/17 Range/Units 04:45 Total Bilirubin 0.8 (0.3-1.0) mg/dL AST 16 (13-39) Units/L ALT 5 L (7-52) Units/L Alkaline Phosphatase 437 H (34-104) Units/L Albumin 2.2 L (3.5-5.7) g/dL Consult Discharge Plan - Plan Referrals: Jose Lorenz DO [Primary Care Provider] - <Oliver Georges - Last Filed: 03/16/17 20:04> Date of Encounter: 03/16/17 - Data of Consult Requesting Physician: Cynthia Martinez MD Primary Care Provider: Jose Lorenz, - Consult Narrative History of present illness: Mr. Reyes is a 76 year old male Oncology - Exam - Constitutional Vitals: Temp Pulse Resp BP Pulse Ox 98.8 F 120 16 125/74 100 03/16/17 15:13 03/16/17 15:13 03/16/17 15:50 03/16/17 15:13 03/16/17 15:50 Oncology - Results Labs: Short CBC 03/16/17 Range/Units 04:45 WBC 13.1 H (4.3-11.1) K/mcL Hgb 9.2 L (12.9-16.9) g/dL Hct 29.3 L (37.5-50.1) % Plt Count 428 H (140-400) K/mcL Neutrophils # 8.1 (1.6-8.9) K/mcL BMP 03/16/17 04:45 Sodium 134 L Potassium 4.1 Chloride 103 Carbon Dioxide 24 BUN 19 Creatinine 0.75 Glucose 77 Calcium 10.3 Liver Function 03/16/17 Range/Units 04:45 Total Bilirubin 0.8 (0.3-1.0) mg/dL AST 16 (13-39) Units/L ALT 5 L (7-52) Units/L Alkaline Phosphatase 437 H (34-104) Units/L Albumin 2.2 L (3.5-5.7) g/dL - Attending Attestation I examined this patient and my medical decision-making was reviewed with the Advanced Practice Nurse. I agree with the documented findings, disposition and treatment plan as described except to the extent set forth below. Mr. Reyes has progressive metastatic squamous cell carcinoma of the lung. D/W , daughter and family. His continues to have difficulty accepting current state of his disease. His PS has declined and he is unable for self care or performing ADLs. Discussed that his clinical decline corresponds with radiographic progression. It is unlikely any meaningful recovery can be made; therapeutic options are extremely limited. I have recommended hospice care. The family wishes for the patient to go home, and not to SNF. Hospice would aid in achieving that goal. Daughter is in agreement; unsure. This will be an ongoing discussion. Continue supportive measures for now. He is DNR.
[2017-03-16] MEDS: Budesonide/Formoterol 160/4.5 MDI IH SCH ×3 (10:04→23:14)
--- NOTE | 2017-03-16 11:13 | Palliative - Consult Note ---
Date of Encounter: 03/16/17 Time of Encounter: 10:15 - Assessment and Plan (1) Anxiety Current Visit: No Status: Chronic Assessment and plan: Patient with history of anxiety. Ativan PRN. None given to date. (2) Goals of care, counseling/discussion Current Visit: Yes Status: Acute Assessment and plan: Patient with altered mental status and lethargy. He is unable to hold conversation at present. Called Michelle - [phone] and cell # [phone]. Conducted 30 minutes phone conversation with patients Michelle. Patient currently resides with Michelle at home. She reports that he wears O2 at 2L all the time at home and that [facility] provides O2. Discussed CT scan findings related to metastatic Ca to liver and spine. verbalized that Dr. Brito had discussed hospice care during the last couple of visits in the office. Michelle reports that patient desires full treatment as long as possible and has reported that he would wants to live. We discussed hospice care versus home care and explained that hospice can facilitate comfort care as they are better trained to handle end-of-life needs. desires to have patient home as she reports that she would never want him in an ECF. Patient is scheduled for MRI of the brain. Case discussed with Isaac Bauer CNP. Oncology to discuss prognosis. Michelle considering a visit this afternoon weather pending. Currently DNRCC - A, DNI. (3) Encephalopathy Current Visit: Yes Status: Acute Assessment and plan: MRI of the brain pending. (4) COPD (chronic obstructive pulmonary disease) Current Visit: Yes Status: Chronic Qualifiers: COPD type: chronic bronchitis Chronic bronchitis type: simple Qualified Code(s): J41.0 - Simple chronic bronchitis (5) Primary squamous cell carcinoma of right lung Current Visit: Yes Status: Chronic Palliative-CN HPI - Data of Consult Patient: new to practice Consult date: 03/16/17 Requesting Physician: Lien Avilez CNP Primary Care Provider: Jose Lorenz, - Consult Narrative Palliative Care/Comfort Measures: Palliative care Reason for consult: Goals of Care History of present illness: Mr. Reyes is a 76 year old male with a 2 week history of AMS and weakness. Patient resides in the home with his Michelle #[phone] and cell # [phone]. The patient has history of stage IV RLL lung cancer with mets. The patient is in bed, attends on and lethargic. He opens his eyes and mumbles responses minimally to questions asked. Patient has a MRI pending of his head. The patient has had cancer progression despite treatment and is currently being followed by Oncologist Dr. Ram. This palliative care consult is for goals of care discussion. CC: Cynthia Martinez MD Past Med Surg Social Fam HX - Past Medical History Source: old records reviewed, obtained from family, nursing notes reviewed Medical history: atrial fibrillation, cancer, COPD, coronary artery disease, DVT , diabetes, hyperlipidemia, hypertension Psychiatric history: anxiety, depression - Past Surgical History Surgical History: carotid endarterectomy, cholecystectomy, coronary bypass (CABG ) - Social History Smoking Status: Current every day smoker Smokeless Tobacco Status: No Alcohol use: none Drug use: none Occupational status: retired Current living situation: Home, With Family () Activity Level: Bed bound, Mostly sedentary Recent Out of Country Travel Within the Last 8 Weeks: No Exposure or Possible Exposure to Illness During Travel: No - Family History Father Living Status: Mother Living Status: Hx Family Cancer: Yes ("Maybe cancer of some kind") Hx Family Endocrine Disorder: Yes (DM) Medications and Allergies Albuterol Sulfate [Albuterol Inhaler] 2 puff IH Q6H PRN 08/07/15 [History] Budesonide/Formoterol 160/4.5 [Symbicort 160/4.5] 2 puff IH BIDR 08/07/15 [ History] Omeprazole [PriLOSEC] 20 mg PO DAILY #90 capsule 09/10/15 [Rx] Ondansetron [Zofran] 8 mg PO Q8HR PRN #90 tablet 09/10/15 [Rx] Prochlorperazine Maleate [Compazine] 10 mg PO Q6HR PRN #90 tablet 09/10/15 [Rx] Cyanocobalamin (B-12) [Vitamin B12] 1,000 mcg PO DAILY #90 tablet 07/04/16 [Rx] LORazepam [Ativan] 0.5 mg PO Q6H PRN #90 tablet 07/04/16 [Rx] Magic Mouthwash 10 ml PO TID PRN 07/18/16 [History] Megestrol Acetate [Megace] 200 mg PO BID 08/05/16 [History] Rivaroxaban [Xarelto] 15 mg PO Q48H 10/07/16 [History] Ipratropium/Albuterol Neb [Duoneb] 3 ml IH Q4HR #100 vial.neb 10/09/16 [Rx] Fluticasone Propionate Nasal [Flonase] 1 spray NS DAILY PRN 10/22/16 [History] Naproxen Sodium [Aleve] 220 mg PO BID PRN 10/22/16 [History] Nitroglycerin [Nitrostat] 0.4 mg SL AD PRN 10/22/16 [History] Metoprolol XL (24 HR) Succ [Toprol Xl] 25 mg PO DAILY #30 11/16/16 [Rx] Diltiazem CD (24hr) [Cardizem CD] 240 mg PO DAILY #30 cap.er.24h 11/28/16 [Rx] Calc/D3/Mag/Zn/Mariam/Dat/Shafer [Calcium 600 mg Plus Vit D Tab] 1 each PO BID # 60 tablet 12/08/16 [Rx] Magnesium Oxide [Magnesium] 400 mg PO BID #60 tablet 12/08/16 [Rx] metroNIDAZOLE [Flagyl] 500 mg PO TID #30 tablet 01/09/17 [Rx] metroNIDAZOLE [Flagyl] 500 mg PO TID #21 tablet 02/18/17 [Rx] Docusate Sodium [Colace] 1 cap PO BID #60 capsule 02/19/17 [Rx] levoFLOXacin [Levaquin] 500 mg PO DAILY #7 tablet 03/03/17 [Rx] predniSONE [Prednisone] 5 mg PO DAILY #10 tablet 03/03/17 [Rx] 3 Allergy/AdvReac Type Severity Reaction Status Date / Time Penicillins Allergy Severe Swelling Verified 03/15/17 16:24 of Lip/Tongue/Throat ROS unobtainable: due to mental status (lethargic) - Constitutional Constitutional ROS PAL: decreased appetite, anorexia, fatigue, lethargy - EENT Eyes: requires corrective lenses - Respiratory Respiratory: dyspnea, dyspnea on exertion - Genitourinary Genitourinary ROS male: urinary incontinence (attends on) - Musculoskeletal Musculoskeletal ROS IM: muscle weakness - Integumentary ROS Integumentary: skin ulcer (decubitus) - Neurological Neurological ROS: focal weakness, weakness - Psychiatric Psychiatric general PM: anxiety Palliative Care-Exam - Constitutional Vitals: Temp Pulse Resp BP Pulse Ox 97.3 F L 107 16 93/61 98 03/16/17 07:04 03/16/17 10:35 03/16/17 10:35 03/16/17 10:35 03/16/17 10:35 General appearance: Present: no acute distress - Head Head Exam: Present: atraumatic, normal inspection - Eye Eye exam: Present: PERRL - ENT ENT exam: Present: mucous membranes moist - Neck Neck exam: Present: tenderness - Respiratory Respiratory exam: Present: decreased breath sounds - Expanded Respiratory Exam Location: decreased breath sounds: Left, Right, Lower - Cardiovascular Cardiovascular exam: Present: RRR, +S1, +S2 - Expanded Cardiovascular Exam Peripheral pulses: 1+: Femoral (L) PM, Femoral (R) PM, Posterior Tibialis (L), Posterior Tibialis (R), 2+: Carotid (L) PM, Carotid (R) PM, Radial (L), Radial ( R), Dorsalis Pedis (L) PM, Dorsalis Pedis (R) PM - GI/Abdominal Exam GI/Abdominal exam: Present: diminished bowel sounds, soft - Rectal Rectal Exam: Present: deferred - External exam: Present: normal external exam - Extremities Exam Extremities exam: Present: tenderness - Neurological Exam Neurological exam: Present: altered - Expanded Neurological Exam Cranial nerves: gag reflex: Normal Coma Scale Eye Opening: To Voice Coma Scale Motor Response: Localizes to Pain Coma Scale Verbal Response: Inappropriate Coma Scale Total: 11 - Psychiatric Psychiatric exam: Present: flat affect - Skin Skin exam: Present: pallor Internal Medicine - CN: Reslt - Labs CBC & Chem 7: 03/16/17 04:45 03/16/17 04:45 Labs: Short CBC 03/16/17 Range/Units 04:45 WBC 13.1 H (4.3-11.1) K/mcL Hgb 9.2 L (12.9-16.9) g/dL Hct 29.3 L (37.5-50.1) % Plt Count 428 H (140-400) K/mcL Neutrophils # 8.1 (1.6-8.9) K/mcL BMP 03/16/17 04:45 Sodium 134 L Potassium 4.1 Chloride 103 Carbon Dioxide 24 BUN 19 Creatinine 0.75 Glucose 77 Calcium 10.3 Liver Function 03/16/17 Range/Units 04:45 Total Bilirubin 0.8 (0.3-1.0) mg/dL AST 16 (13-39) Units/L ALT 5 L (7-52) Units/L Alkaline Phosphatase 437 H (34-104) Units/L Albumin 2.2 L (3.5-5.7) g/dL - ABG Interpretation ABG results: ABG ABG pH 7.46 pH Units (7.32-7.45) H 03/15/17 23:17 ABG pCO2 36 mmHg (35-45) 03/15/17 23:17 ABG pO2 105 mmHg (85-104) H 03/15/17 23:17 ABG O2 Saturation 98 % (95-98) 03/15/17 23:17 PT/INR, D-dimer PT 21.6 Seconds (9.4-12.1) H 03/15/17 17:57 Consult Discharge Plan - Plan Referrals: Jose Lorenz DO [Primary Care Provider] - Palliative Quality Palliative Quality: Screen for Code Status: Yes, Screen for Goals of Care: Yes, Screen for Pain: Yes, If Pain Regimen Started, Initiate Bowel Regimen: Yes, Screen for Nausea/Vomitting: Yes Code Status: DNRCC - A. DNI
--- NOTE | 2017-03-16 13:57 | Electrocardiograph Report ---
[place] [id number] Test Date: 2017-03-15 Pat Name: Harish Reyes Department: 102 Room: 2A14 Gender: M Card Brusher: Ruth : 1940 Requested By: Christian Reed Order Number: [id number] Reading MD: Guadalupe Taveras Measurements Intervals Winfred Rate: 107 P: CO: 0 QRS: 91 QRSD: 130 T: -14 QT: 326 QTc: 389 Interpretive Statements ATRIAL FIBRILLATION WITH RAPID VENTRICULAR RESPONSE RIGHT BUNDLE BRANCH BLOCK [120+ ms QRS DURATION, UPRIGHT V1, 40+ ms S IN I/aVL/V4/V5/V6] Electronically Signed On 03-16-2017 13:54:59 EST by Guadalupe Taveras
[2017-03-17] MEDS: *HR* Metoprolol 5 MG/5 ML VIAL IVP PRN (01:03)
[2017-03-17] MEDS: Ipratropium/Albuterol Neb 3 ML IH SCH ×4 (03:09→22:44)
[2017-03-17 05:51] LABS: Basophils # 0.1 K/mcL (0.0-0.2); Basophils % 0.8 %; Eosinophils # 1.3 K/mcL (0.0-0.6); Eosinophils % 10.5 %; Hematocrit 29.7 % (37.5-50.1); Immature Granulocytes % 0.7 % (0-4); Lymphocytes # 1.4 K/mcL (0.6-4.6); Lymphocytes % 11.3 %; Mean Corpuscular HGB Conc 30.3 g/dL (31.6-35.5); Mean Corpuscular Hemoglobin 28.6 pg (28.0-33.3); Mean Corpuscular Volume 94.3 fL (83.0-100.0); Mean Platelet Volume 9.8 fL (9.4-12.4); Monocytes # 1.8 K/mcL (0.0-1.3); Monocytes % 14.3 %; Neutrophils # 7.7 K/mcL (1.6-8.9); Platelet Count 439 K/mcL (140-400); Red Blood Count 3.15 M/mcL (4.19-5.50); Red Cell Distribution Width 15.9 % (11.5-14.5); Segmented Neutrophils % 62.4 %
[2017-03-17 05:55] LABS: BUN/Creatinine Ratio 23 (6-26); Blood Urea Nitrogen 14 mg/dL (8-23); Calcium 10.3 mg/dL (8.6-10.3); Carbon Dioxide 23 mEq/L (23-29); Chloride 108 mEq/L (98-107); Glucose 63 mg/dL (70-105); Osmolality,Calculated 285 (280-300); Potassium 4.1 mEq/L (3.5-5.1); Sodium 138 mEq/L (136-145); eGFR For African Americans > 60 (> 60); eGFR For Non-African Americans > 60 (> 60)
[2017-03-17] MEDS ORDERED: *HR* Enoxaparin 40 MG/0.4 ML SYRINGE SQ SCH (06:00)
[2017-03-17] MEDS: Metoprolol XL (24 HR) Succ 25 MG TAB.ER.24H PO SCH (06:49)
[2017-03-17] MEDS: Diltiazem CD (24hr) 240 MG CAPSULE PO SCH (06:49)
[2017-03-17] MEDS: 0.9 % Sodium Chloride 1,000 ML IVC SCH ×2 (08:43→18:49)
--- NOTE | 2017-03-17 09:09 | Oncology Inp Progress Note ---
<Lien Avilez L - Last Filed: 03/17/17 16:56> Date of Encounter: 03/17/17 Time of Encounter: 09:09 (1) Primary squamous cell carcinoma of right lung Current Visit: Yes Status: Chronic Assessment and plan: 1. Squamous cell carcinoma right lung, stage IV. Treatment intent palliative. Current treatment: Nivolumab [id number]. Tolerating well with little to no side effects from treatment, however CT evidence of disease progression prior to and during admission. Admitted with AMS with no explanation of current infection. Brain MRI negative for metastasis. Random cortisol normal. TSH normal 03/15/[address] Georges had detailed discussion with patient and patients family yesterday regarding prognosis and most recent CT scans which indicate disease progression. Clinically, his decline in mental/functional capacity correlate with his radiographic progression. Patients having a difficult time accepting situation. At this time, oncology recommends comfort approach with discharge home with hospice, shall his functional/mental status improve, other treatment options may be entertained at this juncture, although this is highly unlikely and further treatment options are unfortunately very limited if not exhausted, at this time. Patient agreeable to discharge home with hospice and not continuing cancer treatment, although he continues to be confused and this will need to be further discussed with his . Appreciate palliative care consultation and discussion. Discussed plan with Dr. Torres as outlined above, further planning and discussions for discharge home with hospice to take place tomorrow. He is DNR/DNI. Oncology: Subj Interval history: Mr. Reyes denies pain and appears to be comfortable. He ate half of his breakfast sandwich this morning. He is more alert than yesterday morning but does not engage in meaningful conversation. No family present at this time. - Constitutional Vitals: Vital Signs Temp Pulse Resp BP Pulse Ox 03/17/17 06:51 98 F 137 21 108/62 98 03/17/17 03:54 97.4 F L 111 16 112/63 99 03/16/17 23:40 98 F 114 16 143/74 100 03/16/17 22:37 101/74 03/16/17 20:31 98.4 F 76 18 131/72 99 03/16/17 20:26 100 03/16/17 15:50 16 100 03/16/17 15:13 98.8 F 120 16 125/74 99 03/16/17 10:35 107 16 93/61 98 03/16/17 09:24 100 Intake and Output 03/16/17 03/17/17 03/17/17 23:59 07:59 15:59 Intake Total 1000 / 1000 240 / 240 1000 / 1000 Output Total 0 / 0 Balance 1000 / 1000 240 / 240 1000 / 1000 Intake: IV Fluids 1000 / 1000 1000 / 1000 0.9 % Sodium Chloride 1,000 ML 1000 / 1000 1000 / 1000 @ 100 mls/hr IVC .Q10H KAYLA Rx#: [id number] Oral 0 / 0 240 / 240 Output: Urine 0 / 0 Other: Meal applesauce Percent of Meal Consumed 100% # Urine Diapers 1 1 Weight 63 kg Patient Weight 03/17/17 23:59 Weight 63 kg General appearance: cooperative, no acute distress, no febrile - Head Head exam: Present: atraumatic - Respiratory Respiratory exam: Present: rhonchi. Absent: respiratory distress - Cardiovascular Cardiovascular exam: Present: RRR, +S1, +S2 - GI/Abdominal GI/Abdominal exam: Present: normal bowel sounds, soft. Absent: tenderness - Extremities Exam Extremities exam: Present: pedal edema - Neurological Exam Neurological exam: Present: alert, strengths equal and symetr throughout. Absent: no focal deficits Additional comments: reoriented to person, place and time - Skin Skin exam: Present: normal color, warm Additional comments: family reports wounds to coccyx, unable to turn patient at this time without assistance, Oncology: Obj Data - Labs CBC & Chem 7: 03/17/17 05:25 03/17/17 05:25 Labs: Laboratory Results - last 24 hr 03/17/17 03/17/17 03/17/17 05:25 05:25 05:25 WBC 12.3 H RBC 3.15 L Hgb 9.0 L Hct 29.7 L MCV 94.3 MCH 28.6 MCHC 30.3 L RDW 15.9 H Plt Count 439 H MPV 9.8 Immature Gran % 0.7 Seg Neutrophils % 62.4 Lymphocytes % 11.3 Monocytes % 14.3 Eosinophils % 10.5 Basophils % 0.8 Neutrophils # 7.7 Lymphocytes # 1.4 Monocytes # 1.8 H Eosinophils # 1.3 H Basophils # 0.1 Sodium 138 Potassium 4.1 Chloride 108 H Carbon Dioxide 23 BUN 14 Creatinine 0.61 L Est GFR ( Amer) > 60 Est GFR (Non-Af Amer) > 60 BUN/Creatinine Ratio 23 Glucose 63 L Calculated Osmolality 285 Calcium 10.3 Random Cortisol 4.4 - Impressions Impressions Brain MRI 03/16/17 20:36 IMPRESSION: 1. No acute findings or evidence of intracranial metastatic disease. 2. Diffuse cerebral volume loss and mild chronic small vessel ischemic changes. D/ / 03/16/2017 13:35:14 Nael Oconnell MD / [email or web address] Interpreting Provider: Nael Oconnell MD - ABG Interpretation ABG results: ABG ABG pH 7.46 pH Units (7.32-7.45) H 03/15/17 23:17 ABG pCO2 36 mmHg (35-45) 03/15/17 23:17 ABG pO2 105 mmHg (85-104) H 03/15/17 23:17 ABG O2 Saturation 98 % (95-98) 03/15/17 23:17 PT/INR, D-dimer PT 21.6 Seconds (9.4-12.1) H 03/15/17 17:57 Consult Discharge Plan - Plan Referrals: Jose Lorenz DO [Primary Care Provider] - (please call upon discharge per patient PCP) <Oliver Georges - Last Filed: 03/17/17 21:52> Date of Encounter: 03/17/17 - Constitutional Vitals: Vital Signs Temp Pulse Resp BP Pulse Ox 03/17/17 20:29 97.5 F L 71 16 120/67 92 03/17/17 15:46 18 98 03/17/17 15:42 97.8 F 80 19 102/63 99 03/17/17 11:04 16 99 03/17/17 10:26 97.7 F 99 20 99/53 99 03/17/17 06:51 98 F 137 21 108/62 98 03/17/17 03:54 97.4 F L 111 16 112/63 99 03/16/17 23:40 98 F 114 16 143/74 100 03/16/17 22:37 101/74 Intake and Output 03/17/17 03/17/17 03/18/17 08:59 16:59 00:59 Intake Total 1240 / 1240 120 / 120 1000 / 1000 Balance 1240 / 1240 120 / 120 1000 / 1000 Intake: IV Fluids 1000 / 1000 1000 / 1000 0.9 % Sodium Chloride 1,000 ML 1000 / 1000 1000 / 1000 @ 100 mls/hr IVC .Q10H KAYLA Rx#: [id number] Oral 240 / 240 120 / 120 Other: Meal applesauce Breakfast Percent of Meal Consumed 100% 20% Stool Size Moderate Large Stool Consistency loose liquid soft soft Stool Color Brown Dave Colored # Urine Diapers 1 1 # Bowel Movement Diapers 1 1 Weight 63 kg Patient Weight 03/18/17 00:59 Weight 63 kg Oncology: Obj Data - Labs CBC & Chem 7: 03/17/17 05:25 03/17/17 05:25 Labs: Laboratory Results - last 24 hr 03/17/17 03/17/17 03/17/17 05:25 05:25 05:25 WBC 12.3 H RBC 3.15 L Hgb 9.0 L Hct 29.7 L MCV 94.3 MCH 28.6 MCHC 30.3 L RDW 15.9 H Plt Count 439 H MPV 9.8 Immature Gran % 0.7 Seg Neutrophils % 62.4 Lymphocytes % 11.3 Monocytes % 14.3 Eosinophils % 10.5 Basophils % 0.8 Neutrophils # 7.7 Lymphocytes # 1.4 Monocytes # 1.8 H Eosinophils # 1.3 H Basophils # 0.1 Sodium 138 Potassium 4.1 Chloride 108 H Carbon Dioxide 23 BUN 14 Creatinine 0.61 L Est GFR ( Amer) > 60 Est GFR (Non-Af Amer) > 60 BUN/Creatinine Ratio 23 Glucose 63 L Calculated Osmolality 285 Calcium 10.3 Random Cortisol 4.4 - ABG Interpretation ABG results: ABG ABG pH 7.46 pH Units (7.32-7.45) H 03/15/17 23:17 ABG pCO2 36 mmHg (35-45) 03/15/17 23:17 ABG pO2 105 mmHg (85-104) H 03/15/17 23:17 ABG O2 Saturation 98 % (95-98) 03/15/17 23:17 PT/INR, D-dimer PT 21.6 Seconds (9.4-12.1) H 03/15/17 17:57 - Attending Attestation I examined this patient and my medical decision-making was reviewed with the Advanced Practice Nurse. I agree with the documented findings, disposition and treatment plan as described except to the extent set forth below. There has been no significant improvement. Remains intermittently confused. Not getting out of bed. PS is 4. No family present. Continue with current plan for d/c home with hospice. Patient agrees to this today, but unclear if has comprehension of our discussion. Appreciate palliative care input.
[2017-03-17] MEDS: Budesonide/Formoterol 160/4.5 MDI IH SCH ×2 (11:04→22:44)
--- NOTE | 2017-03-17 15:28 | Palliative Progress Note ---
Date of Encounter: 03/17/17 Time of Encounter: 11:00 - Assessment and plan (1) COPD (chronic obstructive pulmonary disease) Current Visit: No Status: Chronic Assessment and plan: Stable, plan for hospitalist team Qualifiers: COPD type: emphysema Emphysema type: centrilobular Qualified Code(s): J43.2 - Centrilobular emphysema (2) Counseling regarding advanced care planning and goals of care Current Visit: No Status: Acute Assessment and plan: CODE STATUS is DNR CCA DNI. Patient's overall goal is to return home. He does not wish to go to ECF per his per the note from yesterday. The patient certainly meets hospice criteria if he wishes to have it. His MRI was negative today, oncology is discussing with him his overall prognosis which is extremely poor. We will follow up on this tomorrow. (3) Delirium due to general medical condition Current Visit: Yes Status: Acute Assessment and plan: Probably multifactorial, yesterday he was not speaking however at the time of exam he was speaking. MRI negative as already noted. Oncology is discussing overall prognosis which is quite poor. (4) Primary squamous cell carcinoma of right lung Current Visit: Yes Status: Chronic Assessment and plan: See oncology note for full details, however it is apparent in the draft that oncology is rapidly approaching having much more to offer. Patient is hospice appropriate if he desires. We will follow up this discussion tomorrow - Time Spent With Patient Total time spent is greater than 50% in coordination of care (as documented) at patient's floor/unit and/or counseling patient: - Subjective Interval history: No complaints this morning no pain nausea no vomiting. The patient is speaking. Not fully oriented however. - Constitutional Vitals: Abnormal lab results WBC 12.3 K/mcL (4.3-11.1) H 03/17/17 05:25 RBC 3.15 M/mcL (4.19-5.50) L 03/17/17 05:25 Hgb 9.0 g/dL (12.9-16.9) L 03/17/17 05:25 Hct 29.7 % (37.5-50.1) L 03/17/17 05:25 MCHC 30.3 g/dL (31.6-35.5) L 03/17/17 05:25 RDW 15.9 % (11.5-14.5) H 03/17/17 05:25 Plt Count 439 K/mcL (140-400) H 03/17/17 05:25 Monocytes # 1.8 K/mcL (0.0-1.3) H 03/17/17 05:25 Eosinophils # 1.3 K/mcL (0.0-0.6) H 03/17/17 05:25 PT 21.6 Seconds (9.4-12.1) H 03/15/17 17:57 ABG pH 7.46 pH Units (7.32-7.45) H 03/15/17 23:17 ABG pO2 105 mmHg (85-104) H 03/15/17 23:17 Chloride 108 mEq/L (98-107) H 03/17/17 05:25 Creatinine 0.61 mg/dL (0.70-1.30) L 03/17/17 05:25 Glucose 63 mg/dL (70-105) L 03/17/17 05:25 Direct Bilirubin 0.6 mg/dL (0.0-0.2) H 03/15/17 17:57 ALT 5 Units/L (7-52) L 03/16/17 04:45 Alkaline Phosphatase 437 Units/L (34-104) H 03/16/17 04:45 Serum Total Protein 5.5 g/dL (6.4-8.9) L 03/16/17 04:45 Albumin 2.2 g/dL (3.5-5.7) L 03/16/17 04:45 Albumin/Globulin Ratio 0.7 (1.1-2.2) L 03/16/17 04:45 Urine Color Red (Yellow) A 03/15/17 17:28 Urine Clarity Cloudy (Clear) A 03/15/17 17:28 Urine Protein 30 mg/dL (Neg-Trace) H 03/15/17 17:28 Urine Ketones Trace mg/dL (Negative) H 03/15/17 17:28 Urine Nitrite Positive (Negative) A 03/15/17 17:28 Urine Bilirubin Moderate (Negative) H 03/15/17 17:28 Ur Leukocyte Esterase Small (Negative) H 03/15/17 17:28 Ur Squamous Epith Cells Many per lpf (None-Few) H 03/15/17 17:28 Amorphous Sediment Moderate (Few) H 03/15/17 17:28 General appearance: Present: no acute distress - Head Head exam: Present: atraumatic, normal inspection - Eye Eye exam: Present: normal appearance - Neck Neck exam: Present: normal inspection - Respiratory Respiratory exam: Present: decreased breath sounds - Cardiovascular Cardiovascular exam: Present: RRR, tachycardia - GI/Abdominal GI/Abdominal exam: Present: normal bowel sounds, soft. Absent: tenderness - Extremities Exam Extremities exam: Present: normal inspection. Absent: pedal edema, tenderness - Neurological Exam Neurological exam: Present: alert. Absent: oriented X3 (Oriented 2 only) - Psychiatric Psychiatric exam: Absent: agitated, anxious - Skin Skin exam: Present: dry, warm Palliative Quality Palliative Quality: Screen for Code Status: Yes, Screen for Goals of Care: Yes, Screen for Pain: Yes, If Pain Regimen Started, Initiate Bowel Regimen: Yes, Screen for Nausea/Vomitting: Yes - Labs CBC & Chem 7: 03/17/17 05:25 03/17/17 05:25 Labs: Laboratory Results - last 24 hr 03/17/17 03/17/17 03/17/17 05:25 05:25 05:25 WBC 12.3 H RBC 3.15 L Hgb 9.0 L Hct 29.7 L MCV 94.3 MCH 28.6 MCHC 30.3 L RDW 15.9 H Plt Count 439 H MPV 9.8 Immature Gran % 0.7 Seg Neutrophils % 62.4 Lymphocytes % 11.3 Monocytes % 14.3 Eosinophils % 10.5 Basophils % 0.8 Neutrophils # 7.7 Lymphocytes # 1.4 Monocytes # 1.8 H Eosinophils # 1.3 H Basophils # 0.1 Sodium 138 Potassium 4.1 Chloride 108 H Carbon Dioxide 23 BUN 14 Creatinine 0.61 L Est GFR ( Amer) > 60 Est GFR (Non-Af Amer) > 60 BUN/Creatinine Ratio 23 Glucose 63 L Calculated Osmolality 285 Calcium 10.3 Random Cortisol 4.4 - ABG Interpretation ABG results: ABG ABG pH 7.46 pH Units (7.32-7.45) H 03/15/17 23:17 ABG pCO2 36 mmHg (35-45) 03/15/17 23:17 ABG pO2 105 mmHg (85-104) H 03/15/17 23:17 ABG O2 Saturation 98 % (95-98) 03/15/17 23:17 PT/INR, D-dimer PT 21.6 Seconds (9.4-12.1) H 03/15/17 17:57 Consult Discharge Plan - Plan Referrals: Jose Lorenz DO [Primary Care Provider] - (please call upon discharge per patient PCP)
--- NOTE | 2017-03-17 15:40 | Internal Med Progress Note ---
Date of Encounter: 03/17/17 Time of Encounter: 15:37 - Assessment and plan (1) Encephalopathy Current Visit: Yes Status: Acute Assessment and plan: Likely related to underlying malignancy. However, MRI brain revealed no metastasis. Encephalopathy is currently improving but patient continues to be delirious with waxing and waning mental status. Continues to have generalized weakness and anorexia, ADL dependent at this time. Appreciate oncology and palliative care recommendations. Plan of care discussed with patient's and son at bedside. They do not want to place patient in extended care facility per his wishes, however cannot provide enough care for him at home at this time. is agreeable to home hospice at this time. We will follow with palliative care regarding home hospice eligibility and arrangements. Continue fall precautions, supportive care, IV hydration. CODE STATUS has been changed to DNR comfort care arrest/DNI at this time. (2) Hyponatremia Current Visit: Yes Status: Resolved Assessment and plan: Hypovolemic hyponatremia. Improved with IV hydration. (3) Atrial fibrillation Current Visit: Yes Status: Chronic Assessment and plan: Heart rate noted to be better controlled. Continue calcium channel noemy and beta noemy. Continue telemetry monitoring. On chronic anticoagulation with Xarelto. Qualifiers: Atrial fibrillation type: chronic Qualified Code(s): I48.2 - Chronic atrial fibrillation (4) CAD (coronary artery disease) Current Visit: Yes Status: Chronic Qualifiers: Coronary Disease-Associated Artery/Lesion type: [place] artery [place] vs. transplanted heart: [place] heart Associated angina: without angina Qualified Code(s): I25.10 - Atherosclerotic heart disease of [place] coronary artery without angina pectoris (5) COPD (chronic obstructive pulmonary disease) Current Visit: Yes Status: Chronic Assessment and plan: Does not appear to be in acute exacerbation. Continue supplemental oxygen and when necessary bronchodilators. Qualifiers: COPD type: chronic bronchitis Qualified Code(s): J41.0 - Simple chronic bronchitis (6) Primary squamous cell carcinoma of right lung Current Visit: Yes Status: Chronic Assessment and plan: Follows with oncology as outpatient, currently receiving chemotherapy with Nivolumab, with worsening metastasis. Patient has limited treatment options at this time, which may not be successful. Oncology to follow up at a later time when patient is medically more stable. - Subjective Interval history: Patient noted to be more alert today. Able to answer simple questions, although does not know his medical diagnosis and prognosis completely. Poor appetite, generalized weakness. - Constitutional Vitals: Temp Pulse Resp BP Pulse Ox 97.7 F 99 16 99/53 99 03/17/17 10:26 03/17/17 10:26 03/17/17 11:04 03/17/17 10:26 03/17/17 11:04 General appearance: Present: A&O X 2, answers questions appropriately - Respiratory Respiratory exam: Present: CTAB. Absent: accessory muscle use, rales, rhonchi, wheezes - Cardiovascular Cardiovascular exam: Present: irregular rhythm, +S1, +S2. Absent: diastolic murmur, gallop, rubs, systolic murmur - GI/Abdominal GI/Abdominal exam: Present: normal bowel sounds, soft, no peritoneal signs. Absent: distended, tenderness - Extremities Exam Extremities exam: Present: full ROM, pedal edema, warm, radial pulses palpable and symmetrical. Absent: calf tenderness, cyanotic Internal Medicine: Result - Labs CBC & Chem 7: 03/17/17 05:25 03/17/17 05:25 Labs: Short CBC 03/17/17 Range/Units 05:25 WBC 12.3 H (4.3-11.1) K/mcL Hgb 9.0 L (12.9-16.9) g/dL Hct 29.7 L (37.5-50.1) % Plt Count 439 H (140-400) K/mcL Neutrophils # 7.7 (1.6-8.9) K/mcL BMP 03/17/17 05:25 Sodium 138 Potassium 4.1 Chloride 108 H Carbon Dioxide 23 BUN 14 Creatinine 0.61 L Glucose 63 L Calcium 10.3 - ABG Interpretation ABG results: ABG ABG pH 7.46 pH Units (7.32-7.45) H 03/15/17 23:17 ABG pCO2 36 mmHg (35-45) 03/15/17 23:17 ABG pO2 105 mmHg (85-104) H 03/15/17 23:17 ABG O2 Saturation 98 % (95-98) 03/15/17 23:17 PT/INR, D-dimer PT 21.6 Seconds (9.4-12.1) H 03/15/17 17:57 - VTE Documentation of Mechanical Device: Intermittent pneumatic compression device Consult Discharge Plan - Plan Referrals: Jose Lorenz, [Primary Care Provider] - (please call upon discharge per patient PCP)
[2017-03-17] MEDS ORDERED: *HR* Rivaroxaban 15 MG TABLET PO SCH (17:00)
[2017-03-17] MEDS: *HR* LORazepam 0.5 MG TABLET PO PRN (23:46)
[2017-03-18] MEDS: Ipratropium/Albuterol Neb 3 ML IH SCH ×2 (04:14→10:34)
[2017-03-18] MEDS: 0.9 % Sodium Chloride 1,000 ML IVC SCH (06:03)
--- NOTE | 2017-03-18 08:36 | Discharge Summary ---
Date of Encounter: 03/18/17 Time of Encounter: 08:34 - Discharge Diagnosis (1) Atrial fibrillation Priority: Secondary Status: Chronic Qualifiers: Atrial fibrillation type: chronic Qualified Code(s): I48.2 - Chronic atrial fibrillation (2) Failure to thrive syndrome, adult Priority: Primary Status: Chronic (3) Weakness Priority: Primary Status: Acute (4) Primary squamous cell carcinoma of right lung Priority: Primary Status: Chronic - Discharge Medications Prescriptions: LORazepam Oral Conc [Ativan Oral Conc] 0.5 - 1 mg PO Q6HR PRN #15 mls PRN Reason: Anxiety Ondansetron ODT [Zofran ODT] 4 mg PO Q6HR PRN #12 tab.rapdis PRN Reason: Nausea Bisacodyl [Dulcolax] 10 mg RC DAILY PRN #4 supp.rect PRN Reason: Constipation Haloperidol Oral Conc [Haldol] 1 mg PO Q6H PRN #15 mls PRN Reason: Agitation MORPHINE SUL Oral CONC [Roxanol Oral Conc] 2.5 - 5 mg SL Q4H PRN #15 oral.syg PRN Reason: pain/dyspnea Home Medications: Albuterol Sulfate [Albuterol Inhaler] 2 puff IH Q6H PRN 08/07/15 [History] Budesonide/Formoterol 160/4.5 [Symbicort 160/4.5] 2 puff IH BIDR 08/07/15 [ History] Omeprazole [PriLOSEC] 20 mg PO DAILY #90 capsule 09/10/15 [Rx] Ondansetron [Zofran] 8 mg PO Q8HR PRN #90 tablet 09/10/15 [Rx] Prochlorperazine Maleate [Compazine] 10 mg PO Q6HR PRN #90 tablet 09/10/15 [Rx] Cyanocobalamin (B-12) [Vitamin B12] 1,000 mcg PO DAILY #90 tablet 07/04/16 [Rx] LORazepam [Ativan] 0.5 mg PO Q6H PRN #90 tablet 07/04/16 [Rx] Magic Mouthwash 10 ml PO TID PRN 07/18/16 [History] Megestrol Acetate [Megace] 200 mg PO BID 08/05/16 [History] Rivaroxaban [Xarelto] 15 mg PO Q48H 10/07/16 [History] Ipratropium/Albuterol Neb [Duoneb] 3 ml IH Q4HR #100 vial.neb 10/09/16 [Rx] Fluticasone Propionate Nasal [Flonase] 1 spray NS DAILY PRN 10/22/16 [History] Naproxen Sodium [Aleve] 220 mg PO BID PRN 10/22/16 [History] Nitroglycerin [Nitrostat] 0.4 mg SL AD PRN 10/22/16 [History] Metoprolol XL (24 HR) Succ [Toprol Xl] 25 mg PO DAILY #30 11/16/16 [Rx] Diltiazem CD (24hr) [Cardizem CD] 240 mg PO DAILY #30 cap.er.24h 11/28/16 [Rx] Calc/D3/Mag/Zn/[place]ari[place]/Dat/[place] [Calcium 600 mg Plus Vit D Tab] 1 each PO BID # 60 tablet 12/08/16 [Rx] Magnesium Oxide [Magnesium] 400 mg PO BID #60 tablet 12/08/16 [Rx] metroNIDAZOLE [Flagyl] 500 mg PO TID #21 tablet 02/18/17 [Rx] Docusate Sodium [Colace] 1 cap PO BID #60 capsule 02/19/17 [Rx] predniSONE [Prednisone] 5 mg PO DAILY #10 tablet 03/03/17 [Rx] Bisacodyl [Dulcolax] 10 mg RC DAILY PRN #4 supp.rect 03/18/17 [Rx] Haloperidol Oral Conc [Haldol] 1 mg PO Q6H PRN #15 mls 03/18/17 [Rx] LORazepam Oral Conc [Ativan Oral Conc] 0.5 - 1 mg PO Q6HR PRN #15 mls 03/18/17 [ Rx] MORPHINE SUL Oral CONC [Roxanol Oral Conc] 2.5 - 5 mg SL Q4H PRN #15 oral.syg [Rx] Ondansetron ODT [Zofran ODT] 4 mg PO Q6HR PRN #12 tab.rapdis 03/18/17 [Rx] Allergies/Adverse Reactions: 3 Allergy/AdvReac Type Severity Reaction Status Date / Time Penicillins Allergy Severe Swelling Verified 03/15/17 16:24 of Lip/Tongue/Throat Date of admission: 03/15/17 21:23 Primary care physician: Jose Lorenz, Consults: 03/15/17 22:57 Consult to Nutrition [CONS] Routine Comment: Consulting Provider: NUTRITION Reason for Dietary Consult: MST Score Consult to Clerical Aide [CONS] Routine Reason for SW Consult: krista home o2, may need hh 03/16/17 09:57 Consult to Palliative Care [CONS] Routine Comment: Consulting Provider: Palliative Care [place] Reason for Consult: goals of care, AMS awaiting brain MRI, progressing for some time on nivolumab, may discuss hospice Call Completed: Yes - Patient Status Disposition: Hospice - Home Condition: Good Overall status at discharge: patient is not back to baseline - Discharge Instructions Follow Up With: Jose Lorenz, DO [Primary Care Provider] - (Patient will be going home with hospice. No need for hospital f/u) - Diet and Activity Activity: increase activity as tolerated Diet: regular diet Hospital course: Mr. Reyes is a 76 year old male who presented with AMS and visual hallucinations. He has a hx of metastatic SCC of lung, AFib, COPD, CAD s/p cabg and right CEA. Uses chronic 2 L NC. His lives with him at home and in the past 2 weeks, he developed progressive decline in mental status characterized by intermittent visual hallucinations, absent mindedness, generalized weakness, anorexia, decreased function. There was no infectious cause to his encephalopathy. There was some mild hyponatremia noted. Has encephalopathy most likely related to his underlying malignancy. Brain imaging showed no acute findings. CT abdomen and pelvis while hospitalized which showed disease progression with increase of size of metastatic right hilar lymph node and increased size of number of innumerable hepatic metastasis. There was also bony metastasis to the ribs and vertebral bodies. Session was had with the patient, and patient's family, oncology, and palliative. The decision was made to transition to hospice. The patient is being discharged with home hospice. - Time Spent with Patient Total time spent providing and/or coordinating discharge services: Greater than 30 minutes - Constitutional Vitals: Temp Pulse Resp BP Pulse Ox 98.2 F 109 18 140/65 99 03/18/17 07:18 03/18/17 07:18 03/18/17 07:18 03/18/17 07:18 03/18/17 07:18 General appearance: Present: A&O X 2, answers questions appropriately Exam: GEN: Cachectic. Alert to self only. CVS: Irregular. S1, S2, No m/r/g RESP: Diminished. ABD: Soft, NT, ND, +BS EXT: No edema. 2+ DP. No rashes NEURO: Nonfocal - VTE Documentation of Mechanical Device: Intermittent pneumatic compression device
--- NOTE | 2017-03-18 08:38 | Physician Discharge Referral ---
Home Health/Hosp Referral Info Transfer to: Hospice - Diagnosis (1) Atrial fibrillation Priority: Secondary Status: Chronic (2) Failure to thrive syndrome, adult Priority: Primary Status: Chronic (3) Weakness Priority: Primary Status: Acute (4) Primary squamous cell carcinoma of right lung Priority: Primary Status: Chronic - Respiratory Orders Smoking Cessation: Smoking cessation has been advised. For more information, call the [place] Tobacco Quit Line at 5-469-PBPO-NOW. - Diet/Nutrition Diet/Nutrition Orders: Regular - Activity Activity Orders: Up ad melanie - Services Needed Following services are medically necessary services: Nursing - Transfer Medications Home Medications: Albuterol Sulfate [Albuterol Inhaler] 2 puff IH Q6H PRN 08/07/15 [History] Budesonide/Formoterol 160/4.5 [Symbicort 160/4.5] 2 puff IH BIDR 08/07/15 [ History] Omeprazole [PriLOSEC] 20 mg PO DAILY #90 capsule 09/10/15 [Rx] Ondansetron [Zofran] 8 mg PO Q8HR PRN #90 tablet 09/10/15 [Rx] Prochlorperazine Maleate [Compazine] 10 mg PO Q6HR PRN #90 tablet 09/10/15 [Rx] Cyanocobalamin (B-12) [Vitamin B12] 1,000 mcg PO DAILY #90 tablet 07/04/16 [Rx] LORazepam [Ativan] 0.5 mg PO Q6H PRN #90 tablet 07/04/16 [Rx] Magic Mouthwash 10 ml PO TID PRN 07/18/16 [History] Megestrol Acetate [Megace] 200 mg PO BID 08/05/16 [History] Rivaroxaban [Xarelto] 15 mg PO Q48H 10/07/16 [History] Ipratropium/Albuterol Neb [Duoneb] 3 ml IH Q4HR #100 vial.neb 10/09/16 [Rx] Fluticasone Propionate Nasal [Flonase] 1 spray NS DAILY PRN 10/22/16 [History] Naproxen Sodium [Aleve] 220 mg PO BID PRN 10/22/16 [History] Nitroglycerin [Nitrostat] 0.4 mg SL AD PRN 10/22/16 [History] Metoprolol XL (24 HR) Succ [Toprol Xl] 25 mg PO DAILY #30 11/16/16 [Rx] Diltiazem CD (24hr) [Cardizem CD] 240 mg PO DAILY #30 cap.er.24h 11/28/16 [Rx] Calc/D3/Mag/Zn/[place]ariam/Dat/[place] [Calcium 600 mg Plus Vit D Tab] 1 each PO BID # 60 tablet 12/08/16 [Rx] Magnesium Oxide [Magnesium] 400 mg PO BID #60 tablet 12/08/16 [Rx] metroNIDAZOLE [Flagyl] 500 mg PO TID #21 tablet 02/18/17 [Rx] Docusate Sodium [Colace] 1 cap PO BID #60 capsule 02/19/17 [Rx] predniSONE [Prednisone] 5 mg PO DAILY #10 tablet 03/03/17 [Rx] Allergies/Adverse Reactions: 3 Allergy/AdvReac Type Severity Reaction Status Date / Time Penicillins Allergy Severe Swelling Verified 03/15/17 16:24 of Lip/Tongue/Throat Certification: Further, I certify that my clinical findings support that this patient is homebound (i.e. absences from home require considerable and taxing effort and are for medical reasons or bahai services or infrequently or short duration when for other reasons) because: Homebound Reason: Patient requires assistance of a person or device to safely leave home Attestation: My signature below is to certify that this patient is under my care and that I, or nurse practitioner, or a physician's advertising sales assistant working with me, has a face-to -face encounter with this patient.
--- NOTE | 2017-03-18 08:40 | Palliative Progress Note ---
Date of Encounter: 03/18/17 Time of Encounter: 08:30 - Assessment and plan (1) Cancer associated pain Current Visit: Yes Status: Acute Assessment and plan: Patient c/o pain at this time, but cannot specify location or severity. Most likely being discharged with hospice today - will do prescriptions for comfort meds upon discharge. (2) Anxiety Current Visit: Yes Status: Acute Assessment and plan: Continue with low dose Lorazepam PRN. Will transition to oral liquid on discharge, as he may be unable to tolerate po. (3) Counseling regarding advanced care planning and goals of care Current Visit: No Status: Acute Assessment and plan: Meeting with this am at 1000 to discuss discharge plan. Will f/u after this meeting. - Time Spent With Patient Total time spent is greater than 50% in coordination of care (as documented) at patient's floor/unit and/or counseling patient: 25 - 35 minutes - Subjective Interval history: Patient resting quietly. C/o pain, but cannot specify. Appears very weak. Attempted to feed him breakfast, but he refused. No family present as of yet. Hospitalist in to see pt as well. - Constitutional Vitals: Abnormal lab results WBC 12.3 K/mcL (4.3-11.1) H 03/17/17 05:25 RBC 3.15 M/mcL (4.19-5.50) L 03/17/17 05:25 Hgb 9.0 g/dL (12.9-16.9) L 03/17/17 05:25 Hct 29.7 % (37.5-50.1) L 03/17/17 05:25 MCHC 30.3 g/dL (31.6-35.5) L 03/17/17 05:25 RDW 15.9 % (11.5-14.5) H 03/17/17 05:25 Plt Count 439 K/mcL (140-400) H 03/17/17 05:25 Monocytes # 1.8 K/mcL (0.0-1.3) H 03/17/17 05:25 Eosinophils # 1.3 K/mcL (0.0-0.6) H 03/17/17 05:25 PT 21.6 Seconds (9.4-12.1) H 03/15/17 17:57 ABG pH 7.46 pH Units (7.32-7.45) H 03/15/17 23:17 ABG pO2 105 mmHg (85-104) H 03/15/17 23:17 Chloride 108 mEq/L (98-107) H 03/17/17 05:25 Creatinine 0.61 mg/dL (0.70-1.30) L 03/17/17 05:25 Glucose 63 mg/dL (70-105) L 03/17/17 05:25 Direct Bilirubin 0.6 mg/dL (0.0-0.2) H 03/15/17 17:57 ALT 5 Units/L (7-52) L 03/16/17 04:45 Alkaline Phosphatase 437 Units/L (34-104) H 03/16/17 04:45 Serum Total Protein 5.5 g/dL (6.4-8.9) L 03/16/17 04:45 Albumin 2.2 g/dL (3.5-5.7) L 03/16/17 04:45 Albumin/Globulin Ratio 0.7 (1.1-2.2) L 03/16/17 04:45 Urine Color Red (Yellow) A 03/15/17 17:28 Urine Clarity Cloudy (Clear) A 03/15/17 17:28 Urine Protein 30 mg/dL (Neg-Trace) H 03/15/17 17:28 Urine Ketones Trace mg/dL (Negative) H 03/15/17 17:28 Urine Nitrite Positive (Negative) A 03/15/17 17:28 Urine Bilirubin Moderate (Negative) H 03/15/17 17:28 Ur Leukocyte Esterase Small (Negative) H 03/15/17 17:28 Ur Squamous Epith Cells Many per lpf (None-Few) H 03/15/17 17:28 Amorphous Sediment Moderate (Few) H 03/15/17 17:28 General appearance: Present: no acute distress - Respiratory Respiratory exam: Present: decreased breath sounds, CTAB Additional comments: Shallow inspiratory effort - Cardiovascular Cardiovascular exam: Present: +S1, +S2 - GI/Abdominal GI/Abdominal exam: Present: normal bowel sounds, soft - Extremities Exam Extremities exam: Present: normal capillary refill, normal inspection - Neurological Exam Additional comments: Lethargic - awakens with name called. Not following commands. - Skin Skin exam: Present: dry, pallor, warm Palliative Quality Palliative Quality: Screen for Code Status: Yes, Screen for Goals of Care: Yes, Screen for Pain: Yes, If Pain Regimen Started, Initiate Bowel Regimen: Yes, Screen for Nausea/Vomitting: Yes - Labs CBC & Chem 7: 03/17/17 05:25 03/17/17 05:25 - ABG Interpretation ABG results: ABG ABG pH 7.46 pH Units (7.32-7.45) H 03/15/17 23:17 ABG pCO2 36 mmHg (35-45) 03/15/17 23:17 ABG pO2 105 mmHg (85-104) H 03/15/17 23:17 ABG O2 Saturation 98 % (95-98) 03/15/17 23:17 PT/INR, D-dimer PT 21.6 Seconds (9.4-12.1) H 03/15/17 17:57 Consult Discharge Plan - Plan Referrals: Jose Lorenz, [Primary Care Provider] - (Patient will be going home with hospice. No need for hospital f/u)
--- NOTE | 2017-03-18 09:10 | Oncology Inp Progress Note ---
Date of Encounter: 03/18/17 Time of Encounter: 10:30 (1) Primary squamous cell carcinoma of right lung Status: Chronic Assessment and plan: 1. Squamous cell carcinoma right lung, stage IV. Following multiple discussions with patient and patients family regarding prognosis, clinical decline with no significant signs of improvement during hospitalization and most recent CT scans which indicate disease progression, patient/patients family have decided at this time time go home with [facility]. Code status now DNRCC. Palliative care team and social work assisting with discharge plans home. and son in law present at patients bedside today. Offered my support and encouragement, along with the option to call the Cancer Center for any further questions or concerns they may have once home. They had no further questions for oncology at this time. Oncology: Subj Interval history: Mr. Reyes resting in bed following a breathing treatment. He appears comfortable. He did not respond to verbal stimuli. and son in law at bedside. Patients understandably having difficult time with current situation, they had no further questions for oncology at this time, I attempted to offer my support during this difficult transition - Constitutional Vitals: Vital Signs Temp Pulse Resp BP Pulse Ox 03/18/17 07:18 98.2 F 109 18 140/65 99 03/18/17 04:15 16 94 03/18/17 03:43 97.8 F 111 17 138/67 95 03/18/17 00:00 97.9 F 74 17 125/72 97 03/17/17 22:45 16 98 03/17/17 20:29 97.5 F L 71 16 120/67 92 03/17/17 15:46 18 98 03/17/17 15:42 97.8 F 80 19 102/63 99 03/17/17 11:04 16 99 03/17/17 10:26 97.7 F 99 20 99/53 99 Intake and Output 03/17/17 03/18/17 03/18/17 23:59 07:59 15:59 Intake Total 1000 / 1000 1000 / 1000 Balance 1000 / 1000 1000 / 1000 Intake: IV Fluids 1000 / 1000 1000 / 1000 0.9 % Sodium Chloride 1,000 ML 1000 / 1000 1000 / 1000 @ 100 mls/hr IVC .Q10H KAYLA Rx#: [id number] Other: Stool Size Large Stool Consistency liquid soft Stool Color Dave Colored # Urine Diapers 1 1 # Bowel Movement Diapers 1 1 Weight 63 kg Patient Weight 03/18/17 23:59 Weight 63 kg General appearance: no acute distress, no febrile - Head Head exam: Present: atraumatic - Respiratory Respiratory exam: Present: decreased breath sounds, CTAB - Cardiovascular Cardiovascular exam: Present: irregular rhythm, +S1, +S2, tachycardia - GI/Abdominal GI/Abdominal exam: Present: normal bowel sounds, soft. Absent: guarding, tenderness - Extremities Exam Extremities exam: Absent: pedal edema Additional comments: heel protectors in place - Expanded Lower Extremity Exam Lower leg exam: Absent: swelling - Neurological Exam Neurological exam: Present: altered Additional comments: lethargic, does not arouse to voice presently, does not follow commands - Skin Skin exam: Present: pallor, warm Oncology: Obj Data - Labs CBC & Chem 7: 03/17/17 05:25 03/17/17 05:25 - ABG Interpretation ABG results: ABG ABG pH 7.46 pH Units (7.32-7.45) H 03/15/17 23:17 ABG pCO2 36 mmHg (35-45) 03/15/17 23:17 ABG pO2 105 mmHg (85-104) H 03/15/17 23:17 ABG O2 Saturation 98 % (95-98) 03/15/17 23:17 PT/INR, D-dimer PT 21.6 Seconds (9.4-12.1) H 03/15/17 17:57 Consult Discharge Plan - Plan Referrals: Jose Lorenz, [Primary Care Provider] - (Patient will be going home with hospice. No need for hospital f/u) Prescriptions: LORazepam Oral Conc [Ativan Oral Conc] 0.5 - 1 mg PO Q6HR PRN #15 mls PRN Reason: Anxiety Ondansetron ODT [Zofran ODT] 4 mg PO Q6HR PRN #12 tab.rapdis PRN Reason: Nausea Bisacodyl [Dulcolax] 10 mg RC DAILY PRN #4 supp.rect PRN Reason: Constipation Haloperidol Oral Conc [Haldol] 1 mg PO Q6H PRN #15 mls PRN Reason: Agitation MORPHINE SUL Oral CONC [Roxanol Oral Conc] 2.5 - 5 mg SL Q4H PRN #15 oral.syg PRN Reason: pain/dyspnea
[2017-03-18] MEDS: Budesonide/Formoterol 160/4.5 MDI IH SCH (10:35)
--- NOTE | 2017-03-18 10:49 | Event Note ---
Date of Encounter: 03/18/17 Time of Encounter: 10:40 rubber worker - Wesley Edwards and I met with pt and son - n - law. Discussed goals of care and discharge plan. They desire to take him home with hospice care, and she selected [facility] - referral called to [facility]. They will order equipment (bed, air mattress, and bsc) and will enroll pt at home once delivered. They are also setting up ambulance transport. Discussed code status at length as well, and pt transitioned to DNRCC. State form completed and copies provided to , as well as placed in medical record.
[2017-03-18] MEDS: Diltiazem CD (24hr) 240 MG CAPSULE PO SCH (10:58)
[2017-03-18] MEDS: Metoprolol XL (24 HR) Succ 25 MG TAB.ER.24H PO SCH (10:58)
[2017-03-18 11:21] VITALS: BP 112/59
[2017-03-18] MEDS: *HR* Metoprolol 5 MG/5 ML VIAL IVP PRN (13:18)
== END 2017-03-18 14:39 | disposition hospice, home (50) | DRG 180 ==
LOC: EMEROO 16:17 → 2ANU 21:23
PROVIDERS: ADMIT Internal Medicine Hematology & Oncology; ATTEND Internal Medicine